=== PATIENT | female | born 1935 | race Caucasian/White ===

== ENCOUNTER 2016-08-30 03:22 | Inpatient (IN) | payer OTHER, MEDICARE ==
[~2016-08-30] VITALS: Ht 160 cm; Wt 103.6 kg
[~2016-08-30 03:22] MED LIST: ADVAIR DISKUS 21 DSK INH; ALBUTEROL0.63 MG/1 INH/SOL; ALLOPURINOL300 MG PO; AMLODIPINE BESYL5 M1 PO; AMOXICILLIN500 MG PO; ASPIR 8181 MG PO; AUGMENTIN 500-1 EACH PO; AUGMENTIN 875 M1 TAB PO; AZITHROMYCIN250 M1 PO; AZITHROMYCIN500 M3 PO; BENICAR20 MG PO; CLOPIDOGREL75 MG PO; DULERA 200 MCG/13 GM INH; DULERA1 AR1 INH; FUROSEMIDE20 M1 PO; FUROSEMIDE40 M1 PO; FUROSEMIDE40 MG PO; HUMALOG KW100 UNIT/1 SC; HYDRALAZINE HCL10 M1 PO; IMODIUM2 MG PO; ISOSORBIDE MONO60 MG PO; LANTUS SOL100 UNIT/1 SC; LANTUS SOLOS100 U/ML SC; LANTUS100 U/ML SC; LEVEMIR100 UNIT/1 SC; LIPITOR40 M1 PO; LOPRESSOR 25MG25 MG PO; Lomotil PO; NOVOLOG 10300 UNITS/ SC; NOVOLOG100 UNIT/2 SC; PHENERGAN12.5 M1 PO; PREDNISONE10 M2 PO; PREDNISONE5 M1 PO; QUESTRAN4 GM/9 GM PO; RANITIDINE150 MG PO; SODIUM BICARBO648 MG PO; SPIRIVA 18 MCG18 MCG INH; SPIRIVA18 MCG INH; SYMBICORT 16010.2 GM INH; TRAMADOL50 MG PO; VENTOLIN H0.09 MG/Ac INH; VICTOZA6 MG/ML SC; VITAMIN D50000 IU PO; ZOFRAN 4 MG TABL4 MG PO
--- NOTE | 2016-08-30 03:25 | NUR ---
PT BIBA FOR INCREASING SOB. PT HAS HX OF CHF. PER EMS PT WAS HAVING INCREASING TROUBLE BREATHING, PT TOOK 4 OR 5 OF HER OWN ALBUTEROL TREATMENTS AT HOME AND WHEN EMS ARRIVED PT WAS ON OWN BIPAP MACHINE. PT RECIEVED 2 NITRO'S IN THE FIELD BY EMS. PT ARRIVED ON CPAP @ 10L RESPIRATORY AT BEDSIDE.
--- NOTE | 2016-08-30 03:30 | NUR ---
COURTNEY HOLMAN AT BEDSIDE FOR PT EVAL
--- NOTE | 2016-08-30 03:45 | NUR ---
PT MEDICATED WITH 125MG SOLUMEDROL PER EMAR
[2016-08-30 03:51] LABS: ABSOLUTE BASOPHIL COUNT 0 /CUMM (0.0-0.2); ABSOLUTE EOSINOPHIL COUNT 0 /CUMM (0.0-0.7); ABSOLUTE GRANULOCYTE CT 18.2 /CUMM (1.4-6.5); ABSOLUTE LYMPH COUNT 0.9 /CUMM (1.2-3.4); ABSOLUTE MONOCYTE COUNT 0.4 /CUMM (0.10-0.60); BASOPHIL % 0.1 % (0.0-2.0); EOSINOPHIL % 0.1 % (0-5); GRANULOCYTE % 93.6 % (42.2-75.2); MEAN CORPUSCULAR HGB 28.2 PG (27.0-31.0); MEAN CORPUSCULAR HGB CONC 31.9 G/DL (33.0-37.0); MEAN CORPUSCULAR VOLUME 88.3 FL (81.0-99.0); MEAN PLATELET VOLUME 8.5 FL (7.4-10.4); PLATELET COUNT 317 /CUMM (130-400); RED BLOOD CELL CT 3.51 /CUMM (4.20-5.40); WHITE BLOOD CELL COUNT 19.4 /CUMM (4.8-10.8)
--- NOTE | 2016-08-30 04:16 | RADIOLOGY REPORT ---
EXAMINATION: XR PORTABLE CHEST CLINICAL INFORMATION: COPD. Increasing work of breathing. COMPARISON: Multiple prior chest x-rays. Most recent Chest x-ray 05/04/[address] chest 04/10/2017 TECHNIQUE: Portable AP portable view of the chest was obtained. 3:53 PM FINDINGS: There is mild pulmonary vascular congestion. Small moderate volume bilateral pleural effusions. Bibasilar infiltrate or atelectasis may be present. IMPRESSION: Mild pulmonary vascular congestion with bilateral pleural effusions. Density at both lung bases may be also due to superimposed bibasilar infiltrate and/or atelectasis
--- NOTE | 2016-08-30 04:59 | NUR ---
CRITICAL TEST RESULTS [id number] PLUCIENIK,RICARDO 81 F TESTS AND RESULTS: GLUCOSE 508, POTASSIUM 6.5, TROPONIN 0.67 Results received and read back by: KAIDEN DODD Results received date and time: 08/30/16 7306 The following provider was notified of the results, and read the results back: DR. VALDEZ Notified date and time: 08/30/16 at [id number]
--- NOTE | 2016-08-30 04:59 | NUR ---
CRITICAL TEST RESULTS [id number] PLUCIENIK,RICARDO 81 F TESTS AND RESULTS: GLUCOSE 508, POTASSIUM 6.5, TROPONIN 6.5 Results received and read back by: KAIDEN DODD Results received date and time: 08/30/16 8101 The following provider was notified of the results, and read the results back: Notified date and time: 08/30/16 at 2227
--- NOTE | 2016-08-30 05:39 | ED DYSPNEA/ASTHMA COMPLAINT ---
History of Present Illness General Chief Complaint: Dyspnea (COPD, CHF, Other) Stated Complaint: CHF AND COPD EXACERBATION Source: patient, family, old records, EMS Exam Limitations: clinical condition Vital Signs & Intake/Output Vital Signs & Intake/Output Vital Signs Date Time Temp Pulse Resp B/P Pulse O2 O2 Flow FiO2 Ox Delivery Rate 08/30 0640 98 96 08/30 0523 97.7 90 22 177/76 95 BIPAP 30% 08/30 0344 94 97 08/30 0330 96 BIPAP 30% 08/30 0327 93 CPAP 10L 08/30 0325 96.2 99 18 137/72 93 CPAP 10L Allergies Coded Allergies: adhesive (RASH 04/10/16) cefuroxime (From CEFTIN) (HIVES 04/10/16) clams (UNKNOWN 04/10/16) latex (RASH 04/10/16) Iodinated Contrast Media - Oral and (IODINATED CONTRAST MEDIA - IV DYE) (PT HAS ONE KIDNEY 04/10/16) moxifloxacin (HEART PALP AND HIGH BLOOD SUGARS 04/10/16) Reconcile Medications Albuterol Sulfate 0.63 MG/3 ML VIAL.NEB 1 Vial INH/BRYANNA 4 TIMES/DAY PRN COPD ( Reported) Allopurinol 300 MG TAB 0.5 TAB PO DAILY GOUT (Reported) Amlodipine Besylate 5 MG TABLET 5 MG PO BID high blood pressure Aspirin (Ecotrin) 81 MG TABLET.DR 1 TAB PO DAILY HEART HEALTH (Reported) Atorvastatin Calcium (Lipitor) 40 MG TABLET 1 TAB PO QPM CHOLESTEROL ( Reported) Azithromycin 250 MG TABLET 1 TAB PO Friday COPD prophylaxis Please follow up with your demolition expert in 1 month for recommendations on continuing this medication Budesonide/Formoterol Fumarate (Symbicort 160-4.5 Mcg Inhaler) 10.2 GM HFA.AER.AD 2 PUF INH BID BREATHING PROBLEMS (Reported) CLOPIDOGREL BISULFATE (Clopidogrel) 75 MG TABLET 1 TAB PO DAILY HAS 2 STENTS (Reported) Furosemide 20 MG TABLET 1 TAB PO DAILY CHF Hydralazine HCl 10 MG TABLET 1 TAB PO BID HTN (Reported) Insulin Aspart (Novolog) 100 UNIT/ML VIAL 1 UNITS SC TIDAC/HS Diabetes BEFORE MEALS Blood Insulin Sugar Units <80 0 INITIATE HYPOGLYCEMIA 81-100 9 101-120 9 121-150 9 151-200 11 201-250 13 251-300 15 301-350 17 351-400 19 >400 21 AND Call Doctor AT BEDTIME Blood Insulin Sugar Units <80 0 80-100 0 101-120 0 121-150 0 151-200 0 201-250 0 251-300 3 301-350 5 351-400 6 >400 8 AND Call Doctor Insulin Detemir (Levemir) 100 UNIT/ML VIAL 36 UNITS SC BID Diabetes Please call Dr Minor in 2 days with fasting sugar levels for recommendations on adjusting levemir Isosorbide Mononitrate [address] 1 TAB PO DAILY ANGINA (Reported) Metoprolol Tartrate (Lopressor) 25 MG TABLET 1 TAB PO BID HEART (Reported) Prednisone 10 MG TABLET 1 TAB PO AD COPD exacerbation On Take 05/12-05/14 40 MG 05/15-05/17 30 MG 05/18-05/20 20 MG 05/21-05/23 10 MG Prednisone 5 MG TABLET 1 TAB PO DAILY COPD exacerbation On Take This will be your maintenance taper until follow up with your demolition expert From 05/24 5mg daily RANITIDINE HCL (Ranitidine HCl) 150 MG TABLET 1 TAB PO BID ACID REFLUX ( Reported) Tiotropium [place] (Spiriva) 18 MCG CAP.W.DEV 1 CAP INH DAILY COPD (Reported) Core Measure Meds Pre-Hospital aspirin Triage Note: PT BIBA FOR INCREASING SOB. PT HAS HX OF CHF. PER EMS PT WAS HAVING INCREASING TROUBLE BREATHING, PT TOOK 4 OR 5 OF HER OWN ALBUTEROL TREATMENTS AT HOME AND WHEN EMS ARRIVED PT WAS ON OWN BIPAP MACHINE. PT RECIEVED 2 NITRO'S IN THE FIELD BY EMS. PT ARRIVED ON CPAP @ 10L RESPIRATORY AT BEDSIDE. Triage Nurses Notes Reviewed? yes Onset: Just prior to arrival Duration: hour(s):, constant, continues in ED Timing: recent history Severity: severe Activities at Onset: rest Prior Episodes/Possible Cause: frequent episodes Modifying Factors: Worsens With: movement. Associated Symptoms: anxiety, cough, edema, weakness LMP (ages 10-50): post menopausal : No Patient currently breastfeeds: No HPI: Several hours prior to admission so reports patient had mild shortness of breath but did not look like she was suffering. Prior to admission she called her son to tell her she was having difficulty could not speak in full sentences. There is no report of chest pain fever chills nausea vomiting diarrhea abdominal pain dysuria rash bleeding headache. Past History Travel History Traveled to [place] past 21 day No Medical History Any Pertinent Medical History? 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 No Review of Systems Review of Systems Constitutional: Reports: see HPI, weakness. EENTM: Reports: no symptoms. Respiratory: Reports: see HPI, cough, short of breath. Cardiovascular: Reports: no symptoms. GI: Reports: no symptoms. Genitourinary: Reports: no symptoms. Musculoskeletal: Reports: no symptoms. Skin: Reports: no symptoms. Neurological/Psychological: Reports: no symptoms. Hematologic/Endocrine: Reports: no symptoms. Immunologic/Allergic: Reports: no symptoms. All Other Systems: Reviewed and Negative Physical Exam Physical Exam General Appearance: well developed/nourished, alert, awake, anxious, severe distress, obese Head: atraumatic, normal appearance Eyes: Bilateral: normal appearance, PERRL, EOMI. Ears, Nose, Throat: normal pharynx, normal ENT inspection Neck: normal inspection, supple, full range of motion, no midline tenderness Respiratory: chest non-tender, decreased breath sounds, accessory muscle use, rhonchi, respiratory distress Cardiovascular: regular rate/rhythm, normal peripheral pulses, norml femoral pulses equa Peripheral Pulses: 4+ carotid (R), 4+ carotid (L) Gastrointestinal: normal bowel sounds, soft, non-tender, no organomegaly Extremities: normal inspection, normal capillary refill, normal range of motion, pedal edema Neurologic/Psych: no motor/sensory deficits, awake, alert, restrictive preparation operator II-XII nml as tested Skin: intact, pallor Lymphatic: no anterior cervical jose Core Measures ACS in differential dx? Yes ASA ordered for poss ACS? Yes-ordered Severe Sepsis Present: No Septic Shock Present: No Progress Differential Diagnosis: AMI, CHF, COPD, pneumonia Plan of Care: Orders Procedure Date/time Status Regular Diet 08/31 B Active Consistent Carbohydrate 2 08/30 B Active LACTIC ACID 08/30 0634 Active Gutierrez, Insertion/Removal/Asses 08/30 0616 Active CULTURE,URINE 08/30 0616 Active TRC EVALUATION (GEN) 08/30 06 Active OXYGEN SETUP (GEN) 08/30 0605 Active Pathway - chart 08/30 0605 Active House Staff 08/30 0605 Active Patient Data 08/30 0605 Active Code Status 08/30 0605 Active Patient Data 08/30 0537 Active EKG 08/30 0516 Active Intake & Output 08/30 0426 Active BIPAP 08/30 0343 Complete Code Status 08/30 0338 Complete Saline Lock 08/30 0335 Active Admit to inpatient 08/30 0335 Active Vital Signs 08/30 0335 Active Activity/Ambulation 08/30 0335 Active ARTERIAL BLOOD GAS (GEN) 08/30 0334 Complete BLOOD CULTURE 08/30 0334 Active TROPONIN LEVEL 08/30 0334 Complete LACTIC ACID 08/30 0334 Complete COMPREHENSIVE METABOLIC PANEL 08/30 0334 Complete CBC WITHOUT DIFFERENTIAL 08/30 0334 Complete B-TYPE NATRIURETIC PEP (BNP) 08/30 0334 Complete VTE Mechanical Prophylaxis 08/30 UNK Active Telemetry/Outreach Manager 08/30 UNK Active Current Medications Sig/Michele Start time Last Medication Dose Stop Time Status Admin Heparin Sodium 5,000 UNIT Q8 08/30 0600 AC (Porcine) Aspirin 300 MG ONCE ONE 08/30 0530 CAN (Aspirin) 08/30 0531 Laboratory Tests 08/30/16 0415: pH 7.33 L, pCO2 46 H, pO2 76 L, HCO3 23, ABG O2 Sat (Measured) 94.0 L, P-50 (Temp Corrected) N, Carboxyhemoglobin 0.3 L, O2 Concentration % .30, Respiration Rate 24, O2 Delivery Method BIPAP, Vent Mode ST, Expiratory Pressure 6, Inspiratory Pressure 20, Phlebotomy Draw Site RIGHT RADIAL 08/30/16 0330: Anion Gap 13, Estimated GFR 33 L, BUN/Creatinine Ratio 28.7 H, Glucose 508 *H, Lactic Acid 1.5, Calcium 8.5, Total Bilirubin 0.6, AST 29, ALT 28, Alkaline Phosphatase 104, Troponin I 0.67 *H, [id number] Pept 3190 H, Total Protein 6.7, Albumin 3.7, Globulin 3.0, Albumin/Globulin Ratio 1.2, CBC w Diff MAN DIFF ORDERED, RBC 3.51 L, MCV 88.3, MCH 28.2, RDW 17.0 H, MPV 8.5, Gran % 93.6 H, Lymphocytes % 4.4 L, Monocytes % 1.8, Eosinophils % 0.1, Basophils % 0.1, Absolute Granulocytes 18.2 H, Segmented Neutrophils 88 H, Band Neutrophils 3, Absolute Lymphocytes 0.9 L, Lymphocytes 5 L, Monocytes 1 L, Absolute Monocytes 0.4, Eosinophils 1, Absolute Eosinophils 0, Absolute Basophils 0, Metamyelocytes 2 H, Platelet Estimate ADEQUATE, Normocytic RBCs VERIFIED, Normochromic RBCs VERIFIED, PUBS MCHC 31.9 L, Fld Total RBCs Counted 100 Microbiology 08/30 0616 URINE ROUT: Urine Culture - ORD 08/30 034 BLOOD: Blood Culture - RECD 08/30 033 BLOOD: Blood Culture - RECD Diagnostic Imaging: Viewed by Me: Radiology Read. Discussed w/RAD: Radiology Read. CXR Impression: Mild pulmonary vascular congestion with bilateral pleural effusions. Density at both lung bases may be also due to superimposed bibasilar infiltrate and/or atelectasis Initial ED EKG: normal axis, normal intervals, normal p-waves, normal QRS complex, normal sinus rhythm, nonspecific ST T wave chg Prior EKG: changed Rhythm Strip: normal sinus rhythm Departure Departure Time of Disposition: 399 Disposition: STILL A PATIENT Condition: Stable Clinical Impression Primary Impression: Pneumonia Qualifiers: Pneumonia type: due to unspecified organism Laterality: bilateral Lung location: lower lobe of lung Qualified Code: J18.9 - Pneumonia, unspecified organism Secondary Impressions: Acute hyperkalemia CHF (congestive heart failure) Qualifiers: Congestive heart failure type: diastolic Congestive heart failure chronicity: acute on chronic Qualified Code: I50.33 - Acute on chronic diastolic (congestive) heart failure COPD with exacerbation Elevated troponin Referrals: DAVID ALTAMIRANO MD (PCP/Family) Departure Forms: Customer Survey General Discharge Information Admission Note Spoke With: EVELIA HOLMAN,SUCHITH Documentation of Exam: Documentation of any treatments & extenuating circumstances including Concerns Regarding Discharge (functional status, medication knowledge or non-compliance, living conditions, etc.) that warrant an admission rather than observation: Supplemental oxygen Cardiac monitoring serial lab exam serial EKG IV antibiotics IV diuresis cardiology evaluation pulmonary evaluation medication adjustment continuing care discharge planning Critical Care Note Critical Care Note Critical Care Time: 30-74 min (40)
--- NOTE | 2016-08-30 05:57 | NUR ---
PT MEDICATED WITH 40MG LASIX, 15 UNITS OF NOVOLIN R, 1G FORTAZ, 100MG VIBRAMYCIN, 325MG ASPIRIN, AND 1G OF CALCIUM GLUCONATE SECOND IV EST #22 IN LEFT HAND BY SERG RICHARDSON KAPLAN CATHETER PLACED BY SERG RICHARDSON
--- NOTE | 2016-08-30 06:19 | NUR ---
ASSUMED CARE OF THIS PATIENT, REPORT RECEIVED FROM SERG TURNER WITH PATIENT AT PRESENT
[2016-08-30] MEDS ORDERED: PROAIR HFA8.5 GM INH (06:51)
[2016-08-30] MEDS ORDERED: PULMICORT0.5 MG/21 INH/SOL (06:51)
[2016-08-30] MEDS ORDERED: LEVEMIR100 UNIT/1 SC ×2 (06:52→07:12)
[2016-08-30] MEDS ORDERED: PREDNISONE10 M2 PO (06:52)
--- NOTE | 2016-08-30 07:12 | NUR ---
PT ASSISTED ON/OFF BEDPAN FOR POSSIBLE BM, NO BM AT THIS TIME. PT REQUESTING NEB TREATMENT. RESP PAGED FOR SAME.
--- NOTE | 2016-08-30 07:24 | NUR ---
RESPIRATORY THERAPIST AT BEDSIDE FOR NEB TREATMENT FLU SWAB OBTAINED/SENT TO LAB
--- NOTE | 2016-08-30 07:29 | History & Physical ---
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 She was BIBA for worsening of shortness of breath. According to son she was at her baseline yesterday evening when he saw her. Patient reported that after going to bed she could not sleep and her breathing got worse. Around 2 AM last night she could not breathe and called her son. Patient is also complaining of chest pain that is radiating to her back. She is also complaining of nausea and feeling chills. Also reports wheezing and denies any palpitations, chest congestion , vomiting, dizziness lightheadedness, abdominal pain, diarrhea, any change in urinary habits. She lives alone and does not have any home health services. She denies smoking, drinking alcohol or use of recreational drugs. Allergies/Medications Allergies: Coded Allergies: adhesive (RASH 04/10/16) cefuroxime (From CEFTIN) (HIVES 04/10/16) clams (UNKNOWN 04/10/16) latex (RASH 04/10/16) Iodinated Contrast Media - Oral and (IODINATED CONTRAST MEDIA - IV DYE) (PT HAS ONE KIDNEY 04/10/16) moxifloxacin (HEART PALP AND HIGH BLOOD SUGARS 04/10/16) Home Med list Albuterol Sulfate (Proair Hfa) 90 MCG HFA.AER.AD 2 PUF INH Q4-6 PRN PRN COPD (Reported) Albuterol Sulfate 0.63 MG/3 ML VIAL.NEB 1 Vial INH/BRYANNA 4 TIMES/DAY PRN COPD ( Reported) Allopurinol 300 MG TAB 0.5 TAB PO DAILY GOUT (Reported) Amlodipine Besylate 5 MG TABLET 5 MG PO BID high blood pressure Aspirin (Ecotrin) 81 MG TABLET.DR 1 TAB PO DAILY HEART HEALTH (Reported) Atorvastatin Calcium (Lipitor) 40 MG TABLET 1 TAB PO QPM CHOLESTEROL ( Reported) Azithromycin 250 MG TABLET 1 TAB PO Friday COPD prophylaxis Please follow up with your client administrator in 1 month for recommendations on continuing this medication Budesonide (Pulmicort) 0.5 MG/2 ML AMPUL.NEB 1 Vial INH/BRYANNA BID copd ( Reported) CLOPIDOGREL BISULFATE (Clopidogrel) 75 MG TABLET 1 TAB PO DAILY HAS 2 STENTS (Reported) Furosemide 20 MG TABLET 1 TAB PO DAILY CHF Hydralazine HCl 10 MG TABLET 1 TAB PO BID HTN (Reported) Insulin Aspart (Novolog) 100 UNIT/ML VIAL 1 UNITS SC TIDAC/HS Diabetes BEFORE MEALS Blood Insulin Sugar Units <80 0 INITIATE HYPOGLYCEMIA 81-100 9 101-120 9 121-150 9 151-200 11 201-250 13 251-300 15 301-350 17 351-400 19 >400 21 AND Call Doctor AT BEDTIME Blood Insulin Sugar Units <80 0 80-100 0 101-120 0 121-150 0 151-200 0 201-250 0 251-300 3 301-350 5 351-400 6 >400 8 AND Call Doctor Insulin Detemir (Levemir) 100 UNIT/ML VIAL 36 UNITS SC BID Diabetes 40 UNITS IN AM AND 35 UNITS IN PM Isosorbide Mononitrate [address] 1 TAB PO DAILY ANGINA (Reported) Metoprolol Tartrate (Lopressor) 25 MG TABLET 1 TAB PO BID HEART (Reported) Prednisone 10 MG TABLET 1 TAB PO EOD COPD exacerbation Take every other day RANITIDINE HCL (Ranitidine HCl) 150 MG TABLET 1 TAB PO BID ACID REFLUX ( Reported) Tiotropium [place] (Spiriva) 18 MCG CAP.W.DEV 1 CAP INH DAILY COPD (Reported) Compliance With Home Meds: POOR Past History Travel History Traveled to [place] past 21 day No Medical History Neurological: NONE EENT: NONE Cardiovascular: diastolic CHF (stage I, EF of 55%), hypertension, hyperlipidemia , myocardial infarction, PVD, CAD s/p OR and 2 stents Respiratory: COPD, emphysema, OLLIE Gastrointestinal: GERD, hiatal hernia, umbilical hernia, colon polyps Hepatic: NONE Renal: nephrectomy (RIGHT), ONLY HAS LEFT KIDNEY CHRONIC KIDNEY DISEASE STAGE II Musculoskeletal: chronic back pain, gout Psychiatric: NONE Endocrine: diabetes, obesity Blood Disorders: NONE Cancer(s): hx renal ca s/p R nephrectomy 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 self Services at Home: None Primary Language: Yakut Living Will? no Functional Ability ADLs Independent: dressing, eating, toileting, bathing. Ambulation: walker IADLs Independent: shopping, food prep, telephone, transportation, medication admin. Needs Assist: housework, finances. Review of Systems Review of Systems Constitutional: Reports: see HPI. Exam & Diagnostic Data Last 24 Hrs of Vital Signs/I&O Vital Signs Date Time Temp Pulse Resp B/P Pulse O2 O2 Flow FiO2 Ox Delivery Rate 08/30 0733 93 27 154/60 100 Aerosol Mask 08/30 0728 95 BIPAP 30% 08/30 0703 97.0 101 32 184/94 94 CPAP 08/30 0640 98 96 08/30 0523 97.7 90 22 177/76 95 BIPAP 30% 08/30 0344 94 97 08/30 0330 96 BIPAP 30% 08/30 0327 93 CPAP 10L 08/30 0325 96.2 99 18 137/72 93 CPAP 10L Intake & Output 08/30 0800 08/30 0000 08/29 1600 Intake Total Output Total Balance Patient 245 lb Weight Physical Exam General Appearance Alert, Oriented X3, Cooperative, Mild Distress, OBESE Skin No Rashes Cardiovascular Regular Rate, No Murmurs Lungs bilateral basal crackles. No wheezing Abdomen Normal Bowel Sounds, No Tenderness, obese Neurological Strength at 5/5 X4 Ext, Sensation Intact, Cranial Nerves 3-12 NL Extremities trace edema both feet Last 24 Hrs of Labs/Romain: Laboratory Tests 08/30/16 0634: Lactic Acid Cancelled 08/30/16 0415: pH 7.33 L, pCO2 46 H, pO2 76 L, HCO3 23, ABG O2 Sat (Measured) 94.0 L, P-50 (Temp Corrected) N, Carboxyhemoglobin 0.3 L, O2 Concentration % .30, Respiration Rate 24, O2 Delivery Method BIPAP, Vent Mode ST, Expiratory Pressure 6, Inspiratory Pressure 20, Phlebotomy Draw Site RIGHT RADIAL 08/30/16 033: Anion Gap 13, Estimated GFR 33 L, BUN/Creatinine Ratio 28.7 H, Glucose 508 *H, Lactic Acid 1.5, Calcium 8.5, Total Bilirubin 0.6, AST 29, ALT 28, Alkaline Phosphatase 104, Troponin I 0.67 *H, Ugc-L-Rrajipowodb Pept 3190 H, Total Protein 6.7, Albumin 3.7, Globulin 3.0, Albumin/Globulin Ratio 1.2, CBC w Diff MAN DIFF ORDERED, RBC 3.51 L, MCV 88.3, MCH 28.2, RDW 17.0 H, MPV 8.5, Gran % 93.6 H, Lymphocytes % 4.4 L, Monocytes % 1.8, Eosinophils % 0.1, Basophils % 0.1, Absolute Granulocytes 18.2 H, Segmented Neutrophils 88 H, Band Neutrophils 3, Absolute Lymphocytes 0.9 L, Lymphocytes 5 L, Monocytes 1 L, Absolute Monocytes 0.4, Eosinophils 1, Absolute Eosinophils 0, Absolute Basophils 0, Metamyelocytes 2 H, Platelet Estimate ADEQUATE, Normocytic RBCs VERIFIED, Normochromic RBCs VERIFIED, PUBS MCHC 31.9 L, Fld Total RBCs Counted 100 Microbiology 08/30 0723 NASOPHARYN: Influenza Virus A & B Rapid Smear - COMP 08/30 0616 URINE ROUT: Urine Culture - ORD 08/30 0340 BLOOD: Blood Culture - RECD 08/30 0330 BLOOD: Blood Culture - RECD Diagnostic Data EKG Results Normal sinus rhythm with no acute ST-T wave changes. Old T wave inversions in the lateral inferior and chest leads CXR Results Mild pulmonary vascular congestion with bilateral pleural effusions. Density at both lung bases may be also due to superimposed bibasilar infiltrate and/or atelectasis Assessment/Plan Assessment: She is 81-year-old morbidly obese woman with past medical history of coronary artery disease status post stent placement, hypertension, hyperlipidemia, poorly controlled diabetes, end-stage COPD on 2 L of home oxygen only during exertion, diastolic heart failure with small bilateral pleural effusions, CKD, history of renal cell carcinoma status post right nephrectomy, obstructive sleep apnea on BiPAP at home, chronic anemia, history of hematuria status post negative cystoscopy and gout. Patient received 2 nitros in the field by EMS. On arrival patient was on CPAP at 10 L. Later on he was started on BiPAP by respiratory. In ER she was given nebulization treatment, Solu-Medrol 125 mg IV 1, ceftaz 1 g IV 1 and doxycycline 100 mg IV 1. In ER she was also given IV Lasix 40 mg 1, aspirin 325 by mouth 1, calcium gluconate and insulin. Problem list 1. Worsening of shortness of breath most likely due to diastolic CHF exacerbation. Other possibilities COPD exacerbation and possibility of pneumonia. Patient is feeling chills. WBC 19.4, proBNP 3190, chest x-ray findings are suggestive of pulmonary vascular congestion and bilateral basal infiltrates or atelectasis. 2. Poorly controlled diabetes mellitus 3. Hyperkalemia 4. Chest pain with elevated troponins 5. History of obstructive sleep apnea on BiPAP 6. CKD, history of renal cell carcinoma, with previous nephrectomy, currently stable and baseline. 7. History of hypertensionand hyperlipidemia. 8. Morbid obesity 9. Chronic anemia without evidence of bleeding 10. History of gout Plan We will admit patient on telemetry floor. Continue BiPAP. We will repeat ABGs after 2-3 hours. Change settings accordingly. We will continue IV Solu-Medrol. Sputum cultures. IV Lasix 40 mg twice a day. Strict I's and O's. Daily weights. We will start patient on ceftriaxone and Zithromax for community- acquired pneumonia. Continue [facility] Pulmonary and cardio consult in a.m. Serial EKGs and troponins. Follow blood and urine cultures. Monitor potassium levels. We will repeat BEP at 9 AM. NovoLog insulin sliding scale before each meal in addition to bedtime sliding scale. We'll continue her home dose of insulin Levemir. Accu-Cheks before each meal and at bedtime. Endo consult in a.m. Pain management pathway. Consistent carbohydrate diet. Subcutaneous heparin for DVT prophylaxis. She is DNR/DNI. As Ranked By This Provider Problem List: 1. CHF (congestive heart failure) Qualifiers Congestive heart failure type: diastolic Congestive heart failure chronicity: acute on chronic Qualified Code: I50.33 - Acute on chronic diastolic (congestive ) heart failure 2. Pneumonia Qualifiers Pneumonia type: due to unspecified organism Laterality: bilateral Lung location : lower lobe of lung Qualified Code: J18.9 - Pneumonia, unspecified organism 3. Acute hyperkalemia 4. COPD exacerbation 5. Elevated troponin Core Measures/Miscellaneous Acute Coronary Syndrome ACS Diagnosis: No Cerebrovascular Accident CVA/TIA Diagnosis: No Congestive Heart Failure CHF Diagnosis: Yes Date of most recent Echo: 05/09/16 Last Known EF %: 60 SUNDAR/ARB for EF <40%: No No SUNDAR/ARB d/t: Medical Contraindication Venous Thromboembolism VTE Risk Factors: Acute medical illness, Age > 40 VTE Prophylaxis Ordered Inpt: Pharm- Heparin No Mech VTE prophylaxis d/t: No contraindications No VTE Pharm Prophylaxis d/t: No contraindications VTE Diagnosis: No VTE Type: NONE VTE Confirmed by (Test): NONE Severe Sepsis Severe Sepsis Present: No Septic Shock Septic Shock Present: No Miscellaneous Documentation Attending Case Discussed With: DAVID ALTAMIRANO MD Primary Care Physician: DAVID ALTAMIRANO MD Patient sees these Specialists MD Abisai Hurst MD Level of Patient Care: General Medicine Consults Needed: Consulting Specialty: Cardiology DAVID ALTAMIRANO MD 08/30/16 0901: Attending Review Statement Attending Statement Attending Statement: examined this patient, discuss w/resident/PA/HOOD FITTER, agreed w/resident/PA/HOOD FITTER, discussed with family, reviewed EMR data (avail)
--- NOTE | 2016-08-30 07:30 | NUR ---
PAGED HOUSESTAFF PAGER #[phone] FOR QUESTIONS REGARDING DUPLICATE INSULIN ORDER. AWAITING CALL BACK.
--- NOTE | 2016-08-30 07:40 | Cons- Endocrinology ---
General Information and HPI Consulting Request Date of Consult: 08/30/16 Requested By: medical team Reason for Consult: Uncontrolled diabetes Source of Information: patient, old records Exam Limitations: no limitations History of Present Illness: This 81-year-old woman with a known history of diabetes mellitus type 2 associated with obesity came into the emergency room with shortness of breath. She has a past history also of COPD and coronary artery disease status post stents and congestive heart failure. She has been treated with high doses of steroids. She also received some IV Lasix. Her blood sugar was very elevated along with an elevated potassium. The patient has received a bolus of IV insulin with improvement. Apparently the patient is on 35 units twice a day at home along with large doses of sliding scale NovoLog. Allergies/Medications Allergies: Coded Allergies: adhesive (RASH 04/10/16) cefuroxime (From CEFTIN) (HIVES 04/10/16) clams (UNKNOWN 04/10/16) latex (RASH 04/10/16) Iodinated Contrast Media - Oral and (IODINATED CONTRAST MEDIA - IV DYE) (PT HAS ONE KIDNEY 04/10/16) moxifloxacin (HEART PALP AND HIGH BLOOD SUGARS 04/10/16) Home Med List: Albuterol Sulfate (Proair Hfa) 90 MCG HFA.AER.AD 2 PUF INH Q4-6 PRN PRN COPD (Reported) Albuterol Sulfate 0.63 MG/3 ML VIAL.NEB 1 Vial INH/BRYANNA 4 TIMES/DAY PRN COPD ( Reported) Allopurinol 300 MG TAB 0.5 TAB PO DAILY GOUT (Reported) Amlodipine Besylate 5 MG TABLET 5 MG PO BID high blood pressure Aspirin (Ecotrin) 81 MG TABLET.DR 1 TAB PO DAILY HEART HEALTH (Reported) Atorvastatin Calcium (Lipitor) 40 MG TABLET 1 TAB PO QPM CHOLESTEROL ( Reported) Azithromycin 250 MG TABLET 1 TAB PO Friday COPD prophylaxis Please follow up with your sales utility representative in 1 month for recommendations on continuing this medication Budesonide (Pulmicort) 0.5 MG/2 ML AMPUL.NEB 1 Vial INH/BRYANNA BID copd ( Reported) CLOPIDOGREL BISULFATE (Clopidogrel) 75 MG TABLET 1 TAB PO DAILY HAS 2 STENTS (Reported) Furosemide 20 MG TABLET 1 TAB PO DAILY CHF Hydralazine HCl 10 MG TABLET 1 TAB PO BID HTN (Reported) Insulin Aspart (Novolog) 100 UNIT/ML VIAL 1 UNITS SC TIDAC/HS Diabetes BEFORE MEALS Blood Insulin Sugar Units <80 0 INITIATE HYPOGLYCEMIA 81-100 9 101-120 9 121-150 9 151-200 11 201-250 13 251-300 15 301-350 17 351-400 19 >400 21 AND Call Doctor AT BEDTIME Blood Insulin Sugar Units <80 0 80-100 0 101-120 0 121-150 0 151-200 0 201-250 0 251-300 3 301-350 5 351-400 6 >400 8 AND Call Doctor Insulin Detemir (Levemir) 100 UNIT/ML VIAL 36 UNITS SC BID Diabetes 40 UNITS IN AM AND 35 UNITS IN PM Isosorbide Mononitrate [address] 1 TAB PO DAILY ANGINA (Reported) Metoprolol Tartrate (Lopressor) 25 MG TABLET 1 TAB PO BID HEART (Reported) Prednisone 10 MG TABLET 1 TAB PO EOD COPD exacerbation Take every other day RANITIDINE HCL (Ranitidine HCl) 150 MG TABLET 1 TAB PO BID ACID REFLUX ( Reported) Tiotropium [place] (Spiriva) 18 MCG CAP.W.DEV 1 CAP INH DAILY COPD (Reported) Current Medications: Current Medications Sig/Michele Start time Last Medication Dose Route Stop Time Status Admin Albuterol Sulfate 3 ML ONCE ONE 08/30 0730 UNVr 08/30 INH 08/30 0731 0725 Albuterol Sulfate 3 ML Q4H PRN 08/30 0700 UNVr INH Albuterol Sulfate 3 ML ONCE ONE 08/30 0345 DC 08/30 INH 08/30 0346 0342 Allopurinol 150 MG DAILY 08/30 1000 UNVr PO Amlodipine Besylate 5 MG BID 08/30 1000 UNVr PO Aspirin 324 MG ONCE ONE 08/30 0600 DC 08/30 PO 08/30 0601 0556 Aspirin 0 .STK-MED ONE 08/30 0551 DC PO Aspirin 300 MG ONCE ONE 08/30 0530 CAN NJ 08/30 0531 Aspirin Buffered 81 MG DAILY 08/30 1000 UNVr PO Atorvastatin Calcium 40 MG QPM 08/30 2200 UNVr PO Azithromycin 500 MG DAILY 08/30 1000 UNVr Dextrose/Water 250 ML IV Calcium Gluconate 0 .STK-MED ONE 08/30 05 DC IV Calcium Gluconate 1 GM ONCE ONE 08/30 0515 DC 08/30 Sodium Chloride 100 ML IV 08/30 0614 0556 Ceftazidime 0 .STK-MED ONE 08/30 0529 DC .ROUTE Ceftazidime 1,000 MG ONCE ONE 08/30 0445 DC 08/30 IV 08/30 0446 0556 Ceftriaxone Sodium 1,000 MG DAILY 08/30 1000 UNVr IV Clopidogrel Bisulfate 75 MG DAILY 08/30 1000 UNVr PO Doxycycline Hyclate 100 MG ONCE ONE 08/30 0445 DC 08/30 Sodium Chloride 100 ML IV 08/30 0550 0556 Famotidine 150 MG BID 08/30 1000 UNVr PO Furosemide 40 MG 7:30 AM, & 4:30 PM 08/30 0730 UNVr IV Furosemide 0 .STK-MED ONE 08/30 0529 DC IV Furosemide 40 MG ONCE ONE 08/30 0445 DC 08/30 IV 08/30 0446 0556 Heparin Sodium 0 .STK-MED ONE 08/30 0712 DC (Porcine) .ROUTE Heparin Sodium 5,000 UNIT Q8 08/30 0600 AC 08/30 (Porcine) SC 0712 Hydralazine HCl 10 MG BID 08/30 1000 UNVr PO Insulin Aspart 0 TIDAC 08/30 0800 UNVr SC Insulin Aspart 0 TIDAC 08/30 0800 UNVr SC Insulin Detemir 36 UNITS BID 08/30 1000 UNVr SC Insulin Human Regular 15 UNITS ONCE ONE 08/30 0530 DC 08/30 IV 08/30 0531 0556 Ipratropium [place] 2.5 ML ONCE ONE 08/30 0730 UNVr 08/30 INH 08/30 0731 0725 Ipratropium [place] 2.5 ML Q4-6 PRN PRN 08/30 0700 UNVr INH Ipratropium [place] 2.5 ML ONCE ONE 08/30 0345 DC 08/30 INH 08/30 0346 0342 Isosorbide 60 MG DAILY 08/30 1000 UNVr Mononitrate PO Methylprednisolone 40 MG Q12 08/30 1000 UNVr IV Methylprednisolone 0 .STK-MED ONE 08/30 0348 DC .ROUTE Methylprednisolone 125 MG ONCE ONE 08/30 0345 DC 08/30 IV 08/30 0346 0345 Metoprolol Tartrate 25 MG BID 08/30 1000 UNVr PO Tiotropium [place] 1 PUF DAILY 08/30 1000 UNVr INH Review of Systems Review of Systems Constitutional: Denies: chills, fever. Cardiovascular: Denies: chest pain. Respiratory: Reports: cough, short of breath, wheezing. GI: Denies: nausea, vomiting. Genitourinary: Denies: dysuria. Skin: Reports: no symptoms. 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 self Services at Home: None Primary Language: Kazakh Living Will? no Functional Ability ADLs Independent: dressing, eating, toileting, bathing. Ambulation: walker IADLs Independent: shopping, food prep, telephone, transportation, medication admin. Needs Assist: housework, finances. Exam & Diagnostic Data Last 24 Hrs of Vital Signs/I&O Vital Signs Date Time Temp Pulse Resp B/P Pulse O2 O2 Flow FiO2 Ox Delivery Rate 08/30 0728 95 BIPAP 30% 08/30 0703 97.0 101 32 184/94 94 CPAP 08/30 0640 98 96 08/30 0523 97.7 90 22 177/76 95 BIPAP 30% 08/30 0344 94 97 08/30 0330 96 BIPAP 30% 08/30 0327 93 CPAP 10L 08/30 0325 96.2 99 18 137/72 93 CPAP 10L Intake & Output 08/30 0800 08/30 0000 08/29 1600 Intake Total Output Total Balance Patient 245 lb Weight Vital Signs Date Time Temp Pulse Resp B/P Pulse O2 O2 Flow FiO2 Ox Delivery Rate 08/30 0728 95 BIPAP 30% 08/30 0703 97.0 101 32 184/94 94 CPAP 08/30 0640 98 96 08/30 0523 97.7 90 22 177/76 95 BIPAP 30% 08/30 0344 94 97 08/30 0330 96 BIPAP 30% 08/30 0327 93 CPAP 10L 08/30 0325 96.2 99 18 137/72 93 CPAP 10L Intake & Output 08/30 0800 08/30 0000 08/29 1600 Intake Total Output Total Balance Patient 245 lb Weight Labs/Romain Results: Laboratory Tests 08/30 08/30 0634 0415 Blood Gas pH (7.35 - 7.45 PH) 7.33 L pCO2 (35 - 45 TORR) 46 H pO2 (80 - 100 TORR) 76 L HCO3 (21 - 28 MEQ/L) 23 ABG O2 Sat (Measured) (>96.0 %) 94.0 L P-50 (Temp Corrected) N Carboxyhemoglobin (1.5 - 5.0 %) 0.3 L O2 Concentration % .30 Respiration Rate (BPM) 24 O2 Delivery Method BIPAP Vent Mode ST Expiratory Pressure (CM H2O P) 6 Inspiratory Pressure (CM H2O P) 20 Chemistry Lactic Acid Cancelled Miscellaneous Phlebotomy Draw Site RIGHT RADIAL 08/30 0330 Chemistry Sodium (137 - 145 mmol/L) 139 Potassium (3.5 - 5.1 mmol/L) 6.5 *H Chloride (98 - 107 mmol/L) 99 Carbon Dioxide (22 - 30 mmol/L) 27 Anion Gap (5 - 16) 13 BUN (7 - 17 mg/dL) 43 H Creatinine (0.5 - 1.0 mg/dL) 1.5 H Estimated GFR (>60 ml/min) 33 L BUN/Creatinine Ratio (7 - 25 %) 28.7 H Glucose (65 - 99 mg/dL) 508 *H Lactic Acid (0.7 - 2.1 mmol/L) 1.5 Calcium (8.4 - 10.2 mg/dL) 8.5 Total Bilirubin (0.2 - 1.3 mg/dL) 0.6 AST (14 - 36 U/L) 29 ALT (9 - 52 U/L) 28 Alkaline Phosphatase (<127 U/L) 104 Troponin I (< 0.11 ng/ml) 0.67 *H [id number] Pept (<125 pg/mL) 3190 H Total Protein (6.3 - 8.2 g/dL) 6.7 Albumin (3.5 - 5.0 g/dL) 3.7 Globulin (1.9 - 4.2 gm/dL) 3.0 Albumin/Globulin Ratio (1.1 - 2.2 %) 1.2 Hematology CBC w Diff MAN DIFF ORDERED WBC (4.8 - 10.8 /CUMM) 19.4 H RBC (4.20 - 5.40 /CUMM) 3.51 L Hgb (12.0 - 16.0 G/DL) 9.9 L Hct (37 - 47 %) 31.0 L MCV (81.0 - 99.0 FL) 88.3 MCH (27.0 - 31.0 PG) 28.2 RDW (11.5 - 14.5 %) 17.0 H Plt Count (130 - 400 /CUMM) 317 MPV (7.4 - 10.4 FL) 8.5 Gran % (42.2 - 75.2 %) 93.6 H Lymphocytes % (20.5 - 51.1 %) 4.4 L Monocytes % (1.7 - 9.3 %) 1.8 Eosinophils % (0 - 5 %) 0.1 Basophils % (0.0 - 2.0 %) 0.1 Absolute Granulocytes (1.4 - 6.5 /CUMM) 18.2 H Segmented Neutrophils (42.2 - 75.2 %) 88 H Band Neutrophils (0.0 - 5.0 %) 3 Absolute Lymphocytes (1.2 - 3.4 /CUMM) 0.9 L Lymphocytes (20.5 - 51.1 %) 5 L Monocytes (1.7 - 9.3 %) 1 L Absolute Monocytes (0.10 - 0.60 /CUMM) 0.4 Eosinophils (0 - 5.0 %) 1 Absolute Eosinophils (0.0 - 0.7 /CUMM) 0 Absolute Basophils (0.0 - 0.2 /CUMM) 0 Metamyelocytes (0.0 - 1.0 %) 2 H Platelet Estimate (ADEQUATE) ADEQUATE Normocytic RBCs VERIFIED Normochromic RBCs VERIFIED PUBS MCHC (33.0 - 37.0 G/DL) 31.9 L Other Body Source Fld Total RBCs Counted (%) 100 Assessment/Plan Assessment/Plan This patient's blood sugar is out of control secondary to high-dose steroids and the stress of her acute illness. Her shortness of breath seems to be a combination of COPD and congestive heart failure. She did receive some Lasix in the ER. She is going to be on methylprednisolone 40 mg twice a day. The patient's potassium was high but it should be coming down with her insulin therapy and the Lasix which she receives. Should be rechecked soon. With regard to her residence than I would continue the Levemir 36 units twice a day. We need to begin sliding-scale NovoLog before meals. Sliding-scale NovoLog before meals should be 80-150 give 14 units NovoLog, 151-200 give 16 units NovoLog, 201-250 give 18 units NovoLog, 251-300 give 20 units NovoLog, 301 -350 give 22 units NovoLog, 351-400 give 24 units NovoLog. A separate bedtime sliding-scale NovoLog coverage should be written. NovoLog coverage at bedtime should be less than 250 give no insulin, 251 at 300 give 3 units NovoLog, 350 give 4 units NovoLog, 351-400 give 5 units NovoLog. Consult Acknowledgment - Thank you for your consult request.
--- NOTE | 2016-08-30 08:10 | NUR ---
DR ALTAMIRANO AT BEDSIDE FOR EVAL
--- NOTE | 2016-08-30 08:11 | NUR ---
REPORT TO SERG ALTAMIRANO AT BEDSIDE FOR EVAL. SPOKE WITH DR ALTAMIRANO REGARDING PT F/S AND SLIDING SCALE COVERAGE WHICH IS FOR PT THAT IS EATING BUT PATIENT IS NOT EATING BREAKFAST. PER DR ALTAMIRANO HE WILL SPEAK WITH HOUSESTAFF AND GET ORDER FOR 6 UNITS INSULIN AT THIS TIME. HOUSESTAFF REPAGED BY BALTAZAR MICHAEL (QUILL REAMER) AT THIS TIME WELL. TRANSPORT PENDING SAME.
--- NOTE | 2016-08-30 08:24 | NUR ---
TRANSPORT BOOKED 173-1
--- NOTE | 2016-08-30 08:30 | NUR ---
PT MEDICATED WITH INSULIN 6 UNITS PER ORDERS.
--- NOTE | 2016-08-30 08:54 | Admission Certification ---
Admission Certification Certification Statement - As attending physician, I certify that at the time of - admission, based on clinical presentation, severity of - symptoms, need for further diagnostic testing and - therapeutic interventions, and risk of adverse outcomes - without in-hospital treatment, in my clinical assessment, - this patient requires an acute hospital stay for a minimum - of two nights or longer. I have also considered psychsocial - factors such as support system, advanced age, financial - issues, cognitive issues, and failed out-patient treatments, - past re-admission history, safety of patient, and lack of - compliance as applicable. Specific rationale supporting this admission is: COPD, CHF AND PNEUMONIA
--- NOTE | 2016-08-30 09:01 | PN- Att Addend ---
Attending Addendum Attending Brief Note Patient on evaluation is currently on a BiPAP General Appearance: Alert, No Acute Distress Skin: Grossly normal HEENT: [place]ER[place] Neck: Supple, No JVD Cardiovascular: Regular Rate, Normal S1, Normal S2, No Murmurs Lungs: Expiratory wheeze Abdomen: Normal Bowel Sounds, Soft, No Tenderness Neurological: Normal Speech, Strength at 5/5 X4 Ext, Cranial Nerves 3-12 NL, Reflexes 2+ Extremities: Bilateral pedal edema Assessment 81-year-old female with history of coronary artery disease, hypertension, hyperlipidemia, poorly controlled diabetes, COPD on home oxygen chronic kidney disease, history of renal cell cancer status post right nephrectomy presenting with complaints of shortness of breath and chills. She does have a left shift with bilateral infiltrates. ABG suggest hypercarbic and hypoxic respiratory failure. Patient appears to be in moderate CHF in addition to possible underlying pneumonia with exacerbation of COPD. she has positive troponins without EKG changes. Likely demand ischemia. Also noted hyponatremia. Plan Repeat potassium levels Cycle troponins and EKGs Continue current antibiotics Send sputum culture Continue Solu-Medrol IV Lasix twice a day, monitor kidney function closely Pulmonary and cardiac consult Continue other home medications DVT prophylaxis Current Medications Sig/Michele Start time Last Medication Dose Route Stop Time Status Admin Albuterol Sulfate 3 ML ONCE ONE 08/30 0730 DC 08/30 INH 08/30 0731 0725 Albuterol Sulfate 3 ML Q4P PRN 08/30 0700 AC INH Albuterol Sulfate 3 ML ONCE ONE 08/30 0345 DC 08/30 INH 08/30 0346 0342 Allopurinol 150 MG DAILY 08/30 1000 AC PO Amlodipine Besylate 5 MG BID 08/30 1000 AC PO Aspirin 324 MG ONCE ONE 08/30 0600 DC 08/30 PO 08/30 0601 0556 Aspirin 0 .STK-MED ONE 08/30 0551 DC PO Aspirin 300 MG ONCE ONE 08/30 0530 CAN [place] 08/30 0531 Aspirin Buffered 81 MG DAILY 08/30 1000 AC PO Atorvastatin Calcium 40 MG QPM 08/30 2200 AC PO Azithromycin 500 MG DAILY 08/30 1000 AC Dextrose/Water 250 ML IV Calcium Gluconate 0 .STK-MED ONE 08/30 0529 DC IV Calcium Gluconate 1 GM ONCE ONE 08/30 0515 DC 08/30 Sodium Chloride 100 ML IV 08/30 0614 0556 Ceftazidime 0 .STK-MED ONE 08/30 0529 DC .ROUTE Ceftazidime 1,000 MG ONCE ONE 08/30 0445 DC 08/30 IV 08/30 0446 0556 Ceftriaxone Sodium 1,000 MG DAILY 08/30 1000 AC IV Clopidogrel Bisulfate 75 MG DAILY 08/30 1000 AC PO Doxycycline Hyclate 100 MG ONCE ONE 08/30 0445 DC 08/30 Sodium Chloride 100 ML IV 08/30 0550 0556 Famotidine 20 MG BID 08/30 1000 AC PO Furosemide 40 MG 7:30 AM, & 4:30 PM 08/30 0730 AC IV Furosemide 0 .STK-MED ONE 08/30 0529 DC IV Furosemide 40 MG ONCE ONE 08/30 0445 DC 08/30 IV 08/30 044 0556 Heparin Sodium 0 .STK-MED ONE 08/30 0712 DC (Porcine) .ROUTE Heparin Sodium 5,000 UNIT Q8 08/30 0600 AC 08/30 (Porcine) SC 0712 Hydralazine HCl 10 MG BID 08/30 1000 AC PO Insulin Aspart 0 AT BEDTIME 08/30 2200 AC SC Insulin Aspart 0 TIDAC 08/30 0800 AC SC Insulin Detemir 36 UNITS BID 08/30 1000 AC SC Insulin Human Regular 6 UNITS ONCE ONE 08/30 0830 DC 08/30 SC 08/30 0831 0830 Insulin Human Regular 15 UNITS ONCE ONE 08/30 0530 DC 08/30 IV 08/30 0531 0556 Ipratropium [place] 2.5 ML ONCE ONE 08/30 0730 DC 08/30 INH 08/30 0731 0725 Ipratropium [place] 2.5 ML Q4-6 PRN PRN 08/30 0700 CAN INH Ipratropium [place] 2.5 ML ONCE ONE 08/30 0345 DC 08/30 INH 08/30 0346 0342 Isosorbide 60 MG DAILY 08/30 1000 AC Mononitrate PO Methylprednisolone 40 MG Q12 08/30 1000 AC IV Methylprednisolone 0 .STK-MED ONE 08/30 0348 DC .ROUTE Methylprednisolone 125 MG ONCE ONE 08/30 0345 DC 08/30 IV 08/30 0346 0345 Metoprolol Tartrate 25 MG BID 08/30 1000 AC PO Polyethylene Glycol 17 GM DAILY PRN 08/30 0800 AC PO Senna/Docusate Sodium 1 TAB BID PRN 08/30 0800 AC PO Tiotropium [place] 1 PUF DAILY 08/30 1000 AC INH Laboratory Tests 08/30 08/30 0634 0415 Blood Gas pH (7.35 - 7.45 PH) 7.33 L pCO2 (35 - 45 TORR) 46 H pO2 (80 - 100 TORR) 76 L HCO3 (21 - 28 MEQ/L) 23 ABG O2 Sat (Measured) (>96.0 %) 94.0 L P-50 (Temp Corrected) N Carboxyhemoglobin (1.5 - 5.0 %) 0.3 L O2 Concentration % .30 Respiration Rate (BPM) 24 O2 Delivery Method BIPAP Vent Mode ST Expiratory Pressure (CM H2O P) 6 Inspiratory Pressure (CM H2O P) 20 Chemistry Lactic Acid Cancelled Miscellaneous Phlebotomy Draw Site RIGHT RADIAL 08/30 0330 Chemistry Sodium (137 - 145 mmol/L) 139 Potassium (3.5 - 5.1 mmol/L) 6.5 *H Chloride (98 - 107 mmol/L) 99 Carbon Dioxide (22 - 30 mmol/L) 27 Anion Gap (5 - 16) 13 BUN (7 - 17 mg/dL) 43 H Creatinine (0.5 - 1.0 mg/dL) 1.5 H Estimated GFR (>60 ml/min) 33 L BUN/Creatinine Ratio (7 - 25 %) 28.7 H Glucose (65 - 99 mg/dL) 508 *H Lactic Acid (0.7 - 2.1 mmol/L) 1.5 Calcium (8.4 - 10.2 mg/dL) 8.5 Total Bilirubin (0.2 - 1.3 mg/dL) 0.6 AST (14 - 36 U/L) 29 ALT (9 - 52 U/L) 28 Alkaline Phosphatase (<127 U/L) 104 Troponin I (< 0.11 ng/ml) 0.67 *H Ihp-R-Hriopqbrmzd Pept (<125 pg/mL) 3190 H Total Protein (6.3 - 8.2 g/dL) 6.7 Albumin (3.5 - 5.0 g/dL) 3.7 Globulin (1.9 - 4.2 gm/dL) 3.0 Albumin/Globulin Ratio (1.1 - 2.2 %) 1.2 Hematology CBC w Diff MAN DIFF ORDERED WBC (4.8 - 10.8 /CUMM) 19.4 H RBC (4.20 - 5.40 /CUMM) 3.51 L Hgb (12.0 - 16.0 G/DL) 9.9 L Hct (37 - 47 %) 31.0 L MCV (81.0 - 99.0 FL) 88.3 MCH (27.0 - 31.0 PG) 28.2 RDW (11.5 - 14.5 %) 17.0 H Plt Count (130 - 400 /CUMM) 317 MPV (7.4 - 10.4 FL) 8.5 Gran % (42.2 - 75.2 %) 93.6 H Lymphocytes % (20.5 - 51.1 %) 4.4 L Monocytes % (1.7 - 9.3 %) 1.8 Eosinophils % (0 - 5 %) 0.1 Basophils % (0.0 - 2.0 %) 0.1 Absolute Granulocytes (1.4 - 6.5 /CUMM) 18.2 H Segmented Neutrophils (42.2 - 75.2 %) 88 H Band Neutrophils (0.0 - 5.0 %) 3 Absolute Lymphocytes (1.2 - 3.4 /CUMM) 0.9 L Lymphocytes (20.5 - 51.1 %) 5 L Monocytes (1.7 - 9.3 %) 1 L Absolute Monocytes (0.10 - 0.60 /CUMM) 0.4 Eosinophils (0 - 5.0 %) 1 Absolute Eosinophils (0.0 - 0.7 /CUMM) 0 Absolute Basophils (0.0 - 0.2 /CUMM) 0 Metamyelocytes (0.0 - 1.0 %) 2 H Platelet Estimate (ADEQUATE) ADEQUATE Normocytic RBCs VERIFIED Normochromic RBCs VERIFIED PUBS MCHC (33.0 - 37.0 G/DL) 31.9 L Other Body Source Fld Total RBCs Counted (%) 100 Vital Signs Date Time Temp Pulse Resp B/P Pulse O2 O2 Flow FiO2 Ox Delivery Rate 08/30 0836 94 28 150/60 98 CPAP 30% 08/30 0733 93 27 154/60 100 Aerosol Mask 08/30 0728 95 BIPAP 30% 08/30 0703 97.0 101 32 184/94 94 CPAP 08/30 0640 98 96 08/30 0523 97.7 90 22 177/76 95 BIPAP 30% 08/30 0344 94 97 08/30 0330 96 BIPAP 30% 08/307 93 CPAP 10L 08/30 324 96.2 99 18 137/72 93 CPAP 10L
[2016-08-30 09:17] VITALS: BP 140/64
--- NOTE | 2016-08-30 10:44 | Cons- Cardiology ---
General Information and HPI Consulting Request Date of Consult: 08/30/16 Requested By: DAVID ALTAMIRANO MD Reason for Consult: chf/cad/dyspnea Source of Information: patient, family, old records History of Present Illness: This is a very pleasant 81-year-old female with a past medical history of severe COPD on home oxygen therapy, CKG with prior nephrectomy, sleep apnea on nightly CPAP, obesity, anemia, known coronary artery disease with prior remote PCI to the LAD and left circumflex artery, chronic diastolic congestive heart failure, hypertension who presents to [facility] with a chief complaint of progressive shortness of breath. She does note chronic shortness of breath but over the last 48 hours has noted more wheezing and also had an episode of moderate intensity midsternal chest pain which radiated to her back and resolved spontaneously. She had another similar episode of chest pain this morning which did improve after she got her breathing treatment. On my interview with the patient she was in moderate respiratory distress and using accessory muscles to breathe. We put her back on BiPAP therapy with some improvement. The patient says she recently had taken an increased dose of her baseline Lasix when she saw us in the office last month and her lower show extremity edema was improving. She did have one episode of chills at home but denied a productive cough. She has been afebrile. Allergies/Medications Allergies: Coded Allergies: adhesive (RASH 04/10/16) cefuroxime (From CEFTIN) (HIVES 04/10/16) clams (UNKNOWN 04/10/16) latex (RASH 04/10/16) Iodinated Contrast Media - Oral and (IODINATED CONTRAST MEDIA - IV DYE) (PT HAS ONE KIDNEY 04/10/16) moxifloxacin (HEART PALP AND HIGH BLOOD SUGARS 04/10/16) Home Med List: Albuterol Sulfate (Proair Hfa) 90 MCG HFA.AER.AD 2 PUF INH Q4-6 PRN PRN COPD (Reported) Albuterol Sulfate 0.63 MG/3 ML VIAL.NEB 1 Vial INH/BRYANNA 4 TIMES/DAY PRN COPD ( Reported) Allopurinol 300 MG TAB 0.5 TAB PO DAILY GOUT (Reported) Amlodipine Besylate 5 MG TABLET 5 MG PO BID high blood pressure Aspirin (Ecotrin) 81 MG TABLET.DR 1 TAB PO DAILY HEART HEALTH (Reported) Atorvastatin Calcium (Lipitor) 40 MG TABLET 1 TAB PO QPM CHOLESTEROL ( Reported) Azithromycin 250 MG TABLET 1 TAB PO Friday COPD prophylaxis Please follow up with your soil science professor in 1 month for recommendations on continuing this medication Budesonide (Pulmicort) 0.5 MG/2 ML AMPUL.NEB 1 Vial INH/BRYANNA BID copd ( Reported) CLOPIDOGREL BISULFATE (Clopidogrel) 75 MG TABLET 1 TAB PO DAILY HAS 2 STENTS (Reported) Furosemide 20 MG TABLET 1 TAB PO DAILY CHF Hydralazine HCl 10 MG TABLET 1 TAB PO BID HTN (Reported) Insulin Aspart (Novolog) 100 UNIT/ML VIAL 1 UNITS SC TIDAC/HS Diabetes BEFORE MEALS Blood Insulin Sugar Units <80 0 INITIATE HYPOGLYCEMIA 81-100 9 101-120 9 121-150 9 151-200 11 201-250 13 251-300 15 301-350 17 351-400 19 >400 21 AND Call Doctor AT BEDTIME Blood Insulin Sugar Units <80 0 80-100 0 101-120 0 121-150 0 151-200 0 201-250 0 251-300 3 301-350 5 351-400 6 >400 8 AND Call Doctor Insulin Detemir (Levemir) 100 UNIT/ML VIAL 36 UNITS SC BID Diabetes 40 UNITS IN AM AND 35 UNITS IN PM Isosorbide Mononitrate [address] 1 TAB PO DAILY ANGINA (Reported) Metoprolol Tartrate (Lopressor) 25 MG TABLET 1 TAB PO BID HEART (Reported) Prednisone 10 MG TABLET 1 TAB PO EOD COPD exacerbation Take every other day RANITIDINE HCL (Ranitidine HCl) 150 MG TABLET 1 TAB PO BID ACID REFLUX ( Reported) Tiotropium [place] (Spiriva) 18 MCG CAP.W.DEV 1 CAP INH DAILY COPD (Reported) Current Medications: Current Medications Sig/Michele Start time Last Medication Dose Route Stop Time Status Admin Albuterol Sulfate 3 ML ONCE ONE 08/30 0730 DC 08/30 INH 08/30 0731 0725 Albuterol Sulfate 3 ML Q4P PRN 08/30 0700 AC INH Albuterol Sulfate 3 ML ONCE ONE 08/30 0345 DC 08/30 INH 08/30 0346 0342 Allopurinol 150 MG DAILY 08/30 1000 AC PO Amlodipine Besylate 5 MG BID 08/30 1000 AC PO Aspirin 324 MG ONCE ONE 08/30 0600 DC 08/30 PO 08/30 0601 0556 Aspirin 0 .STK-MED ONE 08/30 0551 DC PO Aspirin 300 MG ONCE ONE 08/30 0530 CAN [place] 08/30 0531 Aspirin Buffered 81 MG DAILY 08/30 1000 AC PO Atorvastatin Calcium 40 MG QPM 08/30 2200 AC PO Azithromycin 500 MG DAILY 08/30 1000 AC Dextrose/Water 250 ML IV Calcium Gluconate 0 .STK-MED ONE 08/30 0529 DC IV Calcium Gluconate 1 GM ONCE ONE 08/30 0515 DC 08/30 Sodium Chloride 100 ML IV 08/30 0614 0556 Ceftazidime 0 .STK-MED ONE 08/30 0529 DC .ROUTE Ceftazidime 1,000 MG ONCE ONE 08/30 0445 DC 08/30 IV 08/30 0446 0556 Ceftriaxone Sodium 1,000 MG DAILY 08/30 1000 AC IV Clopidogrel Bisulfate 75 MG DAILY 08/30 1000 AC PO Doxycycline Hyclate 100 MG ONCE ONE 08/30 0445 DC 08/30 Sodium Chloride 100 ML IV 08/30 0550 0556 Famotidine 20 MG BID 08/30 1000 AC PO Furosemide 40 MG ONCE ONE 08/30 1100 DC 08/30 IV 08/30 1101 1055 Furosemide 40 MG 7:30 AM, & 4:30 PM 08/30 0730 AC IV Furosemide 0 .STK-MED ONE 08/30 0529 DC IV Furosemide 40 MG ONCE ONE 08/30 0445 DC 08/30 IV 08/30 0446 0556 Heparin Sodium 4,000 UNIT ONCE ONE 08/30 1100 DC (Porcine) IV 08/30 1101 Heparin Sodium 25,000 UNIT Q24H 08/30 1045 AC 08/30 (Porcine) IV 1100 Sodium Chloride 500 ML Heparin Sodium 5,000 UNIT ONCE ONE 08/30 1030 DC 08/30 (Porcine) IV 08/30 1031 1055 Heparin Sodium 0 .STK-MED ONE 08/30 0712 DC (Porcine) .ROUTE Heparin Sodium 5,000 UNIT Q8 08/30 0600 AC 08/30 (Porcine) SC 0712 Hydralazine HCl 10 MG BID 08/30 1000 AC PO Insulin Aspart 0 AT BEDTIME 08/30 2200 AC SC Insulin Aspart 0 TIDAC 08/30 0800 AC SC Insulin Detemir 36 UNITS BID 08/30 1000 AC SC Insulin Human Regular 6 UNITS ONCE ONE 08/30 0830 DC 08/30 SC 08/30 0831 0830 Insulin Human Regular 15 UNITS ONCE ONE 08/30 0530 DC 08/30 IV 08/30 0531 0556 Ipratropium [place] 2.5 ML ONCE ONE 08/30 0730 DC 08/30 INH 08/30 0731 0725 Ipratropium [place] 2.5 ML Q4-6 PRN PRN 08/30 0700 CAN INH Ipratropium [place] 2.5 ML ONCE ONE 08/30 0345 DC 08/30 INH 08/30 0346 0342 Isosorbide 60 MG DAILY 08/30 1000 AC Mononitrate PO Methylprednisolone 40 MG Q12 08/30 1000 AC IV Methylprednisolone 0 .STK-MED ONE 08/30 0348 DC .ROUTE Methylprednisolone 125 MG ONCE ONE 08/30 0345 DC 08/30 IV 08/30 0346 0345 Metoprolol Tartrate 25 MG BID 08/30 1000 DC PO Nitroglycerin 0.5 GM Q6 08/30 1200 AC TOP Polyethylene Glycol 17 GM DAILY PRN 08/30 0800 AC PO Senna/Docusate Sodium 1 TAB BID PRN 08/30 0800 AC PO Tiotropium [place] 1 PUF DAILY 08/30 1000 AC INH Review of Systems Review of Systems: Review of systems as per HPI. The remainder of a 10 point review of systems was reviewed and was otherwise negative. Past History Travel History Traveled to [place] past 21 day No Medical History Blood Transfusion Hx: Yes Neurological: NONE EENT: NONE Cardiovascular: diastolic CHF (stage I, EF of 55%), hypertension, hyperlipidemia , myocardial infarction, PVD, CAD s/p DE and 2 stents Respiratory: COPD, emphysema, OLLIE Gastrointestinal: GERD, hiatal hernia, umbilical hernia, colon polyps Hepatic: NONE Renal: nephrectomy (RIGHT), ONLY HAS LEFT KIDNEY CHRONIC KIDNEY DISEASE STAGE II Musculoskeletal: chronic back pain, gout Psychiatric: NONE Endocrine: diabetes, obesity Blood Disorders: NONE Cancer(s): hx renal ca s/p R nephrectomy [employer]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 Home Who Do You Live With? self Services at Home: None Primary Language: Belarusian Smoking Status: Former Smoker Living Will? no Functional Ability ADLs Independent: dressing, eating, toileting, bathing. Ambulation: walker IADLs Independent: shopping, food prep, telephone, transportation, medication admin. Needs Assist: housework, finances. ECHO Results (as available) Report: Normal left ventricle systolic function with moderate concentric hypertrophy. Dilated left atrium Exam & Diagnostic Data Vital Signs and I&O Vital Signs Date Time Temp Pulse Resp B/P Pulse O2 O2 Flow FiO2 Ox Delivery Rate 08/30 1025 95 08/30 0932 94 Nasal 2.0L Cannula 08/30 0932 94 Nasal 2.0L Cannula 08/30 0928 BIPAP 30% 08/30 0917 94 08/30 0917 98.3 92 20 140/64 97 BIPAP 08/30 0836 94 28 150/60 98 CPAP 30% 08/30 0733 93 27 154/60 100 Aerosol Mask 08/30 0728 95 BIPAP 30% 08/30 0703 97.0 101 32 184/94 94 CPAP 08/30 0640 98 96 08/30 0523 97.7 90 22 177/76 95 BIPAP 30% 08/30 0344 94 97 08/30 0330 96 BIPAP 30% 08/30 0327 93 CPAP 10L 08/30 0325 96.2 99 18 137/72 93 CPAP 10L Intake & Output 08/30 1600 08/30 0800 08/30 0000 08/29 1600 08/29 0800 08/29 0000 Intake Total Output Total Balance Patient 215 lb 245 lb Weight Physical Exam: General: Alert but in respiratory distress using accessory muscles to breathe. Eyes: No obvious scleral icterus. HEENT: Jugular venous pressure estimated 8-10 mmHg Cardiovascular: Normal intensity S1/S2. Regular. One out of 6 systolic murmur. Respiratory: Decreased air entry bilaterally with bilateral scattered wheezing Abdomen: Soft, nontender with no guarding or rebound tenderness. Musculoskeletal: No clubbing or cyanosis noted, 1+ lower extremity edema bilaterally Skin: warm Neurologic: No gross focal deficits noted. Lymph: No gross lymphadenopathy. Labs/Romain Results: Laboratory Tests 08/30 08/30 08/30 08/30 1035 0634 0415 0334 Blood Gas pH (7.35 - 7.45 PH) 7.33 L pCO2 (35 - 45 TORR) 46 H pO2 (80 - 100 TORR) 76 L HCO3 (21 - 28 MEQ/L) 23 ABG O2 Sat (Measured) (>96.0 %) 94.0 L P-50 (Temp Corrected) N Carboxyhemoglobin (1.5 - 5.0 %) 0.3 L O2 Concentration % .30 Respiration Rate (BPM) 24 O2 Delivery Method BIPAP Vent Mode ST Expiratory Pressure (CM H2O P) 6 Inspiratory Pressure (CM H2O P) 20 Chemistry Sodium Pending Potassium Pending Chloride Pending Carbon Dioxide Pending Anion Gap Pending BUN Pending Creatinine Pending BUN/Creatinine Ratio Pending Hemoglobin A1c Pending Lactic Acid Cancelled Troponin I Pending Hematology CBC w Diff Pending WBC Pending RBC Pending Hgb Pending Hct Pending MCV Pending MCH Pending RDW Pending Plt Count Pending MPV Pending PUBS MCHC Pending Miscellaneous Phlebotomy Draw Site RIGHT RADIAL 08/30 0330 Chemistry Sodium (137 - 145 mmol/L) 139 Potassium (3.5 - 5.1 mmol/L) 6.5 *H Chloride (98 - 107 mmol/L) 99 Carbon Dioxide (22 - 30 mmol/L) 27 Anion Gap (5 - 16) 13 BUN (7 - 17 mg/dL) 43 H Creatinine (0.5 - 1.0 mg/dL) 1.5 H Estimated GFR (>60 ml/min) 33 L BUN/Creatinine Ratio (7 - 25 %) 28.7 H Glucose (65 - 99 mg/dL) 508 *H Lactic Acid (0.7 - 2.1 mmol/L) 1.5 Calcium (8.4 - 10.2 mg/dL) 8.5 Total Bilirubin (0.2 - 1.3 mg/dL) 0.6 AST (14 - 36 U/L) 29 ALT (9 - 52 U/L) 28 Alkaline Phosphatase (<127 U/L) 104 Troponin I (< 0.11 ng/ml) 0.67 *H [id number] Pept (<125 pg/mL) 3190 H Total Protein (6.3 - 8.2 g/dL) 6.7 Albumin (3.5 - 5.0 g/dL) 3.7 Globulin (1.9 - 4.2 gm/dL) 3.0 Albumin/Globulin Ratio (1.1 - 2.2 %) 1.2 Triglycerides (<150 mg/dL) Pending Cholesterol (<200 MG/DL) Pending LDL Cholesterol, Calc (65 - 129 mg/dL) Pending HDL Cholesterol (40 - 60 mg/dL) Pending Cholesterol/HDL Ratio (0.00 - 4.23 %) Pending TSH (0.270 - 4.200 uIU/mL) Pending Hematology CBC w Diff MAN DIFF ORDERED WBC (4.8 - 10.8 /CUMM) 19.4 H RBC (4.20 - 5.40 /CUMM) 3.51 L Hgb (12.0 - 16.0 G/DL) 9.9 L Hct (37 - 47 %) 31.0 L MCV (81.0 - 99.0 FL) 88.3 MCH (27.0 - 31.0 PG) 28.2 RDW (11.5 - 14.5 %) 17.0 H Plt Count (130 - 400 /CUMM) 317 MPV (7.4 - 10.4 FL) 8.5 Gran % (42.2 - 75.2 %) 93.6 H Lymphocytes % (20.5 - 51.1 %) 4.4 L Monocytes % (1.7 - 9.3 %) 1.8 Eosinophils % (0 - 5 %) 0.1 Basophils % (0.0 - 2.0 %) 0.1 Absolute Granulocytes (1.4 - 6.5 /CUMM) 18.2 H Segmented Neutrophils (42.2 - 75.2 %) 88 H Band Neutrophils (0.0 - 5.0 %) 3 Absolute Lymphocytes (1.2 - 3.4 /CUMM) 0.9 L Lymphocytes (20.5 - 51.1 %) 5 L Monocytes (1.7 - 9.3 %) 1 L Absolute Monocytes (0.10 - 0.60 /CUMM) 0.4 Eosinophils (0 - 5.0 %) 1 Absolute Eosinophils (0.0 - 0.7 /CUMM) 0 Absolute Basophils (0.0 - 0.2 /CUMM) 0 Metamyelocytes (0.0 - 1.0 %) 2 H Platelet Estimate (ADEQUATE) ADEQUATE Normocytic RBCs VERIFIED Normochromic RBCs VERIFIED PUBS MCHC (33.0 - 37.0 G/DL) 31.9 L Other Body Source Fld Total RBCs Counted (%) 100 Diagnostic Data EKG Results Twelve-lead ECG tracing was personally reviewed and shows sinus rhythm at [address] depressions. Normal axis without infarct pattern. Artifact noted in V2. CXR Results Mild pulmonary vascular congestion with bilateral pleural effusions. Density at both lung bases may be also due to superimposed bibasilar infiltrate and/or atelectasis Other Results Telemetry tracings were personally reviewed and shows sinus rhythm with a first- degree AV block. Echocardiogram from May 2016 Normal LV chamber size with mild concentric LVH. The estimated LVEF is 60% without focal wall motion of modalities. Mildly calcified and thickened mitral valvular leaflets and annulus. There is normal leaflet opening. There is mild mitral regurgitation. There is mild tricuspid regurgitation. The estimated PA systolic pressure is normal. Assessment/Plan Assessment/Plan 1. Multifactorial respiratory insufficiency requiring BiPAP therapy 2. Elevated troponin possibly due to acute non-ST elevation myocardial infarction versus demand ischemia 3. Known history of coronary artery disease with remote PCI to the LAD and left circumflex artery 4. Severe COPD on home oxygen therapy 5. Hyperkalemia 6. Chronic kidney disease with prior nephrectomy 7. Acute on chronic diastolic congestive heart failure 8. Anemia 9. Diabetes with hyperglycemia 10. Hypertension 11. Obesity The patient's respiratory distress is likely multifactorial due to COPD exacerbation with diastolic CHF. The patient has had 2 episodes of chest discomfort and given her troponin elevation with ischemic changes on EKG I am concerned about the possibility of an acute non-ST elevation myocardial. Demand ischemia does remain in the differential. Follow troponin curve. Will obtain a STAT Echo. As the patient was in moderate respiratory distress during my interview we placed her back on BiPAP therapy with some improvement. I requested starting her on IV Heparin for now. We have placed nitroglycerin paste on her chest. Hold beta alexei for now as she is actively bronchospastic. The patient is currently DNR/DNI. I had a discussion with her son regarding the risks versus benefits of cardiac catheterization and we are currently in agreement that we we will attempt to treat her medically as it is highly likely she will require intubation if she was to undergo cardiac catheterization. She also would be at additional risk of further kidney injury from cardiac catheterization. She is currently being treated with empiric antibiotic therapy although I am not entirely convinced this is pneumonia. We'll continue IV diuresis with monitoring of her kidney function. I suspect her hyperkalemia will improve on IV diuretic therapy. Time spent in critical care was approximately 40 minutes. Gamaliel Sanchez MD [facility] Consult Acknowledgment - Thank you for your consult request.
[2016-08-30 11:14] LABS: ABSOLUTE BASOPHIL COUNT 0 /CUMM (0.0-0.2); ABSOLUTE EOSINOPHIL COUNT 0 /CUMM (0.0-0.7); ABSOLUTE LYMPH COUNT 0.5 /CUMM (1.2-3.4); ABSOLUTE MONOCYTE COUNT 0.1 /CUMM (0.10-0.60); BASOPHIL % 0 % (0.0-2.0); EOSINOPHIL % 0 % (0-5); HEMATOCRIT 31.4 % (37-47); MEAN CORPUSCULAR HGB 27.7 PG (27.0-31.0); MEAN CORPUSCULAR HGB CONC 31.8 G/DL (33.0-37.0); MEAN CORPUSCULAR VOLUME 87.1 FL (81.0-99.0); MEAN PLATELET VOLUME 8.9 FL (7.4-10.4); RBC DISTRIBUTION WIDTH 16.3 % (11.5-14.5); RED BLOOD CELL CT 3.61 /CUMM (4.20-5.40); WHITE BLOOD CELL COUNT 15.6 /CUMM (4.8-10.8)
[2016-08-30 11:59] LABS: GRANULOCYTE % 96.4 % (42.2-75.2); PLATELET COUNT 277 /CUMM (130-400)
--- NOTE | 2016-08-30 12:55 | Event Note ---
Event Note Event Note: Pt was in respiratory distress after coming off the bipap this morning. We placed her back on bipap, gave her another dose of IV lasix. Reviewing the EKG from this morning, she does have a new ST depression on V2 and V3. I performed stool guaiac and it was negative. Heparin bolus given, and heparin drip started. 1PM: noted increase in troponin to 15.1. I personally informed Dr. Sanchez of the results, and discussed the plan with him. I also informed the pt and her son regarding the results. At this time, they would not pursue cardiac cath due to the contrast load (pt has 1 kidney with CKD and is at risk for contrast nephropathy) and likely prolonged intubation due to current respiratory status. Assessment & Plan: # NSTEMI - Consider transfer to ICU for close nursing monitoring. - Continue heparin drip - Nitropatch 0.5 q6 - Follow up troponin until it trends down - Continue aspirin, plavix, imdur. Pt received 324 mg aspirin in the ED. - Increase lipitor to 80 mg daily - Echo: Normal size left ventricle. Left ventricular wall thickness mildly increased. No obvious regional wall motion abnormalities. Left ventricular ejection fraction is estimated at > 55 %. Normal right ventricular size and function. Mild left atrial dilatation. Mild mitral stenosis. Right ventricular systolic pressure estimated to be elevated at > 52 mmHg. - HOLD metoprolol 25 bid, and consider restarting once she is not bronchospastic /wheezing. Check with pulDr. Judy green # Acute on chronic hypoxic respiratory failure due to COPD exacerbation - Continue IV solumedrol 40q12 - Continue bipap - Follow repeat abg (7.33/46/76/23 --> 7.44/33/92/22) # Diastolic congestive heart failure - Continue lasix BID # Hyperkalemia improved (6.5 --> 5.3) # Hyperglycemia (accucheck 416-442): BS still in 450s despite not eating - already received 6 units of regular insulin in the ED and 12 units of novolog. - Accucheck Q2 - Continue SS and levemir as per Dr. Best's recc (continue the Levemir 36 units twice a day. Sliding-scale NovoLog before meals should be 80-150 give 14 units NovoLog, 151-200 give 16 units NovoLog, 201-250 give 18 units NovoLog, 251-300 give 20 units NovoLog, 301-350 give 22 units NovoLog, 351-400 give 24 units NovoLog. A separate bedtime sliding-scale NovoLog coverage should be written. NovoLog coverage at bedtime should be less than 250 give no insulin, 251 at 300 give 3 units NovoLog, 350 give 4 units NovoLog, 351-400 give 5 units NovoLog.) - Follow hba1c # Possible PNA - Continue azithromycin and ceftriaxone
--- NOTE | 2016-08-30 13:45 | Cons- Pulmonary ---
General Information and HPI Consulting Request Date of Consult: 08/30/16 Requested By: med team History of Present Illness: This is a very pleasant 81-year-old female with a past medical history of severe COPD on home oxygen therapy, CKG with prior nephrectomy, sleep apnea on nightly CPAP, obesity, anemia, known coronary artery disease with prior remote PCI to the LAD and left circumflex artery, chronic diastolic congestive heart failure, hypertension who presents to [facility] with a chief complaint of progressive shortness of breath. She does note chronic shortness of breath but over the last 48 hours has noted more wheezing and also had an episode of moderate intensity midsternal chest pain which radiated to her back and resolved spontaneously. She had another similar episode of chest pain this morning which did improve after she got her breathing treatment. When I saw her ther patient she was in moderate respiratory distress and using accessory muscles to breathe. Was on BiPAP therapy with some improvement. The patient says she recently had taken an increased dose of her baseline Lasix when she saw us in the office last month and her lower show extremity edema was improving. She did have one episode of chills at home but denied a productive cough. She has been afebrile. Allergies/Medications Allergies: Coded Allergies: adhesive (RASH 04/10/16) cefuroxime (From CEFTIN) (HIVES 04/10/16) clams (UNKNOWN 04/10/16) latex (RASH 04/10/16) Iodinated Contrast Media - Oral and (IODINATED CONTRAST MEDIA - IV DYE) (PT HAS ONE KIDNEY 04/10/16) moxifloxacin (HEART PALP AND HIGH BLOOD SUGARS 04/10/16) Home Med List: Albuterol Sulfate (Proair Hfa) 90 MCG HFA.AER.AD 2 PUF INH Q4-6 PRN PRN COPD (Reported) Albuterol Sulfate 0.63 MG/3 ML VIAL.NEB 1 Vial INH/BRYANNA 4 TIMES/DAY PRN COPD ( Reported) Allopurinol 300 MG TAB 0.5 TAB PO DAILY GOUT (Reported) Amlodipine Besylate 5 MG TABLET 5 MG PO BID high blood pressure Aspirin (Ecotrin) 81 MG TABLET.DR 1 TAB PO DAILY HEART HEALTH (Reported) Atorvastatin Calcium (Lipitor) 40 MG TABLET 1 TAB PO QPM CHOLESTEROL ( Reported) Azithromycin 250 MG TABLET 1 TAB PO Friday COPD prophylaxis Please follow up with your cuff matcher in 1 month for recommendations on continuing this medication Budesonide (Pulmicort) 0.5 MG/2 ML AMPUL.NEB 1 Vial INH/BRYANNA BID copd ( Reported) CLOPIDOGREL BISULFATE (Clopidogrel) 75 MG TABLET 1 TAB PO DAILY HAS 2 STENTS (Reported) Furosemide 20 MG TABLET 1 TAB PO DAILY CHF Hydralazine HCl 10 MG TABLET 1 TAB PO BID HTN (Reported) Insulin Aspart (Novolog) 100 UNIT/ML VIAL 1 UNITS SC TIDAC/HS Diabetes BEFORE MEALS Blood Insulin Sugar Units <80 0 INITIATE HYPOGLYCEMIA 81-100 9 101-120 9 121-150 9 151-200 11 201-250 13 251-300 15 301-350 17 351-400 19 >400 21 AND Call Doctor AT BEDTIME Blood Insulin Sugar Units <80 0 80-100 0 101-120 0 121-150 0 151-200 0 201-250 0 251-300 3 301-350 5 351-400 6 >400 8 AND Call Doctor Insulin Detemir (Levemir) 100 UNIT/ML VIAL 36 UNITS SC BID Diabetes 40 UNITS IN AM AND 35 UNITS IN PM Isosorbide Mononitrate [address] 1 TAB PO DAILY ANGINA (Reported) Metoprolol Tartrate (Lopressor) 25 MG TABLET 1 TAB PO BID HEART (Reported) Prednisone 10 MG TABLET 1 TAB PO EOD COPD exacerbation Take every other day RANITIDINE HCL (Ranitidine HCl) 150 MG TABLET 1 TAB PO BID ACID REFLUX ( Reported) Tiotropium [place] (Spiriva) 18 MCG CAP.W.DEV 1 CAP INH DAILY COPD (Reported) Review of Systems Review of Systems Constitutional: Reports: see HPI. Past History Travel History Traveled to [place] past 21 day No Medical History Blood Transfusion Hx: Yes Neurological: NONE EENT: NONE Cardiovascular: diastolic CHF (stage I, EF of 55%), hypertension, hyperlipidemia , myocardial infarction, PVD, CAD s/p IA and 2 stents Respiratory: COPD, emphysema, OLLIE Gastrointestinal: GERD, hiatal hernia, umbilical hernia, colon polyps Hepatic: NONE Renal: nephrectomy (RIGHT), ONLY HAS LEFT KIDNEY CHRONIC KIDNEY DISEASE STAGE II Musculoskeletal: chronic back pain, gout Psychiatric: NONE Endocrine: diabetes, obesity Blood Disorders: NONE Cancer(s): hx renal ca s/p R nephrectomy [employer]/Reproductive: 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 Home Who Do You Live With? self Services at Home: None Primary Language: Sammarinese Smoking Status: Former Smoker Living Will? no Functional Ability ADLs Independent: dressing, eating, toileting, bathing. Ambulation: walker IADLs Independent: shopping, food prep, telephone, transportation, medication admin. Needs Assist: housework, finances. Exam & Diagnostic Data Last 24 Hrs of Vital Signs/I&O Vital Signs Date Time Temp Pulse Resp B/P Pulse O2 O2 Flow FiO2 Ox Delivery Rate 08/30 1201 140/60 08/30 1144 95 08/30 1143 140/70 08/30 1133 95 BIPAP 30% 08/30 1025 95 08/30 0932 94 Nasal 2.0L Cannula 08/30 0932 94 Nasal 2.0L Cannula 08/30 0928 BIPAP 30% 08/30 0917 94 08/30 0917 98.3 92 20 140/64 97 BIPAP 08/30 0836 94 28 150/60 98 CPAP 30% 08/30 0733 93 27 154/60 100 Aerosol Mask 08/30 0728 95 BIPAP 30% 08/30 0703 97.0 101 32 184/94 94 CPAP 08/30 0640 98 96 08/30 0523 97.7 90 22 177/76 95 BIPAP 30% 08/30 0344 94 97 08/30 0330 96 BIPAP 30% 08/30 0327 93 CPAP 10L 08/30 0325 96.2 99 18 137/72 93 CPAP 10L Intake & Output 08/30 1600 08/30 0800 08/30 0000 Intake Total Output Total Balance Patient 215 lb 245 lb Weight Last 48 Hrs of Labs/Romain: Laboratory Tests 08/30/16 1315: pH 7.44, pCO2 33 L, pO2 92, HCO3 22, ABG O2 Sat (Measured) 96.0, Carboxyhemoglobin 1.4 L, O2 Concentration % 30%, Temperature 98.3, Respiration Rate 24, O2 Delivery Method BIPAP, Vent Mode ST, Expiratory Pressure 6, Inspiratory Pressure 20, Phlebotomy Draw Site RIGHT RADIAL 08/30/16 1035: Anion Gap 16, Estimated GFR 33 L, BUN/Creatinine Ratio 29.3 H, Troponin I 15.10 *H, CBC w Diff NO MAN DIFF REQ, RBC 3.61 L, MCV 87.1, MCH 27.7, RDW 16.3 H, MPV 8.9, Gran % 96.4 H, Lymphocytes % 3.3 L, Monocytes % 0.3 L, Eosinophils % 0, Basophils % 0 L, Absolute Granulocytes 15.0 H, Absolute Lymphocytes 0.5 L, Absolute Monocytes 0.1 L, Absolute Eosinophils 0, Absolute Basophils 0, PUBS MCHC 31.8 L 08/30/16 0634: Lactic Acid Cancelled 08/30/16 0415: pH 7.33 L, pCO2 46 H, pO2 76 L, HCO3 23, ABG O2 Sat (Measured) 94.0 L, P-50 (Temp Corrected) N, Carboxyhemoglobin 0.3 L, O2 Concentration % .30, Respiration Rate 24, O2 Delivery Method BIPAP, Vent Mode ST, Expiratory Pressure 6, Inspiratory Pressure 20, Phlebotomy Draw Site RIGHT RADIAL 08/30/16 033: Hemoglobin A1c Pending 08/30/16 0330: Anion Gap 13, Estimated GFR 33 L, BUN/Creatinine Ratio 28.7 H, Glucose 508 *H, Lactic Acid 1.5, Calcium 8.5, Total Bilirubin 0.6, AST 29, ALT 28, Alkaline Phosphatase 104, Troponin I 0.67 *H, Fxb-I-Ummcfjyndln Pept 3190 H, Total Protein 6.7, Albumin 3.7, Globulin 3.0, Albumin/Globulin Ratio 1.2, Triglycerides 188 H, Cholesterol 110, LDL Cholesterol, Calc 33 L, HDL Cholesterol 40, Cholesterol/HDL Ratio 3, TSH 1.860, CBC w Diff MAN DIFF ORDERED, RBC 3.51 L, MCV 88.3, MCH 28.2, RDW 17.0 H, MPV 8.5, Gran % 93.6 H, Lymphocytes % 4.4 L, Monocytes % 1.8, Eosinophils % 0.1, Basophils % 0.1, Absolute Granulocytes 18.2 H, Segmented Neutrophils 88 H, Band Neutrophils 3, Absolute Lymphocytes 0.9 L, Lymphocytes 5 L, Monocytes 1 L, Absolute Monocytes 0.4, Eosinophils 1, Absolute Eosinophils 0, Absolute Basophils 0, Metamyelocytes 2 H, Platelet Estimate ADEQUATE, Normocytic RBCs VERIFIED, Normochromic RBCs VERIFIED, PUBS MCHC 31.9 L, Fld Total RBCs Counted 100 Microbiology 08/30 722 NASOPHARYN: Influenza Virus A & B Rapid Smear - COMP Assessment/Plan Impression/Plan: Physical Exam: General: Alert but in respiratory distress using accessory muscles to breathe. Eyes: No obvious scleral icterus. HEENT: Jugular venous pressure estimated 8-10 mmHg Cardiovascular: Normal intensity S1/S2. Regular. One out of 6 systolic murmur. Respiratory: Decreased air entry bilaterally with bilateral scattered wheezing Abdomen: Soft, nontender with no guarding or rebound tenderness. Musculoskeletal: No clubbing or cyanosis noted, 1+ lower extremity edema bilaterally Skin: warm Neurologic: No gross focal deficits noted. Lymph: No gross lymphadenopathy CXR IMPRESSION: Mild pulmonary vascular congestion with bilateral pleural effusions. Density at both lung bases may be also due to superimposed bibasilar infiltrate and/or atelectasis IMPRESSION This is a lady with end-stage COPD, on home oxygen therapy on maximum inhalation therapy, severe obstructive sleep apnea on CPAP, previous ischemic heart disease with stent in the past, previous renal cell carcinoma with chronic kidney disease, morbid obesity, now comes in with * Acute hypoxic and hypercarbic resp failure with Sig wheezing with evidence of total body fluid overload with mild copd exacerbation aswell. This is compounded by Acute non st elevation IA with previous pci. Pt is also in acute on chronic diastolic chf * Recent lung nodule - PET neg with mild effusion in the both side * Mild rt more than left heart failure * Effusion mild in the bilaterally not enough to tap * Severe obstructive sleep apnea compliant with bipap at hs daily for vent support * Hypertension, diabetes, hyperlipidemia with previous history of gout which is stable, Recent htn is On russ meds * Chronic kidney disease with previous nephrectomy appears to be stable * Uncontrolled sugar made worse by increasing prednisone in the past which needs to be monitored * Anemia and morbid obesity RECOMMENDATION BIPAP IV solumedrol 40 q 12 Atc nebs q 4 and use ipratropium only if sig tachy persists Cont azithro for now and pt was on prophylactic azithro before Ok with low dose betablockers Lasix per cardio. Proton pump inhibitor Agg sugar control Adequate bp control as she does tend to flash when bp goes more than 170 systolic Pt is critically ill TTS 38 mins Discussed with patient in detail Consult Acknowledgment - Thank you for your consult request.
--- NOTE | 2016-08-30 14:12 | ECHOCARDIOGRAM REPORT ---
RICARDO VALENZUELA Age: 81 : 1935 Gender: F Exam Date: 08/30/2016 10:44 Exam Location: [address] Ht (in): 63 Wt (lb): 214 BSA: 2.13 BP: 140 / 64 Ordering Physician: LENNY BARNETT, Referring Physician: LENNY BARNETT, Technologist: Dedrick Ye [facility] Room Number: 173-1 Indications: LV FUNCTION AFTER ACS Rhythm: Technical Quality: Technically difficult study FINDINGS Left Ventricle Normal size left ventricle. Left ventricular wall thickness mildly increased. No obvious regional wall motion abnormalities. Left ventricular ejection fraction is estimated at > 55 %. Right Ventricle Normal right ventricular size and function. Right Atrium Normal right atrial size. Left Atrium Mild left atrial dilatation. Mitral Valve Moderate mitral annular calcification. Mild mitral stenosis. Mild mitral regurgitation. Aortic Valve Trileaflet aortic valve. No aortic stenosis. Tricuspid Valve Tricuspid valve not well visualized, grossly normal. Trace to mild tricuspid regurgitation. Right ventricular systolic pressure estimated to be elevated at > 52 mmHg. Pulmonic Valve Pulmonic valve not well visualized. Pericardium Minimal pericardial effusion. Great Vessels Normal size aortic root. CONCLUSIONS Technically difficult study. Normal size left ventricle. Left ventricular wall thickness mildly increased. No obvious regional wall motion abnormalities. Left ventricular ejection fraction is estimated at > 55 %. Normal right ventricular size and function. Mild left atrial dilatation. Mild mitral stenosis. Right ventricular systolic pressure estimated to be elevated at > 52 mmHg. Darion Sanchez M.D. (Electronically Signed) Final Date: 30 August 2016 14:11 MEASUREMENTS (Male / Female) Normal Values 2D ECHO LV Diastolic Diameter PLAX 4.2 cm 4.2 - 5.9 / 3.9 - 5.3 cm LV Systolic Diameter PLAX 2.7 cm 2.1 - 4.0 cm LV Fractional Shortening PLAX 35.7 % 25 - 46 % LV Ejection Fraction 2D Teich 65.6 % IVS Diastolic Thickness 1.3 cm LVPW Diastolic Thickness 1.3 cm LV Relative Wall Thickness 0.6 RV Internal Dim ED PLAX 3.7 cm 1.9 - 3.8 cm LVOT Diameter 2.0 cm Aortic Root Diameter 2.5 cm LA Systolic Diameter LX 3.9 cm 3.0 - 4.0 / 2.7 - 3.8 cm LA Volume 86.0 cm 18 - 58 / 22 - 52 cm DOPPLER AV Peak Velocity 161.0 cm/s AV Peak Gradient 10.4 mmHg AV Mean Velocity 127.0 cm/s AV Mean Gradient 7.0 mmHg AV Velocity Time Integral 37.5 cm LVOT Peak Velocity 82.7 cm/s LVOT Peak Gradient 2.7 mmHg LVOT Mean Velocity 54.1 cm/s LVOT Mean Gradient 1.0 mmHg LVOT Velocity Time Integral 18.8 cm LVOT Stroke Volume 59.1 cm AV Area Cont Eq vti 1.6 cm AV Area Cont Eq pk 1.6 cm MV Peak Velocity 159.0 cm/s MV Peak Gradient 10.1 mmHg MV Mean Velocity 81.3 cm/s MV Mean Gradient 3.5 mmHg Mitral E Point Velocity 134.0 cm/s Mitral A Point Velocity 158.0 cm/s Mitral E to A Ratio 0.8 MV PHT Velocity 147.5 cm/s MV Deceleration [place] 890.0 cm/s MV Pressure Half Time 49.7 ms MV Area PHT 4.4 cm MV Deceleration Time 208.0 ms TR Peak Velocity 341.0 cm/s TR Peak Gradient 46.5 mmHg Right Atrial Pressure 10.0 mmHg Pulmonary Artery Systolic Pressu 56.5 mmHg Right Ventricular Systolic Press 56.5 mmHg PV Peak Velocity 143.0 cm/s PV Peak Gradient 8.2 mmHg PV Mean Velocity 91.9 cm/s PV Mean Gradient 4.0 mmHg PV Velocity Time Integral 28.0 cm LV E' Lateral Velocity 6.7 cm/s Mitral E to LV E' Lateral Ratio 19.9 LV E' Septal Velocity 7.6 cm/s Mitral E to LV E' Septal Ratio 17.6
[2016-08-30 15:55] VITALS: BP 140/60
[2016-08-30 17:57] LABS: PTT 50 SEC (25-37)
[2016-08-31 00:09] VITALS: BP 136/50
[2016-08-31 01:03] LABS: PTT 85 SEC (25-37)
[2016-08-31 08:01] LABS: ABSOLUTE BASOPHIL COUNT 0 /CUMM (0.0-0.2); ABSOLUTE EOSINOPHIL COUNT 0 /CUMM (0.0-0.7); ABSOLUTE GRANULOCYTE CT 19.2 /CUMM (1.4-6.5); ABSOLUTE LYMPH COUNT 0.9 /CUMM (1.2-3.4); ABSOLUTE MONOCYTE COUNT 0.2 /CUMM (0.10-0.60); BASOPHIL % 0 % (0.0-2.0); EOSINOPHIL % 0 % (0-5); GRANULOCYTE % 94.6 % (42.2-75.2); HEMATOCRIT 26.6 % (37-47); MEAN CORPUSCULAR HGB 28.3 PG (27.0-31.0); MEAN CORPUSCULAR HGB CONC 32.4 G/DL (33.0-37.0); MEAN CORPUSCULAR VOLUME 87.3 FL (81.0-99.0); MEAN PLATELET VOLUME 9.3 FL (7.4-10.4); PLATELET COUNT 231 /CUMM (130-400); RBC DISTRIBUTION WIDTH 16.8 % (11.5-14.5); RED BLOOD CELL CT 3.05 /CUMM (4.20-5.40); WHITE BLOOD CELL COUNT 20.3 /CUMM (4.8-10.8)
--- NOTE | 2016-08-31 09:09 | PN- Housestaff ---
Subjective Follow-up For: COPD Elevated troponin Acute on chronic CHF Anemia Diabetes Hypertension Tele-Events Since Last Visit: Sinus rhythm,, heart rate 77-112, first-degree heart block, inverted T waves Subjective: Seen and examined patient, complains of shortness of breath and chest pain. Review of Systems Constitutional: Denies: chills, diaphoresis, fever, malaise, weakness, unexplained weight loss. Cardiovascular: Reports: chest pain. Denies: edema, orthopena, palpitations, peripheral edema, syncope. Respiratory: Reports: short of breath. Denies: cough, hemoptysis, orthopnea, sputum production, stridor, wheezing. Objective Last 24 Hrs of Vital Signs/I&O Vital Signs Date Time Temp Pulse Resp B/P Pulse O2 O2 Flow FiO2 Ox Delivery Rate 08/31 1210 67 97 08/31 1011 98.8 114 26 136/50 97 BIPAP 30% 08/31 0851 136/50 08/31 0851 136/50 08/31 0851 136/50 08/31 0800 97 BIPAP 30% 08/31 0747 Nasal 3.0L Cannula 08/31 0745 90 96 08/31 0032 89 96 08/31 0009 97.3 90 26 136/50 98 BIPAP 30% 08/31 0000 BIPAP 30% 08/30 2211 86 146/64 08/30 2211 86 146/64 08/30 1737 BIPAP 30% 08/30 1600 BIPAP 08/30 1555 99.1 94 24 140/60 97 BIPAP 08/30 1409 130/64 Intake & Output 08/31 1600 08/31 0800 08/31 0000 Intake Total 100 655.6 Output Total 250 650 Balance -150 5.6 Intake, IV 175.6 Intake, Oral 100 480 Output, Urine 250 650 Physical Exam General Appearance: Moderate Distress Cardiovascular: Regular Rate, Normal S1, Normal S2 Lungs: b/l decreased breath sounds Abdomen: distended Current Medications: Current Medications Sig/Michele Start time Last Medication Dose Route Stop Time Status Admin Albuterol Sulfate 3 ML EVERY 4 HRS/AWAKE 08/30 1200 AC 08/31 INH 1206 Allopurinol 150 MG DAILY 08/30 1000 AC 08/31 PO 0851 Amlodipine Besylate 5 MG BID 08/30 1000 AC 08/31 PO 0851 Aspirin Buffered 81 MG DAILY 08/30 1000 AC 08/31 PO 0851 Atorvastatin Calcium 40 MG QPM 08/30 2200 CAN PO Atorvastatin Calcium 80 MG 1700 08/30 1700 AC 08/30 PO 2211 Azithromycin 500 MG DAILY@1430 08/31 1430 AC Dextrose/Water 250 ML IV Azithromycin 500 MG DAILY 08/30 1000 DC 08/30 Dextrose/Water 250 ML IV 1435 Ceftriaxone Sodium 1,000 MG DAILY@1400 08/31 1400 AC IV Ceftriaxone Sodium 1,000 MG DAILY 08/30 1000 DC 08/30 IV 1409 Clopidogrel Bisulfate 75 MG DAILY 08/30 1000 AC 08/31 PO 0851 Famotidine 20 MG BID 08/30 1000 DC 08/30 PO 1143 Furosemide 20 MG ONCE ONE 08/31 1100 DC 08/31 IV 08/31 1101 1104 Furosemide 40 MG 7:30 AM, & 4:30 PM 08/30 0730 AC 08/31 IV 0700 Heparin Sodium 2,900 UNIT ONE ONE 08/30 1930 DC 08/30 (Porcine) IV 08/30 1931 2212 Heparin Sodium 25,000 UNIT Q24H 08/30 1045 AC 08/31 (Porcine) IV 1100 Sodium Chloride 500 ML Heparin Sodium 5,000 UNIT Q8 08/30 0600 DC 08/30 (Porcine) SC 0712 Hydralazine HCl 10 MG BID 08/30 1000 AC 08/31 PO 0851 Insulin Aspart 0 AT BEDTIME 08/30 2200 AC 08/30 SC 2212 Insulin Aspart 14 UNITS ONCE ONE 08/30 1845 DC 08/30 SC 08/30 1846 1920 Insulin Aspart 12 UNITS ONCE ONE 08/30 1630 DC 08/30 SC 08/30 1631 1656 Insulin Aspart 0 TIDAC 08/30 0800 AC 08/31 SC 1217 Insulin Detemir 36 UNITS BID 08/30 1000 AC 08/31 SC 0855 Ipratropium [place] 2.5 ML EVERY 4 HRS/AWAKE 08/30 1600 AC 08/31 INH 1206 Isosorbide 60 MG DAILY 08/30 1000 AC 08/31 Mononitrate PO 0851 Lorazepam 0.5 MG ONCE ONE 08/31 0915 DC 08/31 IV 08/31 0916 1000 Lorazepam 0.5 MG ONE ONE 08/31 0845 DC 08/31 PO 08/31 0846 0855 Lorazepam 0.5 MG ONE ONE 08/30 2245 DC 08/30 PO 08/30 2246 2259 Methylprednisolone 40 MG Q12 08/30 1000 AC 08/31 IV 0853 Morphine Sulfate 2 MG ONCE ONE 08/31 1100 DC 08/31 IV 08/31 1101 1104 Nitroglycerin 0.4 MG ONCE ONE 08/31 1100 DC 08/31 SL 08/31 1101 1104 Nitroglycerin 0.5 GM Q6 08/30 1200 AC 08/31 TOP 0600 Omeprazole 40 MG DAILY AC 08/30 1537 AC 08/31 PO 0700 Polyethylene Glycol 17 GM DAILY PRN 08/30 0800 AC PO Senna/Docusate Sodium 1 TAB BID PRN 08/30 0800 AC PO Tiotropium [place] 1 PUF DAILY 08/31 1000 AC 08/31 INH 1000 Tiotropium [place] 1 PUF DAILY 08/30 1000 DC INH Last 24 Hrs of Lab/Romain Results Last 24 Hrs of Labs/Mics: Laboratory Tests 08/31/16 1109: Troponin I Pending, APTT 58 H 08/31/16 0620: Anion Gap 9, Estimated GFR 27 L, BUN/Creatinine Ratio 31.1 H, Troponin I 8.09 *H, PT 13.0 H, INR 1.24 H, CBC w Diff MAN DIFF ORDERED, RBC 3.05 L, MCV 87.3, MCH 28.3, RDW 16.8 H, MPV 9.3, Gran % 94.6 H, Lymphocytes % 4.6 L, Monocytes % 0.8 L, Eosinophils % 0, Basophils % 0 L, Absolute Granulocytes 19.2 H, Absolute Lymphocytes 0.9 L, Absolute Monocytes 0.2, Absolute Eosinophils 0, Absolute Basophils 0, Platelet Estimate VERIFIED BY SMEAR, Polychromasia 1+, Poikilocytosis 2+, Anisocytosis 1+, [place] Cells 2+, PUBS MCHC 32.4 L 08/31/16 0010: Troponin I 10.70 *H, APTT 85 H 08/30/16 1700: Troponin I 17.20 *H, APTT 50 H 08/30/16 1535: Urine Color YEL, Urine Clarity CLEAR, Urine pH 5.5, Ur Specific [place] 1.020, Urine Protein 100 H, Urine Ketones NEG, Urine Nitrite NEG, Urine Bilirubin NEG, Urine Urobilinogen 0.2, Ur Leukocyte Esterase NEG, Ur Microscopic SEDIMENT EXAMINED, Urine RBC >75 H, Urine WBC RARE, Urine Mucus RARE, Urine Hemoglobin LARGE H, Urine Glucose >=1000 H 08/30/16 1315: pH 7.44, pCO2 33 L, pO2 92, HCO3 22, ABG O2 Sat (Measured) 96.0, Carboxyhemoglobin 1.4 L, O2 Concentration % 30%, Temperature 98.3, Respiration Rate 24, O2 Delivery Method BIPAP, Vent Mode ST, Expiratory Pressure 6, Inspiratory Pressure 20, Phlebotomy Draw Site RIGHT RADIAL Microbiology 08/30 1535 URINE ROUT: Urine Culture - RES Assessment/Plan Assessment: 81-year-old morbidly obese woman with past medical history of coronary artery disease status post stent placement, hypertension, hyperlipidemia, poorly controlled diabetes, end-stage COPD on 2 L of home oxygen only during exertion, diastolic heart failure with small bilateral pleural effusions, CKD, history of renal cell carcinoma status post right nephrectomy, obstructive sleep apnea on BiPAP at home, chronic anemia, history of hematuria status post negative cystoscopy and gout. This morning continues to complain of shortness of breath and requiring BiPAP also complains of severe midsternal chest pain. Afebrile overnight, blood pressure stable, saturating 97 on BiPAP, white count 20 today trending upwards Problem list Acute hypoxic hypercarbic respiratory failure Lung nodule CHF Diabetes Severe obstructive sleep apnea Chronic kidney disease status post nephrectomy Plan: Was given 0.5 of Ativan, 2 mg of IV morphine Stat EKG troponin and chest x-ray to look for questionable consolidation versus edema continue on BiPAP IV Solu-Medrol 40 every 12, Continue IV ceftriaxone and azithromycin Was transferred to ICU for close monitoring and possible nitro drip fingersticks consistently in the 400s, Endo on board, continue 36 units of Levemir and insulin sliding scale Continue Plavix, Imdur, hydralazine, Lipitor No aggressive measures per family DVT prophylaxis subcutaneous heparin Patient is DNR/DNI Problem List: 1. Acute on Chronic Renal Failure 2. Diabetes mellitus type 2 Pain Ratin Pain Location: Midsternal Pain Goal: Pain 4 or less Pain Plan: IV morphine Tomorrow's Labs & Rationales: ICU bundle Consulting Request: Consulting Specialty: Cardiology
--- NOTE | 2016-08-31 09:40 | PN- Diabetes ---
Assessment/Plan Assessment: The patient is very short of breath this morning. Her sugars have remained high. She is on 36 units of Levemir twice a day. She is also on sliding scale NovoLog in large doses. However yesterday at least 2 doses of her NovoLog were held because she was not eating well. Blood sugars yesterday were in the 450 range. At bedtime she came down to 397 and this morning her blood sugar was 384. Plan: I would continue the present insulin regimen. Since the patient is on steroid therapy she still requires the NovoLog coverage even if she is not eating well. The patient is acutely short of breath this morning. She needs to be reevaluated to see if there is a component of fluid overload and vascular congestion which was present on her x-ray yesterday. A portable chest should be done and discussed with Joshua Kim MD and cardiology. Subjective Subjective: Very short of breath Objective Last 24 Hrs of Vital Signs/I&O Vital Signs Date Time Temp Pulse Resp B/P Pulse O2 O2 Flow FiO2 Ox Delivery Rate 08/31 0751 13650 08/31 0851 13650 08/31 0851 13650 08/31 0747 Nasal 3.0L Cannula 08/31 0745 90 96 08/31 0032 89 96 08/31 0009 97.3 90 26 136/50 98 BIPAP 30% 08/31 0000 BIPAP 30% 08/30 2211 86 146/64 08/30 2211 86 146/64 08/30 1737 BIPAP 30% 08/30 1600 BIPAP 08/30 1555 99.1 94 24 140/60 97 BIPAP 08/30 1409 130/64 08/30 1201 140/60 08/30 1144 95 08/30 1143 140/70 08/30 1133 95 BIPAP 30% 08/30 1025 95 Intake & Output 08/31 1600 08/31 0800 08/31 0000 Intake Total 100 655.6 Output Total 250 650 Balance -150 5.6 Intake, IV 175.6 Intake, Oral 100 480 Output, Urine 250 650 Vital Signs Date Time Temp Pulse Resp B/P Pulse O2 O2 Flow FiO2 Ox Delivery Rate 08/31 0851 136/50 08/31 0851 136/50 08/31 0851 13650 08/31 0747 Nasal 3.0L Cannula 08/31 0745 90 96 08/31 0032 89 96 08/31 0009 97.3 90 26 136/50 98 BIPAP 30% 08/31 0000 BIPAP 30% 08/30 2211 86 146/64 08/30 2211 86 146/64 08/30 1737 BIPAP 30% 08/30 1600 BIPAP 08/30 1555 99.1 94 24 140/60 97 BIPAP 08/30 1409 130/64 08/30 1201 140/60 08/30 1144 95 08/30 1143 140/70 08/30 1133 95 BIPAP 30% 08/30 1025 95 Intake & Output 08/31 1600 08/31 0800 08/31 0000 Intake Total 100 655.6 Output Total 250 650 Balance -150 5.6 Intake, IV 175.6 Intake, Oral 100 480 Output, Urine 250 650 Physical Exam General Appearance: anxious, moderate distress, obese Head: normal appearance Neck: normal inspection Cardiovascular: tachycardia Abdomen: normal bowel sounds, soft Extremities: no edema Current Medications: Current Medications Sig/Michele Start time Last Medication Dose Route Stop Time Status Admin Albuterol Sulfate 3 ML EVERY 4 HRS/AWAKE 08/30 1200 AC 08/31 INH 0743 Albuterol Sulfate 3 ML Q4P PRN 08/30 0700 DC 08/30 INH 1130 Allopurinol 150 MG DAILY 08/30 1000 AC 08/31 PO 0851 Amlodipine Besylate 5 MG BID 08/30 1000 AC 08/31 PO 0851 Aspirin Buffered 81 MG DAILY 08/30 1000 AC 08/31 PO 0851 Atorvastatin Calcium 40 MG QPM 08/30 2200 CAN PO Atorvastatin Calcium 80 MG 1700 08/30 1700 AC 08/30 PO 2211 Azithromycin 500 MG DAILY@1430 08/31 1430 AC Dextrose/Water 250 ML IV Azithromycin 500 MG DAILY 08/30 1000 DC 08/30 Dextrose/Water 250 ML IV 1435 Ceftriaxone Sodium 1,000 MG DAILY@1400 08/31 1400 AC IV Ceftriaxone Sodium 1,000 MG DAILY 08/30 1000 DC 08/30 IV 1409 Clopidogrel Bisulfate 75 MG DAILY 08/30 1000 AC 08/31 PO 0851 Famotidine 20 MG BID 08/30 1000 DC 08/30 PO 1143 Furosemide 40 MG ONCE ONE 08/30 1100 DC 08/30 IV 08/30 1101 1055 Furosemide 40 MG 7:30 AM, & 4:30 PM 08/30 0730 AC 08/31 IV 0700 Heparin Sodium 2,900 UNIT ONE ONE 08/30 1930 DC 08/30 (Porcine) IV 08/30 1931 2212 Heparin Sodium 4,000 UNIT ONCE ONE 08/30 1100 DC 08/30 (Porcine) IV 08/30 1101 1122 Heparin Sodium 25,000 UNIT Q24H 08/30 1045 AC 08/30 (Porcine) IV 1100 Sodium Chloride 500 ML Heparin Sodium 5,000 UNIT ONCE ONE 08/30 1030 DC 08/30 (Porcine) IV 08/30 1031 1055 Heparin Sodium 5,000 UNIT Q8 08/30 0600 DC 08/30 (Porcine) SC 0712 Hydralazine HCl 10 MG BID 08/30 1000 AC 08/31 PO 0851 Insulin Aspart 0 AT BEDTIME 08/30 2200 AC 08/30 SC 2212 Insulin Aspart 14 UNITS ONCE ONE 08/30 1845 DC 08/30 SC 08/30 1846 1920 Insulin Aspart 12 UNITS ONCE ONE 08/30 1630 DC 08/30 SC 08/30 1631 1656 Insulin Aspart 6 UNITS ONCE ONE 08/30 1115 DC 08/30 SC 08/30 1116 1320 Insulin Aspart 0 TIDAC 08/30 0800 AC 08/31 SC 0855 Insulin Detemir 36 UNITS BID 08/30 1000 AC 08/31 SC 0855 Ipratropium [place] 2.5 ML EVERY 4 HRS/AWAKE 08/30 1600 AC 08/31 INH 0743 Isosorbide 60 MG DAILY 08/30 1000 AC 08/31 Mononitrate PO 0851 Lorazepam 0.5 MG ONCE ONE 08/31 0915 DC IV 08/31 0916 Lorazepam 0.5 MG ONE ONE 08/31 0845 DC 08/31 PO 08/31 0846 0855 Lorazepam 0.5 MG ONE ONE 08/30 2245 DC 08/30 PO 08/30 2246 2259 Methylprednisolone 40 MG Q12 08/30 1000 AC 08/31 IV 0853 Metoprolol Tartrate 25 MG BID 08/30 1000 DC PO Nitroglycerin 0.5 GM Q6 08/30 1200 AC 08/31 TOP 0600 Omeprazole 40 MG DAILY AC 08/30 1537 AC 08/31 PO 0700 Polyethylene Glycol 17 GM DAILY PRN 08/30 0800 AC PO Senna/Docusate Sodium 1 TAB BID PRN 08/30 0800 AC PO Tiotropium [place] 1 PUF DAILY 08/31 1000 AC INH Tiotropium [place] 1 PUF DAILY 08/30 1000 DC INH Findings Pertinent Lab/Romain Results: Vital Signs Date Time Temp Pulse Resp B/P Pulse O2 O2 Flow FiO2 Ox Delivery Rate 08/31 0851 136/50 08/31 0851 136/50 08/31 0851 136/50 08/31 0747 Nasal 3.0L Cannula 08/31 0745 90 96 08/31 0032 89 96 08/31 0009 97.3 90 26 136/50 98 BIPAP 30% 08/31 0000 BIPAP 30% 08/30 2211 86 146/64 08/30 2211 86 146/64 08/30 1737 BIPAP 30% 08/30 1600 BIPAP 08/30 1555 99.1 94 24 140/60 97 BIPAP 08/30 1409 130/64 08/30 1201 140/60 08/30 1144 95 08/30 1143 140/70 08/30 1133 95 BIPAP 30% 08/30 1025 95 Intake & Output 08/31 1600 08/31 0800 08/31 0000 Intake Total 100 655.6 Output Total 250 650 Balance -150 5.6 Intake, IV 175.6 Intake, Oral 100 480 Output, Urine 250 650
[2016-08-31 10:11] VITALS: BP 136/50
--- NOTE | 2016-08-31 10:34 | RADIOLOGY REPORT ---
EXAMINATION: XR PORTABLE CHEST CLINICAL INFORMATION: History of COPD. Shortness of breath with increased work of breathing. COMPARISON: Several prior chest x-rays, most recent of which is dated 08/30/2016. TECHNIQUE: Portable AP semierect view of the chest was obtained. FINDINGS: A right jugular central venous line is in place with tip poorly visualized, but likely in the proximal SVC. The cardiomediastinal silhouette is enlarged and there is persistent central vascular congestion and mild interstitial edema with bilateral small pleural effusions. Superimposed bibasilar opacities are seen, unchanged. Bony structures are unremarkable. IMPRESSION: 1. Right jugular central venous line tip poorly visualized, likely in the proximal SVC. 2. Lung findings most consistent with mild pulmonary edema with bilateral pleural effusions and bibasilar subsegmental atelectasis. Clinical correlation requested.
--- NOTE | 2016-08-31 11:05 | NUR ---
PT C/O INTERMITTENT CP RADIATING TO BACK. ON BIPAP 30%. O2 SATS 97% BUT PT USING ACCESSORY MUSCLES TO BREATHE. DR GUTIERREZ IN TO SEE PT. PT ORDERED SL NTG, MORPHINE, IV LASIX, EKG, AND TROPONIN. WILL CONTINUE TO MONITOR AND REPORT TO ONCOMING NURSE.
[2016-08-31 11:47] LABS: PTT 58 SEC (25-37)
--- NOTE | 2016-08-31 12:30 | PN- Att Addend ---
Attending Addendum Attending Brief Note Patient on evaluation is currently on a BiPAP complaining of chest pain General Appearance: Alert, No Acute Distress Skin: Grossly normal HEENT: [place] Neck: Supple, No JVD Cardiovascular: Regular Rate, Normal S1, Normal S2, No Murmurs Lungs: Expiratory wheeze Abdomen: Normal Bowel Sounds, Soft, No Tenderness Neurological: Normal Speech, Strength at 5/5 X4 Ext, Cranial Nerves 3-12 NL, Reflexes 2+ Extremities: Bilateral pedal edema Assessment 81-year-old female with history of coronary artery disease, hypertension, hyperlipidemia, poorly controlled diabetes, COPD on home oxygen chronic kidney disease, history of renal cell cancer status post right nephrectomy presenting with complaints of shortness of breath and chills. She does have a left shift with bilateral infiltrates. ABG suggest hypercarbic and hypoxic respiratory failure. Patient appears to be in moderate CHF in addition to possible underlying pneumonia with exacerbation of COPD. patient had elevated troponins with active chest pains. She is currently on a Nitropatch and heparin drip. Will transfer to ICU for close monitoring and routine blood pressure follow up. If she persists to have chest pain we will start patient on nitro drip. Had a discussion with the family would not wish heroic measures including DNI, DNR and aggressive measures. Plan Transfer patient to the ICU Continues BiPAP Stat EKG and troponins Ativan 0.5 mg every 12 hours when necessary anxiety Give morphine when necessary for chest pain Nitropatch Continue current antibiotics Send sputum culture Continue Solu-Medrol IV Lasix twice a day, monitor kidney function closely Continue other home medications Prognosis guarded DNI/DNR and no heroic measures Current Medications Sig/Michele Start time Last Medication Dose Route Stop Time Status Admin Albuterol Sulfate 3 ML EVERY 4 HRS/AWAKE 08/30 1200 AC 08/31 INH 1206 Allopurinol 150 MG DAILY 08/30 1000 AC 08/31 PO 0851 Amlodipine Besylate 5 MG BID 08/30 1000 AC 08/31 PO 0851 Aspirin Buffered 81 MG DAILY 08/30 1000 AC 08/31 PO 0851 Atorvastatin Calcium 40 MG QPM 08/30 2200 CAN PO Atorvastatin Calcium 80 MG 1700 08/30 1700 AC 08/30 PO 2211 Azithromycin 500 MG DAILY@1430 08/31 1430 AC Dextrose/Water 250 ML IV Azithromycin 500 MG DAILY 08/30 1000 DC 08/30 Dextrose/Water 250 ML IV 1435 Ceftriaxone Sodium 1,000 MG DAILY@1400 08/31 1400 AC IV Ceftriaxone Sodium 1,000 MG DAILY 08/30 1000 DC 08/30 IV 1409 Clopidogrel Bisulfate 75 MG DAILY 08/30 1000 AC 08/31 PO 0851 Famotidine 20 MG BID 08/30 1000 DC 08/30 PO 1143 Furosemide 20 MG ONCE ONE 08/31 1100 DC 08/31 IV 08/31 1101 1104 Furosemide 40 MG 7:30 AM, & 4:30 PM 08/30 0730 AC 08/31 IV 0700 Heparin Sodium 2,900 UNIT ONE ONE 08/30 1930 DC 08/30 (Porcine) IV 08/30 1931 2212 Heparin Sodium 25,000 UNIT Q24H 08/30 1045 AC 08/31 (Porcine) IV 1100 Sodium Chloride 500 ML Heparin Sodium 5,000 UNIT Q8 08/30 0600 DC 08/30 (Porcine) SC 0712 Hydralazine HCl 10 MG BID 08/30 1000 AC 08/31 PO 0851 Insulin Aspart 0 AT BEDTIME 08/30 2200 AC 08/30 SC 2212 Insulin Aspart 14 UNITS ONCE ONE 08/30 1845 DC 08/30 SC 08/30 1846 1920 Insulin Aspart 12 UNITS ONCE ONE 08/30 1630 DC 08/30 SC 08/30 1631 1656 Insulin Aspart 0 TIDAC 08/30 0800 AC 08/31 SC 1217 Insulin Detemir 36 UNITS BID 08/30 1000 AC 08/31 SC 0855 Ipratropium [place] 2.5 ML EVERY 4 HRS/AWAKE 08/30 1600 AC 08/31 INH 1206 Isosorbide 60 MG DAILY 08/30 1000 AC 08/31 Mononitrate PO 0851 Lorazepam 0.5 MG ONCE ONE 08/31 0915 DC 08/31 IV 08/31 0916 1000 Lorazepam 0.5 MG ONE ONE 08/31 0845 DC 08/31 PO 08/31 0846 0855 Lorazepam 0.5 MG ONE ONE 08/30 2245 DC 08/30 PO 08/30 2246 2259 Methylprednisolone 40 MG Q12 08/30 1000 AC 08/31 IV 0853 Morphine Sulfate 2 MG ONCE ONE 08/31 1100 DC 08/31 IV 08/31 1101 1104 Nitroglycerin 0.4 MG ONCE ONE 08/31 1100 DC 08/31 SL 08/31 1101 1104 Nitroglycerin 0.5 GM Q6 08/30 1200 AC 08/31 TOP 0600 Omeprazole 40 MG DAILY AC 08/30 1537 AC 08/31 PO 0700 Polyethylene Glycol 17 GM DAILY PRN 08/30 0800 AC PO Senna/Docusate Sodium 1 TAB BID PRN 08/30 0800 AC PO Tiotropium [place] 1 PUF DAILY 08/31 1000 AC 08/31 INH 1000 Tiotropium [place] 1 PUF DAILY 08/30 1000 DC INH Laboratory Tests 08/31 08/31 08/31 1109 0620 0010 Chemistry Sodium (137 - 145 mmol/L) 136 L Potassium (3.5 - 5.1 mmol/L) 5.1 Chloride (98 - 107 mmol/L) 100 Carbon Dioxide (22 - 30 mmol/L) 27 Anion Gap (5 - 16) 9 BUN (7 - 17 mg/dL) 56 H Creatinine (0.5 - 1.0 mg/dL) 1.8 H Estimated GFR (>60 ml/min) 27 L BUN/Creatinine Ratio (7 - 25 %) 31.1 H Troponin I (< 0.11 ng/ml) Pending 8.09 *H 10.70 *H Coagulation PT (9.4 - 12.5 SEC) 13.0 H INR (0.90 - 1.19) 1.24 H APTT (25 - 37 SEC) 58 H 85 H Hematology CBC w Diff MAN DIFF ORDERED WBC (4.8 - 10.8 /CUMM) 20.3 H RBC (4.20 - 5.40 /CUMM) 3.05 L Hgb (12.0 - 16.0 G/DL) 8.6 L Hct (37 - 47 %) 26.6 L MCV (81.0 - 99.0 FL) 87.3 MCH (27.0 - 31.0 PG) 28.3 RDW (11.5 - 14.5 %) 16.8 H Plt Count (130 - 400 /CUMM) 231 MPV (7.4 - 10.4 FL) 9.3 Gran % (42.2 - 75.2 %) 94.6 H Lymphocytes % (20.5 - 51.1 %) 4.6 L Monocytes % (1.7 - 9.3 %) 0.8 L Eosinophils % (0 - 5 %) 0 Basophils % (0.0 - 2.0 %) 0 L Absolute Granulocytes (1.4 - 6.5 /CUMM) 19.2 H Absolute Lymphocytes (1.2 - 3.4 /CUMM) 0.9 L Absolute Monocytes (0.10 - 0.60 /CUMM) 0.2 Absolute Eosinophils (0.0 - 0.7 /CUMM) 0 Absolute Basophils (0.0 - 0.2 /CUMM) 0 Platelet Estimate (ADEQUATE) VERIFIED BY SMEAR Polychromasia 1+ Poikilocytosis 2+ Anisocytosis 1+ Ailin Cells 2+ PUBS MCHC (33.0 - 37.0 G/DL) 32.4 L 08/30 08/30 1700 1535 Chemistry Troponin I (< 0.11 ng/ml) 17.20 *H Coagulation APTT (25 - 37 SEC) 50 H Urines Urine Color (YEL,AMB,STR) YEL Urine Clarity (CLEAR) CLEAR Urine pH (5.0 - 8.0) 5.5 Ur Specific [place] (1.001 - 1.035) 1.020 Urine Protein (NEG,<30 MG/DL) 100 H Urine Ketones (NEG) NEG Urine Nitrite (NEG) NEG Urine Bilirubin (NEG) NEG Urine Urobilinogen (0.1 - 1.0 EU/dl) 0.2 Ur Leukocyte Esterase (NEG) NEG Ur Microscopic SEDIMENT EXAMINED Urine RBC (0 - 5 /HPF) >75 H Urine WBC (0 - 2 /HPF) RARE Urine Mucus (FEW,NONE) RARE Urine Hemoglobin (NEG) LARGE H Urine Glucose (N MG/DL) >=1000 H 08/30 1315 Blood Gas pH (7.35 - 7.45 PH) 7.44 pCO2 (35 - 45 TORR) 33 L pO2 (80 - 100 TORR) 92 HCO3 (21 - 28 MEQ/L) 22 ABG O2 Sat (Measured) (>96.0 %) 96.0 Carboxyhemoglobin (1.5 - 5.0 %) 1.4 L O2 Concentration % 30% Temperature (97.0 - 100.0 FARH) 98.3 Respiration Rate (BPM) 24 O2 Delivery Method BIPAP Vent Mode ST Expiratory Pressure (CM H2O P) 6 Inspiratory Pressure (CM H2O P) 20 Miscellaneous Phlebotomy Draw Site RIGHT RADIAL Vital Signs Date Time Temp Pulse Resp B/P Pulse O2 O2 Flow FiO2 Ox Delivery Rate 08/31 1210 67 97 08/31 1011 98.8 114 26 136/50 97 BIPAP 30% 08/31 0851 136/50 08/31 0851 136/50 08/31 0851 136/50 08/31 0800 97 BIPAP 30% 08/31 0747 Nasal 3.0L Cannula 08/31 0745 90 96 08/31 0032 89 96 08/31 0009 97.3 90 26 136/50 98 BIPAP 30% 08/31 0000 BIPAP 30% 08/30 2211 86 146/64 08/30 2211 86 146/64 08/30 1737 BIPAP 30% 08/30 1600 BIPAP 08/30 1555 99.1 94 24 140/60 97 BIPAP 08/30 1409 130/64
[2016-08-31 16:00] VITALS: BP 130/58
[2016-08-31 19:08] LABS: PTT 56 SEC (25-37)
--- NOTE | 2016-08-31 19:20 | NUR ---
RECEIVED PATIENT AT 1245, PATIENT IS ALERT AND ORIENTED X3. ANXIOUS/TACHYPNIC. SINUS TACH ON THE MONITOR 100S-120S. OMN=[id number]. PATIENT C/O ACHING MIDSTERNAL CHEST PAIN 12/14. NITROPASTE ON CHEST. HEPARIN GTT RUNNING AT 27.8 MLS/HR OR 14.2 UNITS/KG/HR. NEW #20 IV PLACED TO RIGHT FOREARM BY THIS RN FOR IV PIGGYBACK MEDS. ON THE BIPAP AT 30%, RATE OF 24, IPAP-20, EPAP-6. SATTING 96-97% WITH SCATTERED RHONCHI/WHEEZES HEARD THROUGHOUT. PATIENT IS VISIBLY DISTRESSED BUT ANXIOUS WELL. GIVEN EMOTIONAL REASSURANCE. PATIENT RESPONDING WELL AND CALMING DOWN. ABDOMEN DISTENDED/SOFT/OBESE, +BS. KAPLAN IN PLACE DRAINING DARK [place]/SEDIMENT URINE W/ BLOODY STREAKS FROM TRANSFER TRAUMA. PATIENT DENIES OTHER COMPLAINTS/NEEDS. GIVEN SIPS OF WATER AFTER TAKING MASK OFF. SKIN INTACT/+1 EDEMA TO THE LOWER EXT. ORIENTED TO ROOM, CALL SPARROW IN REACH, BED IN LOWEST POSITION.
--- NOTE | 2016-08-31 21:19 | PN- Cardiology ---
Subjective Subjective: Lethargic, but no complaints and specifically denies any chest discomfort, palpitations, or shortness of breath Objective Vital Signs and I&Os Vital Signs Date Time Temp Pulse Resp B/P Pulse O2 O2 Flow FiO2 Ox Delivery Rate 08/31 2000 96 BIPAP 30% 08/31 1933 103 95 08/31 1625 116 95 08/31 1600 97.3 103 24 130/58 95 Nasal 4.0L Cannula 08/31 1600 94 Nasal 4.0L Cannula 08/31 1430 106 96 08/31 1359 111 96 08/31 1300 96 BIPAP 30% 08/31 1210 67 97 08/31 1011 98.8 114 26 136/50 97 BIPAP 30% 08/31 0851 136/50 08/31 0851 136/50 08/31 0851 136/50 08/31 0800 97 BIPAP 30% 08/31 0747 Nasal 3.0L Cannula 08/31 0745 90 96 08/31 0032 89 96 08/31 0009 97.3 90 26 136/50 98 BIPAP 30% 08/31 0000 BIPAP 30% 08/30 2211 86 146/64 08/30 2211 86 146/64 Intake & Output 08/31 1600 08/31 0800 08/31 0000 08/30 1600 08/30 0800 08/30 0000 Intake Total 450 100 655.6 650 Output Total 400 653 314 7978 Balance 50 -150 5.6 -850 Intake, IV 350 175.6 250 Intake, Oral 100 100 480 400 Output, Urine 400 300 776 1919 Patient 215 lb 245 lb Weight Physical Exam: Well-developed, obese elderly female in no acute distress with oxygen in place. Vital signs: See above. Lungs: Decreased breath sounds. Heart: S1, S2 (both distant) with grade 1/6 systolic murmur. Extremities: 1+ LE edema. Current Medications: Current Medications Sig/Michele Start time Last Medication Dose Route Stop Time Status Admin Acetaminophen 650 MG ONCE ONE 08/31 1944 CAN PO 08/31 1945 Albuterol Sulfate 3 ML EVERY 4 HRS/AWAKE 08/30 1200 AC 08/31 INH 193 Allopurinol 150 MG DAILY 08/30 1000 AC 08/31 PO 0851 Amlodipine Besylate 5 MG BID 08/30 1000 AC 08/31 PO 0851 Aspirin Buffered 81 MG DAILY 08/30 1000 AC 08/31 PO 0851 Atorvastatin Calcium 80 MG 1700 08/30 1700 AC 08/31 PO 1612 Azithromycin 500 MG DAILY@1430 08/31 1430 AC 08/31 Dextrose/Water 250 ML IV 1616 Azithromycin 500 MG DAILY 08/30 1000 DC 08/30 Dextrose/Water 250 ML IV 1435 Ceftriaxone Sodium 1,000 MG DAILY@1400 08/31 1400 AC 08/31 IV 1530 Ceftriaxone Sodium 1,000 MG DAILY 08/30 1000 DC 08/30 IV 1409 Clopidogrel Bisulfate 75 MG DAILY 08/30 1000 AC 08/31 PO 0851 Furosemide 20 MG ONCE ONE 08/31 1100 DC 08/31 IV 08/31 1101 1104 Furosemide 40 MG 7:30 AM, & 4:30 PM 08/30 0730 AC 08/31 IV 1611 Heparin Sodium 2,931 UNIT ONE 08/31 DC (Porcine) IV 08/31 2016 Heparin Sodium 25,000 UNIT Q24H 08/30 1045 AC 08/31 (Porcine) IV 1100 Sodium Chloride 500 ML Hydralazine HCl 10 MG BID 08/30 1000 AC 08/31 PO 0851 Insulin Aspart 0 AT BEDTIME 08/30 2200 AC 08/30 SC 2212 Insulin Aspart 0 TIDAC 08/30 0800 AC 08/31 SC 1647 Insulin Detemir 36 UNITS BID 08/30 1000 AC 08/31 SC 0855 Ipratropium [place] 2.5 ML EVERY 4 HRS/AWAKE 08/30 1600 AC 08/31 INH 1931 Isosorbide 60 MG DAILY 08/30 1000 AC 08/31 Mononitrate PO 0851 Lorazepam 0.5 MG Q12P PRN 08/31 1600 AC 08/31 IV 1636 Lorazepam 0.5 MG ONCE ONE 08/31 0915 DC 08/31 IV 08/31 0916 1000 Lorazepam 0.5 MG ONE ONE 08/31 0845 DC 08/31 PO 08/31 0846 0855 Lorazepam 0.5 MG ONE ONE 08/30 2245 DC 08/30 PO 08/30 2246 2259 Methylprednisolone 40 MG Q12 08/30 1000 AC 08/31 IV 0853 Morphine Sulfate 2 MG Q4P PRN 08/31 1600 AC IV Morphine Sulfate 2 MG ONCE ONE 08/31 1100 DC 08/31 IV 08/31 1101 1104 Nitroglycerin 0.4 MG ONCE ONE 08/31 1100 DC 08/31 SL 08/31 1101 1104 Nitroglycerin 0.5 GM Q6 08/30 1200 08/31 TOP 1959 Omeprazole 40 MG DAILY AC 08/30 1537 AC 08/31 PO 0700 Polyethylene Glycol 17 GM DAILY PRN 08/30 0800 AC PO Senna/Docusate Sodium 1 TAB BID PRN 08/30 0800 AC PO Tiotropium [place] 1 PUF DAILY 08/31 1000 AC 08/31 INH 1000 Results Last 48 Hrs of Labs/Mics: Laboratory Tests 08/31/16 1803: APTT 56 H 08/31/16 1600: APTT Cancelled 08/31/16 1109: Troponin I 3.85 *H, APTT 58 H 08/31/16 0620: Anion Gap 9, Estimated GFR 27 L, BUN/Creatinine Ratio 31.1 H, Troponin I 8.09 *H, PT 13.0 H, INR 1.24 H, CBC w Diff MAN DIFF ORDERED, RBC 3.05 L, MCV 87.3, MCH 28.3, RDW 16.8 H, MPV 9.3, Gran % 94.6 H, Lymphocytes % 4.6 L, Monocytes % 0.8 L, Eosinophils % 0, Basophils % 0 L, Absolute Granulocytes 19.2 H, Absolute Lymphocytes 0.9 L, Absolute Monocytes 0.2, Absolute Eosinophils 0, Absolute Basophils 0, Platelet Estimate VERIFIED BY SMEAR, Polychromasia 1+, Poikilocytosis 2+, Anisocytosis 1+, Ailin Cells 2+, PUBS MCHC 32.4 L 08/31/16 0010: Troponin I 10.70 *H, APTT 85 H 08/30/16 1700: Troponin I 17.20 *H, APTT 50 H 08/30/16 1535: Urine Color YEL, Urine Clarity CLEAR, Urine pH 5.5, Ur Specific [place] 1.020, Urine Protein 100 H, Urine Ketones NEG, Urine Nitrite NEG, Urine Bilirubin NEG, Urine Urobilinogen 0.2, Ur Leukocyte Esterase NEG, Ur Microscopic SEDIMENT EXAMINED, Urine RBC >75 H, Urine WBC RARE, Urine Mucus RARE, Urine Hemoglobin LARGE H, Urine Glucose >=1000 H 08/30/16 1315: pH 7.44, pCO2 33 L, pO2 92, HCO3 22, ABG O2 Sat (Measured) 96.0, Carboxyhemoglobin 1.4 L, O2 Concentration % 30%, Temperature 98.3, Respiration Rate 24, O2 Delivery Method BIPAP, Vent Mode ST, Expiratory Pressure 6, Inspiratory Pressure 20, Phlebotomy Draw Site RIGHT RADIAL 08/30/16 1035: Anion Gap 16, Estimated GFR 33 L, BUN/Creatinine Ratio 29.3 H, Troponin I 15.10 *H, CBC w Diff NO MAN DIFF REQ, RBC 3.61 L, MCV 87.1, MCH 27.7, RDW 16.3 H, MPV 8.9, Gran % 96.4 H, Lymphocytes % 3.3 L, Monocytes % 0.3 L, Eosinophils % 0, Basophils % 0 L, Absolute Granulocytes 15.0 H, Absolute Lymphocytes 0.5 L, Absolute Monocytes 0.1 L, Absolute Eosinophils 0, Absolute Basophils 0, PUBS MCHC 31.8 L 08/30/16 0634: Lactic Acid Cancelled 08/30/16 0415: pH 7.33 L, pCO2 46 H, pO2 76 L, HCO3 23, ABG O2 Sat (Measured) 94.0 L, P-50 (Temp Corrected) N, Carboxyhemoglobin 0.3 L, O2 Concentration % .30, Respiration Rate 24, O2 Delivery Method BIPAP, Vent Mode ST, Expiratory Pressure 6, Inspiratory Pressure 20, Phlebotomy Draw Site RIGHT RADIAL 08/30/16 0334: Hemoglobin A1c 8.9 H 08/30/16 0330: Anion Gap 13, Estimated GFR 33 L, BUN/Creatinine Ratio 28.7 H, Glucose 508 *H, Lactic Acid 1.5, Calcium 8.5, Total Bilirubin 0.6, AST 29, ALT 28, Alkaline Phosphatase 104, Troponin I 0.67 *H, [id number] Pept 3190 H, Total Protein 6.7, Albumin 3.7, Globulin 3.0, Albumin/Globulin Ratio 1.2, Triglycerides 188 H, Cholesterol 110, LDL Cholesterol, Calc 33 L, HDL Cholesterol 40, Cholesterol/HDL Ratio 3, TSH 1.860, CBC w Diff MAN DIFF ORDERED, RBC 3.51 L, MCV 88.3, MCH 28.2, RDW 17.0 H, MPV 8.5, Gran % 93.6 H, Lymphocytes % 4.4 L, Monocytes % 1.8, Eosinophils % 0.1, Basophils % 0.1, Absolute Granulocytes 18.2 H, Segmented Neutrophils 88 H, Band Neutrophils 3, Absolute Lymphocytes 0.9 L, Lymphocytes 5 L, Monocytes 1 L, Absolute Monocytes 0.4, Eosinophils 1, Absolute Eosinophils 0, Absolute Basophils 0, Metamyelocytes 2 H, Platelet Estimate ADEQUATE, Normocytic RBCs VERIFIED, Normochromic RBCs VERIFIED, PUBS MCHC 31.9 L, Fld Total RBCs Counted 100 Microbiology 08/30 0723 NASOPHARYN: Influenza Virus A & B Rapid Smear - COMP Recent Imaging Studies: CXR (08/31/2016) 1. Right jugular central venous line tip poorly visualized, likely in the proximal SVC. 2. Lung findings most consistent with mild pulmonary edema with bilateral pleural effusions and bibasilar subsegmental atelectasis. Clinical correlation requested. Assessment/Plan Assessment/Plan Mrs. Rees is an elderly female with a past medical history of severe COPD on home oxygen therapy, CKD with prior nephrectomy, sleep apnea on nightly CPAP, obesity, anemia, known coronary artery disease with prior remote PCI to the LAD and left circumflex artery, chronic diastolic congestive heart failure, hypertension who presents to [facility] with a chief complaint of progressive shortness of breath and chest discomfort and evidence of heart failure and positive troponins which prompted transfer to the ICU. She was also very anxious earlier and received Ativan. At present she is somnolent, but arousable and hemodynamic stable without any complaints of chest discomfort, shortness of breath, etc. Her troponins are trending down. Recommendations: * Continue present cardiac regimen of IV heparin, antiplatelets, nitrates, statin, diuretic, etc. * Continue oxygen, TRC, steroids, antibiotics, etc. as per pulmonary medicine * Note her H/H is trending down and evaluate anemia. Check all stools for occult blood. * DVT prophylaxis being addressed by IV heparin. Continue telemetry? Yes
[2016-09-01] VITALS: BP 113/53
--- NOTE | 2016-09-01 01:05 | NUR ---
PT QUIET AT HIS TIME. AROUSABLE. DENIES PAIN AT THIS TIME. NSR 90" BP 113/57. [id number]% ON BIPAP AT 30% FIO2. LUNGS SOUND CLEAR. ABDOMEN SOFT, NORMOACIVE BS. KAPLAN IN PLACE. HEPARIN GTT CONTINUED, NO EVIDENCE OF ACTIVE BLEED.
[2016-09-01 02:45] LABS: ABSOLUTE BASOPHIL COUNT 0 /CUMM (0.0-0.2); ABSOLUTE EOSINOPHIL COUNT 0 /CUMM (0.0-0.7); ABSOLUTE GRANULOCYTE CT 17.8 /CUMM (1.4-6.5); ABSOLUTE MONOCYTE COUNT 0.3 /CUMM (0.10-0.60); BASOPHIL % 0 % (0.0-2.0); EOSINOPHIL % 0 % (0-5); GRANULOCYTE % 93.2 % (42.2-75.2); MEAN CORPUSCULAR HGB 27.6 PG (27.0-31.0); MEAN CORPUSCULAR HGB CONC 31.6 G/DL (33.0-37.0); MEAN CORPUSCULAR VOLUME 87.6 FL (81.0-99.0); MEAN PLATELET VOLUME 8.6 FL (7.4-10.4); PLATELET COUNT 256 /CUMM (130-400); RBC DISTRIBUTION WIDTH 17.2 % (11.5-14.5); RED BLOOD CELL CT 3.09 /CUMM (4.20-5.40)
[2016-09-01 03:04] LABS: WHITE BLOOD CELL COUNT 19.1 /CUMM (4.8-10.8)
[2016-09-01 03:13] LABS: PTT > 120 SEC (25-37)
[2016-09-01 08:00] VITALS: BP 132/62
--- NOTE | 2016-09-01 08:35 | PN- Resident CRCU ---
Subjective HPI/CRCU Issues: No acute events overnight. Patient was seen and examined this morning. She reports that her breathing is imporved. She remains on BiPAP. Later in the day at 4 PM, patient went into atrial fibrillation with rapid ventricular response between 110-115 bpm. She denied chest pain, palpitations or worsening shortness of breath at this time. She was started on IV diltiazem drip and had converted normal sinus rhythm in two hours. Objective Vital Signs & I&O Last 8 Hrs of Vitals and I&O: Vital Signs Date Time Temp Pulse Resp B/P Pulse O2 O2 Flow FiO2 Ox Delivery Rate 09/01 1910 96 96 09/01 1705 109 94 09/01 1647 101 94 09/01 1600 96 BIPAP 30% 09/01 1600 97.2 108 24 126/68 96 BIPAP 30% 09/01 1549 109 22 123/68 09/01 1342 96 97 09/01 1200 97 BIPAP 30% 09/01 1115 93 128/64 09/01 1114 92 128/64 09/01 1113 93 128/64 09/01 0950 89 96 09/01 0800 97 BIPAP 50% 09/01 0800 96.2 86 24 132/62 97 BIPAP 30% 09/01 0603 92 93 09/01 0400 94 BIPAP 30% 09/01 0231 94 95 09/01 0037 94 94 09/01 0000 95 BIPAP 30% 09/01 0000 96.3 92 20 113/53 95 BIPAP 30% 08/31 2206 94 95 08/31 2126 94 116/45 08/316 98 116/45 Intake & Output 09/01 1600 Intake Total 541 Output Total 580 Balance -39 Intake, IV 341 Intake, Oral 200 Number 0 Bowel Movements Output, Urine 580 Exam General Appearance: no apparent distress, alert, awake, obese Head: atraumatic, normal appearance Ears, Nose, Throat: on BiPAP Neck: supple Respiratory: few expiratory wheezes scattered throughout bilateral lung juarez Cardiovascular: regular rate/rhythm, normal S1 and S2 Gastrointestinal: soft, non-tender, positive bowel sounds Extremities: 1+ edema on bilateral lower extremities Skin: warm/dry Current Medications: Current Medications Sig/Michele Start time Last Medication Dose Route Stop Time Status Admin Albuterol Sulfate 3 ML EVERY 4 HRS/AWAKE 08/30 1200 AC 09/01 INH 2039 Allopurinol 150 MG DAILY 08/30 1000 AC 09/01 PO 1113 Amlodipine Besylate 5 MG BID 08/30 1000 AC 09/01 PO 1115 Aspirin Buffered 81 MG DAILY 08/30 1000 AC 09/01 PO 1113 Atorvastatin Calcium 80 MG 1700 08/30 1700 AC 09/01 PO 1635 Azithromycin 500 MG DAILY@1430 08/31 1430 AC 09/01 Dextrose/Water 250 ML IV 1435 Budesonide/ 2 PUF BID 09/01 1224 AC 09/01 Formoterol Fumarate INH 1436 Ceftriaxone Sodium 1,000 MG DAILY@1400 08/31 1400 DC 08/31 IV 1530 Clopidogrel Bisulfate 75 MG DAILY 08/30 1000 AC 09/01 PO 1114 Diltiazem HCl 125 MG Q24H 09/01 1615 09/01 Sodium Chloride 100 ML IV 1636 Diltiazem HCl 15 MG ONCE ONE 09/01 1545 DC 09/01 IV 09/01 1546 1549 Furosemide 20 MG DAILY 09/02 1000 IV Furosemide 40 MG 7:30 AM, & 4:30 PM 08/30 0730 DE 09/01 IV 0817 Heparin Sodium 25,000 UNIT Q24H 08/30 1045 08/31 (Porcine) IV 1100 Sodium Chloride 500 ML Hydralazine HCl 10 MG BID 08/30 1000 AC 09/01 PO 1114 Insulin Aspart 30 UNITS ONCE ONE 09/01 1200 DE 09/01 TN 09/01 1201 1152 Insulin Aspart 0 AT BEDTIME 08/30 2200 AC 08/31 SC 2130 Insulin Aspart 0 TIDAC 08/30 0800 09/01 SC 1646 Insulin Detemir 42 UNITS BID 09/01 2200 [facility] Insulin Detemir 42 UNITS BID 09/01 1115 09/01 SC 1113 Insulin Detemir 36 UNITS BID 08/30 1000 DE 08/31 SC 2126 Ipratropium [place] 2.5 ML EVERY 4 HRS/AWAKE 08/30 1600 AC 09/01 INH 2039 Isosorbide 60 MG DAILY 08/30 1000 AC 09/01 Mononitrate PO 1113 Lorazepam 0.5 MG Q8 PRN 09/01 1719 AC 09/01 IV 1724 Lorazepam 0.5 MG Q12P PRN 08/31 1600 DC 09/01 IV 0649 Methylprednisolone 40 MG DAILY 09/02 1000 AC IV Methylprednisolone 40 MG Q12 08/30 1000 AC 09/01 IV 09/01 2300 1115 Morphine Sulfate 2 MG Q4P PRN 08/31 1600 AC IV Nitroglycerin 1 GM .STK-MED ONE 09/01 0631 DC TOP 09/01 0632 Nitroglycerin 0.5 GM Q6 08/30 1200 AC 09/01 TOP 1822 Nystatin 1 TYRON BID 09/01 1321 AC 09/01 TOP 1435 Omeprazole 40 MG DAILY AC 08/30 1537 AC 09/01 PO 0637 Polyethylene Glycol 17 GM DAILY PRN 08/30 0800 AC PO Senna/Docusate Sodium 1 TAB BID PRN 08/30 0800 AC PO Tiotropium [place] 1 PUF DAILY 08/31 1000 AC 09/01 INH 1120 Results Results: Laboratory Tests 09/01 09/01 0925 0233 Chemistry Sodium (137 - 145 mmol/L) 137 Potassium (3.5 - 5.1 mmol/L) 5.2 H Chloride (98 - 107 mmol/L) 100 Carbon Dioxide (22 - 30 mmol/L) 26 Anion Gap (5 - 16) 11 BUN (7 - 17 mg/dL) 68 H Creatinine (0.5 - 1.0 mg/dL) 2.2 H Estimated GFR (>60 ml/min) 21 L Glucose (65 - 99 mg/dL) 357 H Calcium (8.4 - 10.2 mg/dL) 9.0 Phosphorus (2.5 - 4.5 mg/dL) 5.3 H Magnesium (1.6 - 2.3 mg/dL) 2.3 Iron (37 - 170 ug/dL) 22 L TIBC (265 - 497 ug/dL) 295 Ferritin (11.1 - 264 ng/mL) 31.4 Total Bilirubin (0.2 - 1.3 mg/dL) 0.5 AST (14 - 36 U/L) 50 H ALT (9 - 52 U/L) 30 Albumin (3.5 - 5.0 g/dL) 3.6 TSH (0.270 - 4.200 uIU/mL) 0.624 Free T4 (0.85 - 1.93 ng/dL) 2.49 H Coagulation APTT (25 - 37 SEC) 72 H > 120 *H Hematology CBC w Diff NO MAN DIFF REQ WBC (4.8 - 10.8 /CUMM) 19.1 H RBC (4.20 - 5.40 /CUMM) 3.09 L Hgb (12.0 - 16.0 G/DL) 8.5 L Hct (37 - 47 %) 27.0 L MCV (81.0 - 99.0 FL) 87.6 MCH (27.0 - 31.0 PG) 27.6 RDW (11.5 - 14.5 %) 17.2 H Plt Count (130 - 400 /CUMM) 256 MPV (7.4 - 10.4 FL) 8.6 Gran % (42.2 - 75.2 %) 93.2 H Lymphocytes % (20.5 - 51.1 %) 5.4 L Monocytes % (1.7 - 9.3 %) 1.4 L Eosinophils % (0 - 5 %) 0 Basophils % (0.0 - 2.0 %) 0 L Absolute Granulocytes (1.4 - 6.5 /CUMM) 17.8 H Absolute Lymphocytes (1.2 - 3.4 /CUMM) 1.0 L Absolute Monocytes (0.10 - 0.60 /CUMM) 0.3 Absolute Eosinophils (0.0 - 0.7 /CUMM) 0 Absolute Basophils (0.0 - 0.2 /CUMM) 0 PUBS MCHC (33.0 - 37.0 G/DL) 31.6 L UCx (08/30/16): NGTD Sputum Cx (09/01/16): Poor quality specimen ECHO Findings: Normal left ventricular systolic function with mild LVH. No suggested regional wall motion abnormalities. Mild Mitral stenosis related to calcified annulus. Impression/Plan Impression/Problem List Impression: 81 y/o F with PMHx of COPD on 2 L NC, CAD s/p PCI with stent to LAD and LCA and diastolic CHF who is admitted for acute on chronic respiratory failure 2/2 COPD and diastolic CHF, with elevated troponins 2/2 NSTEMI vs demand ischemia and new -onset atrial fibrillation. Problem List: 1. Elevated troponin 2. Acute on chronic diastolic (congestive) heart failure 3. T2DM (type 2 diabetes mellitus) 4. COPD exacerbation 5. Acute respiratory failure with hypoxia and hypercarbia 6. New onset atrial fibrillation 7. H/O heart artery stent 8. CAD (coronary artery disease) 9. IDDM (insulin dependent diabetes mellitus) 10. Gout 11. Chest pain Pain Ratin Tomorrow's Labs & Rationales: CBC and ICU bundle (ICU patient) Plan Respiratory: #Acute on chronic hypercarbic and hypoxemic respiratory failure: 2/2 to COPD exacerbation and acute diastolic CHF. Continues to have wheezing on lung exam. SOB subjectively improved but remains on BiPAP. Using Spiriva and Pulmicort inhalers prior to admission. * Continue Solumedrol 40 mg IV Q12H. * BiPAP as needed. * TRC and albuterol nebs Q4H. Use ipratropium only in the setting of persistent tachycardia. * Continue Spiriva 1 puff daily. * Start Symbicort 2 puffs daily. * Continue azithromycin 500 mg IV daily. Infectious Diseases: Remains afebrile. Persistent leukocytosis, likely secondary to steroids. No signs or symptoms of infection. CXR with no evidence of pneumonia. * Ceftriaxone discontinued. Cardiovascular: #Chest pain/elevated troponins: Represents NSTEMI vs demand ischemia in the setting of chest discomfort and lateral ST depressions on EKG. Troponins downtrended to 3.85 yesterday. ECHO repeated today to evaluate LV function after possible ACS. It showed normal LVEF and no regional wall motion abnormalities. * Cardiology following. Appreciate their recs. * Continue aspirin 81 mg PO daily, atorvastatin 80 mg PO daily, Imdur 60 mg PO daily and Plavix 75 mg PO daily. * Continue nitroglycerin paste. * Morphine 2 mg IV Q4H PRN for chest pain. * Continue IV heparin. * Holding metoprolol in the setting of COPD exacerbation with wheezing on exam. #New-onset atrial fibrillation: Transient episode of atrial fibrillation with rapid ventricular this evening that converted after starting IV diltiazem drip. * Continue IV diltiazem drip. * Already anti-coagulated with IV heparin drip. #Acute on chronic diastolic CHF: * Continue to monitor strict I/Os and daily weights. * Hold Lasix today in the setting of worsening kidney function and reassess tomorrow. #HTN: * Continue prior to admission hydralazine 10 mg PO BID and amlodipine 5 mg PO daily. Hematology: #Chronic anemia: Baseline H/H 8-11. Iron studies with low iron and normal ferritin and TIBC consistent with mixed picture with co-existent iron deficiency anemia and anemia of chronic disease. * Continue to monitor H/H. * Guaiac all stools. Metabolic: #T2DM: Blood sugars have been running high in the 350-450 range, likely secondary to steroid therapy. * Endocrinology following. Appreciate their recs. * Increase Levemir to 42 units SQ BID. * Change sliding scale Novolog TIDAC to: for glucose 80-150 give 20 units of insulin, 151-200 give 22 units, 201-250 give 24 units, 251-300, 301-350 give 28 units, 351-400 give 30 units. * Continue bedtime sliding scale Novolog as it is. #AYAZ on CKD: Creatinine has further increased to 2.2 today, likely secondary to overdiuresis. * Hold Lasix today. * Monitor lytes and kidney function. * Replete to K > 4 and Mg > 2. #Gout: * Continue allopurinol 150 mg PO daily. Alimentary: Consistent carbohydrate 2 Neurological: #Anxiety: * Ativan 0.5 mg IV Q8H PRN. Skin: #Groin rash: * Apply nystatin powder BID. DVT/Prophylaxis: mechanical, pharmacological Code Status: Do Not Resucitate/Intubat (no aggressive measures)
--- NOTE | 2016-09-01 08:49 | PN- Diabetes ---
Assessment/Plan Assessment: The patient is breathing more comfortably this morning. Her sugars have remained high. She is on 36 units of Levemir twice a day. Her blood sugar in the lab this morning is 357. Her creatinine is gone up to 2.2. Plan: Suggest increase the Levemir to 42 units twice a day. In addition increase sliding scale NovoLog 3 times a day before meals to be 80-150 give 20 units NovoLog, 151-200 give 22 units NovoLog, 201-250 give 24 units NovoLog, 251-300 give 26 units NovoLog, 301-350 give 28 units NovoLog, 351-400 give 30 units NovoLog. Bedtime sliding scale NovoLog should stay the same. Continue treatment for congestive heart failure and COPD. Subjective Subjective: Breathing the little better Review of Systems Constitutional: Denies: chills, fever. Cardiovascular: Denies: chest pain. Respiratory: Reports: cough, short of breath, wheezing. Gastrointestinal: Denies: nausea, vomiting. Skin: Reports: no symptoms. Objective Last 24 Hrs of Vital Signs/I&O Vital Signs Date Time Temp Pulse Resp B/P Pulse O2 O2 Flow FiO2 Ox Delivery Rate 09/01 0603 92 93 09/01 0400 94 BIPAP 30% 09/01 0231 94 95 09/01 0037 94 94 09/01 0000 95 BIPAP 30% 09/01 0000 96.3 92 20 113/53 95 BIPAP 30% 08/31 2206 94 95 08/31 2126 94 116/45 08/31 2126 98 116/45 08/31 2000 96 BIPAP 30% 08/31 1933 103 95 08/31 1625 116 95 08/31 1600 97.3 103 24 130/58 95 Nasal 4.0L Cannula 08/31 1600 94 Nasal 4.0L Cannula 08/31 1430 106 96 08/31 1359 111 96 08/31 1300 96 BIPAP 30% 08/31 1210 67 97 08/31 1011 98.8 114 26 136/50 97 BIPAP 30% 08/31 0851 136/50 08/31 0851 136/50 08/31 0851 136/50 Intake & Output 09/01 1600 09/01 0800 09/01 0000 Intake Total 246 588 Output Total 255 500 Balance -9 88 Intake, IV 196 438 Intake, Oral 50 150 Output, Urine 255 500 Vital Signs Date Time Temp Pulse Resp B/P Pulse O2 O2 Flow FiO2 Ox Delivery Rate 09/01 0603 92 93 09/01 0400 94 BIPAP 30% 09/01 0231 94 95 09/01 0037 94 94 09/01 0000 95 BIPAP 30% 09/01 0000 96.3 92 20 113/53 95 BIPAP 30% 08/31 2206 94 95 08/31 2126 94 116/45 08/31 2126 98 116/45 08/31 2000 96 BIPAP 30% 08/31 1933 103 95 08/31 1625 116 95 08/31 1600 97.3 103 24 130/58 95 Nasal 4.0L Cannula 08/31 1600 94 Nasal 4.0L Cannula 08/31 1430 106 96 08/31 1359 111 96 08/31 1300 96 BIPAP 30% 08/31 1210 67 97 08/31 1011 98.8 114 26 136/50 97 BIPAP 30% 08/31 0851 136/50 08/31 0851 136/50 08/31 0851 136/50 Intake & Output 09/01 1600 09/01 0800 09/01 0000 Intake Total 246 588 Output Total 255 500 Balance -9 88 Intake, IV 196 438 Intake, Oral 50 150 Output, Urine 255 500 Physical Exam General Appearance: alert, awake, obese Head: normal appearance Neck: normal inspection Respiratory: decreased breath sounds Cardiovascular: regular rate/rhythm Extremities: normal inspection Current Medications: Current Medications Sig/Michele Start time Last Medication Dose Route Stop Time Status Admin Acetaminophen 650 MG ONCE ONE 08/31 194 CAN PO 08/31 194 Albuterol Sulfate 3 ML EVERY 4 HRS/AWAKE 08/30 1200 AC 08/31 INH 1931 Allopurinol 150 MG DAILY 08/30 1000 AC 08/31 PO 0851 Amlodipine Besylate 5 MG BID 08/30 1000 AC 08/31 PO 2126 Aspirin Buffered 81 MG DAILY 08/30 1000 AC 08/31 PO 0851 Atorvastatin Calcium 80 MG 1700 08/30 1700 AC 08/31 PO 1612 Azithromycin 500 MG DAILY@1430 08/31 1430 AC 08/31 Dextrose/Water 250 ML IV 1616 Azithromycin 500 MG DAILY 08/30 1000 DC 08/30 Dextrose/Water 250 ML IV 1435 Ceftriaxone Sodium 1,000 MG DAILY@1400 08/31 1400 AC 08/31 IV 1530 Ceftriaxone Sodium 1,000 MG DAILY 08/30 1000 DC 08/30 IV 1409 Clopidogrel Bisulfate 75 MG DAILY 08/30 1000 AC 08/31 PO 0851 Furosemide 20 MG ONCE ONE 08/31 1100 DC 08/31 IV 08/31 1101 1104 Furosemide 40 MG 7:30 AM, & 4:30 PM 08/30 0730 AC 09/01 IV 0817 Heparin Sodium 2,931 UNIT ONE ONE 08/31 2014 DC 08/31 (Porcine) IV 08/31 2016 2124 Heparin Sodium 25,000 UNIT Q24H 08/30 1045 AC 08/31 (Porcine) IV 1100 Sodium Chloride 500 ML Hydralazine HCl 10 MG BID 08/30 1000 AC 08/31 PO 2126 Insulin Aspart 0 AT BEDTIME 08/30 2200 AC 08/31 SC 2130 Insulin Aspart 0 TIDAC 08/30 0800 AC 09/01 SC 0800 Insulin Detemir 36 UNITS BID 08/30 1000 AC 08/31 SC 2126 Ipratropium [place] 2.5 ML EVERY 4 HRS/AWAKE 08/30 1600 AC 08/31 INH 1931 Isosorbide 60 MG DAILY 08/30 1000 AC 08/31 Mononitrate PO 0851 Lorazepam 0.5 MG Q12P PRN 08/31 1600 AC 09/01 IV 0649 Lorazepam 0.5 MG ONCE ONE 08/31 0915 DC 08/31 IV 08/31 0916 1000 Methylprednisolone 40 MG Q12 08/30 1000 AC 08/31 IV 2126 Morphine Sulfate 2 MG Q4P PRN 08/31 1600 AC IV Morphine Sulfate 2 MG ONCE ONE 08/31 1100 DC 08/31 IV 08/31 1101 1104 Nitroglycerin 0.4 MG ONCE ONE 08/31 1100 DC 08/31 SL 08/31 1101 1104 Nitroglycerin 0.5 GM Q6 08/30 1200 AC 09/01 TOP 0638 Omeprazole 40 MG DAILY AC 08/30 1537 AC 09/01 PO 0637 Polyethylene Glycol 17 GM DAILY PRN 08/30 0800 AC PO Senna/Docusate Sodium 1 TAB BID PRN 08/30 08 AC PO Tiotropium [place] 1 PUF DAILY 08/31 1000 AC 08/31 INH 1000 Findings Pertinent Lab/Romain Results: Laboratory Tests 09/01 08/31 08/31 0233 1803 1600 Chemistry Sodium (137 - 145 mmol/L) 137 Potassium (3.5 - 5.1 mmol/L) 5.2 H Chloride (98 - 107 mmol/L) 100 Carbon Dioxide (22 - 30 mmol/L) 26 Anion Gap (5 - 16) 11 BUN (7 - 17 mg/dL) 68 H Creatinine (0.5 - 1.0 mg/dL) 2.2 H Estimated GFR (>60 ml/min) 21 L Glucose (65 - 99 mg/dL) 357 H Calcium (8.4 - 10.2 mg/dL) 9.0 Phosphorus (2.5 - 4.5 mg/dL) 5.3 H Magnesium (1.6 - 2.3 mg/dL) 2.3 Total Bilirubin (0.2 - 1.3 mg/dL) 0.5 AST (14 - 36 U/L) 50 H ALT (9 - 52 U/L) 30 Albumin (3.5 - 5.0 g/dL) 3.6 Coagulation APTT (25 - 37 SEC) > 120 *H 56 H Cancelled Hematology CBC w Diff NO MAN DIFF REQ WBC (4.8 - 10.8 /CUMM) 19.1 H RBC (4.20 - 5.40 /CUMM) 3.09 L Hgb (12.0 - 16.0 G/DL) 8.5 L Hct (37 - 47 %) 27.0 L MCV (81.0 - 99.0 FL) 87.6 MCH (27.0 - 31.0 PG) 27.6 RDW (11.5 - 14.5 %) 17.2 H Plt Count (130 - 400 /CUMM) 256 MPV (7.4 - 10.4 FL) 8.6 Gran % (42.2 - 75.2 %) 93.2 H Lymphocytes % (20.5 - 51.1 %) 5.4 L Monocytes % (1.7 - 9.3 %) 1.4 L Eosinophils % (0 - 5 %) 0 Basophils % (0.0 - 2.0 %) 0 L Absolute Granulocytes (1.4 - 6.5 /CUMM) 17.8 H Absolute Lymphocytes (1.2 - 3.4 /CUMM) 1.0 L Absolute Monocytes (0.10 - 0.60 /CUMM) 0.3 Absolute Eosinophils (0.0 - 0.7 /CUMM) 0 Absolute Basophils (0.0 - 0.2 /CUMM) 0 PUBS MCHC (33.0 - 37.0 G/DL) 31.6 L 08/31 1109 Chemistry Troponin I (< 0.11 ng/ml) 3.85 *H Coagulation APTT (25 - 37 SEC) 58 H
[2016-09-01 10:18] LABS: PTT 72 SEC (25-37)
--- NOTE | 2016-09-01 11:53 | PN- Att Addend ---
Attending Addendum Attending Brief Note Patient on evaluation is currently on a BiPAP. General Appearance: Alert, No Acute Distress Skin: Grossly normal HEENT: PEERLA Neck: Supple, No JVD Cardiovascular: Regular Rate, Normal S1, Normal S2, No Murmurs Lungs: Expiratory wheeze Abdomen: Normal Bowel Sounds, Soft, No Tenderness Neurological: Normal Speech, Strength at 5/5 X4 Ext, Cranial Nerves 3-12 NL, Reflexes 2+ Extremities: Bilateral pedal edema Assessment 81-year-old female with history of coronary artery disease, hypertension, hyperlipidemia, poorly controlled diabetes, COPD on home oxygen chronic kidney disease, history of renal cell cancer status post right nephrectomy presenting with complaints of shortness of breath and chills. She does have a left shift with bilateral infiltrates. ABG suggest hypercarbic and hypoxic respiratory failure. Patient appears to be in moderate CHF in addition to possible underlying pneumonia with exacerbation of COPD. patient had elevated troponins with active chest pains. She is currently on a Nitropatch and heparin drip. Patient is currently being observed in the ICU for close monitoring and ACS. She continues to require BiPAP. Noted worsening kidney function likely secondary to overdiuresis. No signs of clinical pneumonia. We'll discontinue IV antibiotics. Family would not wish heroic measures including DNI, DNR and aggressive measures. Plan Discontinue ceftriaxone Continue azithromycin Hold Lasix today Reassess IV Lasix dose is tomorrow based on her kidney function Ativan 0.5 mg every 12 hours when necessary anxiety Send sputum culture Continue Solu-Medrol Continue other home medications Prognosis guarded DNI/DNR and no heroic measures Current Medications Sig/Michele Start time Last Medication Dose Route Stop Time Status Admin Acetaminophen 650 MG ONCE ONE 08/31 1944 CAN PO 08/31 194 Albuterol Sulfate 3 ML EVERY 4 HRS/AWAKE 08/30 1200 AC 09/01 INH 0955 Allopurinol 150 MG DAILY 08/30 1000 AC 09/01 PO 1113 Amlodipine Besylate 5 MG BID 08/30 1000 AC 09/01 PO 1115 Aspirin Buffered 81 MG DAILY 08/30 1000 AC 09/01 PO 1113 Atorvastatin Calcium 80 MG 1700 08/30 1700 AC 08/31 PO 1612 Azithromycin 500 MG DAILY@1430 08/31 1430 AC 08/31 Dextrose/Water 250 ML IV 1616 Ceftriaxone Sodium 1,000 MG DAILY@1400 08/31 1400 DC 08/31 IV 1530 Clopidogrel Bisulfate 75 MG DAILY 08/30 1000 AC 09/01 PO 1114 Furosemide 20 MG DAILY 09/02 1000 AC IV Furosemide 40 MG 7:30 AM, & 4:30 PM 08/30 0730 DC 09/01 IV 0817 Heparin Sodium 2,931 UNIT ONE ONE 08/31 2014 DC 08/31 (Porcine) IV 08/31 2015 212 Heparin Sodium 25,000 UNIT Q24H 08/30 1045 AC 08/31 (Porcine) IV 1100 Sodium Chloride 500 ML Hydralazine HCl 10 MG BID 08/30 1000 AC 09/01 PO 1114 Insulin Aspart 30 UNITS ONCE ONE 09/01 1200 AC 09/01 SC 09/01 1201 1152 Insulin Aspart 0 AT BEDTIME 08/30 2200 AC 08/31 SC 2130 Insulin Aspart 0 TIDAC 08/30 0800 AC 09/01 SC 0800 Insulin Detemir 42 UNITS BID 09/01 2200 [facility] Insulin Detemir 42 UNITS BID 09/01 1115 AC 09/01 SC 1113 Insulin Detemir 36 UNITS BID 08/30 1000 MA 08/31 SC 2126 Ipratropium [place] 2.5 ML EVERY 4 HRS/AWAKE 08/30 1600 AC 09/01 INH 0954 Isosorbide 60 MG DAILY 08/30 1000 AC 09/01 Mononitrate PO 1113 Lorazepam 0.5 MG Q12P PRN 08/31 1600 AC 09/01 IV 0649 Methylprednisolone 40 MG Q12 08/30 1000 AC 09/01 IV 1115 Morphine Sulfate 2 MG Q4P PRN 08/31 1600 AC IV Nitroglycerin 0.5 GM Q6 08/30 1200 AC 09/01 TOP 0638 Omeprazole 40 MG DAILY AC 08/30 1537 AC 09/01 PO 0637 Polyethylene Glycol 17 GM DAILY PRN 08/30 0800 AC PO Senna/Docusate Sodium 1 TAB BID PRN 08/30 0800 AC PO Tiotropium [place] 1 PUF DAILY 08/31 1000 AC 09/01 INH 1120 Laboratory Tests 09/01 09/01 08/31 0925 0233 1803 Chemistry Sodium (137 - 145 mmol/L) 137 Potassium (3.5 - 5.1 mmol/L) 5.2 H Chloride (98 - 107 mmol/L) 100 Carbon Dioxide (22 - 30 mmol/L) 26 Anion Gap (5 - 16) 11 BUN (7 - 17 mg/dL) 68 H Creatinine (0.5 - 1.0 mg/dL) 2.2 H Estimated GFR (>60 ml/min) 21 L Glucose (65 - 99 mg/dL) 357 H Calcium (8.4 - 10.2 mg/dL) 9.0 Phosphorus (2.5 - 4.5 mg/dL) 5.3 H Magnesium (1.6 - 2.3 mg/dL) 2.3 Iron (37 - 170 ug/dL) 22 L TIBC (265 - 497 ug/dL) 295 Ferritin (11.1 - 264 ng/mL) 31.4 Total Bilirubin (0.2 - 1.3 mg/dL) 0.5 AST (14 - 36 U/L) 50 H ALT (9 - 52 U/L) 30 Albumin (3.5 - 5.0 g/dL) 3.6 Coagulation APTT (25 - 37 SEC) 72 H > 120 *H 56 H Hematology CBC w Diff NO MAN DIFF REQ WBC (4.8 - 10.8 /CUMM) 19.1 H RBC (4.20 - 5.40 /CUMM) 3.09 L Hgb (12.0 - 16.0 G/DL) 8.5 L Hct (37 - 47 %) 27.0 L MCV (81.0 - 99.0 FL) 87.6 MCH (27.0 - 31.0 PG) 27.6 RDW (11.5 - 14.5 %) 17.2 H Plt Count (130 - 400 /CUMM) 256 MPV (7.4 - 10.4 FL) 8.6 Gran % (42.2 - 75.2 %) 93.2 H Lymphocytes % (20.5 - 51.1 %) 5.4 L Monocytes % (1.7 - 9.3 %) 1.4 L Eosinophils % (0 - 5 %) 0 Basophils % (0.0 - 2.0 %) 0 L Absolute Granulocytes (1.4 - 6.5 /CUMM) 17.8 H Absolute Lymphocytes (1.2 - 3.4 /CUMM) 1.0 L Absolute Monocytes (0.10 - 0.60 /CUMM) 0.3 Absolute Eosinophils (0.0 - 0.7 /CUMM) 0 Absolute Basophils (0.0 - 0.2 /CUMM) 0 PUBS MCHC (33.0 - 37.0 G/DL) 31.6 L 08/31 1600 Coagulation APTT Cancelled Vital Signs Date Time Temp Pulse Resp B/P Pulse O2 O2 Flow FiO2 Ox Delivery Rate 09/01 1115 93 128/64 09/01 1114 92 128/64 09/01 1113 93 128/64 09/01 0950 89 96 09/01 0603 92 93 09/01 0400 94 BIPAP 30% 09/01 0231 94 95 09/01 0037 94 94 09/01 0000 95 BIPAP 30% 09/01 0000 96.3 92 20 113/53 95 BIPAP 30% 08/31 2206 94 95 08/31 2126 94 116/45 08/31 2126 98 116/45 08/31 2000 96 BIPAP 30% 08/31 1933 103 95 08/31 1625 116 95 08/31 1600 97.3 103 24 130/58 95 Nasal 4.0L Cannula 08/31 1600 94 Nasal 4.0L Cannula 08/31 1430 106 96 08/31 1359 111 96 08/31 1300 96 BIPAP 30% 08/31 1210 67 97
--- NOTE | 2016-09-01 12:00 | NUR ---
BLD SUGAR 420. DR TOLEDO NOTIFIED. NOVOLOG 30 UNITS GIVEN.
--- NOTE | 2016-09-01 14:00 | NUR ---
BLD 359. DR TOLEDO NOTIFIED.
--- NOTE | 2016-09-01 15:00 | NUR ---
PT NOTED TO BE IN AFIB 90S-120S. DR PEÑA NOTIFIED. EKG DONE. PT ASYMPTOMATIC.
[2016-09-01 16:00] VITALS: BP 126/68
--- NOTE | 2016-09-01 16:00 | NUR ---
ASSUMED CARE OF PATIENT. PATIENT ALERT AND ORIENTED, MOVING ALL EXTREMITIES, CURRENTLY IN NEW ONSET AFIB. HEART SOUNDS IRREGULAR, LUNGS DIMINISHED BREATH SOUNDS, TOLERATING BIPAP AT 30% WELL WITH OXYGEN SAT 96%. ABD OBESE BUT SOFT WITH POSITIVE BOWEL SOUNDS, [place]AN INTACT DRAINING [place] URINE, SKIN INTACT. DR TRISTAN IN TO SEE PATIENT, CARDIZEM GIVEN ORDERED.
--- NOTE | 2016-09-01 16:36 | PN- Cardiology ---
Subjective Subjective: Notified by the house staff that the patient's had gone into atrial fibrillation with a rapid ventricular response. The monitor reveals her to be in atrial fibrillation with ventricular response between 110-115 bpm. Mrs. Rees is awake and denies any chest discomfort, palpitations, or worsening shortness of breath. Objective Vital Signs and I&Os Vital Signs Date Time Temp Pulse Resp B/P Pulse O2 O2 Flow FiO2 Ox Delivery Rate 09/01 1549 109 22 123/68 09/01 1342 96 97 09/01 1200 97 BIPAP 30% 09/01 1115 93 128/64 09/01 1114 92 128/64 09/01 1113 93 128/64 09/01 0950 89 96 09/01 0800 97 BIPAP 50% 09/01 0800 96.2 86 24 132/62 97 BIPAP 30% 09/01 0603 92 93 09/01 0400 94 BIPAP 30% 09/01 0231 94 95 09/01 0037 94 94 09/01 0000 95 BIPAP 30% 09/01 0000 96.3 92 20 113/53 95 BIPAP 30% 08/31 2206 94 95 08/31 2126 94 116/45 08/31 2126 98 116/45 08/31 2000 96 BIPAP 30% 08/31 1933 103 95 Intake & Output 09/01 1600 09/01 0800 09/01 0000 08/31 1600 08/31 0800 08/31 0000 Intake Total 541 246 588 450 100 655.6 Output Total 580 255 500 400 250 650 Balance -39 -9 88 50 -150 5.6 Intake, IV 341 196 438 350 175.6 Intake, Oral 200 50 150 100 100 480 Number 0 Bowel Movements Output, Urine 580 255 500 400 250 650 Physical Exam: Well-developed, morbidly obese elderly female in no acute distress with oxygen in place. Vital signs: See above. Lungs:Occasional bilateral rhonchi. Heart: S1, S2 (irregularly, irregular) with grade 1/6 systolic murmur. Extremities: 1+ LE edema. Assessment/Plan Assessment/Plan Mrs. Rees is an elderly female with a past medical history of severe COPD on home oxygen therapy, CKD with prior nephrectomy, sleep apnea on nightly CPAP, obesity, anemia, known coronary artery disease with prior remote PCI to the LAD and left circumflex artery, chronic diastolic congestive heart failure, hypertension who presents to [facility] with a chief complaint of progressive shortness of breath and chest discomfort and evidence of heart failure and positive troponins which prompted transfer to the ICU. At present she isin atrial fibrillation with a rapid ventricular response, remains hemodynamically stable without any complaints of chest discomfort, shortness of breath, etc. Recommendations: * Start IV diltiazem drip and titrate up for control of the ventricular response to the atrial fibrillation * Continue present cardiac regimen of IV heparin, antiplatelets, nitrates, statin, diuretic, etc. * Continue oxygen, TRC, steroids, antibiotics, etc., as per pulmonary medicine. * Note her H/H is trending down and evaluate anemia. Check all stools for occult blood. * DVT prophylaxis being addressed by IV heparin for her ACS and now atrial fibrillation. * Recall the possibility of pulmonary embolism in the differential diagnosis for "new onset" atrial fibrillation, however, she has been on IV heparin for her ACS making this less likely. Continue telemetry? Yes
--- NOTE | 2016-09-01 17:00 | NUR ---
PATIENT HAD EPISODE OF COUGHING WHILE EATING DINNER WHILE OFF BIPAP ON NASAL CANULA RESULTING IN DESATURATION AND PANIC OF PATIENT. PATIENT RETURNED TO BIPAP AND MEDICATED WITH ATIVAN. PATIENT THEN RELAXED SATURATIONS RETURNED TO NORMAL WITH RELIEF OF ANXIETY.
--- NOTE | 2016-09-01 18:15 | NUR ---
PATIENT CONVERTED TO NSR MD NOTIFIED.
--- NOTE | 2016-09-01 19:33 | ECHOCARDIOGRAM REPORT ---
RICARDO VALENZUELA Age: 81 : 1935 Gender: F Exam Date: 09/01/2016 13:22 Exam Location: [facility] Ht (in): 63 Wt (lb): 214 BSA: 2.13 BP: 128 / 64 Ordering Physician: BRIDGET TOLEDO MD Referring Physician: Darion Sanchez M.D. Technologist: Renita Rushing RDCS Room Number: 102 Indications: LV FUNCTION AFTER ACS Rhythm: Sinus Technical Quality: Poor FINDINGS Left Ventricle Normal size left ventricle. Left ventricular wall thickness mildly increased. Normal left ventricular ejection fraction estimated at 65-70%. Right Ventricle Normal right ventricular size and function. Right Atrium Normal right atrial size. Left Atrium Mild left atrial dilatation. Suggestion of increased left atrial pressure by doppler Mitral Valve Moderate mitral annular calcification. Mild mitral stenosis. Trace to mild mitral regurgitation. Aortic Valve Aortic valve not well visualized, grossly normal. Tricuspid Valve Tricuspid valve is normal in structure and function. Tricuspid valve not well visualized. Trace to mild tricuspid regurgitation. Pulmonic Valve Pulmonic valve not well visualized, grossly normal. Pericardium No pericardial effusion. Great Vessels Normal size aortic root. CONCLUSIONS Normal left ventricular systolic function with mild LVH. No suggested regional wall motion abnormalities. Mild Mitral stenosis related to calcified annulus. Abisai Colindres M.D. (Electronically Signed) Final Date: 01 September 2016 19:32 MEASUREMENTS (Male / Female) Normal Values 2D ECHO LV Diastolic Diameter PLAX 4.1 cm 4.2 - 5.9 / 3.9 - 5.3 cm LV Systolic Diameter PLAX 2.4 cm 2.1 - 4.0 cm LV Fractional Shortening PLAX 43.2 % 25 - 46 % LV Ejection Fraction 2D Teich 74.7 % IVS Diastolic Thickness 1.4 cm LVPW Diastolic Thickness 1.4 cm LV Relative Wall Thickness 0.7 RV Internal Dim ED PLAX 3.0 cm 1.9 - 3.8 cm LVOT Diameter 1.9 cm Aortic Root Diameter 2.4 cm LA Systolic Diameter LX 4.2 cm 3.0 - 4.0 / 2.7 - 3.8 cm LA Volume 55.0 cm 18 - 58 / 22 - 52 cm Ascending Aorta Diameter 1.8 cm DOPPLER AV Peak Velocity 165.0 cm/s AV Peak Gradient 10.9 mmHg AV Mean Velocity 123.0 cm/s AV Mean Gradient 7.0 mmHg AV Velocity Time Integral 34.8 cm LVOT Peak Velocity 102.0 cm/s LVOT Peak Gradient 4.2 mmHg LVOT Mean Velocity 71.4 cm/s LVOT Mean Gradient 2.0 mmHg LVOT Velocity Time Integral 20.8 cm LVOT Stroke Volume 59.0 cm AV Area Cont Eq vti 1.7 cm AV Area Cont Eq pk 1.8 cm MV Peak Velocity 165.0 cm/s MV Peak Gradient 10.9 mmHg MV Mean Velocity 97.6 cm/s MV Mean Gradient 5.0 mmHg Mitral E Point Velocity 127.0 cm/s Mitral A Point Velocity 120.0 cm/s Mitral E to A Ratio 1.1 MV PHT Velocity 161.0 cm/s MV Deceleration [place] 1062.0 cm/s MV Pressure Half Time 45.5 ms MV Area PHT 4.8 cm MV Deceleration Time 151.0 ms LV E' Lateral Velocity 6.8 cm/s Mitral E to LV E' Lateral Ratio 18.8 LV E' Septal Velocity 8.5 cm/s Mitral E to LV E' Septal Ratio 14.9
[2016-09-01 22:02] LABS: PTT 44 SEC (25-37)
[2016-09-02] VITALS: BP 147/62
--- NOTE | 2016-09-02 00:39 | NUR ---
PT SLEEPY BUT AROUSABLE. DENIES PAIN AT THIS TIME. ON A BIPAP AT 30% FIO2, SATURATION 96%. LUNGS SOUND CLEAR. KAPLAN IN PLACE,ADEQUATE UO AT THIS TIME. HEPARIN GTT CONT, NO EVIDENCE OF ACTIVE BLEED.
--- NOTE | 2016-09-02 00:54 | NUR ---
AlejandroO BLOODY, AWARE AND CAME TO SEE THE UO. SHE SAID TO CONTINUE WIT HEPARIN GTT.
[2016-09-02 05:00] LABS: ABSOLUTE BASOPHIL COUNT 0 /CUMM (0.0-0.2); ABSOLUTE EOSINOPHIL COUNT 0 /CUMM (0.0-0.7); ABSOLUTE GRANULOCYTE CT 14.6 /CUMM (1.4-6.5); ABSOLUTE LYMPH COUNT 0.9 /CUMM (1.2-3.4); ABSOLUTE MONOCYTE COUNT 0.2 /CUMM (0.10-0.60); BASOPHIL % 0.1 % (0.0-2.0); EOSINOPHIL % 0 % (0-5); GRANULOCYTE % 92.8 % (42.2-75.2); HEMATOCRIT 26.4 % (37-47); MEAN CORPUSCULAR HGB 27.8 PG (27.0-31.0); MEAN CORPUSCULAR HGB CONC 32.2 G/DL (33.0-37.0); MEAN CORPUSCULAR VOLUME 86.5 FL (81.0-99.0); MEAN PLATELET VOLUME 9.2 FL (7.4-10.4); PLATELET COUNT 212 /CUMM (130-400); RED BLOOD CELL CT 3.05 /CUMM (4.20-5.40); WHITE BLOOD CELL COUNT 15.7 /CUMM (4.8-10.8)
[2016-09-02 05:19] LABS: PTT > 120 SEC (25-37)
--- NOTE | 2016-09-02 07:19 | PN- Resident CRCU ---
Subjective HPI/CRCU Issues: No acute events overnight. Patient was seen and examined this morning. She remains in sinus rhythm on IV Cardizem drip. She denies further episodes of chest pain. She continues to require BiPAP. She has had poor PO intake. Hematuria was noted in the [facility]. Objective Vital Signs & I&O Last 8 Hrs of Vitals and I&O: Vital Signs Date Time Temp Pulse Resp B/P Pulse O2 O2 Flow FiO2 Ox Delivery Rate 09/02 1834 83 96 09/02 1650 94 BIPAP 35% 09/02 1649 97.4 81 23 140/62 09/02 1649 78 96 09/02 1600 97 BIPAP 30% 09/02 1600 97.4 81 23 140/62 97 BIPAP 30% 09/02 1438 105 140/60 09/02 1438 105 140/60 09/02 1432 106 94 09/02 1200 96 BIPAP 30% 09/02 1124 93 96 09/02 0946 89 148/67 09/02 0946 89 148/67 09/02 0945 89 148/67 09/02 0825 96 BIPAP 30% 09/02 0808 83 97 09/02 0800 97 BIPAP 30% 09/02 0800 96.7 82 22 160/72 96 BIPAP 30% 09/02 0532 86 96 09/02 0532 96 BIPAP 30% 09/02 0400 95 BIPAP 30% 09/02 0259 81 95 09/02 0022 84 95 09/02 0000 96 BIPAP 30% 09/02 0000 96.0 85 22 147/62 96 BIPAP 30% 09/01 2314 90 22 145/68 09/01 2313 90 22 145/72 09/01 2231 87 97 09/01 2000 98 BIPAP 30% 09/01 1910 96 96 Intake & Output 09/02 1600 Intake Total Output Total Balance Patient 97.069 kg Weight Exam General Appearance: alert, awake, obese, mild respiratory distress Head: atraumatic, normal appearance Ears, Nose, Throat: on BiPAP Neck: supple Respiratory: decreased breath sounds Cardiovascular: regular rate/rhythm, normal S1 and S2 Gastrointestinal: soft, non-tender, positive bowel sounds Cranial Nerves: grossly normal Skin: warm/dry Current Medications: Current Medications Sig/Michele Start time Last Medication Dose Route Stop Time Status Admin Albuterol Sulfate 3 ML EVERY 4 HRS/AWAKE 08/30 1200 AC 09/02 INH 1645 Allopurinol 150 MG DAILY 08/30 1000 AC 09/02 PO 0944 Amiodarone HCl 200 MG BID 09/02 1246 AC 09/02 PO 1438 Amlodipine Besylate 5 MG BID 08/30 1000 AC 09/02 PO 0945 Aspirin Buffered 81 MG DAILY 08/30 1000 AC 09/02 PO 0944 Atorvastatin Calcium 80 MG 1700 08/30 1700 AC 09/02 PO 1649 Azithromycin 500 MG 1430 09/02 1430 AC 09/02 Dextrose/Water 250 ML IV 09/03 1529 1530 Azithromycin 250 MG DAILY 09/02 1000 CAN Dextrose/Water 250 ML IV 09/03 1059 Azithromycin 500 MG DAILY 09/02 1000 DC Dextrose/Water 250 ML IV 09/03 1059 Azithromycin 500 MG DAILY@1430 08/31 1430 OR 09/01 Dextrose/Water 250 ML IV 1435 Budesonide/ 2 PUF BID 09/01 1224 AC 09/02 Formoterol Fumarate INH 0943 Clopidogrel Bisulfate 75 MG DAILY 08/30 1000 AC 09/02 PO 0944 Diltiazem HCl 125 MG Q24H 09/01 1615 OR 09/01 Sodium Chloride 100 ML IV 1636 Furosemide 20 MG DAILY 09/02 1000 OR 09/02 IV 0943 Heparin Sodium 10,000 UNIT .ST-MED ONE 09/01 2323 DC (Porcine) IV 09/01 2324 Heparin Sodium 5,800 UNIT ONCE ONE 09/01 2300 OR 09/01 (Porcine) IV 09/01 2301 2330 Heparin Sodium 25,000 UNIT Q24H 08/30 1045 09/02 (Porcine) IV 1440 Sodium Chloride 500 ML Hydralazine HCl 10 MG TID 09/02 1600 AC 09/02 PO 1649 Hydralazine HCl 10 MG BID 08/30 1000 DC 09/02 PO 0946 Insulin Aspart 0 AT BEDTIME 08/30 2200 AC 09/01 SC 2217 Insulin Aspart 0 TIDAC 08/30 0800 AC 09/02 SC 1649 Insulin Detemir 50 UNITS BID 09/02 1000 AC 09/02 SC 0940 Insulin Detemir 42 UNITS BID 09/01 1115 DC 09/01 SC 2216 Ipratropium [place] 2.5 ML EVERY 4 HRS/AWAKE 08/30 1600 AC 09/02 INH 1645 Isosorbide 60 MG DAILY 08/30 1000 AC 09/02 Mononitrate PO 0946 Lorazepam 0.5 MG Q12P PRN 09/02 1330 AC IV Lorazepam 0.5 MG Q8 PRN 09/01 1719 DC 09/02 IV 1310 Methylprednisolone 40 MG DAILY 09/02 1000 DC 09/02 IV 0943 Methylprednisolone 40 MG Q12 08/30 1000 DC 09/01 IV 09/01 2300 2313 Metoprolol Tartrate 12.5 MG BID 09/02 1246 AC 09/02 PO 1438 Morphine Sulfate 2 MG Q4P PRN 08/31 1600 AC 09/02 IV 1439 Nitroglycerin 0.5 GM Q6 08/30 1200 AC 09/02 TOP 1234 Nystatin 1 TYRON BID 09/01 1321 AC 09/02 TOP 1004 Omeprazole 40 MG DAILY AC 08/30 1537 AC 09/02 PO 0605 Phenol 2 SPRAY Q2P PRN 09/02 1415 AC 09/02 EXT 1648 Polyethylene Glycol 17 GM DAILY PRN 08/30 0800 AC PO Prednisone 40 MG DAILY 09/03 1000 AC PO Prednisone 40 MG DAILY 09/02 1431 DC PO Senna/Docusate Sodium 1 TAB BID PRN 08/30 0800 AC PO Tiotropium [place] 1 PUF DAILY 08/31 1000 AC 09/02 INH 0943 Results Results: Laboratory Tests 09/02 09/02 09/01 1245 0400 2130 Chemistry Sodium (137 - 145 mmol/L) 137 Potassium (3.5 - 5.1 mmol/L) 4.6 Chloride (98 - 107 mmol/L) 98 Carbon Dioxide (22 - 30 mmol/L) 27 Anion Gap (5 - 16) 12 BUN (7 - 17 mg/dL) 79 H Creatinine (0.5 - 1.0 mg/dL) 2.3 H Estimated GFR (>60 ml/min) 20 L Glucose (65 - 99 mg/dL) 345 H Calcium (8.4 - 10.2 mg/dL) 8.7 Phosphorus (2.5 - 4.5 mg/dL) 6.0 H Magnesium (1.6 - 2.3 mg/dL) 2.3 Total Bilirubin (0.2 - 1.3 mg/dL) 0.4 AST (14 - 36 U/L) 28 ALT (9 - 52 U/L) 34 Albumin (3.5 - 5.0 g/dL) 3.6 Coagulation APTT (25 - 37 SEC) 77 H > 120 *H 44 H Hematology CBC w Diff MAN DIFF ORDERED WBC (4.8 - 10.8 /CUMM) 15.7 H RBC (4.20 - 5.40 /CUMM) 3.05 L Hgb (12.0 - 16.0 G/DL) 8.5 L Hct (37 - 47 %) 26.4 L MCV (81.0 - 99.0 FL) 86.5 MCH (27.0 - 31.0 PG) 27.8 RDW (11.5 - 14.5 %) 17.0 H Plt Count (130 - 400 /CUMM) 212 MPV (7.4 - 10.4 FL) 9.2 Gran % (42.2 - 75.2 %) 92.8 H Lymphocytes % (20.5 - 51.1 %) 5.9 L Monocytes % (1.7 - 9.3 %) 1.2 L Eosinophils % (0 - 5 %) 0 Basophils % (0.0 - 2.0 %) 0.1 Absolute Granulocytes (1.4 - 6.5 /CUMM) 14.6 H Absolute Lymphocytes (1.2 - 3.4 /CUMM) 0.9 L Absolute Monocytes (0.10 - 0.60 /CUMM) 0.2 Absolute Eosinophils (0.0 - 0.7 /CUMM) 0 Absolute Basophils (0.0 - 0.2 /CUMM) 0 Platelet Estimate (ADEQUATE) ADEQUATE Hypochromic-Microcytic 2+ Poikilocytosis 1+ Anisocytosis 1+ Ovalocytes 1+ PUBS MCHC (33.0 - 37.0 G/DL) 32.2 L Impression/Plan Impression/Problem List Impression: 81 y/o F with PMHx of COPD on 2 L NC, CAD s/p PCI with stent to LAD and LCA and diastolic CHF who is admitted for acute on chronic respiratory failure 2/2 COPD and diastolic CHF, with elevated troponins 2/2 NSTEMI vs demand ischemia and new -onset paroxysmal atrial fibrillation. Problem List: 1. Acute respiratory failure with hypoxia and hypercarbia 2. New onset atrial fibrillation 3. T2DM (type 2 diabetes mellitus) 4. Acute on chronic diastolic (congestive) heart failure 5. IDDM (insulin dependent diabetes mellitus) 6. Chronic kidney disease 7. Hematuria 8. Paroxysmal atrial fibrillation Pain Ratin Tomorrow's Labs & Rationales: CBC and ICU bundle (ICU patient) Plan Respiratory: #Acute on chronic hypercarbic and hypoxemic respiratory failure: 2/2 to COPD exacerbation and acute diastolic CHF. Continues to require BiPAP. * Decrease Solumedrol to 40 mg daily today and change to prednisone 40 mg PO daily tomorrow. * Continue BiPAP. * TRC and albuterol nebs Q4H. Use ipratropium only in the setting of persistent tachycardia. * Continue Spiriva and Symbicort inhalers. * Continue azithromycin 500 mg IV daily. * Continue Ativan 0.5 mg IV Q8H PRN for anxiety. * Morphine 2 mg IV Q4H PRN for respiratory distress. Infectious Diseases: Remains afebrile. Persistent leukocytosis, likely secondary to steroids. No signs or symptoms of infection. Cardiovascular: #New-onset paroxysmal atrial fibrillation: Transient episode of atrial fibrillation with rapid ventricular rate yesterday that converted after starting IV diltiazem drip. * Cardiology following. Appreciate their recs. * Discontinue IV diltiazem drip. * Start amiodarone 200 mg pO BID and metoprolol 12.5 mg PO BID. * Continue IV heparin drip. #Acute on chronic diastolic CHF: * Continue to monitor strict I/Os and daily weights. * Hold Lasix today in the setting of worsening kidney function and reassess tomorrow. #HTN: Blood pressures have been running high, up to 160/70s this AM. * Continue prior to admission amlodipine 5 mg PO daily. * Start metoprolol 12.5 mg PO BID. * Increase hydralazine to 10 mg PO TID. * Continue to monitor BP closely as patient tends to go into flash pulmonary edema when SBP > 170. #Elevated troponins: Represents NSTEMI vs demand ischemia in the setting of chest discomfort and lateral ST depressions on EKG. No active chest pain currently. * Continue aspirin 81 mg PO daily, atorvastatin 80 mg PO daily, Imdur 60 mg PO daily and Plavix 75 mg PO daily. * Continue nitroglycerin paste. * Morphine 2 mg IV Q4H PRN for chest pain. * Continue IV heparin. Hematology: #Anemia: Baseline H/H 8-11. Iron studies with low iron and normal ferritin and TIBC consistent with mixed picture with co-existent iron deficiency anemia and anemia of chronic disease. * Continue to monitor H/H closely while patient is on IV heparin drip. * Guaiac all stools. #Hematuria: Hematuria noted in the [facility]. Possibly traumatic. * Urology consulted. Appreciate their recs. Metabolic: #T2DM: Blood sugars continue to run in the 350-450 range despite increasing insulin dose, likely secondary to steroid therapy. * Endocrinology following. Appreciate their recs. * Increase Levemir to 50 units SQ BID. * Change sliding scale Novolog TIDAC to: for glucose 80-150 give 24 units of insulin, 151-200 give 26 units, 201-250 give 28 units, 251-300 give 30 units, 301-350 give 32 units, 351-400 give 34 units. * Continue bedtime sliding scale Novolog as it is. #AYAZ on CKD: Creatinine has further increased to 2.3 today, likely secondary to overdiuresis. * Hold off on further IV Lasix. * Monitor lytes and kidney function. * Replete to K > 4 and Mg > 2. #Gout: * Continue allopurinol 150 mg PO daily. Alimentary: Consistent Carbohydrate 2 Neurological: AAO x 3. Skin: #Groin rash: * Apply nystatin powder BID. DVT/Prophylaxis: mechanical, pharmacological Code Status: Do Not Resucitate/Intubat (no aggressive measures)
--- NOTE | 2016-09-02 07:36 | PN- Diabetes ---
Assessment/Plan Assessment: The patient is breathing more comfortably this morning. Her sugars have remained high. The patient is on steroid. She is on 36 units of Levemir twice a day. Her sliding scale NovoLog( increased yesterday. Her blood sugar in the lab this morning is 345. Her creatinine is gone up to 2.3. Plan: Patient's blood sugars are high. Suggest increase Levemir to 50 units twice a day. In addition increase sliding scale NovoLog before meals to 80- 150 give 24 units NovoLog, 151-200 give 26 units NovoLog, for 201-250 give 28 units NovoLog, 251-300 give 30 units NovoLog, 301-350 give 32 units NovoLog, 351-400 give 34 units NovoLog. Bedtime started scale NovoLog can stay the same. Subjective Subjective: breathing is a little better Objective Last 24 Hrs of Vital Signs/I&O Vital Signs Date Time Temp Pulse Resp B/P Pulse O2 O2 Flow FiO2 Ox Delivery Rate 09/02 0532 86 96 09/02 0532 96 BIPAP 30% 09/02 0400 95 BIPAP 30% 09/02 0259 81 95 09/02 0022 84 95 09/02 0000 96 BIPAP 30% 09/02 0000 96.0 85 22 147/62 96 BIPAP 30% 09/01 2314 90 22 145/68 09/01 2313 90 22 145/72 09/01 2231 87 97 09/01 2000 98 BIPAP 30% 09/01 1910 96 96 09/01 1705 109 94 09/01 1700 95 BIPAP 30% 09/01 1647 101 94 09/01 1600 96 BIPAP 30% 09/01 1600 97.2 108 24 126/68 96 BIPAP 30% 09/01 1549 109 22 123/68 09/01 1342 96 97 09/01 1200 97 BIPAP 30% 09/01 1115 93 128/64 09/01 1114 92 128/64 09/01 1113 93 128/64 09/01 0950 89 96 09/01 0800 97 BIPAP 50% 09/01 0800 96.2 86 24 132/62 97 BIPAP 30% Intake & Output 09/02 0800 09/02 0000 09/01 1600 Intake Total 368 419 541 Output Total 265 250 580 Balance 103 169 -39 Intake, IV 268 219 341 Intake, Oral 100 200 200 Number 0 Bowel Movements Output, Urine 265 250 580 Vital Signs Date Time Temp Pulse Resp B/P Pulse O2 O2 Flow FiO2 Ox Delivery Rate 09/02 0532 86 96 09/02 0532 96 BIPAP 30% 09/02 0400 95 BIPAP 30% 09/02 0259 81 95 09/02 0022 84 95 09/02 0000 96 BIPAP 30% 09/02 0000 96.0 85 22 147/62 96 BIPAP 30% 09/01 2314 90 22 145/68 09/01 2313 90 22 145/72 09/01 2231 87 97 09/01 2000 98 BIPAP 30% 09/01 1910 96 96 09/01 1705 109 94 09/01 1700 95 BIPAP 30% 09/01 1647 101 94 09/01 1600 96 BIPAP 30% 09/01 1600 97.2 108 24 126/68 96 BIPAP 30% 09/01 1549 109 22 123/68 09/01 1342 96 97 09/01 1200 97 BIPAP 30% 09/01 1115 93 128/64 09/01 1114 92 128/64 09/01 1113 93 128/64 09/01 0950 89 96 09/01 0800 97 BIPAP 50% 09/01 0800 96.2 86 24 132/62 97 BIPAP 30% Intake & Output 09/02 0800 09/02 0000 09/01 1600 Intake Total 368 419 541 Output Total 265 250 580 Balance 103 169 -39 Intake, IV 268 219 341 Intake, Oral 100 200 200 Number 0 Bowel Movements Output, Urine 265 250 580 Current Medications: Current Medications Sig/Michele Start time Last Medication Dose Route Stop Time Status Admin Albuterol Sulfate 3 ML EVERY 4 HRS/AWAKE 08/30 1200 AC 09/02 INH 0530 Allopurinol 150 MG DAILY 08/30 1000 AC 09/01 PO 1113 Amlodipine Besylate 5 MG BID 08/30 1000 AC 09/01 PO 2313 Aspirin Buffered 81 MG DAILY 08/30 1000 AC 09/01 PO 1113 Atorvastatin Calcium 80 MG 1700 08/30 1700 AC 09/01 PO 1635 Azithromycin 500 MG DAILY@1430 08/31 1430 AC 09/01 Dextrose/Water 250 ML IV 1435 Budesonide/ 2 PUF BID 09/01 1224 AC 09/01 Formoterol Fumarate INH 2313 Ceftriaxone Sodium 1,000 MG DAILY@1400 08/31 1400 DC 08/31 IV 1530 Clopidogrel Bisulfate 75 MG DAILY 08/30 1000 AC 09/01 PO 1114 Diltiazem HCl 125 MG Q24H 09/01 1615 AC 09/01 Sodium Chloride 100 ML IV 1636 Diltiazem HCl 15 MG ONCE ONE 09/01 1545 DC 09/01 IV 09/01 1546 1549 Furosemide 20 MG DAILY 09/02 1000 AC IV Furosemide 40 MG 7:30 AM, & 4:30 PM 08/30 0730 DC 09/01 IV 0817 Heparin Sodium 10,000 UNIT .STK-MED ONE 09/01 2323 DC (Porcine) IV 09/01 2324 Heparin Sodium 5,800 UNIT ONCE ONE 09/01 2300 DC 09/01 (Porcine) IV 09/01 2301 2330 Heparin Sodium 25,000 UNIT Q24H 08/30 1045 AC 08/31 (Porcine) IV 1100 Sodium Chloride 500 ML Hydralazine HCl 10 MG BID 08/30 1000 AC 09/01 PO 2314 Insulin Aspart 30 UNITS ONCE ONE 09/01 1200 DC 09/01 SC 09/01 1201 1152 Insulin Aspart 0 AT BEDTIME 08/30 2200 09/01 SC 2217 Insulin Aspart 0 TIDAC 08/30 0800 AC 09/01 SC 1646 Insulin Detemir 42 UNITS BID 09/01 2200 PA SC Insulin Detemir 42 UNITS BID 09/01 1115 09/01 SC 2216 Insulin Detemir 36 UNITS BID 08/30 1000 PA 08/31 SC 2126 Ipratropium [place] 2.5 ML EVERY 4 HRS/AWAKE 08/30 1600 AC 09/02 INH 0530 Isosorbide 60 MG DAILY 08/30 1000 AC 09/01 Mononitrate PO 1113 Lorazepam 0.5 MG Q8 PRN 09/01 1719 AC 09/02 IV 0400 Lorazepam 0.5 MG Q12P PRN 08/31 1600 DC 09/01 IV 0649 Methylprednisolone 40 MG DAILY 09/02 1000 AC IV Methylprednisolone 40 MG Q12 08/30 1000 PA 09/01 IV 09/01 2300 2313 Morphine Sulfate 2 MG Q4P PRN 08/31 1600 AC IV Nitroglycerin 0.5 GM Q6 08/30 1200 AC 09/02 TOP 0605 Nystatin 1 TYRON BID 09/01 1321 AC 09/01 TOP 2314 Omeprazole 40 MG DAILY AC 08/30 1537 AC 09/02 PO 0605 Polyethylene Glycol 17 GM DAILY PRN 08/30 0800 AC PO Senna/Docusate Sodium 1 TAB BID PRN 08/30 0800 AC PO Tiotropium [place] 1 PUF DAILY 08/31 1000 AC 09/01 INH 1120 Findings Pertinent Lab/Romain Results: Laboratory Tests 09/02 09/01 09/01 0400 2130 0925 Chemistry Sodium (137 - 145 mmol/L) 137 Potassium (3.5 - 5.1 mmol/L) 4.6 Chloride (98 - 107 mmol/L) 98 Carbon Dioxide (22 - 30 mmol/L) 27 Anion Gap (5 - 16) 12 BUN (7 - 17 mg/dL) 79 H Creatinine (0.5 - 1.0 mg/dL) 2.3 H Estimated GFR (>60 ml/min) 20 L Glucose (65 - 99 mg/dL) 345 H Calcium (8.4 - 10.2 mg/dL) 8.7 Phosphorus (2.5 - 4.5 mg/dL) 6.0 H Magnesium (1.6 - 2.3 mg/dL) 2.3 Total Bilirubin (0.2 - 1.3 mg/dL) 0.4 AST (14 - 36 U/L) 28 ALT (9 - 52 U/L) 34 Albumin (3.5 - 5.0 g/dL) 3.6 Coagulation APTT (25 - 37 SEC) > 120 *H 44 H 72 H Hematology CBC w Diff MAN DIFF ORDERED WBC (4.8 - 10.8 /CUMM) 15.7 H RBC (4.20 - 5.40 /CUMM) 3.05 L Hgb (12.0 - 16.0 G/DL) 8.5 L Hct (37 - 47 %) 26.4 L MCV (81.0 - 99.0 FL) 86.5 MCH (27.0 - 31.0 PG) 27.8 RDW (11.5 - 14.5 %) 17.0 H Plt Count (130 - 400 /CUMM) 212 MPV (7.4 - 10.4 FL) 9.2 Gran % (42.2 - 75.2 %) 92.8 H Lymphocytes % (20.5 - 51.1 %) 5.9 L Monocytes % (1.7 - 9.3 %) 1.2 L Eosinophils % (0 - 5 %) 0 Basophils % (0.0 - 2.0 %) 0.1 Absolute Granulocytes (1.4 - 6.5 /CUMM) 14.6 H Absolute Lymphocytes (1.2 - 3.4 /CUMM) 0.9 L Absolute Monocytes (0.10 - 0.60 /CUMM) 0.2 Absolute Eosinophils (0.0 - 0.7 /CUMM) 0 Absolute Basophils (0.0 - 0.2 /CUMM) 0 Platelet Estimate (ADEQUATE) ADEQUATE Hypochromic-Microcytic 2+ Poikilocytosis 1+ Anisocytosis 1+ Ovalocytes 1+ PUBS MCHC (33.0 - 37.0 G/DL) 32.2 L
[2016-09-02 08:00] VITALS: BP 160/72
--- NOTE | 2016-09-02 08:57 | PN- Att Addend ---
Attending Addendum Attending Brief Note Patient denies chest pain. General Appearance: Alert, No Acute Distress Skin: Grossly normal HEENT: PEERLA Neck: Supple, No JVD Cardiovascular: Regular Rate, Normal S1, Normal S2, No Murmurs Lungs: Expiratory wheeze Abdomen: Normal Bowel Sounds, Soft, No Tenderness Neurological: Normal Speech, Strength at 5/5 X4 Ext, Cranial Nerves 3-12 NL, Reflexes 2+ Extremities: Bilateral pedal edema Assessment 81-year-old female with history of coronary artery disease, hypertension, hyperlipidemia, poorly controlled diabetes, COPD on home oxygen chronic kidney disease, history of renal cell cancer status post right nephrectomy presenting with complaints of shortness of breath and chills. She does have a left shift with bilateral infiltrates. ABG suggest hypercarbic and hypoxic respiratory failure. patient had elevated troponins with active chest pains. She is currently on a Nitropatch and heparin drip. observed in the ICU for close monitoring and ACS. She continues to require BiPAP. Noted worsening kidney function likely secondary to overdiuresis. No signs of clinical pneumonia. Antibiotic now discontinued. Repeat echo shows preserved ejection fraction. Family would not wish heroic measures including DNI, DNR and aggressive measures. Plan Continue azithromycin Hold Lasix today Ativan 0.5 mg every 12 hours when necessary anxiety taper steroids Continue other home medications Prognosis guarded DNI/DNR and no heroic measures Current Medications Sig/Michele Start time Last Medication Dose Route Stop Time Status Admin Albuterol Sulfate 3 ML EVERY 4 HRS/AWAKE 08/30 1200 AC 09/02 INH 0813 Allopurinol 150 MG DAILY 08/30 1000 AC 09/01 PO 1113 Amlodipine Besylate 5 MG BID 08/30 1000 AC 09/01 PO 2313 Aspirin Buffered 81 MG DAILY 08/30 1000 AC 09/01 PO 1113 Atorvastatin Calcium 80 MG 1700 08/30 1700 AC 09/01 PO 1635 Azithromycin 500 MG DAILY@1430 08/31 1430 AC 09/01 Dextrose/Water 250 ML IV 1435 Budesonide/ 2 PUF BID 09/01 1224 AC 09/01 Formoterol Fumarate INH 2313 Ceftriaxone Sodium 1,000 MG DAILY@1400 08/31 1400 DC 08/31 IV 1530 Clopidogrel Bisulfate 75 MG DAILY 08/30 1000 AC 09/01 PO 1114 Diltiazem HCl 125 MG Q24H 09/01 1615 AC 09/01 Sodium Chloride 100 ML IV 1636 Diltiazem HCl 15 MG ONCE ONE 09/01 1545 DC 09/01 IV 09/01 1546 1549 Furosemide 20 MG DAILY 09/02 1000 AC IV Furosemide 40 MG 7:30 AM, & 4:30 PM 08/30 0730 DC 09/01 IV 0817 Heparin Sodium 10,000 UNIT .STK-MED ONE 09/01 2323 DC (Porcine) IV 09/01 2324 Heparin Sodium 5,800 UNIT ONCE ONE 09/01 2300 DC 09/01 (Porcine) IV 09/01 2301 2330 Heparin Sodium 25,000 UNIT Q24H 08/30 1045 AC 08/31 (Porcine) IV 1100 Sodium Chloride 500 ML Hydralazine HCl 10 MG BID 08/30 1000 AC 09/01 PO 2314 Insulin Aspart 30 UNITS ONCE ONE 09/01 1200 DC 09/01 SC 09/01 1201 1152 Insulin Aspart 0 AT BEDTIME 08/30 2200 AC 09/01 SC 2217 Insulin Aspart 0 TIDAC 08/30 0800 r 09/01 SC 1646 Insulin Detemir 50 UNITS BID 09/02 1000 UNVr SC Insulin Detemir 42 UNITS BID 09/01 2200 DC SC Insulin Detemir 42 UNITS BID 09/01 1115 DC 09/01 SC 2216 Insulin Detemir 36 UNITS BID 08/30 1000 DC 08/31 SC 2126 Ipratropium [place] 2.5 ML EVERY 4 HRS/AWAKE 08/30 1600 AC 09/02 INH 0813 Isosorbide 60 MG DAILY 08/30 1000 AC 09/01 Mononitrate PO 1113 Lorazepam 0.5 MG Q8 PRN 09/01 1719 AC 09/02 IV 0400 Lorazepam 0.5 MG Q12P PRN 08/31 1600 DC 09/01 IV 0649 Methylprednisolone 40 MG DAILY 09/02 1000 AC IV Methylprednisolone 40 MG Q12 08/30 1000 DC 09/01 IV 09/01 2300 2313 Morphine Sulfate 2 MG Q4P PRN 08/31 1600 AC IV Nitroglycerin 0.5 GM Q6 08/30 1200 AC 09/02 TOP 0605 Nystatin 1 TYRON BID 09/01 1321 AC 09/01 TOP 2314 Omeprazole 40 MG DAILY AC 08/30 1537 AC 09/02 PO 0605 Polyethylene Glycol 17 GM DAILY PRN 08/30 0800 AC PO Senna/Docusate Sodium 1 TAB BID PRN 08/30 0800 AC PO Tiotropium [place] 1 PUF DAILY 08/31 1000 AC 09/01 INH 1120 Laboratory Tests 09/02 09/01 09/01 0400 2130 0925 Chemistry Sodium (137 - 145 mmol/L) 137 Potassium (3.5 - 5.1 mmol/L) 4.6 Chloride (98 - 107 mmol/L) 98 Carbon Dioxide (22 - 30 mmol/L) 27 Anion Gap (5 - 16) 12 BUN (7 - 17 mg/dL) 79 H Creatinine (0.5 - 1.0 mg/dL) 2.3 H Estimated GFR (>60 ml/min) 20 L Glucose (65 - 99 mg/dL) 345 H Calcium (8.4 - 10.2 mg/dL) 8.7 Phosphorus (2.5 - 4.5 mg/dL) 6.0 H Magnesium (1.6 - 2.3 mg/dL) 2.3 Total Bilirubin (0.2 - 1.3 mg/dL) 0.4 AST (14 - 36 U/L) 28 ALT (9 - 52 U/L) 34 Albumin (3.5 - 5.0 g/dL) 3.6 Coagulation APTT (25 - 37 SEC) > 120 *H 44 H 72 H Hematology CBC w Diff MAN DIFF ORDERED WBC (4.8 - 10.8 /CUMM) 15.7 H RBC (4.20 - 5.40 /CUMM) 3.05 L Hgb (12.0 - 16.0 G/DL) 8.5 L Hct (37 - 47 %) 26.4 L MCV (81.0 - 99.0 FL) 86.5 MCH (27.0 - 31.0 PG) 27.8 RDW (11.5 - 14.5 %) 17.0 H Plt Count (130 - 400 /CUMM) 212 MPV (7.4 - 10.4 FL) 9.2 Gran % (42.2 - 75.2 %) 92.8 H Lymphocytes % (20.5 - 51.1 %) 5.9 L Monocytes % (1.7 - 9.3 %) 1.2 L Eosinophils % (0 - 5 %) 0 Basophils % (0.0 - 2.0 %) 0.1 Absolute Granulocytes (1.4 - 6.5 /CUMM) 14.6 H Absolute Lymphocytes (1.2 - 3.4 /CUMM) 0.9 L Absolute Monocytes (0.10 - 0.60 /CUMM) 0.2 Absolute Eosinophils (0.0 - 0.7 /CUMM) 0 Absolute Basophils (0.0 - 0.2 /CUMM) 0 Platelet Estimate (ADEQUATE) ADEQUATE Hypochromic-Microcytic 2+ Poikilocytosis 1+ Anisocytosis 1+ Ovalocytes 1+ PUBS MCHC (33.0 - 37.0 G/DL) 32.2 L Vital Signs Date Time Temp Pulse Resp B/P Pulse O2 O2 Flow FiO2 Ox Delivery Rate 09/02 0808 83 97 09/02 0532 86 96 09/02 0532 96 BIPAP 30% 09/02 0400 95 BIPAP 30% 09/02 0259 81 95 09/02 0022 84 95 09/02 0000 96 BIPAP 30% 09/02 0000 96.0 85 22 147/62 96 BIPAP 30% 09/01 2314 90 22 145/68 09/01 2313 90 22 145/72 09/01 2231 87 97 09/01 2000 98 BIPAP 30% 09/01 1910 96 96 09/01 1705 109 94 09/01 1700 95 BIPAP 30% 09/01 1647 101 94 09/01 1600 96 BIPAP 30% 09/01 1600 97.2 108 24 126/68 96 BIPAP 30% 09/01 1549 109 22 123/68 09/01 1342 96 97 09/01 1200 97 BIPAP 30% 09/01 1115 93 128/64 09/01 1114 92 128/64 09/01 1113 93 128/64 09/01 0950 89 96
--- NOTE | 2016-09-02 12:17 | PN- Cardiology ---
Subjective Subjective: Patient remains on BiPAP this morning. Denies recurrent chest pain. Is back in sinus rhythm. Does have some hematuria noted in the [facility]. Objective Vital Signs and I&Os Vital Signs Date Time Temp Pulse Resp B/P Pulse O2 O2 Flow FiO2 Ox Delivery Rate 09/02 1124 93 96 09/02 0946 89 148/67 09/02 0946 89 148/67 09/02 0945 89 148/67 09/02 0825 96 BIPAP 30% 09/02 0808 83 97 09/02 0800 97 BIPAP 30% 09/02 0800 96.7 82 22 160/72 96 BIPAP 30% 09/02 0532 86 96 09/02 0532 96 BIPAP 30% 09/02 0400 95 BIPAP 30% 09/02 0259 81 95 09/02 0022 84 95 09/02 0000 96 BIPAP 30% 09/02 0000 96.0 85 22 147/62 96 BIPAP 30% 09/01 2314 90 22 145/68 09/01 2313 90 22 145/72 09/01 2231 87 97 09/01 2000 98 BIPAP 30% 09/01 1910 96 96 09/01 1705 109 94 09/01 1700 95 BIPAP 30% 09/01 1647 101 94 09/01 1600 96 BIPAP 30% 09/01 1600 97.2 108 24 126/68 96 BIPAP 30% 09/01 1549 109 22 123/68 09/01 1342 96 97 Intake & Output 09/02 1600 09/02 0800 09/02 0000 09/01 1600 09/01 0800 09/01 0000 Intake Total 368 419 541 246 588 Output Total 265 250 580 255 500 Balance 103 169 -39 -9 88 Intake, IV 268 219 341 196 438 Intake, Oral 100 200 200 50 150 Number 0 Bowel Movements Output, Urine 265 250 580 255 500 Physical Exam: General: Currently on BiPAP. Alert. Eyes: No obvious scleral icterus. HEENT: No abnormal jugular venous pulsations Cardiovascular: Normal intensity S1/S2. Regular. One out of 6 systolic murmur. Respiratory: Decreased air entry bilaterally Abdomen: Soft, nontender with no guarding or rebound tenderness. Musculoskeletal: No clubbing or cyanosis noted, 1+ LE edema Skin: warm Neurologic: No gross focal deficits noted. Current Medications: Current Medications Sig/Michele Start time Last Medication Dose Route Stop Time Status Admin Albuterol Sulfate 3 ML EVERY 4 HRS/AWAKE 08/30 1200 AC 09/02 INH 0813 Allopurinol 150 MG DAILY 08/30 1000 AC 09/02 PO 0944 Amlodipine Besylate 5 MG BID 08/30 1000 AC 09/02 PO 0945 Aspirin Buffered 81 MG DAILY 08/30 1000 AC 09/02 PO 0944 Atorvastatin Calcium 80 MG 1700 08/30 1700 AC 09/01 PO 1635 Azithromycin 500 MG 1430 09/02 1430 AC Dextrose/Water 250 ML IV 09/03 1529 Azithromycin 250 MG DAILY 09/02 1000 CAN Dextrose/Water 250 ML IV 09/03 1059 Azithromycin 500 MG DAILY 09/02 1000 DC Dextrose/Water 250 ML IV 09/03 1059 Azithromycin 500 MG DAILY@1430 08/31 1430 DC 09/01 Dextrose/Water 250 ML IV 1435 Budesonide/ 2 PUF BID 09/01 1224 AC 09/02 Formoterol Fumarate INH 0943 Clopidogrel Bisulfate 75 MG DAILY 08/30 1000 AC 09/02 PO 0944 Diltiazem HCl 125 MG Q24H 09/01 1615 DC 09/01 Sodium Chloride 100 ML IV 1636 Diltiazem HCl 15 MG ONCE ONE 09/01 1545 DC 09/01 IV 09/01 1546 1549 Furosemide 20 MG DAILY 09/02 1000 DC 09/02 IV 0943 Heparin Sodium 10,000 UNIT .STK-MED ONE 09/01 2323 DC (Porcine) IV 09/01 2324 Heparin Sodium 5,800 UNIT ONCE ONE 09/01 2300 MI 09/01 (Porcine) IV 09/01 2301 2330 Heparin Sodium 25,000 UNIT Q24H 08/30 1045 08/31 (Porcine) IV 1100 Sodium Chloride 500 ML Hydralazine HCl 10 MG BID 08/30 1000 AC 09/02 PO 0946 Insulin Aspart 0 AT BEDTIME 08/30 2200 AC 09/01 SC 2217 Insulin Aspart 0 TIDAC 08/30 0800 AC 09/02 SC 0940 Insulin Detemir 50 UNITS BID 09/02 1000 AC 09/02 SC 0940 Insulin Detemir 42 UNITS BID 09/01 1115 DC 09/01 SC 2216 Ipratropium [place] 2.5 ML EVERY 4 HRS/AWAKE 08/30 1600 AC 09/02 INH 0813 Isosorbide 60 MG DAILY 02/24 1000 AC 09/02 Mononitrate PO 0946 Lorazepam 0.5 MG Q8 PRN 09/01 1719 AC 09/02 IV 0400 Lorazepam 0.5 MG Q12P PRN 08/31 1600 DC 09/01 IV 0649 Methylprednisolone 40 MG DAILY 09/02 1000 AC 09/02 IV 0943 Methylprednisolone 40 MG Q12 08/30 1000 DC 09/01 IV 09/01 2300 2313 Morphine Sulfate 2 MG Q4P PRN 08/31 1600 AC IV Nitroglycerin 0.5 GM Q6 08/30 1200 AC 09/02 TOP 0605 Nystatin 1 TYRON BID 09/01 1321 AC 09/02 TOP 1004 Omeprazole 40 MG DAILY AC 08/30 1537 AC 09/02 PO 0605 Polyethylene Glycol 17 GM DAILY PRN 08/30 0800 AC PO Senna/Docusate Sodium 1 TAB BID PRN 08/30 0800 AC PO Tiotropium [place] 1 PUF DAILY 08/31 1000 AC 09/02 INH 0943 Results Last 48 Hrs of Labs/Mics: Laboratory Tests 09/02/16 0400: Anion Gap 12, Estimated GFR 20 L, Glucose 345 H, Calcium 8.7, Phosphorus 6.0 H, Magnesium 2.3, Total Bilirubin 0.4, AST 28, ALT 34, Albumin 3.6, APTT > 120 * H, CBC w Diff MAN DIFF ORDERED, RBC 3.05 L, MCV 86.5, MCH 27.8, RDW 17.0 H, MPV 9.2, Gran % 92.8 H, Lymphocytes % 5.9 L, Monocytes % 1.2 L, Eosinophils % 0, Basophils % 0.1, Absolute Granulocytes 14.6 H, Absolute Lymphocytes 0.9 L, Absolute Monocytes 0.2, Absolute Eosinophils 0, Absolute Basophils 0, Platelet Estimate ADEQUATE, Hypochromic-Microcytic 2+, Poikilocytosis 1+, Anisocytosis 1+ , Ovalocytes 1+, PUBS MCHC 32.2 L 09/01/16 2130: APTT 44 H 09/01/16 0925: APTT 72 H 09/01/16 0233: Anion Gap 11, Estimated GFR 21 L, Glucose 357 H, Calcium 9.0, Phosphorus 5.3 H, Magnesium 2.3, Iron 22 L, TIBC 295, Ferritin 31.4, Total Bilirubin 0.5, AST 50 H, ALT 30, Albumin 3.6, TSH 0.624, Free T4 2.49 H, APTT > 120 *H, CBC w Diff NO MAN DIFF REQ, RBC 3.09 L, MCV 87.6, MCH 27.6, RDW 17.2 H, MPV 8.6, Gran % 93.2 H, Lymphocytes % 5.4 L, Monocytes % 1.4 L, Eosinophils % 0, Basophils % 0 L, Absolute Granulocytes 17.8 H, Absolute Lymphocytes 1.0 L, Absolute Monocytes 0.3, Absolute Eosinophils 0, Absolute Basophils 0, PUBS MCHC 31.6 L 08/31/16 1803: APTT 56 H 08/31/16 1600: APTT Cancelled Recent Imaging Studies: Telemetry tracings were personally reviewed and show conversion from atrial fibrillation to sinus rhythm yesterday evening Repeat Echo CONCLUSIONS Normal left ventricular systolic function with mild LVH. No suggested regional wall motion abnormalities. Mild Mitral stenosis related to calcified annulus. Twelve-lead ECG personally reviewed which showed atrial fibrillation with significant ST depressions Assessment/Plan Assessment/Plan 1. Multifactorial respiratory insufficiency requiring BiPAP therapy 2. Elevated troponin possibly due to acute non-ST elevation myocardial infarction 3. Known history of coronary artery disease with remote PCI to the LAD and left circumflex artery 4. Severe COPD on home oxygen therapy 5. Hyperkalemia 6. Chronic kidney disease with prior nephrectomy 7. Acute on chronic diastolic congestive heart failure 8. Anemia 9. Diabetes with hyperglycemia 10. Hypertension 11. New-onset paroxysmal atrial fibrillation now back in sinus rhythm 12. Hematuria Patient did have recurrent chest pain over the weekend but currently denies active chest pain. She did have new onset paroxysmal atrial fibrillation over the weekend but is currently back in sinus rhythm. Given the fact that she had significant ischemic changes during atrial fibrillation would favor trying to maintain sinus rhythm. Recommend starting on amiodarone 200 mg by mouth twice a day. Discontinue Cardizem drip and restart on low-dose oral beta alexei with metoprolol 12.5 mg by mouth twice a day. Increase Hydralazine to 10 mg TID. Some hematuria noted in the [facility], ?traumatic. Would favor continuing full anticoagulation for now given the non-ST elevation myocardial infarction and the paroxysmal atrial fibrillation while monitoring hemoglobin levels carefully. Would hold off on further IV Lasix for now in the setting of increasing BUN/ creatinine. Condition remains guarded and the she remains DNR/DNI with overall conservative measures planned. Gamaliel Sanchez MD [facility] Continue telemetry? Yes
--- NOTE | 2016-09-02 13:20 | PN- Pulmonary ---
Subjective HPI/Critical Care Issues: Patient remains on BiPAP this morning. Denies recurrent chest pain. Is back in sinus rhythm. Does have some hematuria noted in the [facility]. Objective Current Medications: Current Medications Sig/Michele Start time Last Medication Dose Route Stop Time Status Admin Albuterol Sulfate 3 ML EVERY 4 HRS/AWAKE 08/30 1200 AC 09/02 INH 1223 Allopurinol 150 MG DAILY 08/30 1000 AC 09/02 PO 0944 Amiodarone HCl 200 MG BID 09/02 1246 UNVr PO Amlodipine Besylate 5 MG BID 08/30 1000 AC 09/02 PO 0945 Aspirin Buffered 81 MG DAILY 08/30 1000 AC 09/02 PO 0944 Atorvastatin Calcium 80 MG 1700 08/30 1700 AC 09/01 PO 1635 Azithromycin 500 MG 1430 09/02 1430 AC Dextrose/Water 250 ML IV 09/03 1529 Azithromycin 250 MG DAILY 09/02 1000 CAN Dextrose/Water 250 ML IV 09/03 1059 Azithromycin 500 MG DAILY 09/02 1000 DC Dextrose/Water 250 ML IV 09/03 1059 Azithromycin 500 MG DAILY@1430 08/31 1430 DC 09/01 Dextrose/Water 250 ML IV 1435 Budesonide/ 2 PUF BID 09/01 1224 AC 09/02 Formoterol Fumarate INH 0943 Clopidogrel Bisulfate 75 MG DAILY 08/30 1000 AC 09/02 PO 0944 Diltiazem HCl 125 MG Q24H 09/01 1615 DC 09/01 Sodium Chloride 100 ML IV 1636 Diltiazem HCl 15 MG ONCE ONE 09/01 1545 DC 09/01 IV 09/01 1546 1549 Furosemide 20 MG DAILY 09/02 1000 DC 09/02 IV 0943 Heparin Sodium 10,000 UNIT .STK-MED ONE 09/01 2323 DC (Porcine) IV 09/01 2324 Heparin Sodium 5,800 UNIT ONCE ONE 09/01 2300 DC 09/01 (Porcine) IV 09/01 2301 2330 Heparin Sodium 25,000 UNIT Q24H 08/30 1045 AC 08/31 (Porcine) IV 1100 Sodium Chloride 500 ML Hydralazine HCl 10 MG TID 09/02 1600 UNVr PO Hydralazine HCl 10 MG BID 08/30 1000 DC 09/02 PO 0946 Insulin Aspart 0 AT BEDTIME 08/30 2200 AC 09/01 SC 2217 Insulin Aspart 0 TIDAC 08/30 0800 r 09/02 SC 1300 Insulin Detemir 50 UNITS BID 09/02 1000 AC 09/02 SC 0940 Insulin Detemir 42 UNITS BID 09/01 1115 DC 09/01 SC 2216 Ipratropium [place] 2.5 ML EVERY 4 HRS/AWAKE 08/30 1600 AC 09/02 INH 1223 Isosorbide 60 MG DAILY 08/30 1000 AC 09/02 Mononitrate PO 0946 Lorazepam 0.5 MG Q12P PRN 09/02 1330 UNVr IV Lorazepam 0.5 MG Q8 PRN 09/01 1719 DC 09/02 IV 1310 Lorazepam 0.5 MG Q12P PRN 08/31 1600 DC 09/01 IV 0649 Methylprednisolone 40 MG DAILY 09/02 1000 AC 09/02 IV 0943 Methylprednisolone 40 MG Q12 08/30 1000 DC 09/01 IV 09/01 2300 2313 Metoprolol Tartrate 12.5 MG BID 09/02 1246 UNVr PO Morphine Sulfate 2 MG Q4P PRN 08/31 1600 AC IV Nitroglycerin 0.5 GM Q6 08/30 1200 AC 09/02 TOP 1234 Nystatin 1 [place] BID 09/01 1321 AC 09/02 TOP 1004 Omeprazole 40 MG DAILY AC 08/30 1537 AC 09/02 PO 0605 Polyethylene Glycol 17 GM DAILY PRN 08/30 0800 AC PO Senna/Docusate Sodium 1 TAB BID PRN 08/30 0800 AC PO Tiotropium [place] 1 PUF DAILY 08/31 1000 AC 09/02 INH 0943 Vital Signs & I&O Last 24 Hrs of Vitals and I&O: Vital Signs Date Time Temp Pulse Resp B/P Pulse O2 O2 Flow FiO2 Ox Delivery Rate 09/02 1124 93 96 09/02 0946 89 148/67 09/02 0946 89 148/67 09/02 0945 89 148/67 09/02 0825 96 BIPAP 30% 09/02 0808 83 97 09/02 0800 97 BIPAP 30% 09/02 0800 96.7 82 22 160/72 96 BIPAP 30% 09/02 0532 86 96 09/02 0532 96 BIPAP 30% 09/02 0400 95 BIPAP 30% 09/02 0259 81 95 09/02 0022 84 95 09/02 0000 96 BIPAP 30% 09/02 0000 96.0 85 22 147/62 96 BIPAP 30% 09/01 2314 90 22 145/68 09/01 2313 90 22 145/72 09/01 2231 87 97 09/01 2000 98 BIPAP 30% 09/01 1910 96 96 09/01 1705 109 94 09/01 1700 95 BIPAP 30% 09/01 1647 101 94 09/01 1600 96 BIPAP 30% 09/01 1600 97.2 108 24 126/68 96 BIPAP 30% 09/01 1549 109 22 123/68 09/01 1342 96 97 Intake & Output 09/02 1600 09/02 0800 09/02 0000 Intake Total 368 419 Output Total 265 250 Balance 103 169 Intake, IV 268 219 Intake, Oral 100 200 Output, Urine 265 250 Impression/Plan Impression/Plan Impression/Plan: Physical Exam: General: Alert but in respiratory distress using accessory muscles to breathe. on BIPAP Eyes: No obvious scleral icterus. HEENT: Jugular venous pressure estimated 8-10 mmHg Cardiovascular: Normal intensity S1/S2. Regular. One out of 6 systolic murmur. Respiratory: Decreased air entry bilaterally with bilateral scattered wheezing Abdomen: Soft, nontender with no guarding or rebound tenderness. Musculoskeletal: No clubbing or cyanosis noted, 1+ lower extremity edema bilaterally Skin: warm Neurologic: No gross focal deficits noted. Lymph: No gross lymphadenopathy CXR IMPRESSION: Mild pulmonary vascular congestion with bilateral pleural effusions. Density at both lung bases may be also due to superimposed bibasilar infiltrate and/or atelectasis IMPRESSION This is a lady with end-stage COPD, on home oxygen therapy on maximum inhalation therapy, severe obstructive sleep apnea on CPAP, previous ischemic heart disease with stent in the past, previous renal cell carcinoma with chronic kidney disease, morbid obesity, now comes in with * Acute hypoxic and hypercarbic resp failure with Sig wheezing with evidence of total body fluid overload with copd exacerbation aswell. This is compounded by Acute non st elevation OR with previous pci. Pt was also in acute on chronic diastolic chf now slowly improving * Recent lung nodule - PET neg with mild effusion in the both side * Mild rt more than left heart failure mild improvement * Effusion mild bilaterlly * Severe obstructive sleep apnea compliant with bipap at hs daily prior to the hospital * Hypertension, diabetes, hyperlipidemia with previous history of gout which is stable, Recent htn is On russ meds * Chronic kidney disease with previous nephrectomy appears to be stable * Uncontrolled sugar made worse by increasing prednisone in the past which needs to be monitored * Anemia and morbid obesity RECOMMENDATION BIPAP to continue IV solumedrol 40 qd and then change to po prednisone in am Atc nebs q 4 and use ipratropium only if sig tachy persists Cont azithro for now and pt was on prophylactic azithro before Ok with low dose betablockers Ok with amiodarone as she does have pafib Lasix per cardio. Proton pump inhibitor Agg sugar control Adequate bp control as she does tend to flash when bp goes more than 170 systolic DNR and DNI with conservative measures
[2016-09-02 14:12] LABS: PTT 77 SEC (25-37)
[2016-09-02 16:00] VITALS: BP 140/62
--- NOTE | 2016-09-02 20:17 | NUR ---
RECEIVED PATIENT AT 0800 A&OX3, LESS ANXIOUS THAN PREVIOUS AT THIS TIME. NSR 80S-90S. CARDIZEM GTT AT 2.5 MLS/HR SHUT OFF AT [address] NEWBERRY AND TO START PO LOPRESSOR AND PO AMIO. HEPARIN GTT STILL RUNNING THROUGH #22 TO AT 23.9 MLS/HR. DARK URINE HEMATURIA NOTED TO KAP[place]AN INTERMITTENTLY W/ TEA COLORED URINE. IV LASIX D/C'D. PATIENT ON THE BIPAP AT 30%, RATE OF 24, 24/12. PATIENT IS STILL INTERMITTENTLY SHORT OF BREATH WITH THE BIPAP ON. 1300 PATIENT INCREASINGLY ANXIOUS, C/O SOB. GIVEN 0.5 MG ATIVAN IV WITH LITTLE RELIEF. RT JUAN CARLOS INTO ASSESS. SPOKE WITH PULMONARY. 2 MG IV MORPHINE GIVEN PER PULM. RELIEF NOTED. PATIENT RESTING COMFORTABLY AND STATES SHE FEELS BETTER. BLOOD SUGARS ELEVATED AT 400S THROUGHOUT THE DAY. NOVOLOG AND LEVEMIR SCALES INCREASES AND IV SOLUMEDROL TAPERED. TO START PO PREDNISONE TOMORROW 09/03/16 BLOOD SUGAR RECHECKED TO BE 275 AT DINNER. CONTINUING TO ASSESS. GIVEN EMOTIONAL REASSURANCE.
--- NOTE | 2016-09-02 20:57 | ULTRASOUND REPORT ---
EXAMINATION: US RETROPERITONEAL COMPLETE (RENAL) CLINICAL INFORMATION: Hematuria.. COMPARISON: Ultrasound 05/09/2016 TECHNIQUE: Real-time imaging of the kidneys and bladder. FINDINGS: RIGHT KIDNEY: Absent. Removed. LEFT KIDNEY: 11.1 x 6.1 x 5.1 cm (SAG x AP x TRV). The kidney is normal in size, contour, and echogenicity. Renal cortical thickness is normal. No calculi or focal parenchymal lesions. No hydronephrosis. BLADDER: Empty and not well assessed. A catheter is in place. IMPRESSION: Unremarkable appearance of the left kidney. No hydronephrosis..
[2016-09-03] VITALS: BP 140/70
--- NOTE | 2016-09-03 00:43 | NUR ---
PT AWAKE AND ALERT, DENIES PAIN AT THIS TIME. REMAINS ON A BIPAP 30%, SATURATION 95%. LUNGS SOUND CLEAR. HEPARIN GTT CINT AT 12.2 UNITS/KG/HR. NO EVIDENCE OF ACTIVE BLEED. KAPLAN IN PLACE, UO DARK [place], CLOUDY. ABDOMEN SOFT, NORMOACTIVE BS.
[2016-09-03 00:45] LABS: PTT 72 SEC (25-37)
[2016-09-03 05:50] LABS: ABSOLUTE BASOPHIL COUNT 0 /CUMM (0.0-0.2); ABSOLUTE EOSINOPHIL COUNT 0 /CUMM (0.0-0.7); ABSOLUTE GRANULOCYTE CT 12.8 /CUMM (1.4-6.5); ABSOLUTE LYMPH COUNT 1.5 /CUMM (1.2-3.4); ABSOLUTE MONOCYTE COUNT 0.5 /CUMM (0.10-0.60); BASOPHIL % 0.1 % (0.0-2.0); EOSINOPHIL % 0 % (0-5); GRANULOCYTE % 86.5 % (42.2-75.2); HEMATOCRIT 25.7 % (37-47); MEAN CORPUSCULAR HGB 27.3 PG (27.0-31.0); MEAN CORPUSCULAR HGB CONC 31.3 G/DL (33.0-37.0); MEAN CORPUSCULAR VOLUME 87.2 FL (81.0-99.0); MEAN PLATELET VOLUME 9.4 FL (7.4-10.4); PLATELET COUNT 215 /CUMM (130-400); RBC DISTRIBUTION WIDTH 16.8 % (11.5-14.5); RED BLOOD CELL CT 2.95 /CUMM (4.20-5.40); WHITE BLOOD CELL COUNT 14.8 /CUMM (4.8-10.8)
--- NOTE | 2016-09-03 07:13 | PN- Resident CRCU ---
Subjective HPI/CRCU Issues: No acute events overnight. Patient was seen and examined this morning. Her breathing is improved and she was able to come off the BiPAP and out of bed to chair for the first time today. Gutierrez continues to be with gross hematuria. Objective Vital Signs & I&O Last 8 Hrs of Vitals and I&O: Vital Signs Date Time Temp Pulse Resp B/P Pulse O2 O2 Flow FiO2 Ox Delivery Rate 09/03 1200 94 Nasal 4.0L Cannula 09/03 0931 80 146/80 09/03 0930 80 146/86 09/03 0929 84 146/56 09/03 0929 86 146/86 09/03 0929 84 146/86 09/03 0800 96.4 77 24 150/80 97 BIPAP 30% 09/03 0800 97 BIPAP 30% 09/03 0753 76 97 09/03 0530 73 96 09/03 0455 96 BIPAP 30% 09/03 0400 95 BIPAP 30% 09/03 0304 71 96 09/03 0039 78 95 09/03 0000 95 BIPAP 30% 09/03 0000 95.0 76 18 140/70 95 BIPAP 30% 09/02 2231 78 96 09/02 2157 96.0 83 23 151/62 09/02 2156 96.0 89 23 151/62 09/02 2155 96.0 79 21 151/62 09/02 2000 96 BIPAP 30% 09/02 1834 83 96 09/02 1650 94 BIPAP 35% 09/02 1649 97.4 81 23 140/62 09/02 1649 78 96 09/02 1600 97 BIPAP 30% 09/02 1600 97.4 81 23 14062 97 BIPAP 30% Intake & Output 09/03 1600 Intake Total 364 Output Total 500 Balance -136 Intake, IV 44 Intake, Oral 320 Number 0 Bowel Movements Output, Urine 500 Patient 103.646 kg Weight Exam General Appearance: well developed/nourished, no apparent distress, alert, awake Head: atraumatic, normal appearance Ears, Nose, Throat: on BiPAP Neck: supple Respiratory: decreased breath sounds, bilateral wheezes scattered throughout lung juarez Cardiovascular: regular rate/rhythm, normal S1 and S2, no murmurs, rubs or gallops Gastrointestinal: soft, non-tender, positive bowel sounds Extremities: bilateral lower extremities with 1+ edema Skin: warm/dry Current Medications: Current Medications Sig/Michele Start time Last Medication Dose Route Stop Time Status Admin Albuterol Sulfate 3 ML EVERY 4 HRS/AWAKE 08/30 1200 AC 09/03 INH 1100 Allopurinol 150 MG DAILY 08/30 1000 AC 09/03 PO 0931 Amiodarone HCl 200 MG BID 09/02 1246 AC 09/03 PO 0929 Amlodipine Besylate 5 MG BID 08/30 1000 AC 09/03 PO 0931 Aspirin Buffered 81 MG DAILY 08/30 1000 AC 09/03 PO 0929 Atorvastatin Calcium 80 MG 1700 08/30 1700 AC 09/02 PO 1649 Azithromycin 500 MG 1430 09/02 1430 AC 09/02 Dextrose/Water 250 ML IV 1530 Budesonide/ 2 PUF BID 09/01 1224 AC 09/03 Formoterol Fumarate INH 0931 Clopidogrel Bisulfate 75 MG DAILY 08/30 1000 AC 09/03 PO 0931 Furosemide 20 MG DAILY 09/03 1000 DC 09/03 IV 0929 Guaifenesin 600 MG Q12P PRN 09/03 1100 AC 09/03 PO 1316 Heparin Sodium 5,000 UNIT Q8 09/03 0851 AC 09/03 (Porcine) SC 0928 Heparin Sodium 25,000 UNIT Q24H 08/30 1045 DC 09/02 (Porcine) IV 1440 Sodium Chloride 500 ML Hydralazine HCl 10 MG TID 09/02 1600 AC 09/03 PO 0929 Insulin Aspart 0 TIDAC 09/03 1148 AC SC Insulin Aspart 15 UNITS ONCE ONE 09/03 1145 DC 09/03 LA 09/03 1146 1144 Insulin Aspart 0 AT BEDTIME 08/30 2200 AC 09/01 SC 2217 Insulin Aspart 0 TIDAC 08/30 0800 DC 09/03 SC 0751 Insulin Detemir 44 UNITS BID 09/03 2200 AC SC Insulin Detemir 50 UNITS BID 09/02 1000 DC 09/03 SC 0930 Ipratropium [place] 2.5 ML EVERY 4 HRS/AWAKE 08/30 1600 AC 09/03 INH 1100 Isosorbide 60 MG DAILY 08/30 1000 AC 09/03 Mononitrate PO 0929 Lorazepam 0.5 MG Q12P PRN 09/02 1330 AC 09/03 IV 0507 Metoprolol Tartrate 12.5 MG BID 09/02 1246 AC 09/03 PO 0930 Morphine Sulfate 2 MG Q4P PRN 08/31 1600 AC 09/02 IV 1439 Nitroglycerin 0.5 GM Q6 08/30 1200 DC 09/03 TOP 0554 Nystatin 1 TYRON BID 09/01 1321 AC 09/03 TOP 0930 Omeprazole 40 MG DAILY AC 08/30 1537 AC 09/03 PO 0601 Phenol 2 SPRAY Q2P PRN 09/02 1415 AC 09/03 EXT 0752 Polyethylene Glycol 17 GM DAILY PRN 08/30 0800 AC PO Prednisone 40 MG DAILY 09/03 1000 AC 09/03 PO 0931 Senna/Docusate Sodium 1 TAB BID PRN 08/30 0800 AC PO Tiotropium [place] 1 PUF DAILY 08/31 1000 AC 09/03 INH 0931 Results Results: Laboratory Tests 09/03 09/03 09/03 1330 0430 0028 Chemistry Sodium (137 - 145 mmol/L) 136 L Potassium (3.5 - 5.1 mmol/L) 5.1 Chloride (98 - 107 mmol/L) 99 Carbon Dioxide (22 - 30 mmol/L) 25 Anion Gap (5 - 16) 12 BUN (7 - 17 mg/dL) 97 H Creatinine (0.5 - 1.0 mg/dL) 2.4 H Estimated GFR (>60 ml/min) 19 L Glucose (65 - 99 mg/dL) 170 H Calcium (8.4 - 10.2 mg/dL) 8.9 Phosphorus (2.5 - 4.5 mg/dL) 6.8 H Magnesium (1.6 - 2.3 mg/dL) 2.6 H Total Bilirubin (0.2 - 1.3 mg/dL) 0.4 AST (14 - 36 U/L) 26 ALT (9 - 52 U/L) 32 Albumin (3.5 - 5.0 g/dL) 3.4 L Coagulation APTT (25 - 37 SEC) Cancelled 72 H Hematology CBC w Diff MAN DIFF ORDERED WBC (4.8 - 10.8 /CUMM) 14.8 H RBC (4.20 - 5.40 /CUMM) 2.95 L Hgb (12.0 - 16.0 G/DL) 8.1 L Hct (37 - 47 %) 25.7 L MCV (81.0 - 99.0 FL) 87.2 MCH (27.0 - 31.0 PG) 27.3 RDW (11.5 - 14.5 %) 16.8 H Plt Count (130 - 400 /CUMM) 215 MPV (7.4 - 10.4 FL) 9.4 Gran % (42.2 - 75.2 %) 86.5 H Lymphocytes % (20.5 - 51.1 %) 9.8 L Monocytes % (1.7 - 9.3 %) 3.6 Eosinophils % (0 - 5 %) 0 Basophils % (0.0 - 2.0 %) 0.1 Absolute Granulocytes (1.4 - 6.5 /CUMM) 12.8 H Absolute Lymphocytes (1.2 - 3.4 /CUMM) 1.5 Absolute Monocytes (0.10 - 0.60 /CUMM) 0.5 Absolute Eosinophils (0.0 - 0.7 /CUMM) 0 Absolute Basophils (0.0 - 0.2 /CUMM) 0 Platelet Estimate (ADEQUATE) ADEQUATE Hypochromic-Microcytic 2+ Poikilocytosis 1+ PUBS MCHC (33.0 - 37.0 G/DL) 31.3 L US Findings: RENAL US: Unremarkable appearance of the left kidney. No hydronephrosis. Impression/Plan Impression/Problem List Impression: 81 y/o F with PMHx of COPD on 2 L NC, CAD s/p PCI with stent to LAD and LCA and diastolic CHF who is admitted for acute on chronic hypoxemic and hypercarbic respiratory failure 2/2 COPD and diastolic CHF, with elevated troponins 2/2 NSTEMI vs demand ischemia and new-onset paroxysmal atrial fibrillation. Problem List: 1. Paroxysmal atrial fibrillation 2. IDDM (insulin dependent diabetes mellitus) 3. New onset atrial fibrillation 4. Acute respiratory failure with hypoxia and hypercarbia 5. T2DM (type 2 diabetes mellitus) 6. Acute on chronic diastolic (congestive) heart failure 7. Hematuria 8. [id number] kidney injury 9. Gout 10. Elevated troponin Pain Ratin Tomorrow's Labs & Rationales: CBC and ICU bundle (ICU patient) Plan Respiratory: #Acute on chronic hypoxemic and hypercarbic respiratory failure: 2/2 to COPD exacerbation and acute diastolic CHF. SOB has improved today and patient was able to come off BiPAP. * Switched from IV Solumedrol to prednisone 40 mg PO daily. * Continue BiPAP PRN. * TRC and albuterol nebs Q4H. Use ipratropium only in the setting of persistent tachycardia. * Continue Spiriva and Symbicort inhalers. * Continue azithromycin 500 mg IV daily. * Continue Ativan 0.5 mg IV Q8H PRN for anxiety. * Continue morphine 2 mg IV Q4H PRN for respiratory distress. * Send sputum Cx. Infectious Diseases: Remains afebrile. Persistent leukocytosis, likely secondary to steroids, improving with taper. No signs or symptoms of infection. Cardiovascular: #New-onset paroxysmal atrial fibrillation: Remains in sinus rhythm. * Cardiology following. Appreciate their recs. * Continue amiodarone 200 mg pO BID and metoprolol 12.5 mg PO BID. * Discontinue IV heparin drip in the setting of hematuria. * Start HSQ for DVT PPx. #Acute on chronic diastolic CHF: * Continue to monitor strict I/Os and daily weights. * Administer 20 mg IV Lasix today given positive fluid balance. #HTN: * Continue amlodipine 5 mg PO daily, metoprolol 12.5 mg PO BID and hydralazine to 10 mg PO TID. * Continue to monitor BP closely as patient tends to go into flash pulmonary edema when SBP > 170. #Elevated troponins: Represents NSTEMI vs demand ischemia in the setting of chest discomfort and lateral ST depressions on EKG. No active chest pain currently. * Continue aspirin 81 mg PO daily, atorvastatin 80 mg PO daily, Imdur 60 mg PO daily and Plavix 75 mg PO daily. * Discontinue nitroglycerin paste. * Discontinue IV heparin drip. Hematology: #Anemia: Baseline H/H 8-11. Iron studies with low iron and normal ferritin and TIBC consistent with mixed picture with co-existent iron deficiency anemia and anemia of chronic disease. Stool guaiac negative. * Continue to monitor H/H. * Guaiac all stools. #Hematuria: Gross hematuria with Gutierrez insertion. Patient has a history of renal cancer s/p R nephrectomy. Renal US unremarkable. * Urology following. Appreciate their recs. * Urine cytology ordered. * Plan for cystoscopy once patient is stable per urology. Metabolic: #T2DM: Blood sugars have come down and running between * Endocrinology following. Appreciate their recs. * Decrease Levemir to 44 units SQ BID. * To avoid hypoglycemia, change sliding scale Novolog TIDAC to: for glucose 80- 150 give 20 units of insulin, 151-200 give 22 units, 201-250 give 24 units, 251- 300 give 26 units, 301-350 give 30 units, 351-400 give 32 units. * Continue bedtime sliding scale Novolog as it is. #AYAZ on CKD: Creatinine has further increased to 2.4 today, likely secondary to overdiuresis. * Continue low dose IV Lasix with close monitoring of kidney function. * Monitor lytes and replete to K > 4 and Mg > 2. #Gout: * Continue allopurinol 150 mg PO daily. Alimentary: Consistent Carbohydrate 2 Neurological: AAO x3 DVT/Prophylaxis: mechanical, pharmacological Code Status: Do Not Resucitate/Intubat (no aggressive measures) Other: #Groin rash: * Apply nystatin powder BID.
--- NOTE | 2016-09-03 07:32 | PN- Diabetes ---
Assessment/Plan Assessment: The patient is breathing more comfortably this morning. Her sugars are starting to come down. The patient's prednisone has been tapered to 40 mg once a day.. She is on 50 units of Levemir twice a day. Her sliding scale NovoLog( increased yesterday. Her blood sugar in the lab this morning is 136. Plan: Suggest continue the present insulin for now. The pattern with a single dose of steroid in the morning is usually through sugars to become high late in the day and then to come down again by the next morning. We may need to adjust her insulin further to avoid hypoglycemia after seeing her readings today. Subjective Subjective: Feels a little better Objective Last 24 Hrs of Vital Signs/I&O Vital Signs Date Time Temp Pulse Resp B/P Pulse O2 O2 Flow FiO2 Ox Delivery Rate 09/03 0530 73 96 09/03 0455 96 BIPAP 30% 09/03 0400 95 BIPAP 30% 09/03 0304 71 96 09/03 0039 78 95 09/03 0000 95 BIPAP 30% 09/03 0000 95.0 76 18 140/70 95 BIPAP 30% 09/02 2231 78 96 09/02 2157 96.0 83 23 151/62 09/02 2156 96.0 89 23 151/62 09/02 2155 96.0 79 21 151/62 09/02 2000 96 BIPAP 30% 09/02 1834 83 96 09/02 1650 94 BIPAP 35% 09/02 1649 97.4 81 23 140/62 09/02 1649 78 96 09/02 1600 97 BIPAP 30% 09/02 1600 97.4 81 23 140/62 97 BIPAP 30% 09/02 1438 105 140/60 09/02 1438 105 140/60 09/02 1432 106 94 09/02 1200 96 BIPAP 30% 09/02 1124 93 96 09/02 0946 89 148/67 09/02 0946 89 148/67 09/02 0945 89 148/67 09/02 0825 96 BIPAP 30% 09/02 0808 83 97 09/02 0800 97 BIPAP 30% 09/02 0800 96.7 82 22 160/72 96 BIPAP 30% Intake & Output 09/03 0800 09/03 0000 09/02 1600 Intake Total 300 551.2 Output Total 275 270 Balance 25 281.2 Intake, IV 191.2 Intake, Oral 100 360 Intake, 200 TPN/PPN Output, Urine 275 270 Patient 214 lb Weight Vital Signs Date Time Temp Pulse Resp B/P Pulse O2 O2 Flow FiO2 Ox Delivery Rate 09/03 0530 73 96 09/03 0455 96 BIPAP 30% 09/03 0400 95 BIPAP 30% 09/03 0304 71 96 09/03 0039 78 95 09/03 0000 95 BIPAP 30% 09/03 0000 95.0 76 18 140/70 95 BIPAP 30% 09/02 2231 78 96 09/02 2157 96.0 83 23 151/62 09/02 2156 96.0 89 23 151/62 09/02 2155 96.0 79 21 151/62 09/02 2000 96 BIPAP 30% 09/02 1834 83 96 09/02 1650 94 BIPAP 35% 09/02 1649 97.4 81 23 140/62 09/02 1649 78 96 09/02 1600 97 BIPAP 30% 09/02 1600 97.4 81 23 140/62 97 BIPAP 30% 09/02 1438 105 140/60 09/02 1438 105 140/60 09/02 1432 106 94 09/02 1200 96 BIPAP 30% 09/02 1124 93 96 09/02 0946 89 148/67 09/02 0946 89 148/67 09/02 0945 89 148/67 09/02 0825 96 BIPAP 30% 09/02 0808 83 97 09/02 0800 97 BIPAP 30% 09/02 0800 96.7 82 22 160/72 96 BIPAP 30% Intake & Output 09/03 0800 09/03 0000 09/02 1600 Intake Total 300 551.2 Output Total 275 270 Balance 25 281.2 Intake, IV 191.2 Intake, Oral 100 360 Intake, 200 TPN/PPN Output, Urine 275 270 Patient 214 lb Weight Physical Exam General Appearance: alert, awake, comfortable, on BiPAP Neck: normal inspection Respiratory: normal breath sounds Cardiovascular: tachycardia Abdomen: normal bowel sounds Extremities: normal inspection Current Medications: Current Medications Sig/Michele Start time Last Medication Dose Route Stop Time Status Admin Albuterol Sulfate 3 ML EVERY 4 HRS/AWAKE 08/30 1200 AC 09/03 INH 0454 Allopurinol 150 MG DAILY 08/30 1000 AC 09/02 PO 0944 Amiodarone HCl 200 MG BID 09/02 1246 AC 09/02 PO 2153 Amlodipine Besylate 5 MG BID 08/30 1000 AC 09/02 PO 2156 Aspirin Buffered 81 MG DAILY 08/30 1000 AC 09/02 PO 0944 Atorvastatin Calcium 80 MG 1700 08/30 1700 AC 09/02 PO 1649 Azithromycin 500 MG 1430 09/02 1430 AC 09/02 Dextrose/Water 250 ML IV 09/03 1529 1530 Azithromycin 250 MG DAILY 09/02 1000 CAN Dextrose/Water 250 ML IV 09/03 1059 Azithromycin 500 MG DAILY 09/02 1000 DC Dextrose/Water 250 ML IV 09/03 1059 Azithromycin 500 MG DAILY@1430 08/31 1430 DC 09/01 Dextrose/Water 250 ML IV 1435 Budesonide/ 2 PUF BID 09/01 1224 AC 09/02 Formoterol Fumarate INH 2147 Clopidogrel Bisulfate 75 MG DAILY 08/30 1000 AC 09/02 PO 0944 Diltiazem HCl 125 MG Q24H 09/01 1615 DC 09/01 Sodium Chloride 100 ML IV 1636 Furosemide 20 MG DAILY 09/02 1000 DC 09/02 IV 0943 Heparin Sodium 25,000 UNIT Q24H 08/30 1045 AC 09/02 (Porcine) IV 1440 Sodium Chloride 500 ML Hydralazine HCl 10 MG TID 09/02 1600 AC 09/02 PO 2157 Hydralazine HCl 10 MG BID 08/30 1000 DC 09/02 PO 0946 Insulin Aspart 0 AT BEDTIME 08/30 2200 AC 09/01 MS 2217 Insulin Aspart 0 TIDAC 08/30 0800 AC 09/02 SC 1649 Insulin Detemir 50 UNITS BID 09/02 1000 AC 09/02 SC 2157 Insulin Detemir 42 UNITS BID 09/01 1115 DC 09/01 SC 2216 Ipratropium [place] 2.5 ML EVERY 4 HRS/AWAKE 08/30 1600 AC 09/03 INH 0454 Isosorbide 60 MG DAILY 08/30 1000 AC 09/02 Mononitrate PO 0946 Lorazepam 0.5 MG Q12P PRN 09/02 1330 AC 09/03 IV 0507 Lorazepam 0.5 MG Q8 PRN 09/01 1719 DC 09/02 IV 1310 Methylprednisolone 40 MG DAILY 09/02 1000 DC 09/02 IV 0943 Metoprolol Tartrate 12.5 MG BID 09/02 1246 AC 09/02 PO 2155 Morphine Sulfate 2 MG Q4P PRN 08/31 1600 AC 09/02 IV 1439 Nitroglycerin 0.5 GM Q6 08/30 1200 AC 09/03 TOP 0554 Nystatin 1 TYRON BID 09/01 1321 AC 09/02 TOP 2157 Omeprazole 40 MG DAILY AC 08/30 1537 AC 09/03 PO 0601 Phenol 2 SPRAY Q2P PRN 09/02 1415 AC 09/02 EXT 1648 Polyethylene Glycol 17 GM DAILY PRN 08/30 0800 AC PO Prednisone 40 MG DAILY 09/03 1000 AC PO Prednisone 40 MG DAILY 09/02 1431 DC PO Senna/Docusate Sodium 1 TAB BID PRN 08/30 0800 AC PO Tiotropium [place] 1 PUF DAILY 08/31 1000 AC 09/02 INH 0943 Findings Pertinent Lab/Romain Results: Laboratory Tests 09/03 09/03 09/02 0430 0028 1245 Chemistry Sodium (137 - 145 mmol/L) 136 L Potassium (3.5 - 5.1 mmol/L) 5.1 Chloride (98 - 107 mmol/L) 99 Carbon Dioxide (22 - 30 mmol/L) 25 Anion Gap (5 - 16) 12 BUN (7 - 17 mg/dL) 97 H Creatinine (0.5 - 1.0 mg/dL) 2.4 H Estimated GFR (>60 ml/min) 19 L Glucose (65 - 99 mg/dL) 170 H Calcium (8.4 - 10.2 mg/dL) 8.9 Phosphorus (2.5 - 4.5 mg/dL) 6.8 H Magnesium (1.6 - 2.3 mg/dL) 2.6 H Total Bilirubin (0.2 - 1.3 mg/dL) 0.4 AST (14 - 36 U/L) 26 ALT (9 - 52 U/L) 32 Albumin (3.5 - 5.0 g/dL) 3.4 L Coagulation APTT (25 - 37 SEC) 72 H 77 H Hematology CBC w Diff MAN DIFF ORDERED WBC (4.8 - 10.8 /CUMM) 14.8 H RBC (4.20 - 5.40 /CUMM) 2.95 L Hgb (12.0 - 16.0 G/DL) 8.1 L Hct (37 - 47 %) 25.7 L MCV (81.0 - 99.0 FL) 87.2 MCH (27.0 - 31.0 PG) 27.3 RDW (11.5 - 14.5 %) 16.8 H Plt Count (130 - 400 /CUMM) 215 MPV (7.4 - 10.4 FL) 9.4 Gran % (42.2 - 75.2 %) 86.5 H Lymphocytes % (20.5 - 51.1 %) 9.8 L Monocytes % (1.7 - 9.3 %) 3.6 Eosinophils % (0 - 5 %) 0 Basophils % (0.0 - 2.0 %) 0.1 Absolute Granulocytes (1.4 - 6.5 /CUMM) 12.8 H Absolute Lymphocytes (1.2 - 3.4 /CUMM) 1.5 Absolute Monocytes (0.10 - 0.60 /CUMM) 0.5 Absolute Eosinophils (0.0 - 0.7 /CUMM) 0 Absolute Basophils (0.0 - 0.2 /CUMM) 0 Platelet Estimate (ADEQUATE) ADEQUATE Hypochromic-Microcytic 2+ Poikilocytosis 1+ PUBS MCHC (33.0 - 37.0 G/DL) 31.3 L
[2016-09-03 08:00] VITALS: BP 150/80
--- NOTE | 2016-09-03 08:49 | PN- Cardiology ---
Subjective Subjective: Patient still complains of shortness of breath. She denies chest discomfort. Review of Systems: Eyes no blurred or double vision Ears no deafness or ringing Nose and throat no recurrent sinusitis Lungs per history of present illness Heart per history of present illness Abdomen no nausea vomiting Musculoskeletal occasional muscle and joint pains Psych no anxiety or depression Neuro without recurrent headache or seizures Endocrine no heat or cold intolerance Objective Vital Signs and I&Os Vital Signs Date Time Temp Pulse Resp B/P Pulse O2 O2 Flow FiO2 Ox Delivery Rate 09/03 0800 96.4 77 24 150/80 97 BIPAP 30% 09/03 0800 97 BIPAP 30% 09/03 0753 76 97 09/03 0530 73 96 09/03 0455 96 BIPAP 30% 09/03 0400 95 BIPAP 30% 09/03 0304 71 96 09/03 0039 78 95 09/03 0000 95 BIPAP 30% 09/03 0000 95.0 76 18 140/70 95 BIPAP 30% 09/02 2231 78 96 09/02 2157 96.0 83 23 151/62 09/02 2156 96.0 89 23 151/62 09/02 2155 96.0 79 21 151/62 09/02 2000 96 BIPAP 30% 09/02 1834 83 96 09/02 1650 94 BIPAP 35% 09/02 1649 97.4 81 23 140/62 09/02 1649 78 96 09/02 1600 97 BIPAP 30% 09/02 1600 97.4 81 23 140/62 97 BIPAP 30% 09/02 1438 105 140/60 09/02 1438 105 140/60 09/02 1432 106 94 09/02 1200 96 BIPAP 30% 09/02 1124 93 96 09/02 0946 89 148/67 09/02 0946 89 148/67 09/02 0945 89 148/67 Intake & Output 09/03 1600 09/03 0800 09/03 0000 09/02 1600 09/02 0000 Intake Total 300 551.2 368 419 Output Total 275 270 265 250 Balance 25 281.2 103 169 Intake, IV 191.2 268 219 Intake, Oral 100 360 100 200 Intake, 200 TPN/PPN Output, Urine 275 270 265 250 Patient 229 lb 214 lb Weight Physical Exam: Patient is a well-developed obese female appearing in no acute distress HEENT is unremarkable Neck is supple there is no JVD Lungs inspiratory wheezes bilaterally Heart regular rhythm S1 and S2 are normal no murmurs gallops or rubs Abdomen bowel sounds positive Extremities without edema Current Medications: Current Medications Sig/Michele Start time Last Medication Dose Route Stop Time Status Admin Albuterol Sulfate 3 ML EVERY 4 HRS/AWAKE 08/30 1200 AC 09/03 INH 0757 Allopurinol 150 MG DAILY 08/30 1000 AC 09/02 PO 0944 Amiodarone HCl 200 MG BID 09/02 1246 AC 09/02 PO 2153 Amlodipine Besylate 5 MG BID 08/30 1000 AC 09/02 PO 2156 Aspirin Buffered 81 MG DAILY 08/30 1000 AC 09/02 PO 0944 Atorvastatin Calcium 80 MG 1700 08/30 1700 AC 09/02 PO 1649 Azithromycin 500 MG 1430 09/02 1430 AC 09/02 Dextrose/Water 250 ML IV 09/03 1529 1530 Azithromycin 250 MG DAILY 09/02 1000 CAN Dextrose/Water 250 ML IV 09/03 1059 Azithromycin 500 MG DAILY 09/02 1000 DC Dextrose/Water 250 ML IV 09/03 1059 Azithromycin 500 MG DAILY@1430 08/31 1430 DC 09/01 Dextrose/Water 250 ML IV 1435 Budesonide/ 2 PUF BID 09/01 1224 AC 09/02 Formoterol Fumarate INH 2147 Clopidogrel Bisulfate 75 MG DAILY 08/30 1000 AC 09/02 PO 0944 Diltiazem HCl 125 MG Q24H 09/01 1615 DC 09/01 Sodium Chloride 100 ML IV 1636 Furosemide 20 MG DAILY 09/03 1000 UNVr IV Furosemide 20 MG DAILY 09/02 1000 DC 09/02 IV 0943 Heparin Sodium 25,000 UNIT Q24H 08/30 1045 AC 09/02 (Porcine) IV 1440 Sodium Chloride 500 ML Hydralazine HCl 10 MG TID 09/02 1600 AC 09/02 PO 2157 Hydralazine HCl 10 MG BID 08/30 1000 DC 09/02 PO 0946 Insulin Aspart 0 AT BEDTIME 08/30 2200 AC 09/01 SC 2217 Insulin Aspart 0 TIDAC 08/30 0800 AC 09/03 SC 0751 Insulin Detemir 50 UNITS BID 09/02 1000 AC 09/02 SC 2157 Insulin Detemir 42 UNITS BID 09/01 1115 DC 09/01 SC 2216 Ipratropium [place] 2.5 ML EVERY 4 HRS/AWAKE 08/30 1600 AC 09/03 INH 0757 Isosorbide 60 MG DAILY 08/30 1000 AC 09/02 Mononitrate PO 0946 Lorazepam 0.5 MG Q12P PRN 09/02 1330 AC 09/03 IV 0507 Lorazepam 0.5 MG Q8 PRN 09/01 1719 DC 09/02 IV 1310 Methylprednisolone 40 MG DAILY 09/02 1000 DC 09/02 IV 0943 Metoprolol Tartrate 12.5 MG BID 09/02 1246 AC 09/02 PO 2155 Morphine Sulfate 2 MG Q4P PRN 08/31 1600 AC 09/02 IV 1439 Nitroglycerin 0.5 GM Q6 08/30 1200 AC 09/03 TOP 0554 Nystatin 1 TYRON BID 09/01 1321 AC 09/02 TOP 2157 Omeprazole 40 MG DAILY AC 08/30 1537 AC 09/03 PO 0601 Phenol 2 SPRAY Q2P PRN 09/02 1415 AC 09/03 EXT 0752 Polyethylene Glycol 17 GM DAILY PRN 08/30 0800 AC PO Prednisone 40 MG DAILY 09/03 1000 AC PO Prednisone 40 MG DAILY 09/02 1431 DC PO Senna/Docusate Sodium 1 TAB BID PRN 08/30 0800 AC PO Tiotropium [place] 1 PUF DAILY 08/31 1000 AC 09/02 INH 0943 Results Last 48 Hrs of Labs/Mics: Laboratory Tests 09/03/16 0430: Anion Gap 12, Estimated GFR 19 L, Glucose 170 H, Calcium 8.9, Phosphorus 6.8 H, Magnesium 2.6 H, Total Bilirubin 0.4, AST 26, ALT 32, Albumin 3.4 L, CBC w Diff MAN DIFF ORDERED, RBC 2.95 L, MCV 87.2, MCH 27.3, RDW 16.8 H, MPV 9.4, Gran % 86.5 H, Lymphocytes % 9.8 L, Monocytes % 3.6, Eosinophils % 0, Basophils % 0.1, Absolute Granulocytes 12.8 H, Absolute Lymphocytes 1.5, Absolute Monocytes 0.5, Absolute Eosinophils 0, Absolute Basophils 0, Platelet Estimate ADEQUATE, Hypochromic-Microcytic 2+, Poikilocytosis 1+, PUBS MCHC 31.3 L 09/03/16 0028: APTT 72 H 09/02/16 1245: APTT 77 H 09/02/16 0400: Anion Gap 12, Estimated GFR 20 L, Glucose 345 H, Calcium 8.7, Phosphorus 6.0 H, Magnesium 2.3, Total Bilirubin 0.4, AST 28, ALT 34, Albumin 3.6, APTT > 120 * H, CBC w Diff MAN DIFF ORDERED, RBC 3.05 L, MCV 86.5, MCH 27.8, RDW 17.0 H, MPV 9.2, Gran % 92.8 H, Lymphocytes % 5.9 L, Monocytes % 1.2 L, Eosinophils % 0, Basophils % 0.1, Absolute Granulocytes 14.6 H, Absolute Lymphocytes 0.9 L, Absolute Monocytes 0.2, Absolute Eosinophils 0, Absolute Basophils 0, Platelet Estimate ADEQUATE, Hypochromic-Microcytic 2+, Poikilocytosis 1+, Anisocytosis 1+ , Ovalocytes 1+, PUBS MCHC 32.2 L 09/01/16 2130: APTT 44 H 09/01/16 0925: APTT 72 H Telemetry personally reviewed sinus rhythm Recent Imaging Studies: Echocardiogram CONCLUSIONS Normal left ventricular systolic function with mild LVH. No suggested regional wall motion abnormalities. Mild Mitral stenosis related to calcified annulus. Abisai Colindres M.D. Assessment/Plan Assessment/Plan 1. Multifactorial respiratory insufficiency requiring intermittent BiPAP therapy 2. Elevated troponin possibly due to acute non-ST elevation myocardial infarction 3. Known history of coronary artery disease with remote PCI to the LAD and left circumflex artery 4. Severe COPD on home oxygen therapy 5. Hyperkalemia 6. Chronic kidney disease with prior nephrectomy with slightly worsening renal function 7. Acute on chronic diastolic congestive heart failure 8. Anemia 9. Diabetes with hyperglycemia 10. Hypertension improved 11. New-onset paroxysmal atrial fibrillation now back in sinus rhythm 12. Hematuria persistent Recommendations 1. Would discontinue Nitropaste and continue Imdur 2. Continue amiodarone and metoprolol 3. Since the hematuria persists would discontinue heparin and start Lovenox for DVT prophylaxis 4. Given the fact that she is in positive fluid balance despite slightly worsened renal function would administer Lasix 20 mg IV 5. Overall prognosis is guarded 6. Discussed with residents Continue telemetry? Yes
--- NOTE | 2016-09-03 08:58 | PN- Att Addend ---
Attending Addendum Attending Brief Note Patient has persisting shortness of breath and currently BiPAP dependent. General Appearance: Alert, No Acute Distress Skin: Grossly normal HEENT: PEERLA Neck: Supple, No JVD Cardiovascular: Regular Rate, Normal S1, Normal S2, No Murmurs Lungs: Expiratory wheeze Abdomen: Normal Bowel Sounds, Soft, No Tenderness Neurological: Normal Speech, Strength at 5/5 X4 Ext, Cranial Nerves 3-12 NL, Reflexes 2+ Extremities: Bilateral pedal edema Assessment Hypoxic respiratory failure. Multifactorial and she continues to require continuous BiPAP. Noted worsening kidney function likely secondary to overdiuresis. No signs of clinical pneumonia. Antibiotic now discontinued. She currently is in sinus rhythm and amiodarone was discontinued. Repeat echo shows preserved ejection fraction. Family would not wish heroic measures including DNI, DNR and aggressive measures. Plan Continue azithromycin Resend Current Medications Sig/Michele Start time Last Medication Dose Route Stop Time Status Admin Albuterol Sulfate 3 ML EVERY 4 HRS/AWAKE 08/30 1200 AC 09/03 INH 0757 Allopurinol 150 MG DAILY 08/30 1000 AC 09/02 PO 0944 Amiodarone HCl 200 MG BID 09/02 1246 AC 09/02 PO 2153 Amlodipine Besylate 5 MG BID 08/30 1000 AC 09/02 PO 2156 Aspirin Buffered 81 MG DAILY 08/30 1000 AC 09/02 PO 0944 Atorvastatin Calcium 80 MG 1700 08/30 1700 AC 09/02 PO 1649 Azithromycin 500 MG 1430 09/02 1430 AC 09/02 Dextrose/Water 250 ML IV 09/03 1529 1530 Azithromycin 250 MG DAILY 09/02 1000 CAN Dextrose/Water 250 ML IV 09/03 1059 Azithromycin 500 MG DAILY 09/02 1000 DC Dextrose/Water 250 ML IV 09/03 1059 Azithromycin 500 MG DAILY@1430 08/31 1430 DC 09/01 Dextrose/Water 250 ML IV 1435 Budesonide/ 2 PUF BID 09/01 1224 AC 09/02 Formoterol Fumarate INH 2147 Clopidogrel Bisulfate 75 MG DAILY 08/30 1000 AC 09/02 PO 0944 Diltiazem HCl 125 MG Q24H 09/01 1615 DC 09/01 Sodium Chloride 100 ML IV 1636 Furosemide 20 MG DAILY 09/03 1000 AC IV Furosemide 20 MG DAILY 09/02 1000 DC 09/02 IV 0943 Heparin Sodium 5,000 UNIT Q8 09/03 0851 AC (Porcine) SC Heparin Sodium 25,000 UNIT Q24H 08/30 1045 DC 09/02 (Porcine) IV 1440 Sodium Chloride 500 ML Hydralazine HCl 10 MG TID 09/02 1600 AC 09/02 PO 2157 Hydralazine HCl 10 MG BID 08/30 1000 DC 09/02 PO 0946 Insulin Aspart 0 AT BEDTIME 08/30 2200 AC 09/01 SC 2217 Insulin Aspart 0 TIDAC 08/30 0800 AC 09/03 SC 0751 Insulin Detemir 50 UNITS BID 09/02 1000 AC 09/02 SC 2157 Ipratropium [place] 2.5 ML EVERY 4 HRS/AWAKE 08/30 1600 AC 09/03 INH 0757 Isosorbide 60 MG DAILY 08/30 1000 AC 09/02 Mononitrate PO 0946 Lorazepam 0.5 MG Q12P PRN 09/02 1330 AC 09/03 IV 0507 Lorazepam 0.5 MG Q8 PRN 09/01 1719 DC 09/02 IV 1310 Methylprednisolone 40 MG DAILY 09/02 1000 DC 09/02 IV 0943 Metoprolol Tartrate 12.5 MG BID 09/02 1246 AC 09/02 PO 2155 Morphine Sulfate 2 MG Q4P PRN 08/31 1600 AC 09/02 IV 1439 Nitroglycerin 0.5 GM Q6 08/30 1200 DC 09/03 TOP 0554 Nystatin 1 TYRON BID 09/01 1321 AC 09/02 TOP 2157 Omeprazole 40 MG DAILY AC 08/30 1537 AC 09/03 PO 0601 Phenol 2 SPRAY Q2P PRN 09/02 1415 AC 09/03 EXT 0752 Polyethylene Glycol 17 GM DAILY PRN 08/30 0800 AC PO Prednisone 40 MG DAILY 09/03 1000 AC PO Prednisone 40 MG DAILY 09/02 1431 DC PO Senna/Docusate Sodium 1 TAB BID PRN 08/30 0800 AC PO Tiotropium [place] 1 PUF DAILY 08/31 1000 AC 09/02 INH 0943 Laboratory Tests 09/03 09/03 09/02 0430 0028 1245 Chemistry Sodium (137 - 145 mmol/L) 136 L Potassium (3.5 - 5.1 mmol/L) 5.1 Chloride (98 - 107 mmol/L) 99 Carbon Dioxide (22 - 30 mmol/L) 25 Anion Gap (5 - 16) 12 BUN (7 - 17 mg/dL) 97 H Creatinine (0.5 - 1.0 mg/dL) 2.4 H Estimated GFR (>60 ml/min) 19 L Glucose (65 - 99 mg/dL) 170 H Calcium (8.4 - 10.2 mg/dL) 8.9 Phosphorus (2.5 - 4.5 mg/dL) 6.8 H Magnesium (1.6 - 2.3 mg/dL) 2.6 H Total Bilirubin (0.2 - 1.3 mg/dL) 0.4 AST (14 - 36 U/L) 26 ALT (9 - 52 U/L) 32 Albumin (3.5 - 5.0 g/dL) 3.4 L Coagulation APTT (25 - 37 SEC) 72 H 77 H Hematology CBC w Diff MAN DIFF ORDERED WBC (4.8 - 10.8 /CUMM) 14.8 H RBC (4.20 - 5.40 /CUMM) 2.95 L Hgb (12.0 - 16.0 G/DL) 8.1 L Hct (37 - 47 %) 25.7 L MCV (81.0 - 99.0 FL) 87.2 MCH (27.0 - 31.0 PG) 27.3 RDW (11.5 - 14.5 %) 16.8 H Plt Count (130 - 400 /CUMM) 215 MPV (7.4 - 10.4 FL) 9.4 Gran % (42.2 - 75.2 %) 86.5 H Lymphocytes % (20.5 - 51.1 %) 9.8 L Monocytes % (1.7 - 9.3 %) 3.6 Eosinophils % (0 - 5 %) 0 Basophils % (0.0 - 2.0 %) 0.1 Absolute Granulocytes (1.4 - 6.5 /CUMM) 12.8 H Absolute Lymphocytes (1.2 - 3.4 /CUMM) 1.5 Absolute Monocytes (0.10 - 0.60 /CUMM) 0.5 Absolute Eosinophils (0.0 - 0.7 /CUMM) 0 Absolute Basophils (0.0 - 0.2 /CUMM) 0 Platelet Estimate (ADEQUATE) ADEQUATE Hypochromic-Microcytic 2+ Poikilocytosis 1+ PUBS MCHC (33.0 - 37.0 G/DL) 31.3 L Vital Signs Date Time Temp Pulse Resp B/P Pulse O2 O2 Flow FiO2 Ox Delivery Rate 09/03 0800 96.4 77 24 150/80 97 BIPAP 30% 09/03 0800 97 BIPAP 30% 09/03 0753 76 97 09/03 0530 73 96 09/03 0455 96 BIPAP 30% 09/03 0400 95 BIPAP 30% 09/03 0304 71 96 09/03 0039 78 95 09/03 0000 95 BIPAP 30% 09/03 0000 95.0 76 18 140/70 95 BIPAP 30% 09/02 2231 78 96 09/02 2157 96.0 83 23 151/62 09/02 2156 96.0 89 23 151/62 09/02 215 96.0 79 21 151/62 09/02 1999 96 BIPAP 30% 09/02 1834 83 96 09/02 1650 94 BIPAP 35% 09/02 1649 97.4 81 23 140/62 09/02 1649 78 96 09/02 1600 97 BIPAP 30% 09/02 1600 97.4 81 23 140/62 97 BIPAP 30% 09/02 1438 105 140/60 09/02 1438 105 140/60 09/02 1432 106 94 09/02 1200 96 BIPAP 30% 09/02 1124 93 96 09/02 0946 89 148/67 09/02 0946 89 148/67 09/02 0945 89 148 sputum culture Lasix when necessary permitting an acceptable kidney function Ativan 0.5 mg every 12 hours when necessary anxiety taper steroids Continue other home medications Prognosis guarded DNI/DNR and no heroic measures
--- NOTE | 2016-09-03 09:15 | Cons- Urology ---
General Information and HPI Consulting Request Date of Consult: 09/02/16 Requested By: [facility] Reason for Consult: hematuria Source of Information: patient, old records Exam Limitations: no limitations History of Present Illness: 81 year old with multiple medical problems, including RCC-post nephrectomy, admitted for respiratory distress. noted to have gross hematuria with triana insertion. denies issuse. Creatinine signficantly elevated. Allergies/Medications Allergies: Coded Allergies: adhesive (RASH 04/10/16) cefuroxime (From CEFTIN) (HIVES 04/10/16) clams (UNKNOWN 04/10/16) latex (RASH 04/10/16) Iodinated Contrast Media - Oral and (IODINATED CONTRAST MEDIA - IV DYE) (PT HAS ONE KIDNEY 04/10/16) moxifloxacin (HEART PALP AND HIGH BLOOD SUGARS 04/10/16) Home Med List: Albuterol Sulfate (Proair Hfa) 90 MCG HFA.AER.AD 2 PUF INH Q4-6 PRN PRN COPD (Reported) Albuterol Sulfate 0.63 MG/3 ML VIAL.NEB 1 Vial INH/BRYANNA 4 TIMES/DAY PRN COPD ( Reported) Allopurinol 300 MG TAB 0.5 TAB PO DAILY GOUT (Reported) Amlodipine Besylate 5 MG TABLET 5 MG PO BID high blood pressure Aspirin (Ecotrin) 81 MG TABLET.DR 1 TAB PO DAILY HEART HEALTH (Reported) Atorvastatin Calcium (Lipitor) 40 MG TABLET 1 TAB PO QPM CHOLESTEROL ( Reported) Azithromycin 250 MG TABLET 1 TAB PO Friday COPD prophylaxis Please follow up with your summer analyst in 1 month for recommendations on continuing this medication Budesonide (Pulmicort) 0.5 MG/2 ML AMPUL.NEB 1 Vial INH/BRYANNA BID copd ( Reported) CLOPIDOGREL BISULFATE (Clopidogrel) 75 MG TABLET 1 TAB PO DAILY HAS 2 STENTS (Reported) Furosemide 20 MG TABLET 1 TAB PO DAILY CHF Hydralazine HCl 10 MG TABLET 1 TAB PO BID HTN (Reported) Insulin Aspart (Novolog) 100 UNIT/ML VIAL 1 UNITS SC TIDAC/HS Diabetes BEFORE MEALS Blood Insulin Sugar Units <80 0 INITIATE HYPOGLYCEMIA 81-100 9 101-120 9 121-150 9 151-200 11 201-250 13 251-300 15 301-350 17 351-400 19 >400 21 AND Call Doctor AT BEDTIME Blood Insulin Sugar Units <80 0 80-100 0 101-120 0 121-150 0 151-200 0 201-250 0 251-300 3 301-350 5 351-400 6 >400 8 AND Call Doctor Insulin Detemir (Levemir) 100 UNIT/ML VIAL 36 UNITS SC BID Diabetes 40 UNITS IN AM AND 35 UNITS IN PM Isosorbide Mononitrate [address] 1 TAB PO DAILY ANGINA (Reported) Metoprolol Tartrate (Lopressor) 25 MG TABLET 1 TAB PO BID HEART (Reported) Prednisone 10 MG TABLET 1 TAB PO EOD COPD exacerbation Take every other day RANITIDINE HCL (Ranitidine HCl) 150 MG TABLET 1 TAB PO BID ACID REFLUX ( Reported) Tiotropium [place] (Spiriva) 18 MCG CAP.W.DEV 1 CAP INH DAILY COPD (Reported) Current Medications: Current Medications Sig/Michele Start time Last Medication Dose Route Stop Time Status Admin Albuterol Sulfate 3 ML EVERY 4 HRS/AWAKE 08/30 1200 AC 09/03 INH 0757 Allopurinol 150 MG DAILY 08/30 1000 AC 09/02 PO 0944 Amiodarone HCl 200 MG BID 09/02 1246 AC 09/02 PO 2153 Amlodipine Besylate 5 MG BID 08/30 1000 AC 09/02 PO 2156 Aspirin Buffered 81 MG DAILY 08/30 1000 AC 09/02 PO 0944 Atorvastatin Calcium 80 MG 1700 08/30 1700 AC 09/02 PO 1649 Azithromycin 500 MG 1430 09/02 1430 AC 09/02 Dextrose/Water 250 ML IV 09/03 1529 1530 Azithromycin 250 MG DAILY 09/02 1000 CAN Dextrose/Water 250 ML IV 09/03 1059 Azithromycin 500 MG DAILY 09/02 1000 DC Dextrose/Water 250 ML IV 09/03 1059 Azithromycin 500 MG DAILY@1430 08/31 1430 DC 09/01 Dextrose/Water 250 ML IV 1435 Budesonide/ 2 PUF BID 09/01 1224 AC 09/02 Formoterol Fumarate INH 2147 Clopidogrel Bisulfate 75 MG DAILY 08/30 1000 AC 09/02 PO 0944 Diltiazem HCl 125 MG Q24H 09/01 1615 DC 09/01 Sodium Chloride 100 ML IV 1636 Furosemide 20 MG DAILY 09/03 1000 AC IV Furosemide 20 MG DAILY 09/02 1000 DC 09/02 IV 0943 Heparin Sodium 5,000 UNIT Q8 09/03 0851 AC (Porcine) SC Heparin Sodium 25,000 UNIT Q24H 08/30 1045 DC 09/02 (Porcine) IV 1440 Sodium Chloride 500 ML Hydralazine HCl 10 MG TID 09/02 1600 AC 09/02 PO 2157 Hydralazine HCl 10 MG BID 08/30 1000 DC 09/02 PO 0946 Insulin Aspart 0 AT BEDTIME 08/30 2200 AC 09/01 SC 2217 Insulin Aspart 0 TIDAC 08/30 0800 AC 09/03 SC 0751 Insulin Detemir 50 UNITS BID 09/02 1000 AC 09/02 SC 2157 Ipratropium [place] 2.5 ML EVERY 4 HRS/AWAKE 08/30 1600 AC 09/03 INH 0757 Isosorbide 60 MG DAILY 08/30 1000 AC 09/02 Mononitrate PO 0946 Lorazepam 0.5 MG Q12P PRN 09/02 1330 AC 09/03 IV 0507 Lorazepam 0.5 MG Q8 PRN 09/01 1719 DC 09/02 IV 1310 Methylprednisolone 40 MG DAILY 09/02 1000 DC 09/02 IV 0943 Metoprolol Tartrate 12.5 MG BID 09/02 1246 AC 09/02 PO 2155 Morphine Sulfate 2 MG Q4P PRN 08/31 1600 AC 09/02 IV 1439 Nitroglycerin 0.5 GM Q6 08/30 1200 DC 09/03 TOP 0554 Nystatin 1 TYRON BID 09/01 1321 AC 09/02 TOP 2157 Omeprazole 40 MG DAILY AC 08/30 1537 AC 09/03 PO 0601 Phenol 2 SPRAY Q2P PRN 09/02 1415 AC 09/03 EXT 0752 Polyethylene Glycol 17 GM DAILY PRN 08/30 0800 AC PO Prednisone 40 MG DAILY 09/03 1000 AC PO Prednisone 40 MG DAILY 09/02 1431 DC PO Senna/Docusate Sodium 1 TAB BID PRN 08/30 0800 AC PO Tiotropium [place] 1 PUF DAILY 08/31 1000 AC 09/02 INH 0943 Past History Medical History Blood Transfusion Hx: Yes Neurological: NONE EENT: NONE Cardiovascular: diastolic CHF (stage I, EF of 55%), hypertension, hyperlipidemia , myocardial infarction, PVD, CAD s/p ME and 2 stents Respiratory: COPD, emphysema, OLLIE Gastrointestinal: GERD, hiatal hernia, umbilical hernia, colon polyps Hepatic: NONE Renal: nephrectomy (RIGHT), ONLY HAS LEFT KIDNEY CHRONIC KIDNEY DISEASE STAGE II Musculoskeletal: chronic back pain, gout Psychiatric: NONE Endocrine: diabetes, obesity Blood Disorders: NONE Cancer(s): hx renal ca s/p R nephrectomy 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 Home Who Do You Live With? self Services at Home: None Primary Language: Divehi Smoking Status: Former Smoker Living Will? no Functional Ability ADLs Independent: dressing, eating, toileting, bathing. Ambulation: walker IADLs Independent: shopping, food prep, telephone, transportation, medication admin. Needs Assist: housework, finances. Employment History Retired? yes Review of Systems Review of Systems Constitutional: Reports: malaise, weakness. EENTM: Denies: no symptoms. Cardiovascular: Denies: no symptoms. Respiratory: Reports: see HPI. GI: Reports: bloating. Genitourinary: Reports: hematuria. Musculoskeletal: Denies: no symptoms. Exam & Diagnostic Data Vital Signs and I&O Vital Signs Date Time Temp Pulse Resp B/P Pulse O2 O2 Flow FiO2 Ox Delivery Rate 09/03 0800 96.4 77 24 150/80 97 BIPAP 30% 09/03 0800 97 BIPAP 30% 09/03 0753 76 97 09/03 0530 73 96 09/03 0455 96 BIPAP 30% 09/03 0400 95 BIPAP 30% 09/03 0304 71 96 09/03 0039 78 95 09/03 0000 95 BIPAP 30% 09/03 0000 95.0 76 18 140/70 95 BIPAP 30% 09/02 2231 78 96 09/02 2157 96.0 83 23 151/62 09/02 2156 96.0 89 23 151/62 09/02 2155 96.0 79 21 151/62 09/02 2000 96 BIPAP 30% 09/02 1834 83 96 09/02 1650 94 BIPAP 35% 09/02 1649 97.4 81 23 140/62 09/02 1649 78 96 09/02 1600 97 BIPAP 30% 09/02 1600 97.4 81 23 140/62 97 BIPAP 30% 09/02 1438 105 140/60 09/02 1438 105 140/60 09/02 1432 106 94 09/02 1200 96 BIPAP 30% 09/02 1124 93 96 09/02 0946 89 14809/02 0946 89 14809/02 0945 89 Intake & Output 09/03 0000 09/02 0000 Intake Total 300 551.2 368 419 Output Total 275 270 265 250 Balance 25 281.2 103 169 Intake, IV 191.2 268 219 Intake, Oral 100 360 100 200 Intake, 200 TPN/PPN Output, Urine 275 270 265 250 Patient 229 lb 214 lb Weight Physical Exam General Appearance: well developed/nourished, mild distress Head: atraumatic Eyes: Bilateral: normal appearance. Neck: normal inspection Respiratory: cpap Cardiovascular: regular rate/rhythm Gastrointestinal: normal bowel sounds, soft Back: no vertebral tenderness Neurologic/Psych: awake, alert, oriented x 3 Reproductive: Normal female genitalia Last 24 Hours of Labs: Laboratory Tests 09/03 09/03 09/02 0430 0028 1245 Chemistry Sodium (137 - 145 mmol/L) 136 L Potassium (3.5 - 5.1 mmol/L) 5.1 Chloride (98 - 107 mmol/L) 99 Carbon Dioxide (22 - 30 mmol/L) 25 Anion Gap (5 - 16) 12 BUN (7 - 17 mg/dL) 97 H Creatinine (0.5 - 1.0 mg/dL) 2.4 H Estimated GFR (>60 ml/min) 19 L Glucose (65 - 99 mg/dL) 170 H Calcium (8.4 - 10.2 mg/dL) 8.9 Phosphorus (2.5 - 4.5 mg/dL) 6.8 H Magnesium (1.6 - 2.3 mg/dL) 2.6 H Total Bilirubin (0.2 - 1.3 mg/dL) 0.4 AST (14 - 36 U/L) 26 ALT (9 - 52 U/L) 32 Albumin (3.5 - 5.0 g/dL) 3.4 L Coagulation APTT (25 - 37 SEC) 72 H 77 H Hematology CBC w Diff MAN DIFF ORDERED WBC (4.8 - 10.8 /CUMM) 14.8 H RBC (4.20 - 5.40 /CUMM) 2.95 L Hgb (12.0 - 16.0 G/DL) 8.1 L Hct (37 - 47 %) 25.7 L MCV (81.0 - 99.0 FL) 87.2 MCH (27.0 - 31.0 PG) 27.3 RDW (11.5 - 14.5 %) 16.8 H Plt Count (130 - 400 /CUMM) 215 MPV (7.4 - 10.4 FL) 9.4 Gran % (42.2 - 75.2 %) 86.5 H Lymphocytes % (20.5 - 51.1 %) 9.8 L Monocytes % (1.7 - 9.3 %) 3.6 Eosinophils % (0 - 5 %) 0 Basophils % (0.0 - 2.0 %) 0.1 Absolute Granulocytes (1.4 - 6.5 /CUMM) 12.8 H Absolute Lymphocytes (1.2 - 3.4 /CUMM) 1.5 Absolute Monocytes (0.10 - 0.60 /CUMM) 0.5 Absolute Eosinophils (0.0 - 0.7 /CUMM) 0 Absolute Basophils (0.0 - 0.2 /CUMM) 0 Platelet Estimate (ADEQUATE) ADEQUATE Hypochromic-Microcytic 2+ Poikilocytosis 1+ PUBS MCHC (33.0 - 37.0 G/DL) 31.3 L Imaging Results: PATIENT: RICARDO VALENZUELA PRESENT AGE: 81 PATIENT ACCOUNT NO: [id number] : 36 LOCATION: [facility] ORDERING PHYSICIAN: BUCKY PEÑA MD SERVICE DATE: 09/02/16- EXAM TYPE: US - US-RENAL/KIDNEY EXAMINATION: US RETROPERITONEAL COMPLETE (RENAL) CLINICAL INFORMATION: Hematuria.. COMPARISON: Ultrasound 05/09/2016 TECHNIQUE: Real-time imaging of the kidneys and bladder. FINDINGS: RIGHT KIDNEY: Absent. Removed. LEFT KIDNEY: 11.1 x 6.1 x 5.1 cm (SAG x AP x TRV). The kidney is normal in size, contour, and echogenicity. Renal cortical thickness is normal. No calculi or focal parenchymal lesions. No hydronephrosis. BLADDER: Empty and not well assessed. A catheter is in place. IMPRESSION: Unremarkable appearance of the left kidney. No hydronephrosis.. Assessment/Plan Assessment/Plan hematuria with triana: send urine for cytology/renal US reviewed: will wait to cytoscope AFTER pt stable. Copies To: CODIE DALLAS MD Consult Acknowledgment - Thank you for your consult request. Attending MD Review Statement Attending Statement Attending MD Statement: examined this patient, discuss w/resident/PA/BUSINESS INSTRUCTOR Attending Assessment/Plan: hematuria: will cysto later
--- NOTE | 2016-09-03 09:59 | PN- Pulmonary ---
Subjective HPI/Critical Care Issues: Doing better Off bipap She denies chest discomfort. Review of Systems: Eyes no blurred or double vision Ears no deafness or ringing Nose and throat no recurrent sinusitis Lungs per history of present illness Heart per history of present illness Abdomen no nausea vomiting Musculoskeletal occasional muscle and joint pains Psych no anxiety or depression Neuro without recurrent headache or seizures Endocrine no heat or cold intolerance Objective Current Medications: Current Medications Sig/Michele Start time Last Medication Dose Route Stop Time Status Admin Albuterol Sulfate 3 ML EVERY 4 HRS/AWAKE 08/30 1200 AC 09/03 INH 0757 Allopurinol 150 MG DAILY 08/30 1000 AC 09/03 PO 0931 Amiodarone HCl 200 MG BID 09/02 1246 AC 09/03 PO 0929 Amlodipine Besylate 5 MG BID 08/30 1000 AC 09/03 PO 0931 Aspirin Buffered 81 MG DAILY 08/30 1000 AC 09/03 PO 0929 Atorvastatin Calcium 80 MG 1700 08/30 1700 AC 09/02 PO 1649 Azithromycin 500 MG 1430 09/02 1430 AC 09/02 Dextrose/Water 250 ML IV 09/03 1529 1530 Azithromycin 500 MG DAILY 09/02 1000 DC Dextrose/Water 250 ML IV 09/03 1059 Budesonide/ 2 PUF BID 09/01 1224 AC 09/03 Formoterol Fumarate INH 0931 Clopidogrel Bisulfate 75 MG DAILY 08/30 1000 AC 09/03 PO 0931 Diltiazem HCl 125 MG Q24H 09/01 1615 DC 09/01 Sodium Chloride 100 ML IV 1636 Furosemide 20 MG DAILY 09/03 1000 AC 09/03 IV 0929 Furosemide 20 MG DAILY 09/02 1000 DC 09/02 IV 0943 Heparin Sodium 5,000 UNIT Q8 09/03 0851 AC 09/03 (Porcine) SC 0928 Heparin Sodium 25,000 UNIT Q24H 08/30 1045 DC 09/02 (Porcine) IV 1440 Sodium Chloride 500 ML Hydralazine HCl 10 MG TID 09/02 1600 AC 09/03 PO 0929 Hydralazine HCl 10 MG BID 08/30 1000 DC 09/02 PO 0946 Insulin Aspart 0 AT BEDTIME 08/30 2200 AC 09/01 SC 2217 Insulin Aspart 0 TIDAC 08/30 0800 AC 09/03 SC 0751 Insulin Detemir 50 UNITS BID 09/02 1000 AC 09/03 SC 0930 Ipratropium [place] 2.5 ML EVERY 4 HRS/AWAKE 08/30 1600 AC 09/03 INH 0757 Isosorbide 60 MG DAILY 08/30 1000 AC 09/03 Mononitrate PO 0929 Lorazepam 0.5 MG Q12P PRN 09/02 1330 AC 09/03 IV 0507 Lorazepam 0.5 MG Q8 PRN 09/01 1719 DC 09/02 IV 1310 Methylprednisolone 40 MG DAILY 09/02 1000 DC 09/02 IV 0943 Metoprolol Tartrate 12.5 MG BID 09/02 1246 AC 09/03 PO 0930 Morphine Sulfate 2 MG Q4P PRN 08/31 1600 AC 09/02 IV 1439 Nitroglycerin 0.5 GM Q6 08/30 1200 DC 09/03 TOP 0554 Nystatin 1 RUSS BID 09/01 1321 AC 09/03 TOP 0930 Omeprazole 40 MG DAILY AC 08/30 1537 AC 09/03 PO 0601 Phenol 2 SPRAY Q2P PRN 09/02 1415 AC 09/03 EXT 0752 Polyethylene Glycol 17 GM DAILY PRN 08/30 0800 AC PO Prednisone 40 MG DAILY 09/03 1000 AC 09/03 PO 0931 Prednisone 40 MG DAILY 09/02 1431 DC PO Senna/Docusate Sodium 1 TAB BID PRN 08/30 0800 AC PO Tiotropium [place] 1 PUF DAILY 08/31 1000 AC 09/03 INH 0931 Vital Signs & I&O Last 24 Hrs of Vitals and I&O: Vital Signs Date Time Temp Pulse Resp B/P Pulse O2 O2 Flow FiO2 Ox Delivery Rate 09/03 0931 80 146/80 09/03 0930 80 146/86 09/03 0929 84 146/56 09/03 0929 86 146/86 09/03 0929 84 146/86 09/03 0800 96.4 77 24 150/80 97 BIPAP 30% 09/03 0800 97 BIPAP 30% 09/03 0753 76 97 09/03 0530 73 96 09/03 0455 96 BIPAP 30% 09/03 0400 95 BIPAP 30% 09/03 0304 71 96 09/03 0039 78 95 09/03 0000 95 BIPAP 30% 09/03 0000 95.0 76 18 140/70 95 BIPAP 30% 09/02 2231 78 96 09/02 2156 96.0 83 23 151/62 02/27 2156 96.0 89 23 151/62 09/02 215 96.0 79 21 151/62 09/02 1999 96 BIPAP 30% 09/02 1834 83 96 09/02 1650 94 BIPAP 35% 09/02 1649 97.4 81 23 140/62 09/02 1649 78 96 09/02 1600 97 BIPAP 30% 09/02 1600 97.4 81 23 140/62 97 BIPAP 30% 09/02 1438 105 140/60 09/02 1438 105 140/60 09/02 1432 106 94 09/02 1200 96 BIPAP 30% 09/02 1124 93 96 Intake & Output 09/03 1600 09/03 0800 09/03 0000 Intake Total 300 551.2 Output Total 275 270 Balance 25 281.2 Intake, IV 191.2 Intake, Oral 100 360 Intake, 200 TPN/PPN Output, Urine 275 270 Patient 229 lb Weight Impression/Plan Impression/Plan Impression/Plan: Physical Exam: General: Alert but in respiratory distress using accessory muscles to breathe. on BIPAP Eyes: No obvious scleral icterus. HEENT: Jugular venous pressure estimated 8-10 mmHg Cardiovascular: Normal intensity S1/S2. Regular. One out of 6 systolic murmur. Respiratory: Decreased air entry bilaterally with bilateral scattered wheezing Abdomen: Soft, nontender with no guarding or rebound tenderness. Musculoskeletal: No clubbing or cyanosis noted, 1+ lower extremity edema bilaterally Skin: warm Neurologic: No gross focal deficits noted. Lymph: No gross lymphadenopathy CXR IMPRESSION: Mild pulmonary vascular congestion with bilateral pleural effusions. Density at both lung bases may be also due to superimposed bibasilar infiltrate and/or atelectasis IMPRESSION This is a lady with end-stage COPD, on home oxygen therapy on maximum inhalation therapy, severe obstructive sleep apnea on CPAP, previous ischemic heart disease with stent in the past, previous renal cell carcinoma with chronic kidney disease, morbid obesity, now comes in with * Improving Acute hypoxic and hypercarbic resp failure with Sig wheezing with evidence of total body fluid overload with copd exacerbation aswell. This is compounded by Acute non st elevation OK with previous pci. Pt was also in acute on chronic diastolic chf now slowly improving * Recent lung nodule - PET neg with mild effusion in the both side * Mild rt more than left heart failure mild improvement * Effusion mild bilaterlly * Severe obstructive sleep apnea compliant with bipap at hs daily prior to the hospital * Hypertension, diabetes, hyperlipidemia with previous history of gout which is stable, Recent htn is On russ meds * Chronic kidney disease with previous nephrectomy appears to be stable * Uncontrolled sugar made worse by increasing prednisone in the past which needs to be monitored * Anemia and morbid obesity RECOMMENDATION BIPAP to continue prn PO prednisone Atc nebs q 4 and use ipratropium only if sig tachy persists COnt azitro daily Ok with low dose betablockers Ok with amiodarone as she does have pafib Lasix per cardio. Proton pump inhibitor Agg sugar control Avoid lorazepam and use morphine instead for sig dyspnea Adequate bp control as she does tend to flash when bp goes more than 170 systolic DNR and DNI with conservative measures
--- NOTE | 2016-09-03 10:18 | NUR ---
@0800-PT ALERT AND ORIENTED. ANXIOUS AT TIMES. CONT ON BIPAP, FIO2 30%. O2SAT 95%. AWATITING NEB TX THIS AM BY RT AND WILL THEN BE PLACED ON NC. PT TO RECIEVE IV LASIX 2OMG THIS AM. NSR HR 60S-80S. BP STABLE. ON MULT CARDIAC MEDS INCLUDING APRESOLINE, AMIODARONE, LOPRESSOR, IMDUR AND NORVASC. C2 DIET PROVIDED THIS AM. NO BM AT THIS TIME. ABD SOFT, +BS. KAPLAN IN PLACE WITH HEMATURIA NOTED, CHANGE FROM OVERNIGHT WITH TEA COLORED. BLE EDEMA +1/+2-ELEVATED WHILE IN BED. TRACE TO +1 EDEMA TO BILAT HANDS. CONT ON HEP GTT AT 12.2UNITS/KG/HR WITH NEXT PTT AT 1330. ACCUCHECK 209 THIS AM AND MEDICATED WITH NOVOLOG SS. CONT TO MONITOR CLOSELY, CALL SPARROW WITHIN REACH. @0830-PLACED ON 4LNC FROM BIAP. @1000-ASSISTED PT OOB TO LISSA CHAIR. CRYSTAL ACTIVITY WITH EPISODE OF LABORED BREATHING. PT EDUCATED ON PURSED LIP BREATHING, O2SAT IMPROVED FROM 88% TO 93%. REMAINS OFF BIPAP AT THIS TIME.
[2016-09-03 15:49] VITALS: BP 140/60
--- NOTE | 2016-09-03 16:02 | NUR ---
@1600-PT C/O LABORED BREATHING AND REQUEST TO BE PLACED BACK ON BIPAP. RT NOTIFIED AND PT PLACED BACK ON BIPAP MASK. VSS. CONT TO MONITOR CLOSELY. CALL SPARROW WITHIN REACH.
[2016-09-04] VITALS: BP 148/64
[2016-09-04 05:39] LABS: ABSOLUTE BASOPHIL COUNT 0 /CUMM (0.0-0.2); ABSOLUTE EOSINOPHIL COUNT 0 /CUMM (0.0-0.7); ABSOLUTE GRANULOCYTE CT 12.6 /CUMM (1.4-6.5); ABSOLUTE LYMPH COUNT 1.5 /CUMM (1.2-3.4); ABSOLUTE MONOCYTE COUNT 0.7 /CUMM (0.10-0.60); BASOPHIL % 0.2 % (0.0-2.0); EOSINOPHIL % 0.1 % (0-5); HEMATOCRIT 25.1 % (37-47); MEAN CORPUSCULAR HGB 27.4 PG (27.0-31.0); MEAN CORPUSCULAR HGB CONC 31.6 G/DL (33.0-37.0); MEAN CORPUSCULAR VOLUME 86.6 FL (81.0-99.0); MEAN PLATELET VOLUME 9.2 FL (7.4-10.4); PLATELET COUNT 200 /CUMM (130-400); RED BLOOD CELL CT 2.89 /CUMM (4.20-5.40); WHITE BLOOD CELL COUNT 14.9 /CUMM (4.8-10.8)
--- NOTE | 2016-09-04 07:16 | PN- Resident CRCU ---
Subjective HPI/CRCU Issues: No acute events overnight. Patient was seen and examined this morning. She remains dyspneic and BiPAP dependent. Urine in Gutierrez is clearer compared to prior. Objective Vital Signs & I&O Last 8 Hrs of Vitals and I&O: Vital Signs Date Time Temp Pulse Resp B/P Pulse O2 O2 Flow FiO2 Ox Delivery Rate 09/04 0554 78 95 09/04 0400 95 BIPAP 30% 09/04 0242 75 97 09/04 0033 79 95 09/04 0000 95 BIPAP 30% 09/04 0000 98.4 80 28 148/64 95 BIPAP 30% 09/03 2301 80 94 09/03 2201 82 24 144/56 09/03 2201 82 24 144/56 09/03 2200 82 24 144/56 09/03 2200 82 24 144/66 09/03 2000 95 BIPAP 30% 09/03 1900 83 93 09/03 1617 94 BIPAP 30% 09/03 1600 93 09/03 1549 93 Nasal 4.0L Cannula 09/03 1549 96.2 75 22 140/60 94 Nasal 4.0L Cannula 09/03 1542 75 140/70 09/03 1200 94 Nasal 4.0L Cannula 09/03 0931 80 146/80 09/03 0930 80 146/86 09/03 0929 84 146/56 09/03 0929 86 146/86 09/03 0929 84 146/86 Exam General Appearance: alert, awake, obese, mild respiratory distress Head: atraumatic, normal appearance Ears, Nose, Throat: on BiPAP Neck: supple Respiratory: decreased breath sounds, bilateral wheezes scattered throughout lung juarez Cardiovascular: regular rate/rhythm, normal S1 and S2, no murmurs, rubs or gallops Gastrointestinal: soft, non-tender, positive bowel sounds Extremities: bilateral lower extremities with 1+ edema Cranial Nerves: grossly normal Skin: warm/dry Current Medications: Current Medications Sig/Michele Start time Last Medication Dose Route Stop Time Status Admin Albuterol Sulfate 3 ML EVERY 4 HRS/AWAKE 08/30 1200 AC 09/04 INH 0706 Allopurinol 150 MG DAILY 08/30 1000 AC 09/03 PO 0931 Amiodarone HCl 200 MG BID 09/02 1246 AC 09/03 PO 2200 Amlodipine Besylate 5 MG BID 08/30 1000 AC 09/03 PO 2200 Aspirin Buffered 81 MG DAILY 08/30 1000 AC 09/03 PO 0929 Atorvastatin Calcium 80 MG 1700 08/30 1700 AC 09/03 PO 1542 Azithromycin 500 MG 1430 09/02 1430 AC 09/03 Dextrose/Water 250 ML IV 1506 Budesonide/ 2 PUF BID 09/01 1224 AC 09/03 Formoterol Fumarate INH 2200 Clopidogrel Bisulfate 75 MG DAILY 08/30 1000 AC 09/03 PO 0931 Furosemide 20 MG DAILY 09/03 1000 DC 09/03 IV 0929 Guaifenesin 600 MG Q12P PRN 09/03 1100 AC 09/03 PO 1316 Heparin Sodium 5,000 UNIT Q8 09/03 0851 AC 09/04 (Porcine) SC 0627 Hydralazine HCl 10 MG TID 09/02 1600 AC 09/03 PO 2201 Insulin Aspart 0 TIDAC 09/03 1148 AC 09/03 SC 1651 Insulin Aspart 15 UNITS ONCE ONE 09/03 1145 DC 09/03 SC 09/03 1146 1144 Insulin Aspart 0 AT BEDTIME 08/30 2200 AC 09/01 SC 2217 Insulin Aspart 0 TIDAC 08/30 0800 DC 09/03 ID 0751 Insulin Detemir 40 UNITS BID 09/04 1000 [facility] Insulin Detemir 44 UNITS BID 09/03 2200 PA 09/03 SC 2158 Insulin Detemir 50 UNITS BID 09/02 1000 PA 09/03 SC 0930 Ipratropium Ono 2.5 ML EVERY 4 HRS/AWAKE 08/30 1600 AC 09/04 INH 0705 Isosorbide 60 MG DAILY 08/30 1000 AC 09/03 Mononitrate PO 0929 Lorazepam 0.5 MG ONCE ONE 09/04 0015 DC 09/04 IV 09/04 0016 0024 Lorazepam 0.5 MG Q12P PRN 09/02 1330 AC 09/03 IV 1900 Metoprolol Tartrate 12.5 MG BID 09/02 1246 AC 09/03 PO 2200 Morphine Sulfate 2 MG Q4P PRN 08/31 1600 AC 09/02 IV 1439 Nystatin 1 TYORN BID 09/01 1321 AC 09/03 TOP 0930 Omeprazole 40 MG DAILY AC 08/30 1537 AC 09/03 PO 0601 Phenol 2 SPRAY Q2P PRN 09/02 1415 AC 09/04 EXT 0600 Polyethylene Glycol 17 GM DAILY PRN 08/30 0800 AC PO Prednisone 40 MG DAILY 09/03 1000 AC 09/03 PO 0931 Senna/Docusate Sodium 1 TAB BID PRN 08/30 0800 AC 09/03 PO 1804 Tiotropium Ono 1 PUF DAILY 08/31 1000 AC 09/03 INH 0931 Results Results: Laboratory Tests 09/04 09/03 0440 1330 Chemistry Sodium (137 - 145 mmol/L) 136 L Potassium (3.5 - 5.1 mmol/L) 4.9 Chloride (98 - 107 mmol/L) 99 Carbon Dioxide (22 - 30 mmol/L) 25 Anion Gap (5 - 16) 13 BUN (7 - 17 mg/dL) 104 *H Creatinine (0.5 - 1.0 mg/dL) 2.6 H Estimated GFR (>60 ml/min) 18 L Glucose (65 - 99 mg/dL) 123 H Calcium (8.4 - 10.2 mg/dL) 8.8 Phosphorus (2.5 - 4.5 mg/dL) 7.6 H Magnesium (1.6 - 2.3 mg/dL) 2.7 H Total Bilirubin (0.2 - 1.3 mg/dL) 0.5 AST (14 - 36 U/L) 28 ALT (9 - 52 U/L) 35 Albumin (3.5 - 5.0 g/dL) 3.5 Coagulation APTT Cancelled Hematology CBC w Diff NO MAN DIFF REQ WBC (4.8 - 10.8 /CUMM) 14.9 H RBC (4.20 - 5.40 /CUMM) 2.89 L Hgb (12.0 - 16.0 G/DL) 7.9 L Hct (37 - 47 %) 25.1 L MCV (81.0 - 99.0 FL) 86.6 MCH (27.0 - 31.0 PG) 27.4 RDW (11.5 - 14.5 %) 17.0 H Plt Count (130 - 400 /CUMM) 200 MPV (7.4 - 10.4 FL) 9.2 Gran % (42.2 - 75.2 %) 85.0 H Lymphocytes % (20.5 - 51.1 %) 10.1 L Monocytes % (1.7 - 9.3 %) 4.6 Eosinophils % (0 - 5 %) 0.1 Basophils % (0.0 - 2.0 %) 0.2 Absolute Granulocytes (1.4 - 6.5 /CUMM) 12.6 H Absolute Lymphocytes (1.2 - 3.4 /CUMM) 1.5 Absolute Monocytes (0.10 - 0.60 /CUMM) 0.7 H Absolute Eosinophils (0.0 - 0.7 /CUMM) 0 Absolute Basophils (0.0 - 0.2 /CUMM) 0 PUBS MCHC (33.0 - 37.0 G/DL) 31.6 L Sputum Cx (09/03/16): Poor quality specimen Impression/Plan Impression/Problem List Impression: 81 y/o F with PMHx of COPD on 2 L NC, CAD s/p PCI with stent and diastolic CHF who is admitted for acute on chronic hypoxemic and hypercarbic respiratory failure 2/2 COPD and acute diastolic CHF, with elevated troponins 2/2 NSTEMI vs demand ischemia, new-onset paroxysmal atrial fibrillation, AYAZ on CKD and hematuria. Problem List: 1. [id number] kidney injury 2. Acute respiratory failure with hypoxia and hypercapnia 3. Hematuria 4. Elevated troponin 5. Acute on chronic diastolic (congestive) heart failure 6. IDDM (insulin dependent diabetes mellitus) 7. T2DM (type 2 diabetes mellitus) 8. New onset atrial fibrillation 9. Paroxysmal atrial fibrillation 10. COPD exacerbation Pain Ratin Tomorrow's Labs & Rationales: CBC and ICU bundle (ICU patient) Plan Respiratory: #Acute on chronic hypoxemic and hypercarbic respiratory failure: 2/2 to COPD exacerbation and acute diastolic CHF. Remains dyspneic and BiPAP dependent. * Continue prednisone 40 mg PO daily for five days total then slowly taper. * Continue BiPAP PRN. * TRC and albuterol nebs Q4H. Use ipratropium only in the setting of persistent tachycardia. * Continue Spiriva and Symbicort inhalers. * Switch to azithromycin 250 mg PO daily. * Continue Ativan 0.5 mg IV Q8H PRN for anxiety. * Continue morphine 2 mg IV Q4H PRN for respiratory distress. * Resend sputum Cx as sample yesterday was poor quality specimen. Infectious Diseases: Remains afebrile. Persistent leukocytosis, likely secondary to steroids. No signs or symptoms of infection. Cardiovascular: #New-onset paroxysmal atrial fibrillation: Remains in sinus rhythm. * Cardiology following. Appreciate their recs. * Change amiodarone to 200 mg PO daily. * Continue metoprolol 12.5 mg PO BID. * Will need to weigh the risk and benefits of manager terminal anticoagulation in light of elevated [id number] score (6). #Acute on chronic diastolic CHF: * Continue to monitor strict I/Os and daily weights. * Hold diuretics given further elevation in creatinine. #HTN: * Continue amlodipine 5 mg PO daily and metoprolol 12.5 mg PO BID. * Increase hydralazine to 20 mg PO TID. * Continue to monitor BP closely as patient tends to go into flash pulmonary edema when SBP > 170. #Elevated troponins: Represents NSTEMI vs demand ischemia in the setting of chest discomfort and lateral ST depressions on EKG. No active chest pain currently. * Continue aspirin 81 mg PO daily, atorvastatin 80 mg PO daily, Imdur 60 mg PO daily and Plavix 75 mg PO daily. * Discontinue nitroglycerin paste. * Discontinue IV heparin drip. Hematology: #Anemia: Hgb 7.9 today. Baseline Hgb 8-10. Iron studies with low iron and normal ferritin and TIBC consistent with mixed picture with co-existent iron deficiency anemia and anemia of chronic disease. * Administer 1 unit of pRBCs. * Continue to monitor H/H. #Hematuria: Urine is becoming more clear. Renal US unremarkable. Could be traumatic 2/2 Gutierrez insertion or related to prior RCC. Glomerular process unlikely per nephrology. * Urology and nephrology following. Appreciate their recs. * Urine cytology pending. * Hold off on cystoscopy until patient is stabilized. * Keep Gutierrez in until urine is completely clear. Metabolic: #T2DM: Blood sugars are better-controlled today. * Endocrinology following. Appreciate their recs. * Further decrease Levemir to 40 units SQ BID to avoid hypoglycemia while steroids are being tapered. * Continue TIDAC/QHS sliding scale Novolog as it is. #AYAZ on CKD stage III: Creatinine continues to rise, 2.6 today from baseline of 1.6. Per nephrology most likely etiology is ATN in the setting of sepsis/NSTEMI as well as possible hemodynamic compromise prior to admission and it is unclear whether overdiuresis, which was initially felt to be the underlying reason, is the primary etiology as patient has been in positive fluid balance this admission, given weight gain and CXR with mild pulmonary edema. Urinalysis significant for proteinuria and hematuria. Renal US with absent right kidney and unremarkable left kidney. * Nephrology following. Appreciate their recs. * Check urine sodium, urine and creatinine to help differentiate between pre- renal vs ATN. * Check spot urine protein, microalbumin and creatinine to quantify urine protein (patient has proteinuric stage III CKD at baseline). * Monitor lytes and replete to K > 4 and Mg > 2. * Check standing weights. #Gout: * Continue allopurinol 150 mg PO daily. Alimentary: Consistent Carbohydrate 2 Neurological: AAO x3. DVT/Prophylaxis: mechanical, pharmacological Code Status: Do Not Resucitate/Intubat (no aggressive measures)
--- NOTE | 2016-09-04 07:33 | PN- Diabetes ---
Assessment/Plan Assessment: The patient is breathing more comfortably this morning. Her sugars are starting to come down. The patient's prednisone has been tapered to 40 mg once a day by mouth.. She is on 50 units of Levemir twice a day. Her sliding scale NovoLog( increased yesterday. Her blood sugar in the lab this morning is 136. Plan: Continue the same insulin for now. Subjective Subjective: feels a lkittle better Objective Last 24 Hrs of Vital Signs/I&O 110/70 Physical Exam General Appearance: alert, awake, anxious Respiratory: decreased breath sounds Cardiovascular: regular rate/rhythm Abdomen: normal bowel sounds
--- NOTE | 2016-09-04 07:37 | PN- Diabetes ---
Assessment/Plan Assessment: The patient is breathing more comfortably this morning. Her sugars are in better control. The patient's prednisone has been tapered to 40 mg once a day by mouth.. She is on 44 units of Levemir twice a day. Her sliding scale NovoLog before meals begins at 20 units for 80-150. Her blood sugar in the lab this morning is 123. Plan: Suggest reduce the patient's Levemir to 40 units twice a day. Continue present sliding-scale NovoLog. Subjective Subjective: Still short of breath Objective Last 24 Hrs of Vital Signs/I&O Vital Signs Date Time Temp Pulse Resp B/P Pulse O2 O2 Flow FiO2 Ox Delivery Rate 09/04 0554 78 95 09/04 0400 95 BIPAP 30% 09/04 0242 75 97 09/04 0033 79 95 09/04 0000 95 BIPAP 30% 09/04 0000 98.4 80 28 148/64 95 BIPAP 30% 09/03 2301 80 94 09/03 2201 82 24 144/56 09/03 2201 82 24 144/56 09/03 2200 82 24 144/56 09/03 2200 82 24 144/66 09/03 2000 95 BIPAP 30% 09/03 1900 83 93 09/03 1617 94 BIPAP 30% 09/03 1600 93 09/03 1549 93 Nasal 4.0L Cannula 09/03 1549 96.2 75 22 140/60 94 Nasal 4.0L Cannula 09/03 1542 75 140/70 09/03 1200 94 Nasal 4.0L Cannula 09/03 0931 80 146/80 09/03 0930 80 146/86 09/03 0929 84 146/56 09/03 0929 86 146/86 09/03 0929 84 146/86 09/03 0800 96.4 77 24 150/80 97 BIPAP 30% 09/03 0800 97 BIPAP 30% 09/03 0753 76 97 Intake & Output 09/04 0800 09/04 0000 09/03 1600 Intake Total 60 560 364 Output Total 430 225 500 Balance -370 335 -136 Intake, IV 250 44 Intake, Oral 60 310 320 Number 0 0 Bowel Movements Output, Urine 430 225 500 Patient 229 lb Weight Vital Signs Date Time Temp Pulse Resp B/P Pulse O2 O2 Flow FiO2 Ox Delivery Rate 09/04 0554 78 95 09/04 0400 95 BIPAP 30% 09/04 0242 75 97 03 0033 79 95 03 0000 95 BIPAP 30% 09/04 0000 98.4 80 28 148/64 95 BIPAP 30% 09/03 2301 80 94 09/03 2201 82 24 144/56 09/03 2201 82 24 144/56 09/03 2200 82 24 144/56 09/03 2200 82 24 144/66 09/03 1999 95 BIPAP 30% 09/03 1900 83 93 09/03 1617 94 BIPAP 30% 09/03 1600 93 09/03 1549 93 Nasal 4.0L Cannula 09/03 1549 96.2 75 22 140/60 94 Nasal 4.0L Cannula 09/03 1542 75 140/70 09/03 1200 94 Nasal 4.0L Cannula 09/03 0931 80 146/80 09/03 0930 80 146/86 09/03 0929 84 146/56 09/03 0929 86 146/86 09/03 0929 84 146/86 09/03 0800 96.4 77 24 150/80 97 BIPAP 30% 09/03 0800 97 BIPAP 30% 09/03 0753 76 97 Intake & Output 09/04 0800 03/ 0000 09/03 1600 Intake Total 60 560 364 Output Total 430 225 500 Balance -370 335 -136 Intake, IV 250 44 Intake, Oral 60 310 320 Number 0 0 Bowel Movements Output, Urine 430 225 500 Patient 229 lb Weight Physical Exam General Appearance: alert, awake, on BIPAP Neck: normal inspection Cardiovascular: regular rate/rhythm Extremities: no edema Current Medications: Current Medications Sig/Michele Start time Last Medication Dose Route Stop Time Status Admin Albuterol Sulfate 3 ML EVERY 4 HRS/AWAKE 08/30 1200 AC 09/04 INH 0706 Allopurinol 150 MG DAILY 08/30 1000 AC 09/03 PO 0931 Amiodarone HCl 200 MG BID 09/02 1246 AC 09/03 PO 2201 Amlodipine Besylate 5 MG BID 08/30 1000 AC 09/03 PO 2200 Aspirin Buffered 81 MG DAILY 08/30 1000 AC 09/03 PO 0929 Atorvastatin Calcium 80 MG 1700 08/30 1700 AC 09/03 PO 1542 Azithromycin 500 MG 1430 09/02 1430 AC 09/03 Dextrose/Water 250 ML IV 1506 Budesonide/ 2 PUF BID 09/01 1224 AC 09/03 Formoterol Fumarate INH 2200 Clopidogrel Bisulfate 75 MG DAILY 08/30 1000 AC 09/03 PO 0931 Furosemide 20 MG DAILY 09/03 1000 DC 09/03 IV 0929 Guaifenesin 600 MG Q12P PRN 09/03 1100 AC 09/03 PO 1316 Heparin Sodium 5,000 UNIT Q8 09/03 0851 AC 09/04 (Porcine) SC 0627 Heparin Sodium 25,000 UNIT Q24H 08/30 1045 DC 09/02 (Porcine) IV 1440 Sodium Chloride 500 ML Hydralazine HCl 10 MG TID 09/02 1600 AC 09/03 PO 2201 Insulin Aspart 0 TIDAC 09/03 1148 AC 09/03 SC 1651 Insulin Aspart 15 UNITS ONCE ONE 09/03 1145 DC 09/03 SC 09/03 1146 1144 Insulin Aspart 0 AT BEDTIME 08/30 2200 AC 09/01 SC 2217 Insulin Aspart 0 TIDAC 08/30 0800 DC 09/03 SC 0751 Insulin Detemir 44 UNITS BID 09/03 2200 AC 09/03 SC 2158 Insulin Detemir 50 UNITS BID 09/02 1000 DC 09/03 SC 0930 Ipratropium Garrett 2.5 ML EVERY 4 HRS/AWAKE 08/30 1600 AC 09/04 INH 0705 Isosorbide 60 MG DAILY 08/30 1000 AC 09/03 Mononitrate PO 0929 Lorazepam 0.5 MG ONCE ONE 09/04 0015 DC 09/04 IV 09/04 0016 0024 Lorazepam 0.5 MG Q12P PRN 09/02 1330 AC 09/03 IV 1900 Metoprolol Tartrate 12.5 MG BID 09/02 1246 AC 09/03 PO 2200 Morphine Sulfate 2 MG Q4P PRN 08/31 1600 AC 09/02 IV 1439 Nitroglycerin 0.5 GM Q6 08/30 1200 DC 09/03 TOP 0554 Nystatin 1 TYRON BID 09/01 1321 AC 09/03 TOP 0930 Omeprazole 40 MG DAILY AC 08/30 1537 AC 09/03 PO 0601 Phenol 2 SPRAY Q2P PRN 09/02 1415 AC 09/03 EXT 0752 Polyethylene Glycol 17 GM DAILY PRN 08/30 0800 AC PO Prednisone 40 MG DAILY 09/03 1000 AC 09/03 PO 0931 Senna/Docusate Sodium 1 TAB BID PRN 08/30 0800 AC 09/03 PO 1804 Tiotropium Garrett 1 PUF DAILY 08/31 1000 AC 09/03 INH 0931 Findings Pertinent Lab/Romain Results: Laboratory Tests 09/04 09/03 0440 1330 Chemistry Sodium (137 - 145 mmol/L) 136 L Potassium (3.5 - 5.1 mmol/L) 4.9 Chloride (98 - 107 mmol/L) 99 Carbon Dioxide (22 - 30 mmol/L) 25 Anion Gap (5 - 16) 13 BUN (7 - 17 mg/dL) 104 *H Creatinine (0.5 - 1.0 mg/dL) 2.6 H Estimated GFR (>60 ml/min) 18 L Glucose (65 - 99 mg/dL) 123 H Calcium (8.4 - 10.2 mg/dL) 8.8 Phosphorus (2.5 - 4.5 mg/dL) 7.6 H Magnesium (1.6 - 2.3 mg/dL) 2.7 H Total Bilirubin (0.2 - 1.3 mg/dL) 0.5 AST (14 - 36 U/L) 28 ALT (9 - 52 U/L) 35 Albumin (3.5 - 5.0 g/dL) 3.5 Coagulation APTT Cancelled Hematology CBC w Diff NO MAN DIFF REQ WBC (4.8 - 10.8 /CUMM) 14.9 H RBC (4.20 - 5.40 /CUMM) 2.89 L Hgb (12.0 - 16.0 G/DL) 7.9 L Hct (37 - 47 %) 25.1 L MCV (81.0 - 99.0 FL) 86.6 MCH (27.0 - 31.0 PG) 27.4 RDW (11.5 - 14.5 %) 17.0 H Plt Count (130 - 400 /CUMM) 200 MPV (7.4 - 10.4 FL) 9.2 Gran % (42.2 - 75.2 %) 85.0 H Lymphocytes % (20.5 - 51.1 %) 10.1 L Monocytes % (1.7 - 9.3 %) 4.6 Eosinophils % (0 - 5 %) 0.1 Basophils % (0.0 - 2.0 %) 0.2 Absolute Granulocytes (1.4 - 6.5 /CUMM) 12.6 H Absolute Lymphocytes (1.2 - 3.4 /CUMM) 1.5 Absolute Monocytes (0.10 - 0.60 /CUMM) 0.7 H Absolute Eosinophils (0.0 - 0.7 /CUMM) 0 Absolute Basophils (0.0 - 0.2 /CUMM) 0 PUBS MCHC (33.0 - 37.0 G/DL) 31.6 L
--- NOTE | 2016-09-04 08:51 | PN- Att Addend ---
Attending Addendum Attending Brief Note Patient has persisting shortness of breath and currently BiPAP dependent. General Appearance: Alert, No Acute Distress Skin: Grossly normal HEENT: PEERLA Neck: Supple, No JVD Cardiovascular: Regular Rate, Normal S1, Normal S2, No Murmurs Lungs: Expiratory wheeze Abdomen: Normal Bowel Sounds, Soft, No Tenderness Neurological: Normal Speech, Strength at 5/5 X4 Ext, Cranial Nerves 3-12 NL, Reflexes 2+ Extremities: Bilateral pedal edema Assessment Hypoxic respiratory failure. Multifactorial requiring continuous BiPAP. worsening kidney function likely secondary to overdiuresis. We'll hold off on diuretics and involve nephrology. No signs of clinical pneumonia. Antibiotic now discontinued. She currently is in sinus rhythm and amiodarone was discontinued. Repeat echo shows preserved ejection fraction. Hematuria has resolved since discontinuation of heparin drip. We will hold off on urology intervention until patient is stabilized. Plan Transfuse 1 unit PRBC Continue azithromycin Resend sputum culture Hold Lasix Nephrology consult Ativan 0.5 mg every 12 hours when necessary anxiety taper steroids Continue other home medications Prognosis guarded DNI/DNR and no heroic measures Current Medications Sig/Michele Start time Last Medication Dose Route Stop Time Status Admin Albuterol Sulfate 3 ML EVERY 4 HRS/AWAKE 08/30 1200 AC 09/04 INH 0706 Allopurinol 150 MG DAILY 08/30 1000 AC 09/03 PO 0931 Amiodarone HCl 200 MG BID 09/02 1246 AC 09/03 PO 2201 Amlodipine Besylate 5 MG BID 08/30 1000 AC 09/03 PO 2200 Aspirin Buffered 81 MG DAILY 08/30 1000 AC 09/03 PO 0929 Atorvastatin Calcium 80 MG 1700 08/30 1700 AC 09/03 PO 1542 Azithromycin 500 MG 1430 09/02 1430 AC 09/03 Dextrose/Water 250 ML IV 1506 Budesonide/ 2 PUF BID 09/01 1224 AC 09/03 Formoterol Fumarate INH 2200 Clopidogrel Bisulfate 75 MG DAILY 08/30 1000 AC 09/03 PO 0931 Furosemide 20 MG DAILY 09/03 1000 DC 09/03 IV 0929 Guaifenesin 600 MG Q12P PRN 09/03 1100 AC 09/03 PO 1316 Heparin Sodium 5,000 UNIT Q8 09/03 0851 AC 09/04 (Porcine) SC 0627 Hydralazine HCl 10 MG TID 09/02 1600 AC 09/03 PO 2201 Insulin Aspart 0 TIDAC 09/03 1148 AC 09/03 SC 1651 Insulin Aspart 15 UNITS ONCE ONE 09/03 1145 DC 09/03 SC 09/03 1146 1144 Insulin Aspart 0 AT BEDTIME 08/30 2200 AC 09/01 SC 2217 Insulin Aspart 0 TIDAC 08/30 0800 DC 09/03 SC 0751 Insulin Detemir 40 UNITS BID 09/04 1000 AC SC Insulin Detemir 44 UNITS BID 09/03 2200 DC 09/03 SC 2158 Insulin Detemir 50 UNITS BID 09/02 1000 DC 09/03 SC 0930 Ipratropium [place] 2.5 ML EVERY 4 HRS/AWAKE 08/30 1600 AC 09/04 INH 0705 Isosorbide 60 MG DAILY 08/30 1000 AC 09/03 Mononitrate PO 0929 Lorazepam 0.5 MG ONCE ONE 09/04 0015 DC 09/04 IV 09/04 0016 0024 Lorazepam 0.5 MG Q12P PRN 09/02 1330 AC 09/03 IV 1900 Metoprolol Tartrate 12.5 MG BID 09/02 1246 AC 09/03 PO 2200 Morphine Sulfate 2 MG Q4P PRN 08/31 1600 AC 09/02 IV 1439 Nystatin 1 TYRON BID 09/01 1321 AC 09/03 TOP 0930 Omeprazole 40 MG DAILY AC 08/30 1537 AC 09/03 PO 0601 Phenol 2 SPRAY Q2P PRN 09/02 1415 AC 09/04 EXT 0600 Polyethylene Glycol 17 GM DAILY PRN 08/30 0800 AC PO Prednisone 40 MG DAILY 09/03 1000 AC 09/03 PO 0931 Senna/Docusate Sodium 1 TAB BID PRN 08/30 0800 AC 09/03 PO 1804 Tiotropium [place] 1 PUF DAILY 08/31 1000 AC 09/03 INH 0931 Laboratory Tests 09/04 09/03 0440 1330 Chemistry Sodium (137 - 145 mmol/L) 136 L Potassium (3.5 - 5.1 mmol/L) 4.9 Chloride (98 - 107 mmol/L) 99 Carbon Dioxide (22 - 30 mmol/L) 25 Anion Gap (5 - 16) 13 BUN (7 - 17 mg/dL) 104 *H Creatinine (0.5 - 1.0 mg/dL) 2.6 H Estimated GFR (>60 ml/min) 18 L Glucose (65 - 99 mg/dL) 123 H Calcium (8.4 - 10.2 mg/dL) 8.8 Phosphorus (2.5 - 4.5 mg/dL) 7.6 H Magnesium (1.6 - 2.3 mg/dL) 2.7 H Total Bilirubin (0.2 - 1.3 mg/dL) 0.5 AST (14 - 36 U/L) 28 ALT (9 - 52 U/L) 35 Albumin (3.5 - 5.0 g/dL) 3.5 Coagulation APTT Cancelled Hematology CBC w Diff NO MAN DIFF REQ WBC (4.8 - 10.8 /CUMM) 14.9 H RBC (4.20 - 5.40 /CUMM) 2.89 L Hgb (12.0 - 16.0 G/DL) 7.9 L Hct (37 - 47 %) 25.1 L MCV (81.0 - 99.0 FL) 86.6 MCH (27.0 - 31.0 PG) 27.4 RDW (11.5 - 14.5 %) 17.0 H Plt Count (130 - 400 /CUMM) 200 MPV (7.4 - 10.4 FL) 9.2 Gran % (42.2 - 75.2 %) 85.0 H Lymphocytes % (20.5 - 51.1 %) 10.1 L Monocytes % (1.7 - 9.3 %) 4.6 Eosinophils % (0 - 5 %) 0.1 Basophils % (0.0 - 2.0 %) 0.2 Absolute Granulocytes (1.4 - 6.5 /CUMM) 12.6 H Absolute Lymphocytes (1.2 - 3.4 /CUMM) 1.5 Absolute Monocytes (0.10 - 0.60 /CUMM) 0.7 H Absolute Eosinophils (0.0 - 0.7 /CUMM) 0 Absolute Basophils (0.0 - 0.2 /CUMM) 0 PUBS MCHC (33.0 - 37.0 G/DL) 31.6 L Vital Signs Date Time Temp Pulse Resp B/P Pulse O2 O2 Flow FiO2 Ox Delivery Rate 09/04 0554 78 95 09/04 0400 95 BIPAP 30% 09/04 0242 75 97 09/04 0033 79 95 09/04 0000 95 BIPAP 30% 09/04 0000 98.4 80 28 148/64 95 BIPAP 30% 09/03 2301 80 94 09/03 2201 82 24 144/56 09/03 2201 82 24 144/56 09/03 2200 82 24 144/56 09/03 2200 82 24 144/66 09/03 2000 95 BIPAP 30% 09/03 1900 83 93 09/03 1617 94 BIPAP 30% 09/03 1600 93 09/03 1549 93 Nasal 4.0L Cannula 09/03 1549 96.2 75 22 140/60 94 Nasal 4.0L Cannula 09/03 1542 75 140/70 09/03 1200 94 Nasal 4.0L Cannula 09/03 0931 80 146/80 09/03 0930 80 146/86 09/03 0929 84 146/56 09/03 0929 86 146/86 09/03 0929 84 [id number]
--- NOTE | 2016-09-04 09:17 | PN- Pulmonary ---
Subjective HPI/Critical Care Issues: Doing a little better this am OOB to chair Still has sig dyspnea Cough on and off No sig fever Hct low today Objective Current Medications: Current Medications Sig/Michele Start time Last Medication Dose Route Stop Time Status Admin Albuterol Sulfate 3 ML EVERY 4 HRS/AWAKE 08/30 1200 AC 09/04 INH 0706 Allopurinol 150 MG DAILY 08/30 1000 AC 09/03 PO 0931 Amiodarone HCl 200 MG BID 09/02 1246 AC 09/03 PO 2201 Amlodipine Besylate 5 MG BID 08/30 1000 AC 09/03 PO 2200 Aspirin Buffered 81 MG DAILY 08/30 1000 AC 09/03 PO 0929 Atorvastatin Calcium 80 MG 1700 08/30 1700 AC 09/03 PO 1542 Azithromycin 500 MG 1430 09/02 1430 AC 09/03 Dextrose/Water 250 ML IV 1506 Budesonide/ 2 PUF BID 09/01 1224 AC 09/03 Formoterol Fumarate INH 2200 Clopidogrel Bisulfate 75 MG DAILY 08/30 1000 AC 09/03 PO 0931 Furosemide 20 MG DAILY 09/03 1000 DC 09/03 IV 0929 Guaifenesin 600 MG Q12P PRN 09/03 1100 AC 09/03 PO 1316 Heparin Sodium 5,000 UNIT Q8 09/03 0851 AC 09/04 (Porcine) SC 0627 Hydralazine HCl 10 MG TID 09/02 1600 AC 09/03 PO 2201 Insulin Aspart 0 TIDAC 09/03 1148 AC 09/03 WI 1651 Insulin Aspart 15 UNITS ONCE ONE 09/03 1145 DC 09/03 WI 09/03 1146 1144 Insulin Aspart 0 AT BEDTIME 08/30 2200 AC 09/01 WI 2217 Insulin Aspart 0 TIDAC 08/30 0800 DC 09/03 WI 0751 Insulin Detemir 40 UNITS BID 09/04 1000 [facility] Insulin Detemir 44 UNITS BID 09/03 2200 DC 09/03 WI 2158 Insulin Detemir 50 UNITS BID 09/02 1000 DC 09/03 SC 0930 Ipratropium [place] 2.5 ML EVERY 4 HRS/AWAKE 08/30 1600 AC 09/04 INH 0705 Isosorbide 60 MG DAILY 08/30 1000 AC 09/03 Mononitrate PO 0929 Lorazepam 0.5 MG ONCE ONE 09/04 0015 DC 09/04 IV 09/04 0016 0024 Lorazepam 0.5 MG Q12P PRN 09/02 1330 AC 09/03 IV 1900 Metoprolol Tartrate 12.5 MG BID 09/02 1246 AC 09/03 PO 2200 Morphine Sulfate 2 MG Q4P PRN 08/31 1600 AC 09/02 IV 1439 Nystatin 1 RUSS BID 09/01 1321 09/03 TOP 0930 Omeprazole 40 MG DAILY AC 08/30 1537 AC 09/03 PO 0601 Phenol 2 SPRAY Q2P PRN 09/02 1415 AC 09/04 EXT 0600 Polyethylene Glycol 17 GM DAILY PRN 08/30 0800 AC PO Prednisone 40 MG DAILY 09/03 1000 AC 09/03 PO 0931 Senna/Docusate Sodium 1 TAB BID PRN 08/30 0800 AC 09/03 PO 1804 Tiotropium [place] 1 PUF DAILY 08/31 1000 AC 09/03 INH 0931 Vital Signs & I&O Last 24 Hrs of Vitals and I&O: Vital Signs Date Time Temp Pulse Resp B/P Pulse O2 O2 Flow FiO2 Ox Delivery Rate 09/04 0554 78 95 09/04 0400 95 BIPAP 30% 09/04 0242 75 97 09/04 0033 79 95 09/04 0000 95 BIPAP 30% 09/04 0000 98.4 80 28 148/64 95 BIPAP 30% 09/03 2301 80 94 09/03 2201 82 24 144/56 09/03 2201 82 24 144/56 09/03 2200 82 24 144/56 09/03 2200 82 24 144/66 09/03 2000 95 BIPAP 30% 09/03 1900 83 93 09/03 1617 94 BIPAP 30% 09/03 1600 93 09/03 1549 93 Nasal 4.0L Cannula 09/03 1549 96.2 75 22 140/60 94 Nasal 4.0L Cannula 09/03 1542 75 140/70 09/03 1200 94 Nasal 4.0L Cannula 09/03 0931 80 146/80 09/03 0930 80 146/86 09/03 0929 84 146/56 09/03 0929 86 146/86 09/03 0929 84 146/86 Intake & Output 09/04 1600 09/04 0800 09/04 0000 Intake Total 60 560 Output Total 430 225 Balance -370 335 Intake, IV 250 Intake, Oral 60 310 Number 0 Bowel Movements Output, Urine 430 225 Impression/Plan Impression/Plan Impression/Plan: Physical Exam: General: Alert but in respiratory distress using accessory muscles to breathe. on BIPAP Eyes: No obvious scleral icterus. HEENT: Jugular venous pressure estimated 8-10 mmHg Cardiovascular: Normal intensity S1/S2. Regular. One out of 6 systolic murmur. Respiratory: Decreased air entry bilaterally with bilateral scattered wheezing Abdomen: Soft, nontender with no guarding or rebound tenderness. Musculoskeletal: No clubbing or cyanosis noted, 1+ lower extremity edema bilaterally Skin: warm Neurologic: No gross focal deficits noted. Lymph: No gross lymphadenopathy CXR IMPRESSION: Mild pulmonary vascular congestion with bilateral pleural effusions. 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 This is compounded by Acute non st elevation DC with previous pci. Pt was also in acute on chronic diastolic chf now slowly improving * Recent lung nodule - PET neg with mild effusion in the both side * Mild rt more than left heart failure mild improvement * Effusion mild bilaterlly * Severe obstructive sleep apnea compliant with bipap at hs daily prior to the hospital * Hypertension, diabetes, hyperlipidemia with previous history of gout which is stable, Recent htn is On russ meds * Chronic kidney disease with previous nephrectomy appears to be stable * Uncontrolled sugar made worse by increasing prednisone in the past which needs to be monitored * Anemia and morbid obesity RECOMMENDATION BIPAP to continue prn PO prednisone keep on 40 for five days and then slow taper Atc nebs q 4 and use ipratropium only if sig tachy persists COnt azitro daily can reduce the dose to 250 po qd Ok with amiodarone as she does have pafib Lasix per cardio. Proton pump inhibitor Agg sugar control Avoid lorazepam and use morphine instead for sig dyspnea Adequate bp control as she does tend to flash when bp goes more than 170 systolic DNR and DNI with conservative measures
--- NOTE | 2016-09-04 10:10 | PN- Cardiology ---
Subjective Subjective: Patient does appear to be improving. She is currently sitting up in her chair on nasal cannula. No recurrent chest pain. Objective Vital Signs and I&Os Vital Signs Date Time Temp Pulse Resp B/P Pulse O2 O2 Flow FiO2 Ox Delivery Rate 09/04 0934 78 148/64 09/04 0933 78 148/64 09/04 0933 78 148/64 09/04 0933 78 148/64 09/04 0933 78 148/64 09/04 0554 78 95 09/04 0400 95 BIPAP 30% 09/04 0242 75 97 09/04 0033 79 95 09/04 0000 95 BIPAP 30% 09/04 0000 98.4 80 28 148/64 95 BIPAP 30% 09/03 2301 80 94 09/03 2201 82 24 144/56 09/03 2201 82 24 144/56 09/03 2200 82 24 144/56 09/03 2200 82 24 144/66 09/03 2000 95 BIPAP 30% 09/03 1900 83 93 09/03 1617 94 BIPAP 30% 09/03 1600 93 09/03 1549 93 Nasal 4.0L Cannula 09/03 1549 96.2 75 22 140/60 94 Nasal 4.0L Cannula 09/03 1542 75 140/70 09/03 1200 94 Nasal 4.0L Cannula Intake & Output 09/04 1600 09/04 0800 09/04 0000 09/03 1600 09/03 0800 09/03 0000 Intake Total 60 560 364 300 551.2 Output Total 430 225 500 275 270 Balance -370 335 -136 25 281.2 Intake, IV 250 44 191.2 Intake, Oral 60 310 320 100 360 Intake, 200 TPN/PPN Number 0 0 Bowel Movements Output, Urine 430 225 500 275 270 Patient 229 lb Weight Physical Exam: General: No apparent distress. On nasal cannula. Eyes: No obvious scleral icterus. HEENT: No abnormal jugular venous pulsations Cardiovascular: Normal intensity S1/S2. Regular. One out of 6 systolic murmur. Respiratory: Decreased air entry bilaterally Abdomen: Soft, nontender with no guarding or rebound tenderness. Musculoskeletal: No clubbing or cyanosis noted, 1+ LE edema Skin: warm Neurologic: No gross focal deficits noted. Current Medications: Current Medications Sig/Michele Start time Last Medication Dose Route Stop Time Status Admin Albuterol Sulfate 3 ML EVERY 4 HRS/AWAKE 08/30 1200 AC 09/04 INH 0706 Allopurinol 150 MG DAILY 08/30 1000 AC 09/04 PO 0933 Amiodarone HCl 200 MG BID 09/02 1246 AC 09/04 PO 0933 Amlodipine Besylate 5 MG BID 08/30 1000 AC 09/04 PO 0933 Aspirin Buffered 81 MG DAILY 08/30 1000 AC 09/04 PO 0933 Atorvastatin Calcium 80 MG 1700 08/30 1700 AC 09/03 PO 1542 Azithromycin 250 MG 1430 09/04 1430 AC Dextrose/Water 250 ML IV Azithromycin 500 MG 1430 09/02 1430 DC 09/03 Dextrose/Water 250 ML IV 1506 Budesonide/ 2 PUF BID 09/01 1224 AC 09/04 Formoterol Fumarate INH 0935 Clopidogrel Bisulfate 75 MG DAILY 08/30 1000 AC 09/04 PO 0933 Furosemide 20 MG DAILY 09/03 1000 DC 09/03 IV 0929 Guaifenesin 600 MG Q12P PRN 09/03 1100 AC 09/04 PO 0933 Heparin Sodium 5,000 UNIT Q8 09/03 0851 09/04 (Porcine) SC 0627 Hydralazine HCl 10 MG TID 09/02 1600 AC 09/04 PO 0934 Insulin Aspart 0 TIDAC 09/03 1148 AC 09/04 SC 0937 Insulin Aspart 15 UNITS ONCE ONE 09/03 1145 OR 09/03 NC 09/03 1146 1144 Insulin Aspart 0 AT BEDTIME 08/30 2200 09/01 NC 2217 Insulin Aspart 0 TIDAC 08/30 0800 OR 09/03 NC 0751 Insulin Detemir 40 UNITS BID 09/04 1000 AC 09/04 SC 0935 Insulin Detemir 44 UNITS BID 09/03 2200 OR 09/03 NC 2158 Insulin Detemir 50 UNITS BID 09/02 1000 OR 09/03 SC 0930 Ipratropium [place] 2.5 ML EVERY 4 HRS/AWAKE 08/30 1600 AC 09/04 INH 0705 Isosorbide 60 MG DAILY 08/30 1000 AC 09/04 Mononitrate PO 0933 Lorazepam 0.5 MG ONCE ONE 09/04 0015 DC 09/04 IV 09/04 0016 0024 Lorazepam 0.5 MG Q12P PRN 09/02 1330 AC 09/03 IV 1900 Metoprolol Tartrate 12.5 MG BID 09/02 1246 AC 09/04 PO 0933 Morphine Sulfate 2 MG Q4P PRN 08/31 1600 AC 09/02 IV 1439 Nystatin 1 TYRON BID 09/01 1321 09/04 TOP 0937 Omeprazole 40 MG DAILY AC 08/30 1537 09/04 PO 0932 Phenol 2 SPRAY Q2P PRN 09/02 1415 09/04 EXT 0600 Polyethylene Glycol 17 GM DAILY PRN 08/30 0800 AC 09/04 PO 0934 Prednisone 30 MG DAILY 09/08 1000 AC PO Prednisone 40 MG DAILY 09/03 1000 AC 09/04 PO 09/07 1001 0933 Senna/Docusate Sodium 1 TAB BID PRN 08/30 0800 AC 09/04 PO 0934 Tiotropium [place] 1 PUF DAILY 08/31 1000 09/04 INH 0934 Results Last 48 Hrs of Labs/Mics: Laboratory Tests 09/04/16 0440: Anion Gap 13, Estimated GFR 18 L, Glucose 123 H, Calcium 8.8, Phosphorus 7.6 H, Magnesium 2.7 H, Total Bilirubin 0.5, AST 28, ALT 35, Albumin 3.5, CBC w Diff NO MAN DIFF REQ, RBC 2.89 L, MCV 86.6, MCH 27.4, RDW 17.0 H, MPV 9.2, Gran % 85.0 H, Lymphocytes % 10.1 L, Monocytes % 4.6, Eosinophils % 0.1, Basophils % 0.2, Absolute Granulocytes 12.6 H, Absolute Lymphocytes 1.5, Absolute Monocytes 0.7 H, Absolute Eosinophils 0, Absolute Basophils 0, PUBS MCHC 31.6 L 09/03/16 1330: APTT Cancelled 09/03/16 0430: Anion Gap 12, Estimated GFR 19 L, Glucose 170 H, Calcium 8.9, Phosphorus 6.8 H, Magnesium 2.6 H, Total Bilirubin 0.4, AST 26, ALT 32, Albumin 3.4 L, CBC w Diff MAN DIFF ORDERED, RBC 2.95 L, MCV 87.2, MCH 27.3, RDW 16.8 H, MPV 9.4, Gran % 86.5 H, Lymphocytes % 9.8 L, Monocytes % 3.6, Eosinophils % 0, Basophils % 0.1, Absolute Granulocytes 12.8 H, Absolute Lymphocytes 1.5, Absolute Monocytes 0.5, Absolute Eosinophils 0, Absolute Basophils 0, Platelet Estimate ADEQUATE, Hypochromic-Microcytic 2+, Poikilocytosis 1+, PUBS MCHC 31.3 L 09/03/16 0028: APTT 72 H 09/02/16 1245: APTT 77 H Microbiology 09/02 124 GI: Surveillance Culture - COMP Recent Imaging Studies: Telemetry tracings were personally reviewed and shows sinus rhythm Renal US: IMPRESSION: Unremarkable appearance of the left kidney. No hydronephrosis.. Assessment/Plan Assessment/Plan 1. Multifactorial respiratory insufficiency requiring BiPAP therapy 2. Elevated troponin possibly due to acute non-ST elevation myocardial infarction 3. Known history of coronary artery disease with remote PCI to the LAD and left circumflex artery 4. Severe COPD on home oxygen therapy 5. Hyperkalemia 6. Acute on Chronic kidney disease with prior nephrectomy 7. Acute on chronic diastolic congestive heart failure 8. Anemia 9. Diabetes with hyperglycemia 10. Hypertension 11. New-onset paroxysmal atrial fibrillation now back in sinus rhythm 12. Hematuria Heparin drip was discontinued and hematuria appears to have resolved. Continue on dual antiplatelet therapy for now. We will need to discuss the risks versus benefits of long-term anticoagulation given the new detected paroxysmal atrial fibrillation with elevated CHADS-Vasc score. She is currently back in sinus rhythm. Change amiodarone to 200 mg daily. BUN and creatinine are rising and nephrology consult is requested. Diuretics are being held for the time being. Would increase the hydralazine to 20 mg by mouth 3 times a day for additional blood pressure control and afterload reduction. Gamaliel Sanchez MD FACC Gamaliel Sanchez MD FACC Continue telemetry? Yes
--- NOTE | 2016-09-04 10:45 | Cons- Nephrology ---
General Information and HPI Consulting Request Date of Consult: 09/04/16 Requested By: DAVID ALTAMIRANO MD Reason for Consult: AYAZ on CKD Source of Information: patient, family, old records Exam Limitations: no limitations History of Present Illness: The patient is an 81-year-old woman with past medical history most significant for proteinuric stage III chronic kidney disease with baseline creatinine of 1.6 (renal cell carcinoma status post nephrectomy), insulin-dependent diabetes, retention, coronary artery disease, COPD, subjective sleep apnea, diastolic heart failure who initially presented on 08/30 for sudden shortness of breath and chest pain. Upon presentation it was thought that she had a CHF exacerbation with possible underlying pneumonia. She was started on IV Lasix as well as empiric abx. Troponin peaked at 17 (thought to be NSTEMI). The patient was followed by Cardiology - no [facility]. Course complicated by A. fib with RVR. Triana catheter placed was noted to have gross hematuria - the patient was seen by Urology with plans for cystoscopy once stable. Course has been complicated by acute kidney injury. Her creatinine has gradually risen to 2.6. Analysis with 100 mg of protein greater than 75 RBCs ( gross hematuria) and no white blood cells. Renal ultrasound with absent right kidney and 11.1 cm left kidney with no hydronephrosis (this was done with a Triana catheter in place. Notable medications include Lasix which was last given on September 03, omeprazole daily. WBC 14.9 with no peripheral eosinophilia. No positive micro. No contrast studies. She has been net positive most days. Her weight went from 215->214->229. TTE on 09/01 with normal LV function with mild LVH. Last chest imaging on 08/31 with mild pulm edema. No hypotension. There was some mention of being on Overall, goals of care have been DNR/DNI with no heroic measures. In speaking to the patient and her family, she sees Dr. Beebe for her CKD care - last seen in December 2015. Prior to presentation, she denies having taken NSAID's. She was not on an SUNDAR-I or ARB. She denies LH/Dizziness/Poor PO intake. She denied diffiuclty urinating. She reports taking lasix at home - her weight has been as low as 205 but has more recently been 213. It was 217 prior to presentation. Allergies/Medications Allergies: Coded Allergies: adhesive (RASH 04/10/16) cefuroxime (From CEFTIN) (HIVES 04/10/16) clams (UNKNOWN 04/10/16) latex (RASH 04/10/16) Iodinated Contrast Media - Oral and (IODINATED CONTRAST MEDIA - IV DYE) (PT HAS ONE KIDNEY 04/10/16) moxifloxacin (HEART PALP AND HIGH BLOOD SUGARS 04/10/16) Home Med List: Albuterol Sulfate (Proair Hfa) 90 MCG HFA.AER.AD 2 PUF INH Q4-6 PRN PRN COPD (Reported) Albuterol Sulfate 0.63 MG/3 ML VIAL.NEB 1 Vial INH/BRYANNA 4 TIMES/DAY PRN COPD ( Reported) Allopurinol 300 MG TAB 0.5 TAB PO DAILY GOUT (Reported) Amlodipine Besylate 5 MG TABLET 5 MG PO BID high blood pressure Aspirin (Ecotrin) 81 MG TABLET.DR 1 TAB PO DAILY HEART HEALTH (Reported) Atorvastatin Calcium (Lipitor) 40 MG TABLET 1 TAB PO QPM CHOLESTEROL ( Reported) Azithromycin 250 MG TABLET 1 TAB PO Friday COPD prophylaxis Please follow up with your cord maker in 1 month for recommendations on continuing this medication Budesonide (Pulmicort) 0.5 MG/2 ML AMPUL.NEB 1 Vial INH/BRYANNA BID copd ( Reported) CLOPIDOGREL BISULFATE (Clopidogrel) 75 MG TABLET 1 TAB PO DAILY HAS 2 STENTS (Reported) Furosemide 20 MG TABLET 1 TAB PO DAILY CHF Hydralazine HCl 10 MG TABLET 1 TAB PO BID HTN (Reported) Insulin Aspart (Novolog) 100 UNIT/ML VIAL 1 UNITS SC TIDAC/HS Diabetes BEFORE MEALS Blood Insulin Sugar Units <80 0 INITIATE HYPOGLYCEMIA 81-100 9 101-120 9 121-150 9 151-200 11 201-250 13 251-300 15 301-350 17 351-400 19 >400 21 AND Call Doctor AT BEDTIME Blood Insulin Sugar Units <80 0 80-100 0 101-120 0 121-150 0 151-200 0 201-250 0 251-300 3 301-350 5 351-400 6 >400 8 AND Call Doctor Insulin Detemir (Levemir) 100 UNIT/ML VIAL 36 UNITS SC BID Diabetes 40 UNITS IN AM AND 35 UNITS IN PM Isosorbide Mononitrate [address] 1 TAB PO DAILY ANGINA (Reported) Metoprolol Tartrate (Lopressor) 25 MG TABLET 1 TAB PO BID HEART (Reported) Prednisone 10 MG TABLET 1 TAB PO EOD COPD exacerbation Take every other day RANITIDINE HCL (Ranitidine HCl) 150 MG TABLET 1 TAB PO BID ACID REFLUX ( Reported) Tiotropium [place] (Spiriva) 18 MCG CAP.W.DEV 1 CAP INH DAILY COPD (Reported) Current Medications: Current Medications Sig/Michele Start time Last Medication Dose Route Stop Time Status Admin Albuterol Sulfate 3 ML EVERY 4 HRS/AWAKE 08/30 1200 AC 09/04 INH 0706 Allopurinol 150 MG DAILY 08/30 1000 AC 09/04 PO 0933 Amiodarone HCl 200 MG BID 09/02 1246 AC 09/04 PO 0933 Amlodipine Besylate 5 MG BID 08/30 1000 AC 09/04 PO 0933 Aspirin Buffered 81 MG DAILY 08/30 1000 AC 09/04 PO 0933 Atorvastatin Calcium 80 MG 1700 08/30 1700 AC 09/03 PO 1542 Azithromycin 250 MG 1430 09/04 1430 AC Dextrose/Water 250 ML IV Azithromycin 500 MG 1430 09/02 1430 DC 09/03 Dextrose/Water 250 ML IV 1506 Budesonide/ 2 PUF BID 09/01 1224 AC 09/04 Formoterol Fumarate INH 0935 Clopidogrel Bisulfate 75 MG DAILY 08/30 1000 AC 09/04 PO 0933 Furosemide 20 MG DAILY 09/03 1000 DC 09/03 IV 0929 Guaifenesin 600 MG Q12P PRN 09/03 1100 AC 09/04 PO 0933 Heparin Sodium 5,000 UNIT Q8 09/03 0851 AC 09/04 (Porcine) SC 0627 Hydralazine HCl 10 MG TID 09/02 1600 AC 09/04 PO 0934 Insulin Aspart 0 TIDAC 09/03 1148 AC 09/04 SC 0937 Insulin Aspart 15 UNITS ONCE ONE 09/03 1145 DC 09/03 [place] 09/03 1146 1144 Insulin Aspart 0 AT BEDTIME 08/30 2200 AC 09/01 SC 2217 Insulin Aspart 0 TIDAC 08/30 0800 DC 09/03 SC 0751 Insulin Detemir 40 UNITS BID 09/04 1000 AC 09/04 SC 0935 Insulin Detemir 44 UNITS BID 09/03 2200 DC 09/03 [place] 2158 Insulin Detemir 50 UNITS BID 09/02 1000 DC 09/03 SC 0930 Ipratropium [place] 2.5 ML EVERY 4 HRS/AWAKE 08/30 1600 AC 09/04 INH 0705 Isosorbide 60 MG DAILY 08/30 1000 AC 09/04 Mononitrate PO 0933 Lorazepam 0.5 MG ONCE ONE 09/04 0015 DC 09/04 IV 09/04 0016 0024 Lorazepam 0.5 MG Q12P PRN 09/02 1330 AC 09/03 IV 1900 Metoprolol Tartrate 12.5 MG BID 09/02 1246 AC 09/04 PO 0933 Morphine Sulfate 2 MG Q4P PRN 08/31 1600 AC 09/02 IV 1439 Nystatin 1 TYRON BID 09/01 1321 AC 09/04 TOP 0937 Omeprazole 40 MG DAILY AC 08/30 1537 AC 09/04 PO 0932 Phenol 2 SPRAY Q2P PRN 09/02 1415 AC 09/04 EXT 0600 Polyethylene Glycol 17 GM DAILY PRN 08/30 0800 AC 09/04 PO 0934 Prednisone 30 MG DAILY 09/08 1000 AC PO Prednisone 40 MG DAILY 09/03 1000 AC 09/04 PO 04 1001 0933 Senna/Docusate Sodium 1 TAB BID PRN 08/30 0800 AC 09/04 PO 0934 Tiotropium [place] 1 PUF DAILY 08/31 1000 AC 09/04 INH 0934 Review of Systems Review of Systems: Complete 14 point ROS neg except as per HPI. Past History Travel History Traveled to [place] past 21 day No Medical History Blood Transfusion Hx: Yes Neurological: NONE EENT: NONE Cardiovascular: diastolic CHF (stage I, EF of 55%), hypertension, hyperlipidemia , myocardial infarction, PVD, CAD s/p VT and 2 stents Respiratory: COPD, emphysema, OLLIE Gastrointestinal: GERD, hiatal hernia, umbilical hernia, colon polyps Hepatic: NONE Renal: nephrectomy (RIGHT), ONLY HAS LEFT KIDNEY CHRONIC KIDNEY DISEASE STAGE II Musculoskeletal: chronic back pain, gout Psychiatric: NONE Endocrine: diabetes, obesity Blood Disorders: NONE Cancer(s): hx renal ca s/p R nephrectomy 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 Home Who Do You Live With? self Services at Home: None Primary Language: Danish Smoking Status: Former Smoker Living Will? no Functional Ability ADLs Independent: dressing, eating, toileting, bathing. Ambulation: walker IADLs Independent: shopping, food prep, telephone, transportation, medication admin. Needs Assist: housework, finances. Exam & Diagnostic Data Vital Signs and I&O Vital Signs Date Time Temp Pulse Resp B/P Pulse O2 O2 Flow FiO2 Ox Delivery Rate 09/04 0934 78 148/64 09/04 0933 78 148/64 09/04 0933 78 148/64 09/04 0933 78 148/64 09/04 0933 78 148/64 09/04 0554 78 95 09/04 0400 95 BIPAP 30% 09/04 0242 75 97 09/04 0033 79 95 09/04 0000 95 BIPAP 30% 09/04 0000 98.4 80 28 148/64 95 BIPAP 30% 09/03 2301 80 94 09/03 2201 82 24 144/56 09/03 2201 82 24 144/56 09/03 2200 82 24 144/56 09/03 2200 82 24 144/66 09/03 1999 95 BIPAP 30% 09/03 1900 83 93 09/03 1617 94 BIPAP 30% 09/03 1600 93 09/03 1549 93 Nasal 4.0L Cannula 09/03 1549 96.2 75 22 140/60 94 Nasal 4.0L Cannula 09/03 1542 75 140/70 09/03 1200 94 Nasal 4.0L Cannula Intake & Output 09/04 1600 09/04 0400 09/03 1600 09/03 0400 09/02 1600 09/02 0400 Intake Total 60 560 664 551.2 368 419 Output Total 430 225 775 270 265 250 Balance -370 335 -111 281.2 103 169 Intake, IV 250 44 191.2 268 219 Intake, Oral 60 310 420 360 100 200 Intake, 200 TPN/PPN Number 0 0 Bowel Movements Output, Urine 430 225 775 270 265 250 Patient 229 lb 214 lb Weight Physical Exam: Gen - OK appearing Head - NCAT Eyes - anicteric sclera, EOMI Neck - thick neck - unable to completely visualize JVP CV - RRR Chest - no crackles Abd - soft, nontender Upper ext - no edema Lower ext - no edema Skin - no rash Neuro - AOX3 Results Pertinent Lab Results: Laboratory Tests 09/04 09/03 0440 1330 Chemistry Sodium (137 - 145 mmol/L) 136 L Potassium (3.5 - 5.1 mmol/L) 4.9 Chloride (98 - 107 mmol/L) 99 Carbon Dioxide (22 - 30 mmol/L) 25 Anion Gap (5 - 16) 13 BUN (7 - 17 mg/dL) 104 *H Creatinine (0.5 - 1.0 mg/dL) 2.6 H Estimated GFR (>60 ml/min) 18 L Glucose (65 - 99 mg/dL) 123 H Calcium (8.4 - 10.2 mg/dL) 8.8 Phosphorus (2.5 - 4.5 mg/dL) 7.6 H Magnesium (1.6 - 2.3 mg/dL) 2.7 H Total Bilirubin (0.2 - 1.3 mg/dL) 0.5 AST (14 - 36 U/L) 28 ALT (9 - 52 U/L) 35 Albumin (3.5 - 5.0 g/dL) 3.5 Coagulation APTT Cancelled Hematology CBC w Diff NO MAN DIFF REQ WBC (4.8 - 10.8 /CUMM) 14.9 H RBC (4.20 - 5.40 /CUMM) 2.89 L Hgb (12.0 - 16.0 G/DL) 7.9 L Hct (37 - 47 %) 25.1 L MCV (81.0 - 99.0 FL) 86.6 MCH (27.0 - 31.0 PG) 27.4 RDW (11.5 - 14.5 %) 17.0 H Plt Count (130 - 400 /CUMM) 200 MPV (7.4 - 10.4 FL) 9.2 Gran % (42.2 - 75.2 %) 85.0 H Lymphocytes % (20.5 - 51.1 %) 10.1 L Monocytes % (1.7 - 9.3 %) 4.6 Eosinophils % (0 - 5 %) 0.1 Basophils % (0.0 - 2.0 %) 0.2 Absolute Granulocytes (1.4 - 6.5 /CUMM) 12.6 H Absolute Lymphocytes (1.2 - 3.4 /CUMM) 1.5 Absolute Monocytes (0.10 - 0.60 /CUMM) 0.7 H Absolute Eosinophils (0.0 - 0.7 /CUMM) 0 Absolute Basophils (0.0 - 0.2 /CUMM) 0 PUBS MCHC (33.0 - 37.0 G/DL) 31.6 L 09/03 09/03 09/02 0430 0028 1245 Chemistry Sodium (137 - 145 mmol/L) 136 L Potassium (3.5 - 5.1 mmol/L) 5.1 Chloride (98 - 107 mmol/L) 99 Carbon Dioxide (22 - 30 mmol/L) 25 Anion Gap (5 - 16) 12 BUN (7 - 17 mg/dL) 97 H Creatinine (0.5 - 1.0 mg/dL) 2.4 H Estimated GFR (>60 ml/min) 19 L Glucose (65 - 99 mg/dL) 170 H Calcium (8.4 - 10.2 mg/dL) 8.9 Phosphorus (2.5 - 4.5 mg/dL) 6.8 H Magnesium (1.6 - 2.3 mg/dL) 2.6 H Total Bilirubin (0.2 - 1.3 mg/dL) 0.4 AST (14 - 36 U/L) 26 ALT (9 - 52 U/L) 32 Albumin (3.5 - 5.0 g/dL) 3.4 L Coagulation APTT (25 - 37 SEC) 72 H 77 H Hematology CBC w Diff MAN DIFF ORDERED WBC (4.8 - 10.8 /CUMM) 14.8 H RBC (4.20 - 5.40 /CUMM) 2.95 L Hgb (12.0 - 16.0 G/DL) 8.1 L Hct (37 - 47 %) 25.7 L MCV (81.0 - 99.0 FL) 87.2 MCH (27.0 - 31.0 PG) 27.3 RDW (11.5 - 14.5 %) 16.8 H Plt Count (130 - 400 /CUMM) 215 MPV (7.4 - 10.4 FL) 9.4 Gran % (42.2 - 75.2 %) 86.5 H Lymphocytes % (20.5 - 51.1 %) 9.8 L Monocytes % (1.7 - 9.3 %) 3.6 Eosinophils % (0 - 5 %) 0 Basophils % (0.0 - 2.0 %) 0.1 Absolute Granulocytes (1.4 - 6.5 /CUMM) 12.8 H Absolute Lymphocytes (1.2 - 3.4 /CUMM) 1.5 Absolute Monocytes (0.10 - 0.60 /CUMM) 0.5 Absolute Eosinophils (0.0 - 0.7 /CUMM) 0 Absolute Basophils (0.0 - 0.2 /CUMM) 0 Platelet Estimate (ADEQUATE) ADEQUATE Hypochromic-Microcytic 2+ Poikilocytosis 1+ PUBS MCHC (33.0 - 37.0 G/DL) 31.3 L 09/02 09/01 0400 2130 Chemistry Sodium (137 - 145 mmol/L) 137 Potassium (3.5 - 5.1 mmol/L) 4.6 Chloride (98 - 107 mmol/L) 98 Carbon Dioxide (22 - 30 mmol/L) 27 Anion Gap (5 - 16) 12 BUN (7 - 17 mg/dL) 79 H Creatinine (0.5 - 1.0 mg/dL) 2.3 H Estimated GFR (>60 ml/min) 20 L Glucose (65 - 99 mg/dL) 345 H Calcium (8.4 - 10.2 mg/dL) 8.7 Phosphorus (2.5 - 4.5 mg/dL) 6.0 H Magnesium (1.6 - 2.3 mg/dL) 2.3 Total Bilirubin (0.2 - 1.3 mg/dL) 0.4 AST (14 - 36 U/L) 28 ALT (9 - 52 U/L) 34 Albumin (3.5 - 5.0 g/dL) 3.6 Coagulation APTT (25 - 37 SEC) > 120 *H 44 H Hematology CBC w Diff MAN DIFF ORDERED WBC (4.8 - 10.8 /CUMM) 15.7 H RBC (4.20 - 5.40 /CUMM) 3.05 L Hgb (12.0 - 16.0 G/DL) 8.5 L Hct (37 - 47 %) 26.4 L MCV (81.0 - 99.0 FL) 86.5 MCH (27.0 - 31.0 PG) 27.8 RDW (11.5 - 14.5 %) 17.0 H Plt Count (130 - 400 /CUMM) 212 MPV (7.4 - 10.4 FL) 9.2 Gran % (42.2 - 75.2 %) 92.8 H Lymphocytes % (20.5 - 51.1 %) 5.9 L Monocytes % (1.7 - 9.3 %) 1.2 L Eosinophils % (0 - 5 %) 0 Basophils % (0.0 - 2.0 %) 0.1 Absolute Granulocytes (1.4 - 6.5 /CUMM) 14.6 H Absolute Lymphocytes (1.2 - 3.4 /CUMM) 0.9 L Absolute Monocytes (0.10 - 0.60 /CUMM) 0.2 Absolute Eosinophils (0.0 - 0.7 /CUMM) 0 Absolute Basophils (0.0 - 0.2 /CUMM) 0 Platelet Estimate (ADEQUATE) ADEQUATE Hypochromic-Microcytic 2+ Poikilocytosis 1+ Anisocytosis 1+ Ovalocytes 1+ PUBS MCHC (33.0 - 37.0 G/DL) 32.2 L Imaging/Other Studies: US - US-RENAL/KIDNEY EXAMINATION: US RETROPERITONEAL COMPLETE (RENAL) CLINICAL INFORMATION: Hematuria.. COMPARISON: Ultrasound 05/09/2016 TECHNIQUE: Real-time imaging of the kidneys and bladder. FINDINGS: RIGHT KIDNEY: Absent. Removed. LEFT KIDNEY: 11.1 x 6.1 x 5.1 cm (SAG x AP x TRV). The kidney is normal in size, contour, and echogenicity. Renal cortical thickness is normal. No calculi or focal parenchymal lesions. No hydronephrosis. BLADDER: Empty and not well assessed. A catheter is in place. IMPRESSION: Unremarkable appearance of the left kidney. No hydronephrosis.. TTE CONCLUSIONS Normal left ventricular systolic function with mild LVH. No suggested regional wall motion abnormalities. Mild Mitral stenosis related to calcified annulus. EXAM TYPE: RAD - XRY-PORTABLE CHEST XRAY EXAMINATION: XR PORTABLE CHEST CLINICAL INFORMATION: History of COPD. Shortness of breath with increased work of breathing. COMPARISON: Several prior chest x-rays, most recent of which is dated 08/30/2016. TECHNIQUE: Portable AP semierect view of the chest was obtained. FINDINGS: A right jugular central venous line is in place with tip poorly visualized, but likely in the proximal SVC. The cardiomediastinal silhouette is enlarged and there is persistent central vascular congestion and mild interstitial edema with bilateral small pleural effusions. Superimposed bibasilar opacities are seen, unchanged. Bony structures are unremarkable. IMPRESSION: 1. Right jugular central venous line tip poorly visualized, likely in the proximal SVC. 2. Lung findings most consistent with mild pulmonary edema with bilateral pleural effusions and bibasilar subsegmental atelectasis. Clinical correlation requested. Assessment/Plan Assessment/Recommendations Assessment: Stage III CKD - proteinuric at baseline - 2/2 decreased nephron mass along with contribution of DM and HTN. AYAZ - No clear hemodynamic or toxic insult before or during this admission. Based on imaging and self-reported weight gain, she was volume expanded on presentation and has since been diuresed. Although it's feasible that she was overdiuresed, I don't know for sure that this is the case. It's very reasonable to hold her diuretics for today and monitor her creatinine. I suspect that her AYAZ is ATN in the setting of sepsis/NSTEMI with some hemodynamic compromise at home that may have been missed. Hematuria - Urine is clearing up. Likely more related to triana insertion and cancer history. I doubt glomerular process. Recommendations: -Agree with holding diuretics today -Would get urine sodium, urea, creatinine to help determine pre-renal azotemia vs ATN -Would maintain triana catheter for now until urine clears up - appreciate Urology follow-up -Please get standing weights -Would quantify urine protein with spot urine protein, microalbumin, creatinine Please call [phone] with ?'s
[2016-09-04 16:00] VITALS: BP 136/67
[2016-09-05] VITALS: BP 137/62
[2016-09-05 06:20] LABS: ABSOLUTE BASOPHIL COUNT 0 /CUMM (0.0-0.2); ABSOLUTE EOSINOPHIL COUNT 0 /CUMM (0.0-0.7); ABSOLUTE LYMPH COUNT 1.8 /CUMM (1.2-3.4); ABSOLUTE MONOCYTE COUNT 0.8 /CUMM (0.10-0.60); BASOPHIL % 0.1 % (0.0-2.0); EOSINOPHIL % 0 % (0-5); GRANULOCYTE % 86.7 % (42.2-75.2); HEMATOCRIT 28.7 % (37-47); MEAN CORPUSCULAR HGB 27.7 PG (27.0-31.0); MEAN CORPUSCULAR HGB CONC 32.2 G/DL (33.0-37.0); MEAN CORPUSCULAR VOLUME 86.1 FL (81.0-99.0); MEAN PLATELET VOLUME 9.6 FL (7.4-10.4); PLATELET COUNT 211 /CUMM (130-400); RED BLOOD CELL CT 3.33 /CUMM (4.20-5.40); WHITE BLOOD CELL COUNT 19.6 /CUMM (4.8-10.8)
--- NOTE | 2016-09-05 07:12 | PN- Resident CRCU ---
Subjective HPI/CRCU Issues: No acute events overnight. Fingerstick glucose was 60 before breakfast this morning and 1 amp of dextrose was given, with subsequent improvement to 166. Patient was seen and examined this morning. She is off the BiPAP and lying comfortably in bed. She reports that her breathing is improved. Urine in the Gutierrez is clear. Later in the day, she became short of breath again and had to be placed back on BiPAP. Objective Vital Signs & I&O Last 8 Hrs of Vitals and I&O: Vital Signs Date Time Temp Pulse Resp B/P Pulse O2 O2 Flow FiO2 Ox Delivery Rate 09/05 0515 70 94 09/05 0400 95 BIPAP 30% 09/05 0258 71 94 09/05 0000 96.0 64 24 137/62 95 BIPAP 30% 09/05 0000 98 BIPAP 30% 09/05 0000 71 93 09/04 2345 91 Nasal 4.0L Cannula 09/04 2116 76 155/65 09/04 2116 73 155/65 09/04 2116 76 155/65 09/04 2000 98 Nasal 4.0L Cannula 09/04 1903 72 159/76 09/04 1702 94 Nasal 4.0L Cannula 09/04 1600 96.3 77 30 136/67 97 Nasal 4.0L Cannula 09/04 1219 94 Nasal 4.0L Cannula 09/04 0934 78 148/64 09/04 0933 78 148/64 09/04 0933 78 148/64 09/04 0933 78 148/64 09/04 0933 78 148/64 Exam General Appearance: no apparent distress, alert, awake, obese, cushingoid Head: atraumatic, normal appearance Neck: supple, buffalo hump Respiratory: decreased breath sounds, bilateral wheezes scattered throughout lung juarez Cardiovascular: regular rate/rhythm, normal S1 and S2 Gastrointestinal: soft, non-tender, positive bowel sounds Extremities: no edema Skin: warm/dry Current Medications: Current Medications Sig/Michele Start time Last Medication Dose Route Stop Time Status Admin Albuterol Sulfate 3 ML EVERY 4 HRS/AWAKE 08/30 1200 AC 09/05 INH 0448 Allopurinol 150 MG DAILY 08/30 1000 AC 09/04 PO 0933 Amiodarone HCl 200 MG DAILY 09/05 1000 AC PO Amiodarone HCl 200 MG BID 09/02 1246 DC 09/04 PO 0933 Amlodipine Besylate 5 MG BID 08/30 1000 AC 09/04 PO 2117 Aspirin Buffered 81 MG DAILY 08/30 1000 AC 09/04 PO 0933 Atorvastatin Calcium 80 MG 1700 08/30 1700 AC 09/04 PO 1705 Azithromycin 250 MG 1600 09/04 1600 AC 09/04 PO 1705 Azithromycin 250 MG 1430 09/04 1430 DC 09/04 Dextrose/Water 250 ML IV 1314 Azithromycin 500 MG 1430 09/02 1430 DC 09/03 Dextrose/Water 250 ML IV 1506 Budesonide/ 2 PUF BID 09/01 1224 AC 09/04 Formoterol Fumarate INH 2117 Clopidogrel Bisulfate 75 MG DAILY 08/30 1000 AC 09/04 PO 0933 Dextrose 25 GM ONCE ONE 09/05 0700 DC 09/05 IV 09/05 0701 0704 Guaifenesin 600 MG Q12P PRN 09/03 1100 AC 09/04 PO 0933 Heparin Sodium 5,000 UNIT Q8 09/03 0851 AC 09/05 (Porcine) SC 0700 Hydralazine HCl 20 MG TID 09/04 1600 AC 09/04 PO 211 Hydralazine HCl 10 MG TID 09/02 1600 DC 09/04 PO 0934 Insulin Aspart 0 TIDAC 09/03 1148 AC 09/04 SC 1706 Insulin Aspart 0 AT BEDTIME 08/30 2200 AC 09/01 SC 2217 Insulin Detemir 40 UNITS BID 09/04 1000 AC 09/04 SC 2138 Insulin Detemir 44 UNITS BID 09/03 2200 DC 09/03 SC 2158 Ipratropium [place] 2.5 ML EVERY 4 HRS/AWAKE 08/30 1600 AC 09/05 INH 0448 Isosorbide 60 MG DAILY 08/30 1000 AC 09/04 Mononitrate PO 0933 Lorazepam 0.5 MG BID PRN 09/04 2115 AC 09/04 PO 09/11 2114 2115 Lorazepam 0.5 MG Q12P PRN 09/02 1330 DC 09/03 IV 1900 Metoprolol Tartrate 12.5 MG BID 09/02 1246 AC 09/04 PO 2116 Morphine Sulfate 2 MG Q4P PRN 08/31 1600 AC 09/02 IV 1439 Nystatin 1 TYRON BID 09/01 1321 AC 09/04 TOP 2117 Omeprazole 40 MG DAILY AC 08/30 1537 AC 09/05 PO 0704 Phenol 2 SPRAY Q2P PRN 09/02 1415 AC 09/05 EXT 0706 Polyethylene Glycol 17 GM DAILY PRN 08/30 0800 AC 09/04 PO 0934 Prednisone 30 MG DAILY 09/08 1000 AC PO Prednisone 40 MG DAILY 09/03 1000 AC 09/04 PO 09/07 1001 0933 Senna/Docusate Sodium 1 TAB BID PRN 08/30 0800 AC 09/04 PO 0934 Tiotropium [place] 1 PUF DAILY 08/31 1000 AC 09/04 INH 0934 Results Results: Laboratory Tests 09/05 09/04 09/04 0440 1436 1159 Chemistry Sodium (137 - 145 mmol/L) 138 Potassium (3.5 - 5.1 mmol/L) 4.8 Chloride (98 - 107 mmol/L) 100 Carbon Dioxide (22 - 30 mmol/L) 27 Anion Gap (5 - 16) 11 BUN (7 - 17 mg/dL) 110 *H Creatinine (0.5 - 1.0 mg/dL) 2.3 H Estimated GFR (>60 ml/min) 20 L Glucose (65 - 99 mg/dL) 40 *L Calcium (8.4 - 10.2 mg/dL) 8.6 Phosphorus (2.5 - 4.5 mg/dL) 7.7 H Magnesium (1.6 - 2.3 mg/dL) 2.9 H Total Bilirubin (0.2 - 1.3 mg/dL) 0.6 AST (14 - 36 U/L) 46 H ALT (9 - 52 U/L) 51 Albumin (3.5 - 5.0 g/dL) 3.5 Hematology CBC w Diff MAN DIFF ORDERED WBC (4.8 - 10.8 /CUMM) 19.6 H RBC (4.20 - 5.40 /CUMM) 3.33 L Hgb (12.0 - 16.0 G/DL) 9.2 L Hct (37 - 47 %) 28.7 L MCV (81.0 - 99.0 FL) 86.1 MCH (27.0 - 31.0 PG) 27.7 RDW (11.5 - 14.5 %) 17.0 H Plt Count (130 - 400 /CUMM) 211 MPV (7.4 - 10.4 FL) 9.6 Gran % (42.2 - 75.2 %) 86.7 H Lymphocytes % (20.5 - 51.1 %) 9.3 L Monocytes % (1.7 - 9.3 %) 3.9 Eosinophils % (0 - 5 %) 0 Basophils % (0.0 - 2.0 %) 0.1 Absolute Granulocytes (1.4 - 6.5 /CUMM) 17.0 H Segmented Neutrophils (42.2 - 75.2 %) 87 H Absolute Lymphocytes (1.2 - 3.4 /CUMM) 1.8 Lymphocytes (20.5 - 51.1 %) 11 L Monocytes (1.7 - 9.3 %) 2 Absolute Monocytes (0.10 - 0.60 /CUMM) 0.8 H Absolute Eosinophils (0.0 - 0.7 /CUMM) 0 Absolute Basophils (0.0 - 0.2 /CUMM) 0 Nucleated RBCs (0.0 - 0.0 /100WBC) 1 H Platelet Estimate (ADEQUATE) ADEQUATE Hypochromic-Microcytic 2+ Poikilocytosis 1+ Anisocytosis 1+ PUBS MCHC (33.0 - 37.0 G/DL) 32.2 L Urines Ur Random Creatinine (mg/dL) Cancelled 72.1 Ur Random Microalbumin Cancelled U Random Total Protein (0 - 12 mg/dL) 51.6 H Protein/Creatinin Ratio (< 0.2) 0.70 H U Cystine/Creat Ratio Cancelled 09/04 1159 Urines Ur Random Creatinine (mg/dL) 54.7 Ur Random Microalbumin (<1.7 mg/dl) 42.9 H Ur Random Sodium (30 - 90 mmol/L) 22 L Ur Random Potassium (mmol/L) 21.0 Fraction Sodium Excret (<1% %) 0.8 U Cystine/Creat Ratio (mcg/mg) 784.27 CXR Findings: Findings consistent with congestion and edema. Enlarging moderate right pleural effusion. Impression/Plan Impression/Problem List Impression: 81 y/o F with PMHx of COPD on 2 L NC, CAD s/p PCI with stent and diastolic CHF who is admitted for acute on chronic hypoxemic and hypercarbic respiratory failure 2/2 COPD and acute diastolic CHF, with a hospital course complicated by elevated troponins 2/2 NSTEMI vs demand ischemia, new-onset paroxysmal atrial fibrillation and AYAZ on CKD. Problem List: 1. Acute respiratory failure with hypoxia and hypercapnia 2. Ggzut-xd-[id number] kidney injury 3. Paroxysmal atrial fibrillation 4. IDDM (insulin dependent diabetes mellitus) 5. New onset atrial fibrillation 6. T2DM (type 2 diabetes mellitus) 7. Acute hyperkalemia 8. Hematuria 9. HTN (hypertension) Pain Ratin Tomorrow's Labs & Rationales: CBC and ICU bundle (ICU patient) Plan Respiratory: #Acute on chronic hypoxemic and hypercarbic respiratory failure: 2/2 to COPD exacerbation and acute diastolic CHF. Remains BiPAP dependent. * Continue prednisone 40 mg PO daily for five days (09/03/16-09/07/16) total then slowly taper. * Continue BiPAP PRN. * TRC and albuterol nebs Q4H. Use ipratropium only in the setting of persistent tachycardia. * Continue Spiriva and Symbicort inhalers. * Space azithromycin out to 250 mg PO every other day. * Continue Ativan 0.5 mg IV Q8H PRN for anxiety. * Continue morphine 2 mg IV Q4H PRN for respiratory distress. Infectious Diseases: Remains afebrile. Persistent leukocytosis, likely secondary to steroids. No signs or symptoms of infection. Cardiovascular: #New-onset paroxysmal atrial fibrillation: Remains in sinus rhythm. * Cardiology following. Appreciate their recs. * Continue amiodarone to 200 mg PO daily and metoprolol 12.5 mg PO BID. * Will need to weigh the risk and benefits of terminal system operator anticoagulation vs bleeding in light of elevated [id number] score (6). #Acute on chronic diastolic CHF: * Continue to monitor strict I/Os and daily weights. * Hold diuretics given further elevation in creatinine. #HTN: * Continue amlodipine 5 mg PO daily, metoprolol 12.5 mg PO BID and hydralazine to 20 mg PO TID. * Continue to monitor BP closely as patient tends to go into flash pulmonary edema when SBP > 170. #Elevated troponins: Represents NSTEMI vs demand ischemia in the setting of chest discomfort and lateral ST depressions on EKG. No active chest pain currently. * Continue aspirin 81 mg PO daily, atorvastatin 80 mg PO daily, Imdur 60 mg PO daily and Plavix 75 mg PO daily. Hematology: #Anemia: H/H 9.2/28.7 today improved from 7.9/25.1 yesterday after receiving 1 unit of pRBCs. Baseline Hgb 8-10. Iron studies with low iron and normal ferritin and TIBC consistent with mixed picture with co-existent iron deficiency anemia and anemia of chronic disease. * Continue to monitor H/H. #Hematuria: Has resolved after stopping IV heparin. Renal US unremarkable. Most likely traumatic 2/2 Gutierrez insertion or related to prior RCC. Glomerular process unlikely. * Urology and nephrology following. Appreciate their recs. * Urine cytology pending. * Hold off on cystoscopy for now. * Keep Gutierrez in. Metabolic: #T2DM: Fingerstick blood glucose was 60 this morning, and 1 amp of dextrose was given. * Endocrinology following. Appreciate their recs. * Further decrease Levemir to 32 units SQ BID. * Decrease Novolog sliding scale TIDAC to: for glucose 80-150 give 16 units, 151 -200 give 18 units, 201-250 give 20 units, 251-300 give 22 units, 301-350 give 24 units and 351-300 units give 26 units. * Continue bedtime sliding scale Novolog as it is. #AYAZ on CKD stage III: Creatinine has been improving with holding diuretics, 2.3 today. BUN further elevated to 110 on steroids. Per nephrology most likely etiology is ATN in the setting of sepsis/NSTEMI as well as possible hemodynamic compromise prior to admission and it is unclear whether overdiuresis, which was initially felt to be the underlying reason, is the primary etiology as patient has been in positive fluid balance this admission. 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 CXR today with worsening pulmonary vascular congestion and enlarging right pleural effusion. * Nephrology following. Appreciate their recs. * Per nephrology, consider restarting diuretics in the setting of worsening pulmonary edema. * Monitor lytes and replete to K > 4 and Mg > 2. #Hyperphosphatemia: Phosphorus has been trending up, 7.7 today. Unclear whether this is related to AYAZ. CK ordered to rule out rhabdomyolysis and came back at 134, at the high end of normal. * Start low phosphate diet. * Start sevelamer 800 mg PO TIDAC. #Gout: * Continue allopurinol 150 mg PO daily. Alimentary: Consistent Carbohydrate 2 - 1 g phosphorus restriction Neurological: AAO x 3 DVT/Prophylaxis: mechanical, pharmacological Code Status: Do Not Resucitate/Intubat (no aggressive measures)
[2016-09-05 08:00] VITALS: BP 154/60
--- NOTE | 2016-09-05 08:30 | NUR ---
REC'D THE PT SITTING UP IN BED EATING BREAKFAST. PT IS A&OX3 AND HERNANDEZ. BECOMES SOB AT REST AND MORE SO WITH SPEAKING A FEW WORDS OR MOVEMENT. REMAINS ON THE 4LNC WITH AN O2 AT OF 91%. BERNADETTE BS ARE VERY DIMISNISHED THROUGHOUT. PT IS USING ACCESSORY MUSCLES TO BREATHE AT TIMES WELL PURSED LIP BREATHING. PT IS IN A 1AVB PER THE STUDENT FINANCIAL SERVICES COUNSELOR-NO ECTOPY NOTED. 1+ GENERALIZED PITIING EDEMA NOTED WELL ECCYMOTIC AREAS EVERYWHERE. ABD IS SOFT WITH NORMOACTIVE BOWEL SOUNDS. KAPLAN IN PLACE DRAINING CLEAR YELLOW URINE. 24H URINE IN PROGRESS FOR PROTEIN.
--- NOTE | 2016-09-05 08:34 | NUR ---
[facility]/O X3. 1ST DEGREE AVB ON THE MONITOR W/HR 60-70'S, SBP 120-150'S CORRELATING TO BOTH CUFFS. NO C/O PAIN VOICED. ON 4LNC POX 93-97%, LS DIMINISHED @BASES LOBES W/ INSP/EXP WHEEZES. GETS SOBOE EASILY ON TRC TX GIVEN BY RT FLORENCIA EARLIER IN THE SHIFT. FC INSITU & DRAINING DK [place] URINE W/SEDIMENTS NO HEMATURIA NOTED. PLANS IN THE FUTURE FOR CYSTOSCOPY. 2229 ACCUCHECK 145 & INFORMED DR. PEÑA RE. HIGH DOSAGE OF LEVEMIR 40U. CHECK PREVIOUS RESULTS & LEVEMIR WAS GIVEN OTHER HS. STATED TO GIVEN THE LEVEMIR SC SEE EMAR. [facility] ASSIST X2 BACK TO BED. PT >SOBOE TACHYPNEIC RR>30'S, >INS/EXP WHEEZES. REQUESTED TRC & ATIVAN INFORMED PT HAD ATIVAN PO EARLIER SEE EMAR. STAYED W/PT REASSURANCE GIVEN UNTIL RT RAHEEL GAVE TRC TX, DESATTED MID 80'S & > 93%. PT CALM DOWN & BREATHING SETTLED DOWN. AM LABS DONE. 0647 GLUCOSE LAB 40 & BUN 110. ACCUCHECK 60. MD AWARE. ORDERS GIVEN. D50 IVP GIVEN. REPORT GIVEN TO INCOMING RN CHLOE. CONT TO MONITOR. 0800 BS 166.
--- NOTE | 2016-09-05 08:41 | PN- Att Addend ---
Attending Addendum Attending Brief Note Patient has persisting shortness of breath and currently off BiPAP this morning. General Appearance: Alert, No Acute Distress Skin: Grossly normal HEENT: PEERLA Neck: Supple, No JVD Cardiovascular: Regular Rate, Normal S1, Normal S2, No Murmurs Lungs: Expiratory wheeze Abdomen: Normal Bowel Sounds, Soft, No Tenderness Neurological: Normal Speech, Strength at 5/5 X4 Ext, Cranial Nerves 3-12 NL, Reflexes 2+ Extremities: Bilateral pedal edema Assessment Hypoxic respiratory failure. Multifactorial requiring continuous BiPAP. worsening kidney function likely secondary to overdiuresis. No signs of clinical pneumonia. Antibiotic now discontinued. She currently is in sinus rhythm. Repeat echo shows preserved ejection fraction. Hematuria has resolved since discontinuation of heparin drip. Plan Continue azithromycin Hold Lasix Ativan 0.5 mg every 12 hours when necessary anxiety taper steroids Continue other home medications Prognosis guarded DNI/DNR and no heroic measures Current Medications Sig/Michele Start time Last Medication Dose Route Stop Time Status Admin Albuterol Sulfate 3 ML EVERY 4 HRS/AWAKE 08/30 1200 AC 09/05 INH 0840 Allopurinol 150 MG DAILY 08/30 1000 AC 09/04 PO 0933 Amiodarone HCl 200 MG DAILY 09/05 1000 AC PO Amiodarone HCl 200 MG BID 09/02 1246 DC 09/04 PO 0933 Amlodipine Besylate 5 MG BID 08/30 1000 AC 09/04 PO 2117 Aspirin Buffered 81 MG DAILY 08/30 1000 AC 09/04 PO 0933 Atorvastatin Calcium 80 MG 1700 08/30 1700 AC 09/04 PO 1705 Azithromycin 250 MG 1600 09/04 1600 AC 09/04 PO 1705 Azithromycin 250 MG 1430 09/04 1430 DC 09/04 Dextrose/Water 250 ML IV 1314 Azithromycin 500 MG 1430 09/02 1430 DC 09/03 Dextrose/Water 250 ML IV 1506 Budesonide/ 2 PUF BID 09/01 1224 AC 09/04 Formoterol Fumarate INH 2117 Clopidogrel Bisulfate 75 MG DAILY 08/30 1000 AC 09/04 PO 0933 Dextrose 25 GM ONCE ONE 09/05 0700 DC 09/05 IV 09/05 0701 0704 Guaifenesin 600 MG Q12P PRN 09/03 1100 AC 09/04 PO 0933 Heparin Sodium 5,000 UNIT Q8 09/03 0851 AC 09/05 (Porcine) SC 0700 Hydralazine HCl 20 MG TID 09/04 1600 AC 09/04 PO 2116 Hydralazine HCl 10 MG TID 09/02 1600 DC 09/04 PO 0934 Insulin Aspart 0 TIDAC 09/03 1148 AC 09/04 SC 1706 Insulin Aspart 0 AT BEDTIME 08/30 2200 AC 09/01 SC 2217 Insulin Detemir 40 UNITS BID 09/04 1000 AC 09/04 SC 2138 Ipratropium [place] 2.5 ML EVERY 4 HRS/AWAKE 08/30 1600 AC 09/05 INH 0840 Isosorbide 60 MG DAILY 08/30 1000 AC 09/04 Mononitrate PO 0933 Lorazepam 0.5 MG BID PRN 09/04 2115 AC 09/04 PO 09/11 2114 2115 Lorazepam 0.5 MG Q12P PRN 09/02 1330 DC 09/03 IV 1900 Metoprolol Tartrate 12.5 MG BID 09/02 1246 AC 09/04 PO 2116 Morphine Sulfate 2 MG Q4P PRN 08/31 1600 AC 09/02 IV 1439 Nystatin 1 TYRON BID 09/01 1321 AC 09/04 TOP 2117 Omeprazole 40 MG DAILY AC 08/30 1537 AC 09/05 PO 0704 Phenol 2 SPRAY Q2P PRN 09/02 1415 AC 09/05 EXT 0706 Polyethylene Glycol 17 GM DAILY PRN 08/30 0800 AC 09/04 PO 0934 Prednisone 30 MG DAILY 09/08 1000 AC PO Prednisone 40 MG DAILY 09/03 1000 AC 09/04 PO 04 1001 0933 Senna/Docusate Sodium 1 TAB BID PRN 08/30 0800 AC 09/04 PO 0934 Tiotropium [place] 1 PUF DAILY 08/31 1000 AC 09/04 INH 0934 Laboratory Tests 09/05 09/04 09/04 0440 1436 1159 Chemistry Sodium (137 - 145 mmol/L) 138 Potassium (3.5 - 5.1 mmol/L) 4.8 Chloride (98 - 107 mmol/L) 100 Carbon Dioxide (22 - 30 mmol/L) 27 Anion Gap (5 - 16) 11 BUN (7 - 17 mg/dL) 110 *H Creatinine (0.5 - 1.0 mg/dL) 2.3 H Estimated GFR (>60 ml/min) 20 L Glucose (65 - 99 mg/dL) 40 *L Calcium (8.4 - 10.2 mg/dL) 8.6 Phosphorus (2.5 - 4.5 mg/dL) 7.7 H Magnesium (1.6 - 2.3 mg/dL) 2.9 H Total Bilirubin (0.2 - 1.3 mg/dL) 0.6 AST (14 - 36 U/L) 46 H ALT (9 - 52 U/L) 51 Albumin (3.5 - 5.0 g/dL) 3.5 Hematology CBC w Diff MAN DIFF ORDERED WBC (4.8 - 10.8 /CUMM) 19.6 H RBC (4.20 - 5.40 /CUMM) 3.33 L Hgb (12.0 - 16.0 G/DL) 9.2 L Hct (37 - 47 %) 28.7 L MCV (81.0 - 99.0 FL) 86.1 MCH (27.0 - 31.0 PG) 27.7 RDW (11.5 - 14.5 %) 17.0 H Plt Count (130 - 400 /CUMM) 211 MPV (7.4 - 10.4 FL) 9.6 Gran % (42.2 - 75.2 %) 86.7 H Lymphocytes % (20.5 - 51.1 %) 9.3 L Monocytes % (1.7 - 9.3 %) 3.9 Eosinophils % (0 - 5 %) 0 Basophils % (0.0 - 2.0 %) 0.1 Absolute Granulocytes (1.4 - 6.5 /CUMM) 17.0 H Segmented Neutrophils (42.2 - 75.2 %) 87 H Absolute Lymphocytes (1.2 - 3.4 /CUMM) 1.8 Lymphocytes (20.5 - 51.1 %) 11 L Monocytes (1.7 - 9.3 %) 2 Absolute Monocytes (0.10 - 0.60 /CUMM) 0.8 H Absolute Eosinophils (0.0 - 0.7 /CUMM) 0 Absolute Basophils (0.0 - 0.2 /CUMM) 0 Nucleated RBCs (0.0 - 0.0 /100WBC) 1 H Platelet Estimate (ADEQUATE) ADEQUATE Hypochromic-Microcytic 2+ Poikilocytosis 1+ Anisocytosis 1+ PUBS MCHC (33.0 - 37.0 G/DL) 32.2 L Urines Ur Random Creatinine (mg/dL) Cancelled 72.1 Ur Random Microalbumin Cancelled U Random Total Protein (0 - 12 mg/dL) 51.6 H Protein/Creatinin Ratio (< 0.2) 0.70 H U Cystine/Creat Ratio Cancelled 09/04 1159 Urines Ur Random Creatinine (mg/dL) 54.7 Ur Random Microalbumin (<1.7 mg/dl) 42.9 H Ur Random Sodium (30 - 90 mmol/L) 22 L Ur Random Potassium (mmol/L) 21.0 Fraction Sodium Excret (<1% %) 0.8 U Cystine/Creat Ratio (mcg/mg) 784.27 Vital Signs Date Time Temp Pulse Resp B/P Pulse O2 O2 Flow FiO2 Ox Delivery Rate 09/05 0515 70 94 09/05 0400 95 BIPAP 30% 09/05 0258 71 94 09/05 0000 96.0 64 24 137/62 95 BIPAP 30% 09/05 0000 98 BIPAP 30% 09/05 0000 71 93 09/04 2345 91 Nasal 4.0L Cannula 09/04 2116 76 155/65 09/04 2116 73 155/65 09/04 2116 76 155/65 09/04 2000 98 Nasal 4.0L Cannula 09/04 1903 72 159/76 09/04 1702 94 Nasal 4.0L Cannula 09/04 1600 96.3 77 30 136/67 97 Nasal 4.0L Cannula 09/04 1219 94 Nasal 4.0L Cannula 09/04 0934 78 148/64 09/04 0933 78 148/64 09/04 0933 78 148/64 09/04 0933 78 148/64 09/04 0933 78 148/64
--- NOTE | 2016-09-05 09:08 | PN- Diabetes ---
Assessment/Plan Assessment: Patient is short of breath this morning. The patient's prednisone has been tapered to 40 mg once a day by mouth.. She developed a low blood sugar reaction with the sugar of 40. She had to receive 50% glucose. Her by mouth intake is poor. She is on 40 units of Levemir twice a day. Her sliding scale NovoLog before meals begins at 20 units for 80-150. Plan: Suggest reduced Levemir to 32 units twice a day. Also adjust her sliding-scale NovoLog. Sliding Scale before meals should be 80-150 give 16 units NovoLog, 151-200 give 18 units NovoLog, 201-250 give 20 units NovoLog, 251-300 give 22 units NovoLog, 301-350 give 24 units NovoLog, 351-400 give 26 units NovoLog. Bedtime sliding scale NovoLog should stay the same. We will hold the patient's NovoLog before breakfast this morning and can check her sugar a few hours after breakfast to make sure that it is good. We can resume her NovoLog coverage at lunch time if her sugars are coming up into he could range. Subjective Subjective: Still short of breath Objective Last 24 Hrs of Vital Signs/I&O Vital Signs Date Time Temp Pulse Resp B/P Pulse O2 O2 Flow FiO2 Ox Delivery Rate 09/05 0844 91 Nasal 3.0L Cannula 09/05 0515 70 94 09/05 0400 95 BIPAP 30% 09/05 0258 71 94 03/ 0000 96.0 64 24 137/62 95 BIPAP 30% 09/05 0000 98 BIPAP 30% / 0000 71 93 09/04 2345 91 Nasal 4.0L Cannula 09/047 76 155/65 09/04 2116 73 155/65 09/04 2116 76 155/65 09/05 1999 98 Nasal 4.0L Cannula 09/04 1903 72 159/76 09/04 1702 94 Nasal 4.0L Cannula 09/04 1600 96.3 77 30 136/67 97 Nasal 4.0L Cannula 09/04 1219 94 Nasal 4.0L Cannula 09/04 0934 78 148/64 09/04 0933 78 148/64 09/04 0933 78 148/64 09/04 0933 78 148/64 09/04 0933 78 148/64 Intake & Output 09/05 1600 09/05 0800 09/05 0000 Intake Total 120 360 Output Total 500 425 Balance -380 -65 Intake, IV 0 0 Intake, Oral 120 360 Number 0 1 Bowel Movements Output, Urine 500 425 Vital Signs Date Time Temp Pulse Resp B/P Pulse O2 O2 Flow FiO2 Ox Delivery Rate 09/05 0844 91 Nasal 3.0L Cannula 09/05 0515 70 94 09/05 0400 95 BIPAP 30% 09/05 0258 71 94 09/05 0000 96.0 64 24 137/62 95 BIPAP 30% 09/05 0000 98 BIPAP 30% 09/05 0000 71 93 09/04 2345 91 Nasal 4.0L Cannula 09/04 2116 76 155/65 09/04 211 73 155/65 09/04 211 76 155/65 09/05 1999 98 Nasal 4.0L Cannula 09/04 1903 72 159/76 09/04 1702 94 Nasal 4.0L Cannula 09/04 1600 96.3 77 30 136/67 97 Nasal 4.0L Cannula 09/04 1219 94 Nasal 4.0L Cannula 09/04 0934 78 148/64 09/04 0933 78 148/64 09/04 0933 78 148/64 09/04 0933 78 148/64 09/04 0933 78 148/64 Intake & Output 09/05 1600 09/05 0800 09/05 0000 Intake Total 120 360 Output Total 500 425 Balance -380 -65 Intake, IV 0 0 Intake, Oral 120 360 Number 0 1 Bowel Movements Output, Urine 500 425 Findings Pertinent Lab/Romain Results: Laboratory Tests 09/05 09/04 09/04 0440 1436 1159 Chemistry Sodium (137 - 145 mmol/L) 138 Potassium (3.5 - 5.1 mmol/L) 4.8 Chloride (98 - 107 mmol/L) 100 Carbon Dioxide (22 - 30 mmol/L) 27 Anion Gap (5 - 16) 11 BUN (7 - 17 mg/dL) 110 *H Creatinine (0.5 - 1.0 mg/dL) 2.3 H Estimated GFR (>60 ml/min) 20 L Glucose (65 - 99 mg/dL) 40 *L Calcium (8.4 - 10.2 mg/dL) 8.6 Phosphorus (2.5 - 4.5 mg/dL) 7.7 H Magnesium (1.6 - 2.3 mg/dL) 2.9 H Total Bilirubin (0.2 - 1.3 mg/dL) 0.6 AST (14 - 36 U/L) 46 H ALT (9 - 52 U/L) 51 Albumin (3.5 - 5.0 g/dL) 3.5 Hematology CBC w Diff MAN DIFF ORDERED WBC (4.8 - 10.8 /CUMM) 19.6 H RBC (4.20 - 5.40 /CUMM) 3.33 L Hgb (12.0 - 16.0 G/DL) 9.2 L Hct (37 - 47 %) 28.7 L MCV (81.0 - 99.0 FL) 86.1 MCH (27.0 - 31.0 PG) 27.7 RDW (11.5 - 14.5 %) 17.0 H Plt Count (130 - 400 /CUMM) 211 MPV (7.4 - 10.4 FL) 9.6 Gran % (42.2 - 75.2 %) 86.7 H Lymphocytes % (20.5 - 51.1 %) 9.3 L Monocytes % (1.7 - 9.3 %) 3.9 Eosinophils % (0 - 5 %) 0 Basophils % (0.0 - 2.0 %) 0.1 Absolute Granulocytes (1.4 - 6.5 /CUMM) 17.0 H Segmented Neutrophils (42.2 - 75.2 %) 87 H Absolute Lymphocytes (1.2 - 3.4 /CUMM) 1.8 Lymphocytes (20.5 - 51.1 %) 11 L Monocytes (1.7 - 9.3 %) 2 Absolute Monocytes (0.10 - 0.60 /CUMM) 0.8 H Absolute Eosinophils (0.0 - 0.7 /CUMM) 0 Absolute Basophils (0.0 - 0.2 /CUMM) 0 Nucleated RBCs (0.0 - 0.0 /100WBC) 1 H Platelet Estimate (ADEQUATE) ADEQUATE Hypochromic-Microcytic 2+ Poikilocytosis 1+ Anisocytosis 1+ PUBS MCHC (33.0 - 37.0 G/DL) 32.2 L Urines Ur Random Creatinine (mg/dL) Cancelled 72.1 Ur Random Microalbumin Cancelled U Random Total Protein (0 - 12 mg/dL) 51.6 H Protein/Creatinin Ratio (< 0.2) 0.70 H U Cystine/Creat Ratio Cancelled 09/04 1159 Urines Ur Random Creatinine (mg/dL) 54.7 Ur Random Microalbumin (<1.7 mg/dl) 42.9 H Ur Random Sodium (30 - 90 mmol/L) 22 L Ur Random Potassium (mmol/L) 21.0 Fraction Sodium Excret (<1% %) 0.8 U Cystine/Creat Ratio (mcg/mg) 784.27
--- NOTE | 2016-09-05 10:24 | PN- Cardiology ---
Subjective Subjective: Patient appears better on nasal cannula. Awake and alert. Appears cushingoid. Telemetry sinus rhythm. Objective Vital Signs and I&Os Vital Signs Date Time Temp Pulse Resp B/P Pulse O2 O2 Flow FiO2 Ox Delivery Rate 09/05 1000 96.6 83 29 155/68 03/ 1000 96.6 83 29 155/68 03/02 0959 96.6 83 29 155/68 03/02 0959 96.6 83 29 155/68 03/ 0844 91 Nasal 3.0L Cannula 09/05 0515 70 94 03/ 0400 95 BIPAP 30% 09/05 0258 71 94 03/ 0000 96.0 64 24 137/62 95 BIPAP 30% 09/05 0000 98 BIPAP 30% 09/05 0000 71 93 09/04 2345 91 Nasal 4.0L Cannula 09/04 2116 76 155/65 09/04 2116 73 155/65 09/04 2116 76 155/65 09/05 1999 98 Nasal 4.0L Cannula 09/04 1903 72 159/76 09/04 1702 94 Nasal 4.0L Cannula 09/04 1600 96.3 77 30 136/67 97 Nasal 4.0L Cannula 09/04 1219 94 Nasal 4.0L Cannula Intake & Output 09/05 1600 09/05 0800 09/05 0000 09/04 1600 09/04 0800 09/04 0000 Intake Total 896 404 3078 60 560 Output Total 500 425 725 430 225 Balance -380 -65 575 -370 335 Intake, IV 0 0 600 250 Intake, Oral 120 360 700 60 310 Number 0 1 1 0 Bowel Movements Output, Urine 500 425 725 430 225 Physical Exam: Gen. exam patient comfortable Head normocephalic cushingoid Eyes sclera anicteric conjunctiva showed no pallor extraocular muscles were normal Chest lungs equal air entry bilaterally scattered wheezes Heart regular rhythm with a 1/6 systolic murmur Abdomen protuberant soft nontender no organomegaly Extremities no clubbing cyanosis or edema Neurological no gross motor or sensory deficits Current Medications: Current Medications Sig/Michele Start time Last Medication Dose Route Stop Time Status Admin Albuterol Sulfate 3 ML EVERY 4 HRS/AWAKE 08/30 1200 AC 09/05 INH 0840 Allopurinol 150 MG DAILY 08/30 1000 AC 09/05 PO 0959 Amiodarone HCl 200 MG DAILY 09/05 1000 AC 09/05 PO 1000 Amiodarone HCl 200 MG BID 09/02 1246 DC 09/04 PO 0933 Amlodipine Besylate 5 MG BID 08/30 1000 AC 09/05 PO 0959 Aspirin Buffered 81 MG DAILY 08/30 1000 AC 09/05 PO 0959 Atorvastatin Calcium 80 MG 1700 08/30 1700 AC 09/04 PO 1705 Azithromycin 250 MG Q48 09/06 1000 UNVr PO Azithromycin 250 MG 1600 09/04 1600 DC 09/04 PO 1705 Azithromycin 250 MG 1430 09/04 1430 DC 09/04 Dextrose/Water 250 ML IV 1314 Budesonide/ 2 PUF BID 09/01 1224 AC 09/05 Formoterol Fumarate INH 0959 Clopidogrel Bisulfate 75 MG DAILY 08/30 1000 AC 09/05 PO 0959 Dextrose 25 GM ONCE ONE 09/05 0700 DC 09/05 IV 09/05 0701 0704 Guaifenesin 600 MG Q12P PRN 09/03 1100 AC 09/04 PO 0933 Heparin Sodium 5,000 UNIT Q8 09/03 0851 AC 09/05 (Porcine) SC 0700 Hydralazine HCl 20 MG TID 09/04 1600 AC 09/04 PO 2116 Hydralazine HCl 10 MG TID 09/02 1600 DC 09/04 PO 0934 Insulin Aspart 0 TIDAC 09/03 1148 AC 09/04 SC 1706 Insulin Aspart 0 AT BEDTIME 08/30 2200 AC 09/01 SC 2217 Insulin Detemir 32 UNITS BID 09/05 1000 AC 09/05 SC 1000 Insulin Detemir 40 UNITS BID 09/04 1000 DC 09/04 SC 2138 Ipratropium [place] 2.5 ML EVERY 4 HRS/AWAKE 08/30 1600 AC 09/05 INH 0840 Isosorbide 60 MG DAILY 08/30 1000 AC 09/05 Mononitrate PO 1000 Lorazepam 0.5 MG BID PRN 09/04 2115 AC 09/05 PO 09/11 2114 1009 Lorazepam 0.5 MG Q12P PRN 09/02 1330 DC 09/03 IV 1900 Metoprolol Tartrate 12.5 MG BID 09/02 1246 AC 09/05 PO 0959 Morphine Sulfate 2 MG Q4P PRN 08/31 1600 AC 09/02 IV 1439 Nystatin 1 TYRON BID 09/01 1321 AC 09/05 TOP 1014 Omeprazole 40 MG DAILY AC 08/30 1537 AC 09/05 PO 0704 Phenol 2 SPRAY Q2P PRN 09/02 1415 AC 09/05 EXT 0706 Polyethylene Glycol 17 GM DAILY PRN 08/30 0800 AC 09/05 PO 1009 Prednisone 30 MG DAILY 09/08 1000 AC PO Prednisone 40 MG DAILY 09/03 1000 AC 09/05 PO 09/07 1001 0959 Senna/Docusate Sodium 1 TAB BID PRN 08/30 0800 AC 09/04 PO 0934 Tiotropium [place] 1 PUF DAILY 08/31 1000 AC 09/05 INH 0958 Results Last 48 Hrs of Labs/Mics: Laboratory Tests 09/05/16 0440: Anion Gap 11, Estimated GFR 20 L, Glucose 40 *L, Calcium 8.6, Phosphorus 7.7 H , Magnesium 2.9 H, Total Bilirubin 0.6, AST 46 H, ALT 51, Albumin 3.5, CBC w Diff MAN DIFF ORDERED, RBC 3.33 L, MCV 86.1, MCH 27.7, RDW 17.0 H, MPV 9.6, Gran % 86.7 H, Lymphocytes % 9.3 L, Monocytes % 3.9, Eosinophils % 0, Basophils % 0.1, Absolute Granulocytes 17.0 H, Segmented Neutrophils 87 H, Absolute Lymphocytes 1.8, Lymphocytes 11 L, Monocytes 2, Absolute Monocytes 0.8 H, Absolute Eosinophils 0, Absolute Basophils 0, Nucleated RBCs 1 H, Platelet Estimate ADEQUATE, Hypochromic-Microcytic 2+, Poikilocytosis 1+, Anisocytosis 1+ , PUBS MCHC 32.2 L 09/04/16 1436: Ur Random Creatinine Cancelled, Ur Random Microalbumin Cancelled, U Cystine/ Creat Ratio Cancelled 09/04/16 1159: Ur Random Creatinine 72.1, U Random Total Protein 51.6 H, Protein/Creatinin Ratio 0.70 H 09/04/16 1159: Ur Random Creatinine 54.7, Ur Random Microalbumin 42.9 H, Ur Random Sodium 22 L, Ur Random Potassium 21.0, Fraction Sodium Excret 0.8, U Cystine/Creat Ratio 784.27 09/04/16 0440: Anion Gap 13, Estimated GFR 18 L, Glucose 123 H, Calcium 8.8, Phosphorus 7.6 H, Magnesium 2.7 H, Total Bilirubin 0.5, AST 28, ALT 35, Albumin 3.5, CBC w Diff NO MAN DIFF REQ, RBC 2.89 L, MCV 86.6, MCH 27.4, RDW 17.0 H, MPV 9.2, Gran % 85.0 H, Lymphocytes % 10.1 L, Monocytes % 4.6, Eosinophils % 0.1, Basophils % 0.2, Absolute Granulocytes 12.6 H, Absolute Lymphocytes 1.5, Absolute Monocytes 0.7 H, Absolute Eosinophils 0, Absolute Basophils 0, PUBS MCHC 31.6 L 09/03/16 1330: APTT Cancelled Assessment/Plan Assessment/Plan 1. Multifactorial respiratory insufficiency requiring BiPAP therapy 2. Elevated troponin possibly due to acute non-ST elevation myocardial infarction 3. Known history of coronary artery disease with remote PCI to the LAD and left circumflex artery 4. Severe COPD on home oxygen therapy 5. Hyperkalemia 6. Acute on Chronic kidney disease with prior nephrectomy 7. Acute on chronic diastolic congestive heart failure 8. Anemia 9. Diabetes with hyperglycemia 10. Hypertension 11. New-onset paroxysmal atrial fibrillation now back in sinus rhythm 12. Hematuria She is on oral amiodarone and maintaining sinus rhythm. Nephrology on consult for increased BUN and creatinine after IV Lasix. She developed hematuria on IV heparin. Anticoagulants for long-term maintenance will need to be balanced by risk of bleeding. Continue telemetry? Yes
--- NOTE | 2016-09-05 11:17 | PN- Nephrology ---
Assessment/Plan Assessment: Stage III CKD - proteinuric at baseline - 2/2 decreased nephron mass along with contribution of DM and HTN. AYAZ - No clear hemodynamic or toxic insult before or during this admission. Based on imaging and self-reported weight gain, she was volume expanded on presentation and has since been diuresed. Although it's feasible that she was overdiuresed, I don't know for sure that this is the case. Her renal function has improved over the last day with holding diuretics. I think it's worth getting a chest x-ray to see if she's still volume expanded, if so, I would restart diuretics (this may just be ATN which will resolve on its own). Hematuria - Urine is clearing up. Likely more related to triana insertion and cancer history. I doubt glomerular process. Hyperphosphatemia - ?2/2 AYAZ. K is mildly elevated. Would check CK level to rule out rhabdo. Should be started on a phos binder and follow a low phos diet. Suggestion: -Would recheck chest x-ray - would restart diuretics if evidence of pulmonary edema -Would check CK level -Low phos diet -Would start sevelamer 800mg TID with meals Please call [phone] with ?'s Subjective Subjective: SCr down to 2.3 BUN up to 110 on steroids Feels like breathing is worse "from COPD" Lasix has been held since 09/03 - last chest x-ray on 08/31 with pulm edema Objective Vital Signs and I&Os Vital Signs Date Time Temp Pulse Resp B/P Pulse O2 O2 Flow FiO2 Ox Delivery Rate / 1000 96.6 83 29 155/68 03/02 1000 96.6 83 29 155/68 03/02 0959 96.6 83 29 155/68 03/02 0959 96.6 83 29 155/68 03/02 0844 91 Nasal 3.0L Cannula / 0800 91 Nasal 4.0L Cannula / 0800 96.6 77 30 154/60 91 Nasal 4.0L Cannula / 0515 70 94 03/02 0400 95 BIPAP 30% / 0258 71 94 03/ 0000 96.0 64 24 137/62 95 BIPAP 30% / 0000 98 BIPAP 30% / 0000 71 93 09/04 2345 91 Nasal 4.0L Cannula 09/04 2116 76 155/65 09/05 2115 73 155/65 09/05 2115 76 155/65 09/05 1999 98 Nasal 4.0L Cannula 09/04 1903 72 159/76 09/04 1702 94 Nasal 4.0L Cannula 09/04 1600 96.3 77 30 136/67 97 Nasal 4.0L Cannula 09/04 1219 94 Nasal 4.0L Cannula Intake & Output 09/05 1600 09/05 0400 09/04 1600 09/04 0400 09/03 1600 09/03 0400 Intake Total 331 410 4025 560 664 551.2 Output Total 425 242 7496 225 775 270 Balance -380 -65 205 335 -111 281.2 Intake, IV 0 0 600 250 44 191.2 Intake, Oral 120 360 760 310 420 360 Intake, 200 TPN/PPN Number 0 1 1 0 Bowel Movements Output, Urine 441 445 2557 225 775 270 Patient 229 lb Weight Physical Exam: Gen - increased work of breathing HEENT - thick neck - unable to discern JVP CV - RRR Chest - end expiratory wheezing Abd - soft, nontender Ext - minimal edema although does feel tense Neuro - AOX3 Current Medications: Current Medications Sig/Michele Start time Last Medication Dose Route Stop Time Status Admin Albuterol Sulfate 3 ML EVERY 4 HRS/AWAKE 08/30 1200 AC 09/05 INH 0840 Allopurinol 150 MG DAILY 08/30 1000 AC 09/05 PO 0959 Amiodarone HCl 200 MG DAILY 09/05 1000 AC 09/05 PO 1000 Amiodarone HCl 200 MG BID 09/02 1246 DC 09/04 PO 0933 Amlodipine Besylate 5 MG BID 08/30 1000 AC 09/05 PO 0959 Aspirin Buffered 81 MG DAILY 08/30 1000 AC 09/05 PO 0959 Atorvastatin Calcium 80 MG 1700 08/30 1700 AC 09/04 PO 1705 Azithromycin 250 MG Q48 09/06 1000 UNVr PO Azithromycin 250 MG 1600 09/04 1600 DC 09/04 PO 1705 Azithromycin 250 MG 1430 09/04 1430 DC 09/04 Dextrose/Water 250 ML IV 1314 Budesonide/ 2 PUF BID 09/01 1224 AC 09/05 Formoterol Fumarate INH 0959 Clopidogrel Bisulfate 75 MG DAILY 08/30 1000 AC 09/05 PO 0959 Dextrose 25 GM ONCE ONE 09/05 0700 DC 09/05 IV 09/05 0701 0704 Guaifenesin 600 MG Q12P PRN 09/03 1100 AC 09/04 PO 0933 Heparin Sodium 5,000 UNIT Q8 09/03 0851 AC 09/05 (Porcine) SC 0700 Hydralazine HCl 20 MG TID 09/04 1600 AC 09/04 PO 2116 Hydralazine HCl 10 MG TID 09/02 1600 DC 09/04 PO 0934 Insulin Aspart 0 TIDAC 09/03 1148 AC 09/04 SC 1706 Insulin Aspart 0 AT BEDTIME 08/30 2200 AC 09/01 SC 2217 Insulin Detemir 32 UNITS BID 09/05 1000 AC 09/05 SC 1000 Insulin Detemir 40 UNITS BID 09/04 1000 DC 09/04 SC 2138 Ipratropium [place] 2.5 ML EVERY 4 HRS/AWAKE 08/30 1600 AC 09/05 INH 0840 Isosorbide 60 MG DAILY 08/30 1000 AC 09/05 Mononitrate PO 1000 Lorazepam 0.5 MG BID PRN 09/04 2115 AC 09/05 PO 09/11 2114 1009 Lorazepam 0.5 MG Q12P PRN 09/02 1330 DC 09/03 IV 1900 Metoprolol Tartrate 12.5 MG BID 09/02 1246 AC 09/05 PO 0959 Morphine Sulfate 2 MG Q4P PRN 08/31 1600 AC 09/02 IV 1439 Nystatin 1 TYRON BID 09/01 1321 AC 09/05 TOP 1014 Omeprazole 40 MG DAILY AC 08/30 1537 AC 09/05 PO 0704 Phenol 2 SPRAY Q2P PRN 09/02 1415 AC 09/05 EXT 0706 Polyethylene Glycol 17 GM DAILY PRN 08/30 0800 AC 09/05 PO 1009 Prednisone 30 MG DAILY 09/08 1000 AC PO Prednisone 40 MG DAILY 09/03 1000 AC 09/05 PO 09/07 1001 0959 Senna/Docusate Sodium 1 TAB BID PRN 08/30 0800 AC 09/04 PO 0934 Tiotropium [place] 1 PUF DAILY 08/31 1000 AC 09/05 INH 0958 Results Pertinent Lab Results: Laboratory Tests 09/05 09/04 09/04 0440 1436 1159 Chemistry Sodium (137 - 145 mmol/L) 138 Potassium (3.5 - 5.1 mmol/L) 4.8 Chloride (98 - 107 mmol/L) 100 Carbon Dioxide (22 - 30 mmol/L) 27 Anion Gap (5 - 16) 11 BUN (7 - 17 mg/dL) 110 *H Creatinine (0.5 - 1.0 mg/dL) 2.3 H Estimated GFR (>60 ml/min) 20 L Glucose (65 - 99 mg/dL) 40 *L Calcium (8.4 - 10.2 mg/dL) 8.6 Phosphorus (2.5 - 4.5 mg/dL) 7.7 H Magnesium (1.6 - 2.3 mg/dL) 2.9 H Total Bilirubin (0.2 - 1.3 mg/dL) 0.6 AST (14 - 36 U/L) 46 H ALT (9 - 52 U/L) 51 Albumin (3.5 - 5.0 g/dL) 3.5 Hematology CBC w Diff MAN DIFF ORDERED WBC (4.8 - 10.8 /CUMM) 19.6 H RBC (4.20 - 5.40 /CUMM) 3.33 L Hgb (12.0 - 16.0 G/DL) 9.2 L Hct (37 - 47 %) 28.7 L MCV (81.0 - 99.0 FL) 86.1 MCH (27.0 - 31.0 PG) 27.7 RDW (11.5 - 14.5 %) 17.0 H Plt Count (130 - 400 /CUMM) 211 MPV (7.4 - 10.4 FL) 9.6 Gran % (42.2 - 75.2 %) 86.7 H Lymphocytes % (20.5 - 51.1 %) 9.3 L Monocytes % (1.7 - 9.3 %) 3.9 Eosinophils % (0 - 5 %) 0 Basophils % (0.0 - 2.0 %) 0.1 Absolute Granulocytes (1.4 - 6.5 /CUMM) 17.0 H Segmented Neutrophils (42.2 - 75.2 %) 87 H Absolute Lymphocytes (1.2 - 3.4 /CUMM) 1.8 Lymphocytes (20.5 - 51.1 %) 11 L Monocytes (1.7 - 9.3 %) 2 Absolute Monocytes (0.10 - 0.60 /CUMM) 0.8 H Absolute Eosinophils (0.0 - 0.7 /CUMM) 0 Absolute Basophils (0.0 - 0.2 /CUMM) 0 Nucleated RBCs (0.0 - 0.0 /100WBC) 1 H Platelet Estimate (ADEQUATE) ADEQUATE Hypochromic-Microcytic 2+ Poikilocytosis 1+ Anisocytosis 1+ PUBS MCHC (33.0 - 37.0 G/DL) 32.2 L Urines Ur Random Creatinine (mg/dL) Cancelled 72.1 Ur Random Microalbumin Cancelled U Random Total Protein (0 - 12 mg/dL) 51.6 H Protein/Creatinin Ratio (< 0.2) 0.70 H U Cystine/Creat Ratio Cancelled 09/04 09/04 09/04 1159 UNK 0440 Chemistry Sodium (137 - 145 mmol/L) 136 L Potassium (3.5 - 5.1 mmol/L) 4.9 Chloride (98 - 107 mmol/L) 99 Carbon Dioxide (22 - 30 mmol/L) 25 Anion Gap (5 - 16) 13 BUN (7 - 17 mg/dL) 104 *H Creatinine (0.5 - 1.0 mg/dL) 2.6 H Estimated GFR (>60 ml/min) 18 L Glucose (65 - 99 mg/dL) 123 H Calcium (8.4 - 10.2 mg/dL) 8.8 Phosphorus (2.5 - 4.5 mg/dL) 7.6 H Magnesium (1.6 - 2.3 mg/dL) 2.7 H Total Bilirubin (0.2 - 1.3 mg/dL) 0.5 AST (14 - 36 U/L) 28 ALT (9 - 52 U/L) 35 Albumin (3.5 - 5.0 g/dL) 3.5 Hematology CBC w Diff NO MAN DIFF REQ WBC (4.8 - 10.8 /CUMM) 14.9 H RBC (4.20 - 5.40 /CUMM) 2.89 L Hgb (12.0 - 16.0 G/DL) 7.9 L Hct (37 - 47 %) 25.1 L MCV (81.0 - 99.0 FL) 86.6 MCH (27.0 - 31.0 PG) 27.4 RDW (11.5 - 14.5 %) 17.0 H Plt Count (130 - 400 /CUMM) 200 MPV (7.4 - 10.4 FL) 9.2 Gran % (42.2 - 75.2 %) 85.0 H Lymphocytes % (20.5 - 51.1 %) 10.1 L Monocytes % (1.7 - 9.3 %) 4.6 Eosinophils % (0 - 5 %) 0.1 Basophils % (0.0 - 2.0 %) 0.2 Absolute Granulocytes (1.4 - 6.5 /CUMM) 12.6 H Absolute Lymphocytes (1.2 - 3.4 /CUMM) 1.5 Absolute Monocytes (0.10 - 0.60 /CUMM) 0.7 H Absolute Eosinophils (0.0 - 0.7 /CUMM) 0 Absolute Basophils (0.0 - 0.2 /CUMM) 0 PUBS MCHC (33.0 - 37.0 G/DL) 31.6 L Urines Ur Random Creatinine (mg/dL) 54.7 Ur Random Microalbumin (<1.7 mg/dl) 42.9 H Ur Random Sodium (30 - 90 mmol/L) 22 L Ur Random Potassium (mmol/L) 21.0 Urine Total Volume Cancelled Ur Total Protein 24 Hr Cancelled Fraction Sodium Excret (<1% %) 0.8 U Cystine/Creat Ratio (mcg/mg) 784.27 09/03 09/03 09/03 1330 0430 0028 Chemistry Sodium (137 - 145 mmol/L) 136 L Potassium (3.5 - 5.1 mmol/L) 5.1 Chloride (98 - 107 mmol/L) 99 Carbon Dioxide (22 - 30 mmol/L) 25 Anion Gap (5 - 16) 12 BUN (7 - 17 mg/dL) 97 H Creatinine (0.5 - 1.0 mg/dL) 2.4 H Estimated GFR (>60 ml/min) 19 L Glucose (65 - 99 mg/dL) 170 H Calcium (8.4 - 10.2 mg/dL) 8.9 Phosphorus (2.5 - 4.5 mg/dL) 6.8 H Magnesium (1.6 - 2.3 mg/dL) 2.6 H Total Bilirubin (0.2 - 1.3 mg/dL) 0.4 AST (14 - 36 U/L) 26 ALT (9 - 52 U/L) 32 Albumin (3.5 - 5.0 g/dL) 3.4 L Coagulation APTT (25 - 37 SEC) Cancelled 72 H Hematology CBC w Diff MAN DIFF ORDERED WBC (4.8 - 10.8 /CUMM) 14.8 H RBC (4.20 - 5.40 /CUMM) 2.95 L Hgb (12.0 - 16.0 G/DL) 8.1 L Hct (37 - 47 %) 25.7 L MCV (81.0 - 99.0 FL) 87.2 MCH (27.0 - 31.0 PG) 27.3 RDW (11.5 - 14.5 %) 16.8 H Plt Count (130 - 400 /CUMM) 215 MPV (7.4 - 10.4 FL) 9.4 Gran % (42.2 - 75.2 %) 86.5 H Lymphocytes % (20.5 - 51.1 %) 9.8 L Monocytes % (1.7 - 9.3 %) 3.6 Eosinophils % (0 - 5 %) 0 Basophils % (0.0 - 2.0 %) 0.1 Absolute Granulocytes (1.4 - 6.5 /CUMM) 12.8 H Absolute Lymphocytes (1.2 - 3.4 /CUMM) 1.5 Absolute Monocytes (0.10 - 0.60 /CUMM) 0.5 Absolute Eosinophils (0.0 - 0.7 /CUMM) 0 Absolute Basophils (0.0 - 0.2 /CUMM) 0 Platelet Estimate (ADEQUATE) ADEQUATE Hypochromic-Microcytic 2+ Poikilocytosis 1+ PUBS MCHC (33.0 - 37.0 G/DL) 31.3 L 09/02 1245 Coagulation APTT (25 - 37 SEC) 77 H Imaging/Other Studies: US - US-RENAL/KIDNEY EXAMINATION: US RETROPERITONEAL COMPLETE (RENAL) CLINICAL INFORMATION: Hematuria.. COMPARISON: Ultrasound 05/09/2016 TECHNIQUE: Real-time imaging of the kidneys and bladder. FINDINGS: RIGHT KIDNEY: Absent. Removed. LEFT KIDNEY: 11.1 x 6.1 x 5.1 cm (SAG x AP x TRV). The kidney is normal in size, contour, and echogenicity. Renal cortical thickness is normal. No calculi or focal parenchymal lesions. No hydronephrosis. BLADDER: Empty and not well assessed. A catheter is in place. IMPRESSION: Unremarkable appearance of the left kidney. No hydronephrosis.. TTE CONCLUSIONS Normal left ventricular systolic function with mild LVH. No suggested regional wall motion abnormalities. Mild Mitral stenosis related to calcified annulus. EXAM TYPE: RAD - XRY-PORTABLE CHEST XRAY EXAMINATION: XR PORTABLE CHEST CLINICAL INFORMATION: History of COPD. Shortness of breath with increased work of breathing. COMPARISON: Several prior chest x-rays, most recent of which is dated 08/30/2016. TECHNIQUE: Portable AP semierect view of the chest was obtained. FINDINGS: A right jugular central venous line is in place with tip poorly visualized, but likely in the proximal SVC. The cardiomediastinal silhouette is enlarged and there is persistent central vascular congestion and mild interstitial edema with bilateral small pleural effusions. Superimposed bibasilar opacities are seen, unchanged. Bony structures are unremarkable. IMPRESSION: 1. Right jugular central venous line tip poorly visualized, likely in the proximal SVC. 2. Lung findings most consistent with mild pulmonary edema with bilateral pleural effusions and bibasilar subsegmental atelectasis. Clinical correlation requested.
--- NOTE | 2016-09-05 12:27 | RADIOLOGY REPORT ---
EXAMINATION: XR PORTABLE CHEST CLINICAL INFORMATION: Acute diastolic CHF but diuretics were being held in the setting of acute kidney insufficiency. Evaluate for volume overload. COMPARISON: Portable chest 08/31/2016. TECHNIQUE: Portable AP view of the chest was obtained. FINDINGS: There is worsening central vascular congestion and some ill-defined reticular opacities in the perihilar regions and both lower lung juarez. There may be mild patchy consolidation or atelectasis at both lung bases. There is an enlarging moderate-sized right pleural effusion. IMPRESSION: Findings consistent with congestion and edema. Enlarging moderate right pleural effusion.
--- NOTE | 2016-09-05 13:18 | NUR ---
PT HAS BEEN INCREASINGLY SOB OVER THE COURSE OF THE DAY. UNABLE TO SPEAK A FEW WORDS WITHOUT THE O2 SAT DECREASING TO 88-89%. PT WANTED TO GET OOB TO THE CHAIR BUT WAS SOB, USING ACCESSORY MUSCLES TO BREATHE AND THE O2 SAT WAS ONLY 90%. [employer] REPRESENTATIVE PLACED PT ON A HFNC AT 1255 BUT THE PT ONLY LASTED 5 MINUTES AND THEN HAD TO BE PLACED ON THE BIAP AT 30% WITH AN I/E OF 20/6 AND A RR OF 24. SAT AT THIS TIME IS 95%.
[2016-09-05 16:00] VITALS: BP 148/64
--- NOTE | 2016-09-05 19:27 | PN- Pulmonary ---
Subjective HPI/Critical Care Issues: doing relatively stable INR shortness of breath Continues on BiPAP Fatigue Slightly discouraged about her overall progress Objective Current Medications: Current Medications Sig/Michele Start time Last Medication Dose Route Stop Time Status Admin Albuterol Sulfate 3 ML EVERY 4 HRS/AWAKE 08/30 1200 AC 09/05 INH 1619 Allopurinol 150 MG DAILY 08/30 1000 AC 09/05 PO 0959 Amiodarone HCl 200 MG DAILY 09/05 1000 AC 09/05 PO 1000 Amlodipine Besylate 5 MG BID 08/30 1000 AC 09/05 PO 0959 Aspirin Buffered 81 MG DAILY 08/30 1000 AC 09/05 PO 0959 Atorvastatin Calcium 80 MG 1700 08/30 1700 AC 09/05 PO 1638 Azithromycin 250 MG Q48 09/06 1000 AC PO Azithromycin 250 MG 1600 09/04 1600 DC 09/04 PO 1705 Budesonide/ 2 PUF BID 09/01 1224 AC 09/05 Formoterol Fumarate INH 0959 Clopidogrel Bisulfate 75 MG DAILY 08/30 1000 AC 09/05 PO 0959 Dextrose 25 GM ONCE ONE 09/05 0700 DC 09/05 IV 09/05 0701 0704 Furosemide 20 MG ONCE ONE 09/05 1500 DC 09/05 IV PUSH 09/05 1501 1638 Guaifenesin 600 MG Q12P PRN 09/03 1100 AC 09/05 PO 1152 Heparin Sodium 5,000 UNIT Q8 09/03 0851 AC 09/05 (Porcine) SC 1430 Hydralazine HCl 20 MG TID 09/04 1600 AC 09/05 PO 1639 Insulin Aspart 0 TIDAC 09/03 1148 AC 09/05 SC 1151 Insulin Aspart 0 AT BEDTIME 08/30 2200 AC 09/01 SC 2217 Insulin Detemir 32 UNITS BID 09/05 1000 AC 09/05 SC 1000 Insulin Detemir 40 UNITS BID 09/04 1000 DC 09/04 SC 2138 Ipratropium [place] 2.5 ML EVERY 4 HRS/AWAKE 08/30 1600 AC 09/05 INH 1619 Isosorbide 60 MG DAILY 08/30 1000 AC 09/05 Mononitrate PO 1000 Lorazepam 0.5 MG BID PRN 09/05 1330 AC IV Lorazepam 0.5 MG BID PRN 09/04 2115 DC 09/05 PO 09/11 2114 1009 Lorazepam 0.5 MG Q12P PRN 09/02 1330 DC 09/03 IV 1900 Metoprolol Tartrate 12.5 MG BID 09/02 1246 AC 09/05 PO 0959 Morphine Sulfate 2 MG Q4P PRN 08/31 1600 AC 09/02 IV 1439 Nystatin 1 RUSS BID 09/01 1321 AC 09/05 TOP 1014 Omeprazole 40 MG DAILY AC 08/30 1537 AC 09/05 PO 0704 Phenol 2 SPRAY Q2P PRN 09/02 1415 AC 09/05 EXT 0706 Polyethylene Glycol 17 GM DAILY PRN 08/30 0800 AC 09/05 PO 1009 Prednisone 30 MG DAILY 09/08 1000 AC PO Prednisone 40 MG DAILY 09/03 1000 AC 09/05 PO 09/07 1001 0959 Senna/Docusate Sodium 1 TAB BID PRN 08/30 0800 AC 09/04 PO 0934 Sevelamer Carbonate 800 MG TIDAC 09/05 1200 AC 09/05 PO 1639 Tiotropium [place] 1 PUF DAILY 08/31 1000 AC 09/05 INH 0958 Vital Signs & I&O Last 24 Hrs of Vitals and I&O: Vital Signs Date Time Temp Pulse Resp B/P Pulse O2 O2 Flow FiO2 Ox Delivery Rate 09/05 1639 96.1 74 24 148/68 03/02 1623 94 BIPAP 30% / 1622 74 94 03/ 1600 97 BIPAP 30% / 1600 96.7 77 22 148/64 94 BIPAP 30% 03/02 1420 77 95 03/02 1304 80 93 03/02 1152 96.6 83 29 155/68 03/02 1000 96.6 83 29 155/68 03/02 1000 96.6 83 29 155/68 03/02 0959 96.6 83 29 155/68 03/02 0959 96.6 83 29 155/68 03/02 0844 91 Nasal 3.0L Cannula 03/ 0800 91 Nasal 4.0L Cannula / 0800 96.6 77 30 154/60 91 Nasal 4.0L Cannula 03/02 0515 70 94 03/02 0400 95 BIPAP 30% 03/02 0258 71 94 03/02 0000 96.0 64 24 137/62 95 BIPAP 30% 03/02 0000 98 BIPAP 30% 03/02 0000 71 93 03/ 2345 91 Nasal 4.0L Cannula 03/01 2117 76 155/65 03/ 2116 73 155/65 09/05 2115 76 155/65 09/05 1999 98 Nasal 4.0L Cannula Intake & Output 09/05 1600 09/05 0800 09/05 0000 Intake Total 520 120 360 Output Total 550 500 425 Balance -30 -380 -65 Intake, IV 20 0 0 Intake, Oral 500 120 360 Number 1 0 1 Bowel Movements Output, Urine 550 500 425 Impression/Plan Impression/Plan Impression/Plan: Physical Exam: General: Alert but in respiratory distress using accessory muscles to breathe. on BIPAP Eyes: No obvious scleral icterus. HEENT: Jugular venous pressure estimated 8-10 mmHg Cardiovascular: Normal intensity S1/S2. Regular. One out of 6 systolic murmur. Respiratory: Decreased air entry bilaterally with bilateral scattered wheezing Abdomen: Soft, nontender with no guarding or rebound tenderness. Musculoskeletal: No clubbing or cyanosis noted, 1+ lower extremity edema bilaterally Skin: warm Neurologic: No gross focal deficits noted. Lymph: No gross lymphadenopathy CXR IMPRESSION: Mild pulmonary vascular congestion with bilateral pleural effusions. 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 This is compounded by Acute non st elevation MO with previous pci. Pt was also in acute on chronic diastolic chf now slowly improving * Recent lung nodule - PET neg with mild effusion in the both side * Mild rt more than left heart failure mild improvement * Effusion mild bilaterlly * Severe obstructive sleep apnea compliant with bipap at hs daily prior to the hospital * Hypertension, diabetes, hyperlipidemia with previous history of gout which is stable, Recent htn is On russ meds * Chronic kidney disease with previous nephrectomy appears to be stable * Uncontrolled sugar made worse by increasing prednisone in the past which needs to be monitored * Anemia and morbid obesity RECOMMENDATION BIPAP to continue prn PO prednisone keep on 40 for five days and then slow taper Atc nebs q 4 and use ipratropium only if sig tachy persists COnt azitro daily can reduce the dose to 250 po qod Ok with amiodarone as she does have pafib Lasix per cardio. Proton pump inhibitor Agg sugar control Avoid lorazepam and use morphine instead for sig dyspnea Adequate bp control as she does tend to flash when bp goes more than 170 systolic DNR and DNI with conservative measures
[2016-09-06] VITALS: BP 120/47
[2016-09-06 06:05] LABS: ABSOLUTE BASOPHIL COUNT 0 /CUMM (0.0-0.2); ABSOLUTE EOSINOPHIL COUNT 0 /CUMM (0.0-0.7); ABSOLUTE GRANULOCYTE CT 13.9 /CUMM (1.4-6.5); ABSOLUTE LYMPH COUNT 1.3 /CUMM (1.2-3.4); ABSOLUTE MONOCYTE COUNT 0.6 /CUMM (0.10-0.60); BASOPHIL % 0.1 % (0.0-2.0); EOSINOPHIL % 0.1 % (0-5); GRANULOCYTE % 87.9 % (42.2-75.2); HEMATOCRIT 25.8 % (37-47); MEAN CORPUSCULAR HGB 27.5 PG (27.0-31.0); MEAN CORPUSCULAR HGB CONC 32.2 G/DL (33.0-37.0); MEAN CORPUSCULAR VOLUME 85.4 FL (81.0-99.0); MEAN PLATELET VOLUME 9.7 FL (7.4-10.4); PLATELET COUNT 185 /CUMM (130-400); RBC DISTRIBUTION WIDTH 16.8 % (11.5-14.5); RED BLOOD CELL CT 3.03 /CUMM (4.20-5.40); WHITE BLOOD CELL COUNT 15.9 /CUMM (4.8-10.8)
--- NOTE | 2016-09-06 07:11 | PN- Housestaff ---
Subjective Follow-up For: COPD exacerbation Acute diastolic CHF AYAZ on CKD IDDM Hyperphosphatemia HTN New-onset atrial fibrillation Elevated troponins Subjective: No acute events overnight. Patient was seen and examined this morning. She remains on BiPAP with significant shortness of breath. Later in the day, after extensive discussions with the medical team, mutual recision was reached by patient and her family's members to change code status to comfort care in the setting of her poor performance status and guarded prognosis. Review of Systems Constitutional: Reports: see HPI. Cardiovascular: Denies: chest pain, palpitations. Respiratory: Reports: short of breath. Objective Last 24 Hrs of Vital Signs/I&O Vital Signs Date Time Temp Pulse Resp B/P Pulse O2 O2 Flow FiO2 Ox Delivery Rate 09/06 1041 89 97 03/03 0938 84 144/64 03/03 0937 84 144/64 03/03 0937 84 144/64 03/03 0937 84 144/64 03/03 0937 84 144/64 03/03 0813 94 BIPAP 30% / 0812 74 95 03/03 0544 75 96 03/03 0334 95 BIPAP 30% 03/03 0246 72 96 03/03 0019 77 94 03/03 0000 97.8 71 26 120/47 93 BIPAP 30% 03/03 0000 93 BIPAP 30% 03/02 2229 77 129/55 03/02 2229 77 129/55 03/02 2228 77 129/55 03/02 2205 78 93 03/02 2031 83 94 03/02 1639 96.1 74 24 148/68 03/02 1623 94 BIPAP 30% 03/02 1622 74 94 03/02 1600 97 BIPAP 30% 03/02 1600 96.7 77 22 148/64 94 BIPAP 30% 03/02 1420 77 95 03/02 1304 80 93 03/02 1152 96.6 83 29 155/68 Vital Signs Date Time Temp Pulse Resp B/P Pulse O2 O2 Flow FiO2 Ox Delivery Rate 09/06 1041 89 97 03/03 0938 84 144/64 03/03 0937 84 144/64 03/03 0937 84 144/64 03/03 0937 84 144/64 03/03 0937 84 144/64 03/03 0813 94 BIPAP 30% 03/03 0812 74 95 03/03 0544 75 96 03/03 0334 95 BIPAP 30% 09/06 0246 72 96 09/06 0019 77 94 03/ 0000 97.8 71 26 120/47 93 BIPAP 30% 09/06 0000 93 BIPAP 30% 09/05 2229 77 129/55 03/ 2229 77 129/55 09/05 2228 77 129/55 09/05 2205 78 93 09/05 2031 83 94 03/ 1639 96.1 74 24 148/68 09/05 1623 94 BIPAP 30% 09/05 1622 74 94 03/ 1600 97 BIPAP 30% 09/05 1600 96.7 77 22 148/64 94 BIPAP 30% 09/05 1420 77 95 / 1304 80 93 03/ 1152 96.6 83 29 155/68 Intake & Output 09/06 1600 09/06 0800 09/06 0000 Intake Total 120 120 Output Total 400 550 Balance -280 -430 Intake, IV 0 0 Intake, Oral 120 120 Number 0 0 Bowel Movements Output, Urine 400 550 Physical Exam General Appearance: Alert, Oriented X3, Cushingoid, Respiratory Distress HEENT: Atraumatic Neck: [place] Cardiovascular: Regular Rate, Normal S1, Normal S2 Lungs: Diminished Breath Sounds. Bilateral Wheezes Scattered Throughout Lung Gonzalez. Abdomen: Soft, No Tenderness, Positive Bowel Sounds Extremities: 1+ Edema on Bilateral Lower Extremities Current Medications: Current Medications Sig/Michele Start time Last Medication Dose Route Stop Time Status Admin Albuterol Sulfate 3 ML EVERY 4 HRS/AWAKE 08/30 1200 AC 09/06 INH 1634 Allopurinol 150 MG DAILY 08/30 1000 AC 09/06 PO 1315 Amiodarone HCl 200 MG DAILY 09/05 1000 AC 09/06 PO 0937 Amlodipine Besylate 5 MG BID 08/30 1000 AC 09/06 PO 0938 Aspirin Buffered 81 MG DAILY 08/30 1000 AC 09/06 PO 0937 Atorvastatin Calcium 80 MG 1700 08/30 1700 AC 09/06 PO 1755 Azithromycin 250 MG Q48 09/06 1000 AC 09/06 PO 0938 Budesonide/ 2 PUF BID 09/01 1224 AC 09/06 Formoterol Fumarate INH 0928 Clopidogrel Bisulfate 75 MG DAILY 08/30 1000 AC 09/06 PO 0938 Furosemide 40 MG BID 09/06 2200 AC IV Furosemide 20 MG ONCE ONE 09/06 0915 DC 09/06 IV PUSH 09/06 0916 0933 Guaifenesin 600 MG Q12P PRN 09/03 1100 AC 09/06 PO 1315 Heparin Sodium 5,000 UNIT Q8 09/03 0851 AC 09/06 (Porcine) SC 1314 Hydralazine HCl 20 MG TID 09/04 1600 AC 09/06 PO 1755 Insulin Aspart 0 TIDAC 09/03 1148 AC 09/06 SC 1755 Insulin Aspart 0 AT BEDTIME 08/30 2200 AC 09/05 SC 2223 Insulin Detemir 32 UNITS BID 09/05 1000 AC 09/06 SC 0931 Ipratropium [place] 2.5 ML EVERY 4 HRS/AWAKE 08/30 1600 AC 09/06 INH 1634 Isosorbide 90 MG DAILY 09/07 1000 AC Mononitrate PO Isosorbide 60 MG DAILY 08/30 1000 DC 09/06 Mononitrate PO 0937 Lorazepam 0.5 MG BID PRN 09/05 1330 AC 09/06 IV 1330 Metoprolol Tartrate 12.5 MG BID 09/02 1246 AC 09/06 PO 0937 Morphine Sulfate 2 MG Q4P PRN 08/31 1600 AC 09/02 IV 1439 Nystatin 1 TYRON BID 09/01 1321 AC 09/06 TOP 0939 Omeprazole 40 MG DAILY AC 08/30 1537 AC 09/06 PO 0600 Phenol 2 SPRAY Q2P PRN 09/02 1415 AC 09/06 EXT 0938 Polyethylene Glycol 17 GM DAILY PRN 08/30 0800 AC 09/05 PO 1009 Prednisone 30 MG DAILY 09/08 1000 AC PO Prednisone 40 MG DAILY 09/03 1000 AC 09/06 PO 09/07 1001 0938 Senna/Docusate Sodium 1 TAB BID PRN 08/30 0800 AC 09/04 PO 0934 Sevelamer Carbonate 800 MG TIDAC 09/05 1200 AC 09/06 PO 1755 Tiotropium [place] 1 PUF DAILY 08/31 1000 AC 09/06 INH 0929 Last 24 Hrs of Lab/Romain Results Last 24 Hrs of Labs/Mics: Laboratory Tests 09/06/16 0500: Anion Gap 11, Estimated GFR 19 L, Glucose 168 H, Calcium 8.6, Phosphorus 7.3 H, Magnesium 3.2 H, Total Bilirubin 0.5, AST 24, ALT 43, Albumin 3.1 L, CBC w Diff MAN DIFF ORDERED, RBC 3.03 L, MCV 85.4, MCH 27.5, RDW 16.8 H, MPV 9.7, Gran % 87.9 H, Lymphocytes % 8.1 L, Monocytes % 3.8, Eosinophils % 0.1, Basophils % 0.1, Absolute Granulocytes 13.9 H, Absolute Lymphocytes 1.3, Absolute Monocytes 0.6, Absolute Eosinophils 0, Absolute Basophils 0, Platelet Estimate ADEQUATE, Polychromasia 1+, Hypochromic-Microcytic 1+, Anisocytosis 1+, PUBS MCHC 32.2 L 09/05/16 1400: Ref Lab Test Result REPORT Assessment/Plan Assessment: 81 y/o F with PMHx of COPD on 2 L NC, CAD s/p PCI with stent and diastolic CHF who is admitted for acute on chronic hypoxemic and hypercarbic respiratory failure 2/2 COPD and acute diastolic CHF, with a hospital course complicated by elevated troponins 2/2 NSTEMI vs demand ischemia, new-onset paroxysmal atrial fibrillation and AYAZ on CKD. #Acute respiratory failure: CODE status changed to comfort care based on patient 's decision. * Continue BiPAP PRN. * Discontinue all medications except prednisone if she is mentating well and nebs PRN. * Start morphine 4 mg IV Q30 min PRN and Ativan 0.5-1 mg Q1H PRN. CODE: COMFORT CARE Problem List: 1. Acute respiratory failure with hypoxia and hypercapnia 2. Hbefe-yn-[id number] kidney injury 3. Paroxysmal atrial fibrillation 4. IDDM (insulin dependent diabetes mellitus) 5. New onset atrial fibrillation 6. T2DM (type 2 diabetes mellitus) 7. Acute on chronic diastolic (congestive) heart failure 8. COPD exacerbation Pain Ratin Pain Location: N/A Pain Goal: Remain pain free Pain Plan: Morphine 4 mg IV Q30 min PRN Tomorrow's Labs & Rationales: None (patient is comfort care) * Start sevelamer 800 mg PO TIDAC. #T2DM: Fingerstick blood glucose was 60 this morning, and 1 amp of dextrose was given. * Endocrinology following. Appreciate their recs. * Further decrease Levemir to 32 units SQ BID. * Decrease Novolog sliding scale TIDAC to: for glucose 80-150 give 16 units, 151 -200 give 18 units, 201-250 give 20 units, 251-300 give 22 units, 301-350 give 24 units and 351-300 units give 26 units. * Continue bedtime sliding scale Novolog as it is. Diet: Consistent Carbohydrate 2 - 1 g phosphorus restriction DVT PPx: HSQ and ALPs CODE: DNR/DNI Problem List: 1. Acute respiratory failure with hypoxia and hypercapnia 2. Vkxxo-ms-cmuppzj kidney injury 3. Paroxysmal atrial fibrillation 4. IDDM (insulin dependent diabetes mellitus) 5. New onset atrial fibrillation 6. T2DM (type 2 diabetes mellitus) 7. Acute on chronic diastolic (congestive) heart failure 8. COPD exacerbation Pain Ratin Pain Location: N/A Pain Goal: Remain pain free Tomorrow's Labs & Rationales: CBC to monitor H/H in the setting of anemia BMP, K, Mg and Phos in the setting of AYAZ on CKD and electrolyte disturbances Consulting Request: Consulting Specialty: Cardiology
--- NOTE | 2016-09-06 07:23 | PN- Diabetes ---
Assessment/Plan Assessment: Patient's breathing is a little better this morning. The patient's prednisone has been tapered to 30 mg once a day by mouth.. The patient's insulin was adjusted yesterday in view of the low blood sugar. Her by mouth intake is poor. She is on 32 units of Levemir twice a day. Her sliding scale NovoLog before meals begins at 10 units for 80-150. Fingerstick blood sugars yesterday were 166, 145, 78, 319. The patient's blood sugar in the lab this morning was 168 Plan: Suggest continue the present insulin. If the patient begins to eat better we may need to adjust her premeal insulin. Subjective Subjective: Very short of breath Objective Last 24 Hrs of Vital Signs/I&O Vital Signs Date Time Temp Pulse Resp B/P Pulse O2 O2 Flow FiO2 Ox Delivery Rate 09/06 0544 75 96 09/06 0334 95 BIPAP 30% 09/06 0246 72 96 09/06 0019 77 94 / 0000 97.8 71 26 120/47 93 BIPAP 30% 09/06 0000 93 BIPAP 30% 09/05 2229 77 129/55 03/02 2229 77 129/55 03/02 2228 77 129/55 03/02 2205 78 93 03/02 2031 83 94 03/02 1639 96.1 74 24 148/68 03/02 1623 94 BIPAP 30% 03/02 1622 74 94 03/02 1600 97 BIPAP 30% 03/02 1600 96.7 77 22 148/64 94 BIPAP 30% 03/02 1420 77 95 03/02 1304 80 93 03/02 1152 96.6 83 29 155/68 03/02 1000 96.6 83 29 155/68 03/02 1000 96.6 83 29 155/68 03/02 0959 96.6 83 29 155/68 03/02 0959 96.6 83 29 155/68 03/02 0844 91 Nasal 3.0L Cannula / 0800 91 Nasal 4.0L Cannula / 0800 96.6 77 30 154/60 91 Nasal 4.0L Cannula Intake & Output 09/06 0800 03/03 0000 03/02 1600 Intake Total 120 120 520 Output Total 400 550 550 Balance -280 -430 -30 Intake, IV 0 0 20 Intake, Oral 120 120 500 Number 0 0 1 Bowel Movements Output, Urine 400 550 550 Vital Signs Date Time Temp Pulse Resp B/P Pulse O2 O2 Flow FiO2 Ox Delivery Rate 09/06 0544 75 96 03/ 0334 95 BIPAP 30% 09/06 0246 72 96 03/03 0019 77 94 03/03 0000 97.8 71 26 120/47 93 BIPAP 30% 09/06 0000 93 BIPAP 30% 09/05 2229 77 129/55 03/02 2229 77 129/55 03/02 2228 77 129/55 03/02 2205 78 93 03/02 2031 83 94 03/02 1639 96.1 74 24 148/68 03/02 1623 94 BIPAP 30% 03/ 1622 74 94 03/02 1600 97 BIPAP 30% 03/02 1600 96.7 77 22 148/64 94 BIPAP 30% 03/ 1420 77 95 03/02 1304 80 93 03/02 1152 96.6 83 29 155/68 03/02 1000 96.6 83 29 155/68 03/02 1000 96.6 83 29 155/68 03/02 0959 96.6 83 29 155/68 03/02 0959 96.6 83 29 155/68 03/02 0844 91 Nasal 3.0L Cannula 09/05 0800 91 Nasal 4.0L Cannula / 0800 96.6 77 30 154/60 91 Nasal 4.0L Cannula Intake & Output 09/06 0800 /03 0000 03/02 1600 Intake Total 120 120 520 Output Total 400 550 550 Balance -280 -430 -30 Intake, IV 0 0 20 Intake, Oral 120 120 500 Number 0 0 1 Bowel Movements Output, Urine 400 550 550 Physical Exam General Appearance: alert, awake Head: normal appearance Neck: normal inspection Respiratory: normal breath sounds Cardiovascular: regular rate/rhythm Extremities: normal inspection Current Medications: Current Medications Sig/Michele Start time Last Medication Dose Route Stop Time Status Admin Albuterol Sulfate 3 ML EVERY 4 HRS/AWAKE 08/30 1200 AC 09/06 INH 0331 Allopurinol 150 MG DAILY 08/30 1000 AC 09/05 PO 0959 Amiodarone HCl 200 MG DAILY 09/05 1000 AC 09/05 PO 1000 Amlodipine Besylate 5 MG BID 08/30 1000 AC 09/05 PO 2228 Aspirin Buffered 81 MG DAILY 08/30 1000 AC 09/05 PO 0959 Atorvastatin Calcium 80 MG 1700 02/24 1700 AC 09/05 PO 1638 Azithromycin 250 MG Q48 09/06 1000 AC PO Azithromycin 250 MG 1600 09/04 1600 DC 09/04 PO 1705 Budesonide/ 2 PUF BID 09/01 1224 AC 09/05 Formoterol Fumarate INH 2223 Clopidogrel Bisulfate 75 MG DAILY 08/30 1000 AC 09/05 PO 0959 Furosemide 20 MG ONCE ONE 09/05 1500 DC 09/05 IV PUSH 09/05 1501 1638 Guaifenesin 600 MG Q12P PRN 09/03 1100 AC 09/05 PO 1152 Heparin Sodium 5,000 UNIT Q8 09/03 0851 AC 09/06 (Porcine) SC 0600 Hydralazine HCl 20 MG TID 09/04 1600 AC 09/05 PO 2229 Insulin Aspart 0 TIDAC 09/03 1148 AC 09/05 SC 1151 Insulin Aspart 0 AT BEDTIME 08/30 2200 AC 09/05 SC 2223 Insulin Detemir 32 UNITS BID 09/05 1000 AC 09/05 SC 2220 Insulin Detemir 40 UNITS BID 09/04 1000 DC 09/04 SC 2138 Ipratropium [place] 2.5 ML EVERY 4 HRS/AWAKE 08/30 1600 AC 09/06 INH 0331 Isosorbide 60 MG DAILY 08/30 1000 AC 09/05 Mononitrate PO 1000 Lorazepam 0.5 MG BID PRN 09/05 1330 AC 09/05 IV 2019 Lorazepam 0.5 MG BID PRN 09/04 2115 DC 09/05 PO 09/11 2114 1009 Metoprolol Tartrate 12.5 MG BID 09/02 1246 AC 09/05 PO 2229 Morphine Sulfate 2 MG Q4P PRN 08/31 1600 AC 09/02 IV 1439 Nystatin 1 TYRON BID 09/01 1321 AC 09/05 TOP 2221 Omeprazole 40 MG DAILY AC 08/30 1537 AC 09/06 PO 0600 Phenol 2 SPRAY Q2P PRN 09/02 1415 AC 09/06 EXT 0559 Polyethylene Glycol 17 GM DAILY PRN 08/30 0800 AC 09/05 PO 1009 Prednisone 30 MG DAILY 09/08 1000 AC PO Prednisone 40 MG DAILY 09/03 1000 AC 09/05 PO 09/07 1001 0959 Senna/Docusate Sodium 1 TAB BID PRN 08/30 0800 AC 09/04 PO 0934 Sevelamer Carbonate 800 MG TIDAC 09/05 1200 AC 09/05 PO 1639 Tiotropium [place] 1 PUF DAILY 08/31 1000 AC 09/05 INH 0958 Findings Pertinent Lab/Romain Results: Laboratory Tests 09/06 09/05 0500 1400 Chemistry Sodium (137 - 145 mmol/L) 139 Potassium (3.5 - 5.1 mmol/L) 4.8 Chloride (98 - 107 mmol/L) 102 Carbon Dioxide (22 - 30 mmol/L) 27 Anion Gap (5 - 16) 11 BUN (7 - 17 mg/dL) 103 *H Creatinine (0.5 - 1.0 mg/dL) 2.4 H Estimated GFR (>60 ml/min) 19 L Glucose (65 - 99 mg/dL) 168 H Calcium (8.4 - 10.2 mg/dL) 8.6 Phosphorus (2.5 - 4.5 mg/dL) 7.3 H Magnesium (1.6 - 2.3 mg/dL) 3.2 H Total Bilirubin (0.2 - 1.3 mg/dL) 0.5 AST (14 - 36 U/L) 24 ALT (9 - 52 U/L) 43 Albumin (3.5 - 5.0 g/dL) 3.1 L Hematology CBC w Diff MAN DIFF ORDERED WBC (4.8 - 10.8 /CUMM) 15.9 H RBC (4.20 - 5.40 /CUMM) 3.03 L Hgb (12.0 - 16.0 G/DL) 8.3 L Hct (37 - 47 %) 25.8 L MCV (81.0 - 99.0 FL) 85.4 MCH (27.0 - 31.0 PG) 27.5 RDW (11.5 - 14.5 %) 16.8 H Plt Count (130 - 400 /CUMM) 185 MPV (7.4 - 10.4 FL) 9.7 Gran % (42.2 - 75.2 %) 87.9 H Lymphocytes % (20.5 - 51.1 %) 8.1 L Monocytes % (1.7 - 9.3 %) 3.8 Eosinophils % (0 - 5 %) 0.1 Basophils % (0.0 - 2.0 %) 0.1 Absolute Granulocytes (1.4 - 6.5 /CUMM) 13.9 H Absolute Lymphocytes (1.2 - 3.4 /CUMM) 1.3 Absolute Monocytes (0.10 - 0.60 /CUMM) 0.6 Absolute Eosinophils (0.0 - 0.7 /CUMM) 0 Absolute Basophils (0.0 - 0.2 /CUMM) 0 Platelet Estimate (ADEQUATE) ADEQUATE Polychromasia 1+ Hypochromic-Microcytic 1+ Anisocytosis 1+ PUBS MCHC (33.0 - 37.0 G/DL) 32.2 L Miscellaneous Ref Lab Test Result Pending
--- NOTE | 2016-09-06 07:29 | PN- Att Addend ---
Attending Addendum Attending Brief Note Covering attending note. Patient is comfortable currently on BiPAP. She's awake alert oriented so short of breath with minimal effort. Intake & Output 09/06 0800 09/06 0000 09/05 1600 Intake Total 120 120 520 Output Total 400 550 550 Balance -280 -430 -30 Intake, IV 0 0 20 Intake, Oral 120 120 500 Number 0 0 1 Bowel Movements Output, Urine 400 550 550 Vital Signs Date Time Temp Pulse Resp B/P Pulse O2 O2 Flow FiO2 Ox Delivery Rate 09/06 0544 75 96 09/06 0334 95 BIPAP 30% 09/06 0246 72 96 09/06 0019 77 94 / 0000 97.8 71 26 120/47 93 BIPAP 30% 09/06 0000 93 BIPAP 30% / 2229 77 129/55 03/02 2229 77 129/55 03/02 2228 77 129/55 03/02 2205 78 93 03/ 2031 83 94 03/ 1639 96.1 74 24 148/68 03/02 1623 94 BIPAP 30% / 1622 74 94 03/02 1600 97 BIPAP 30% 03/02 1600 96.7 77 22 148/64 94 BIPAP 30% 03/ 1420 77 95 03/02 1304 80 93 03/02 1152 96.6 83 29 155/68 03/02 1000 96.6 83 29 155/68 03/02 1000 96.6 83 29 155/68 03/02 0959 96.6 83 29 155/68 03/02 0959 96.6 83 29 155/68 03/02 0844 91 Nasal 3.0L Cannula / 0800 91 Nasal 4.0L Cannula 03/02 0800 96.6 77 30 154/60 91 Nasal 4.0L Cannula Intake & Output 09/06 0800 09/06 0000 03/02 1600 Intake Total 120 120 520 Output Total 400 550 550 Balance -280 -430 -30 Intake, IV 0 0 20 Intake, Oral 120 120 500 Number 0 0 1 Bowel Movements Output, Urine 400 550 550 Examination she is awake alert on the BiPAP neck is supple JVD is raised S1-S2 is normal soft systolic murmur over the left lower sternal border Lungs shows diminished breath sounds at both lungs with scattered wheezing. Abdomen is soft distended nontender bowel sounds are present. Extremities shows trace pedal edema. Laboratory Tests 09/06 09/05 0500 1400 Chemistry Sodium (137 - 145 mmol/L) 139 Potassium (3.5 - 5.1 mmol/L) 4.8 Chloride (98 - 107 mmol/L) 102 Carbon Dioxide (22 - 30 mmol/L) 27 Anion Gap (5 - 16) 11 BUN (7 - 17 mg/dL) 103 *H Creatinine (0.5 - 1.0 mg/dL) 2.4 H Estimated GFR (>60 ml/min) 19 L Glucose (65 - 99 mg/dL) 168 H Calcium (8.4 - 10.2 mg/dL) 8.6 Phosphorus (2.5 - 4.5 mg/dL) 7.3 H Magnesium (1.6 - 2.3 mg/dL) 3.2 H Total Bilirubin (0.2 - 1.3 mg/dL) 0.5 AST (14 - 36 U/L) 24 ALT (9 - 52 U/L) 43 Albumin (3.5 - 5.0 g/dL) 3.1 L Hematology CBC w Diff MAN DIFF ORDERED WBC (4.8 - 10.8 /CUMM) 15.9 H RBC (4.20 - 5.40 /CUMM) 3.03 L Hgb (12.0 - 16.0 G/DL) 8.3 L Hct (37 - 47 %) 25.8 L MCV (81.0 - 99.0 FL) 85.4 MCH (27.0 - 31.0 PG) 27.5 RDW (11.5 - 14.5 %) 16.8 H Plt Count (130 - 400 /CUMM) 185 MPV (7.4 - 10.4 FL) 9.7 Gran % (42.2 - 75.2 %) 87.9 H Lymphocytes % (20.5 - 51.1 %) 8.1 L Monocytes % (1.7 - 9.3 %) 3.8 Eosinophils % (0 - 5 %) 0.1 Basophils % (0.0 - 2.0 %) 0.1 Absolute Granulocytes (1.4 - 6.5 /CUMM) 13.9 H Absolute Lymphocytes (1.2 - 3.4 /CUMM) 1.3 Absolute Monocytes (0.10 - 0.60 /CUMM) 0.6 Absolute Eosinophils (0.0 - 0.7 /CUMM) 0 Absolute Basophils (0.0 - 0.2 /CUMM) 0 Platelet Estimate (ADEQUATE) ADEQUATE Polychromasia 1+ Hypochromic-Microcytic 1+ Anisocytosis 1+ PUBS MCHC (33.0 - 37.0 G/DL) 32.2 L Miscellaneous Ref Lab Test Result Pending Assessment #1 Hypercarbic respiratory failure currently on BiPAP with exacerbation of COPD. Currently on BiPAP also history of severe operative sleep apnea noncompliant with CPAP at home. Mild right 100s the heart failure with improvement with the diuretics. Uncontrolled diabetes secondary to use of steroids for control of COPD. History of CKG which seems to be stable. Discussed with house staff to continue with current management. Further recommendations of pulmonary and cardiology.
[2016-09-06 08:00] VITALS: BP 144/64
--- NOTE | 2016-09-06 09:04 | NUR ---
afebrile,denies pain,a&ox3,vss,4l nc 95%,ronchi,wheeze, c/o sore throat reported to Dr. Reyna, +b.s.,poor po,f.s 170, carb 2 1gm phos. diet, ordered chix broth for throat and ensure shake for nutrition,(1 cup ensure = 199 mg phos), [place] intact adequate amount c/y u/o,skin intact,
--- NOTE | 2016-09-06 11:53 | PN- Cardiology ---
Subjective Subjective: Patient was short of breath this morning and is back on BiPAP with some improvement. No recurrent chest pain. No palpitations. Objective Vital Signs and I&Os Vital Signs Date Time Temp Pulse Resp B/P Pulse O2 O2 Flow FiO2 Ox Delivery Rate 09/06 1041 89 97 03/03 0938 84 144/64 03/03 0937 84 144/64 03/03 0937 84 144/64 03/ 0937 84 144/64 03/03 0937 84 144/64 03/03 0813 94 BIPAP 30% / 0812 74 95 03/ 0544 75 96 03/ 0334 95 BIPAP 30% 09/06 0246 72 96 03/ 0019 77 94 03/ 0000 97.8 71 26 120/47 93 BIPAP 30% / 0000 93 BIPAP 30% / 2229 77 129/55 03/02 2229 77 129/55 03/ 2228 77 129/55 03/02 2205 78 93 03/ 2031 83 94 03/ 1639 96.1 74 24 148/68 03/02 1623 94 BIPAP 30% 03/ 1622 74 94 03/02 1600 97 BIPAP 30% 03/02 1600 96.7 77 22 148/64 94 BIPAP 30% / 1420 77 95 03/02 1304 80 93 03/02 1152 96.6 83 29 155/68 Intake & Output / 1600 03/03 0800 03/03 0000 03/02 1600 03/02 0800 03/02 0000 Intake Total 120 120 520 120 360 Output Total 400 550 550 500 425 Balance -280 -430 -30 -380 -65 Intake, IV 0 0 20 0 0 Intake, Oral 120 120 500 120 360 Number 0 0 1 0 1 Bowel Movements Output, Urine 400 550 550 500 425 Physical Exam: General: No apparent distress. On BiPAP. Eyes: No obvious scleral icterus. HEENT: No abnormal jugular venous pulsations Cardiovascular: Normal intensity S1/S2. Regular. One out of 6 systolic murmur. Respiratory: Scattered expiratory wheezing. Decreased air entry bilaterally. Abdomen: Soft, nontender with no guarding or rebound tenderness. Musculoskeletal: No clubbing or cyanosis noted, 1+ LE edema Skin: warm Neurologic: No gross focal deficits noted. Current Medications: Current Medications Sig/Michele Start time Last Medication Dose Route Stop Time Status Admin Albuterol Sulfate 3 ML EVERY 4 HRS/AWAKE 08/30 1200 AC 09/06 INH 1038 Allopurinol 150 MG DAILY 08/30 1000 AC 09/05 PO 0959 Amiodarone HCl 200 MG DAILY 09/05 1000 AC 09/06 PO 0937 Amlodipine Besylate 5 MG BID 08/30 1000 AC 09/06 PO 0938 Aspirin Buffered 81 MG DAILY 08/30 1000 AC 09/06 PO 0937 Atorvastatin Calcium 80 MG 1700 08/30 1700 AC 09/05 PO 1638 Azithromycin 250 MG Q48 09/06 1000 AC 09/06 PO 0938 Budesonide/ 2 PUF BID 09/01 1224 AC 09/06 Formoterol Fumarate INH 0928 Clopidogrel Bisulfate 75 MG DAILY 08/30 1000 AC 09/06 PO 0938 Furosemide 20 MG ONCE ONE 09/06 0915 DC 09/06 IV PUSH 09/06 0916 0933 Furosemide 20 MG ONCE ONE 09/05 1500 DC 09/05 IV PUSH 09/05 1501 1638 Guaifenesin 600 MG Q12P PRN 09/03 1100 AC 09/05 PO 1152 Heparin Sodium 5,000 UNIT Q8 09/03 0851 AC 09/06 (Porcine) SC 0600 Hydralazine HCl 20 MG TID 09/04 1600 AC 09/06 PO 0937 Insulin Aspart 0 TIDAC 09/03 1148 AC 09/06 SC 0931 Insulin Aspart 0 AT BEDTIME 08/30 2200 AC 09/05 SC 2223 Insulin Detemir 32 UNITS BID 09/05 1000 AC 09/06 SC 0931 Ipratropium [place] 2.5 ML EVERY 4 HRS/AWAKE 08/30 1600 AC 09/06 INH 1038 Isosorbide 60 MG DAILY 08/30 1000 AC 09/06 Mononitrate PO 0937 Lorazepam 0.5 MG BID PRN 09/05 1330 AC 09/05 IV 2019 Lorazepam 0.5 MG BID PRN 09/04 2115 DC 09/05 PO 09/11 2114 1009 Metoprolol Tartrate 12.5 MG BID 09/02 1246 AC 09/06 PO 0937 Morphine Sulfate 2 MG Q4P PRN 08/31 1600 AC 09/02 IV 1439 Nystatin 1 TYRON BID 09/01 1321 AC 09/06 TOP 0939 Omeprazole 40 MG DAILY AC 08/30 1537 AC 03/03 PO 0600 Phenol 2 SPRAY Q2P PRN 09/02 1415 AC 09/06 EXT 0938 Polyethylene Glycol 17 GM DAILY PRN 08/30 0800 AC 09/05 PO 1009 Prednisone 30 MG DAILY 09/08 1000 AC PO Prednisone 40 MG DAILY 09/03 1000 AC 09/06 PO 09/07 1001 0938 Senna/Docusate Sodium 1 TAB BID PRN 08/30 0800 AC 09/04 PO 0934 Sevelamer Carbonate 800 MG TIDAC 09/05 1200 AC 09/06 PO 0936 Tiotropium [place] 1 PUF DAILY 08/31 1000 AC 09/06 INH 0929 Results Last 48 Hrs of Labs/Mics: Laboratory Tests 09/06/16 0500: Anion Gap 11, Estimated GFR 19 L, Glucose 168 H, Calcium 8.6, Phosphorus 7.3 H, Magnesium 3.2 H, Total Bilirubin 0.5, AST 24, ALT 43, Albumin 3.1 L, CBC w Diff MAN DIFF ORDERED, RBC 3.03 L, MCV 85.4, MCH 27.5, RDW 16.8 H, MPV 9.7, Gran % 87.9 H, Lymphocytes % 8.1 L, Monocytes % 3.8, Eosinophils % 0.1, Basophils % 0.1, Absolute Granulocytes 13.9 H, Absolute Lymphocytes 1.3, Absolute Monocytes 0.6, Absolute Eosinophils 0, Absolute Basophils 0, Platelet Estimate ADEQUATE, Polychromasia 1+, Hypochromic-Microcytic 1+, Anisocytosis 1+, PUBS MCHC 32.2 L 09/05/16 1400: Ref Lab Test Result REPORT 09/05/16 0440: Anion Gap 11, Estimated GFR 20 L, Glucose 40 *L, Calcium 8.6, Phosphorus 7.7 H , Magnesium 2.9 H, Total Bilirubin 0.6, AST 46 H, ALT 51, Creatine Kinase 134, Albumin 3.5, CBC w Diff MAN DIFF ORDERED, RBC 3.33 L, MCV 86.1, MCH 27.7, RDW 17.0 H, MPV 9.6, Gran % 86.7 H, Lymphocytes % 9.3 L, Monocytes % 3.9, Eosinophils % 0, Basophils % 0.1, Absolute Granulocytes 17.0 H, Segmented Neutrophils 87 H, Absolute Lymphocytes 1.8, Lymphocytes 11 L, Monocytes 2, Absolute Monocytes 0.8 H, Absolute Eosinophils 0, Absolute Basophils 0, Nucleated RBCs 1 H, Platelet Estimate ADEQUATE, Hypochromic-Microcytic 2+, Poikilocytosis 1+, Anisocytosis 1+, PUBS MCHC 32.2 L 09/04/16 1436: Ur Random Creatinine Cancelled, Ur Random Microalbumin Cancelled, U Cystine/ Creat Ratio Cancelled 09/04/16 1159: Ur Random Creatinine 72.1, U Random Total Protein 51.6 H, Protein/Creatinin Ratio 0.70 H 09/04/16 1159: Ur Random Creatinine 54.7, Ur Random Microalbumin 42.9 H, Ur Random Sodium 22 L, Ur Random Potassium 21.0, Fraction Sodium Excret 0.8, U Cystine/Creat Ratio 784.27 Recent Imaging Studies: Telemetry tracings were personally reviewed and showed sinus rhythm Chest x-ray from yesterday IMPRESSION: Findings consistent with congestion and edema. Enlarging moderate right pleural effusion. Assessment/Plan Assessment/Plan 1. Multifactorial respiratory insufficiency requiring BiPAP therapy 2. Elevated troponin possibly due to acute non-ST elevation myocardial infarction 3. Known history of coronary artery disease with remote PCI to the LAD and left circumflex artery 4. Severe COPD on home oxygen therapy 5. Hyperkalemia 6. Acute on Chronic kidney disease with prior nephrectomy 7. Acute on chronic diastolic congestive heart failure 8. Anemia 9. Diabetes with hyperglycemia 10. Hypertension 11. New-onset paroxysmal atrial fibrillation now back in sinus rhythm 12. Hematuria Patient back on BiPAP. Chest x-ray from yesterday did show evidence of volume overload and right pleural effusion. May need to consider thoracocentesis. Consider ultrasound to assess if there is enough fluid to tap. Would continue diuresis while monitoring metabolic panels. Nephrology on board. She is maintaining sinus rhythm on low-dose amiodarone. Recommend increasing the Imdur to 90 mg by mouth daily. We are holding off on long-term anticoagulation for the time being given the need for dual antiplatelet therapy and no recurrent A. fib (atrial fibrillation occurred in the setting of non-ST elevation myocardial infarction). Condition remains guarded. Gamaliel Sanchez MD [facility] Continue telemetry? Yes
--- NOTE | 2016-09-06 15:07 | PN- Nephrology ---
Assessment/Plan Assessment: Stage III CKD - proteinuric at baseline - 2/2 decreased nephron mass along with contribution of DM and HTN. AYAZ - presumed ATN although I cannot pinpoint the exact insult. She had gross hematuria with triana insertion which has been visibly clearning - doubt GN. Given imaging and history, sounds like she was appropriately diuresed. SCr stabilized. Remains volume overloaded and diuresis again seems warranted. Hematuria - Urine is clearing up. Likely more related to triana insertion and cancer history. I doubt glomerular process. Hyperphosphatemia - Does have CKD and AYAZ although seems somewhat out of proportion to level of kidney dysfunction. CK level normal. On binder. Starting to improve. Suggestion: -Cont diuresis - goal net neg 1L/day - may need to increase diuretic dose up to 40mg IV up to BID to acheive (carefully monitor I's/O's) -If SCr significantly increases over the next couple of days, would recheck chest x-ray and consider thoracentesis to help with breathing Please call [phone] with ?'s Subjective Subjective: SCr 2.4 Chest x-ray with pulm edema - started on IV lasix 20mg yesterday and again this AM Objective Vital Signs and I&Os Vital Signs Date Time Temp Pulse Resp B/P Pulse O2 O2 Flow FiO2 Ox Delivery Rate 09/06 1303 79 92 / 1238 80 93 09/06 1041 89 97 /03 0938 84 144/64 03/03 0937 84 144/64 03/03 0937 84 144/64 03/03 0937 84 144/64 03/03 0937 84 144/64 /03 0813 94 BIPAP 30% 09/06 0812 74 95 03/03 0800 98 Nasal 4.0L Cannula 03 0800 96.2 74 25 144/64 98 Nasal 4.0L Cannula /03 0544 75 96 03/03 0334 95 BIPAP 30% / 0246 72 96 03/03 0019 77 94 03/03 0000 97.8 71 26 120/47 93 BIPAP 30% 03/03 0000 93 BIPAP 30% / 2229 77 129/55 03/02 2229 77 129/55 /02 2228 77 129/55 03/02 2205 78 93 03/ 2031 83 94 03/ 1639 96.1 74 24 148/68 03/02 1623 94 BIPAP 30% 09/05 1622 74 94 09/05 1600 97 BIPAP 30% 09/05 1600 96.7 77 22 148/64 94 BIPAP 30% Intake & Output 09/06 1600 09/06 0400 09/05 1600 09/05 0400 09/04 1600 09/04 0400 Intake Total 272 120 206 310 3898 560 Output Total 4835 679 6317 425 1155 225 Balance -778 -430 -410 -65 205 335 Intake, IV 32 0 20 0 600 250 Intake, Oral 240 120 620 360 760 310 Number 1 0 1 1 1 Bowel Movements Output, Urine 1023 204 9065 425 1155 225 Physical Exam: Gen - on bipap, tired appearing HEENT - thick neck, unable to appreciate JVP CV - RRR Chest - coarse breath sounds Abd - obese, soft, nontender Ext - trace edema Neuro - drowsy but conversive Current Medications: Current Medications Sig/Michele Start time Last Medication Dose Route Stop Time Status Admin Albuterol Sulfate 3 ML EVERY 4 HRS/AWAKE 08/30 1200 AC 09/06 INH 1038 Allopurinol 150 MG DAILY 08/30 1000 AC 09/06 PO 1315 Amiodarone HCl 200 MG DAILY 09/05 1000 AC 09/06 PO 0937 Amlodipine Besylate 5 MG BID 08/30 1000 AC 09/06 PO 0938 Aspirin Buffered 81 MG DAILY 08/30 1000 AC 09/06 PO 0937 Atorvastatin Calcium 80 MG 1700 08/30 1700 AC 09/05 PO 1638 Azithromycin 250 MG Q48 09/06 1000 AC 09/06 PO 0938 Budesonide/ 2 PUF BID 09/01 1224 AC 09/06 Formoterol Fumarate INH 0928 Clopidogrel Bisulfate 75 MG DAILY 08/30 1000 AC 09/06 PO 0938 Furosemide 20 MG ONCE ONE 09/06 0915 DC 09/06 IV PUSH 09/06 0916 0933 Furosemide 20 MG ONCE ONE 09/05 1500 DC 09/05 IV PUSH 09/05 1501 1638 Guaifenesin 600 MG Q12P PRN 09/03 1100 AC 09/06 PO 1315 Heparin Sodium 5,000 UNIT Q8 09/03 0851 AC 09/06 (Porcine) SC 1314 Hydralazine HCl 20 MG TID 09/04 1600 AC 09/06 PO 0937 Insulin Aspart 0 TIDAC 09/03 1148 AC 09/06 SC 1314 Insulin Aspart 0 AT BEDTIME 08/30 2200 AC 09/05 SC 2223 Insulin Detemir 32 UNITS BID 09/05 1000 AC 09/06 SC 0931 Ipratropium [place] 2.5 ML EVERY 4 HRS/AWAKE 08/30 1600 AC 09/06 INH 1038 Isosorbide 90 MG DAILY 09/07 1000 AC Mononitrate PO Isosorbide 60 MG DAILY 08/30 1000 DC 09/06 Mononitrate PO 0937 Lorazepam 0.5 MG BID PRN 09/05 1330 AC 09/06 IV 1330 Metoprolol Tartrate 12.5 MG BID 09/02 1246 AC 09/06 PO 0937 Morphine Sulfate 2 MG Q4P PRN 08/31 1600 AC 09/02 IV 1439 Nystatin 1 TYRON BID 09/01 1321 AC 09/06 TOP 0939 Omeprazole 40 MG DAILY AC 08/30 1537 AC 09/06 PO 0600 Phenol 2 SPRAY Q2P PRN 09/02 1415 AC 09/06 EXT 0938 Polyethylene Glycol 17 GM DAILY PRN 08/30 0800 AC 09/05 PO 1009 Prednisone 30 MG DAILY 09/08 1000 AC PO Prednisone 40 MG DAILY 09/03 1000 AC 09/06 PO 09/07 1001 0938 Senna/Docusate Sodium 1 TAB BID PRN 08/30 0800 AC 09/04 PO 0934 Sevelamer Carbonate 800 MG TIDAC 09/05 1200 AC 09/06 PO 1317 Tiotropium [place] 1 PUF DAILY 08/31 1000 AC 09/06 INH 0929 Results Pertinent Lab Results: Laboratory Tests 09/06 09/05 0500 1400 Chemistry Sodium (137 - 145 mmol/L) 139 Potassium (3.5 - 5.1 mmol/L) 4.8 Chloride (98 - 107 mmol/L) 102 Carbon Dioxide (22 - 30 mmol/L) 27 Anion Gap (5 - 16) 11 BUN (7 - 17 mg/dL) 103 *H Creatinine (0.5 - 1.0 mg/dL) 2.4 H Estimated GFR (>60 ml/min) 19 L Glucose (65 - 99 mg/dL) 168 H Calcium (8.4 - 10.2 mg/dL) 8.6 Phosphorus (2.5 - 4.5 mg/dL) 7.3 H Magnesium (1.6 - 2.3 mg/dL) 3.2 H Total Bilirubin (0.2 - 1.3 mg/dL) 0.5 AST (14 - 36 U/L) 24 ALT (9 - 52 U/L) 43 Albumin (3.5 - 5.0 g/dL) 3.1 L Hematology CBC w Diff MAN DIFF ORDERED WBC (4.8 - 10.8 /CUMM) 15.9 H RBC (4.20 - 5.40 /CUMM) 3.03 L Hgb (12.0 - 16.0 G/DL) 8.3 L Hct (37 - 47 %) 25.8 L MCV (81.0 - 99.0 FL) 85.4 MCH (27.0 - 31.0 PG) 27.5 RDW (11.5 - 14.5 %) 16.8 H Plt Count (130 - 400 /CUMM) 185 MPV (7.4 - 10.4 FL) 9.7 Gran % (42.2 - 75.2 %) 87.9 H Lymphocytes % (20.5 - 51.1 %) 8.1 L Monocytes % (1.7 - 9.3 %) 3.8 Eosinophils % (0 - 5 %) 0.1 Basophils % (0.0 - 2.0 %) 0.1 Absolute Granulocytes (1.4 - 6.5 /CUMM) 13.9 H Absolute Lymphocytes (1.2 - 3.4 /CUMM) 1.3 Absolute Monocytes (0.10 - 0.60 /CUMM) 0.6 Absolute Eosinophils (0.0 - 0.7 /CUMM) 0 Absolute Basophils (0.0 - 0.2 /CUMM) 0 Platelet Estimate (ADEQUATE) ADEQUATE Polychromasia 1+ Hypochromic-Microcytic 1+ Anisocytosis 1+ PUBS MCHC (33.0 - 37.0 G/DL) 32.2 L Miscellaneous Ref Lab Test Result (()) REPORT 09/05 09/04 09/04 0440 1436 1159 Chemistry Sodium (137 - 145 mmol/L) 138 Potassium (3.5 - 5.1 mmol/L) 4.8 Chloride (98 - 107 mmol/L) 100 Carbon Dioxide (22 - 30 mmol/L) 27 Anion Gap (5 - 16) 11 BUN (7 - 17 mg/dL) 110 *H Creatinine (0.5 - 1.0 mg/dL) 2.3 H Estimated GFR (>60 ml/min) 20 L Glucose (65 - 99 mg/dL) 40 *L Calcium (8.4 - 10.2 mg/dL) 8.6 Phosphorus (2.5 - 4.5 mg/dL) 7.7 H Magnesium (1.6 - 2.3 mg/dL) 2.9 H Total Bilirubin (0.2 - 1.3 mg/dL) 0.6 AST (14 - 36 U/L) 46 H ALT (9 - 52 U/L) 51 Creatine Kinase (30 - 135 U/L) 134 Albumin (3.5 - 5.0 g/dL) 3.5 Hematology CBC w Diff MAN DIFF ORDERED WBC (4.8 - 10.8 /CUMM) 19.6 H RBC (4.20 - 5.40 /CUMM) 3.33 L Hgb (12.0 - 16.0 G/DL) 9.2 L Hct (37 - 47 %) 28.7 L MCV (81.0 - 99.0 FL) 86.1 MCH (27.0 - 31.0 PG) 27.7 RDW (11.5 - 14.5 %) 17.0 H Plt Count (130 - 400 /CUMM) 211 MPV (7.4 - 10.4 FL) 9.6 Gran % (42.2 - 75.2 %) 86.7 H Lymphocytes % (20.5 - 51.1 %) 9.3 L Monocytes % (1.7 - 9.3 %) 3.9 Eosinophils % (0 - 5 %) 0 Basophils % (0.0 - 2.0 %) 0.1 Absolute Granulocytes (1.4 - 6.5 /CUMM) 17.0 H Segmented Neutrophils (42.2 - 75.2 %) 87 H Absolute Lymphocytes (1.2 - 3.4 /CUMM) 1.8 Lymphocytes (20.5 - 51.1 %) 11 L Monocytes (1.7 - 9.3 %) 2 Absolute Monocytes (0.10 - 0.60 /CUMM) 0.8 H Absolute Eosinophils (0.0 - 0.7 /CUMM) 0 Absolute Basophils (0.0 - 0.2 /CUMM) 0 Nucleated RBCs (0.0 - 0.0 /100WBC) 1 H Platelet Estimate (ADEQUATE) ADEQUATE Hypochromic-Microcytic 2+ Poikilocytosis 1+ Anisocytosis 1+ PUBS MCHC (33.0 - 37.0 G/DL) 32.2 L Urines Ur Random Creatinine (mg/dL) Cancelled 72.1 Ur Random Microalbumin Cancelled U Random Total Protein (0 - 12 mg/dL) 51.6 H Protein/Creatinin Ratio (< 0.2) 0.70 H U Cystine/Creat Ratio Cancelled 09/04 09/04 09/04 1159 UNK 0440 Chemistry Sodium (137 - 145 mmol/L) 136 L Potassium (3.5 - 5.1 mmol/L) 4.9 Chloride (98 - 107 mmol/L) 99 Carbon Dioxide (22 - 30 mmol/L) 25 Anion Gap (5 - 16) 13 BUN (7 - 17 mg/dL) 104 *H Creatinine (0.5 - 1.0 mg/dL) 2.6 H Estimated GFR (>60 ml/min) 18 L Glucose (65 - 99 mg/dL) 123 H Calcium (8.4 - 10.2 mg/dL) 8.8 Phosphorus (2.5 - 4.5 mg/dL) 7.6 H Magnesium (1.6 - 2.3 mg/dL) 2.7 H Total Bilirubin (0.2 - 1.3 mg/dL) 0.5 AST (14 - 36 U/L) 28 ALT (9 - 52 U/L) 35 Albumin (3.5 - 5.0 g/dL) 3.5 Hematology CBC w Diff NO MAN DIFF REQ WBC (4.8 - 10.8 /CUMM) 14.9 H RBC (4.20 - 5.40 /CUMM) 2.89 L Hgb (12.0 - 16.0 G/DL) 7.9 L Hct (37 - 47 %) 25.1 L MCV (81.0 - 99.0 FL) 86.6 MCH (27.0 - 31.0 PG) 27.4 RDW (11.5 - 14.5 %) 17.0 H Plt Count (130 - 400 /CUMM) 200 MPV (7.4 - 10.4 FL) 9.2 Gran % (42.2 - 75.2 %) 85.0 H Lymphocytes % (20.5 - 51.1 %) 10.1 L Monocytes % (1.7 - 9.3 %) 4.6 Eosinophils % (0 - 5 %) 0.1 Basophils % (0.0 - 2.0 %) 0.2 Absolute Granulocytes (1.4 - 6.5 /CUMM) 12.6 H Absolute Lymphocytes (1.2 - 3.4 /CUMM) 1.5 Absolute Monocytes (0.10 - 0.60 /CUMM) 0.7 H Absolute Eosinophils (0.0 - 0.7 /CUMM) 0 Absolute Basophils (0.0 - 0.2 /CUMM) 0 PUBS MCHC (33.0 - 37.0 G/DL) 31.6 L Urines Ur Random Creatinine (mg/dL) 54.7 Ur Random Microalbumin (<1.7 mg/dl) 42.9 H Ur Random Sodium (30 - 90 mmol/L) 22 L Ur Random Potassium (mmol/L) 21.0 Urine Total Volume Cancelled Ur Total Protein 24 Hr Cancelled Fraction Sodium Excret (<1% %) 0.8 U Cystine/Creat Ratio (mcg/mg) 784.27 Imaging/Other Studies: EXAM TYPE: RAD - XRY-PORTABLE CHEST XRAY EXAMINATION: XR PORTABLE CHEST CLINICAL INFORMATION: Acute diastolic CHF but diuretics were being held in the setting of acute kidney insufficiency. Evaluate for volume overload. COMPARISON: Portable chest 08/31/2016. TECHNIQUE: Portable AP view of the chest was obtained. FINDINGS: There is worsening central vascular congestion and some ill-defined reticular opacities in the perihilar regions and both lower lung juarez. There may be mild patchy consolidation or atelectasis at both lung bases. There is an enlarging moderate-sized right pleural effusion. IMPRESSION: Findings consistent with congestion and edema. Enlarging moderate right pleural effusion.
[2016-09-06 16:00] VITALS: BP 110/52
--- NOTE | 2016-09-06 18:13 | PN- Pulmonary ---
Subjective HPI/Critical Care Issues: Doing poorly Still has sig fatigue DYspnea, Sob, Objective Current Medications: Current Medications Sig/Michele Start time Last Medication Dose Route Stop Time Status Admin Albuterol Sulfate 3 ML EVERY 4 HRS/AWAKE 08/30 1200 AC 09/06 INH 1634 Allopurinol 150 MG DAILY 08/30 1000 AC 09/06 PO 1315 Amiodarone HCl 200 MG DAILY 09/05 1000 AC 09/06 PO 0937 Amlodipine Besylate 5 MG BID 08/30 1000 AC 09/06 PO 0938 Aspirin Buffered 81 MG DAILY 08/30 1000 AC 09/06 PO 0937 Atorvastatin Calcium 80 MG 1700 08/30 1700 AC 09/06 PO 1755 Azithromycin 250 MG Q48 09/06 1000 AC 09/06 PO 0938 Budesonide/ 2 PUF BID 09/01 1224 AC 09/06 Formoterol Fumarate INH 0928 Clopidogrel Bisulfate 75 MG DAILY 08/30 1000 AC 09/06 PO 0938 Furosemide 40 MG BID 09/06 2200 AC IV Furosemide 20 MG ONCE ONE 09/06 0915 DC 09/06 IV PUSH 09/06 0916 0933 Guaifenesin 600 MG Q12P PRN 09/03 1100 AC 09/06 PO 1315 Heparin Sodium 5,000 UNIT Q8 09/03 0851 AC 09/06 (Porcine) SC 1314 Hydralazine HCl 20 MG TID 09/04 1600 AC 09/06 PO 1755 Insulin Aspart 0 TIDAC 09/03 1148 AC 09/06 SC 1755 Insulin Aspart 0 AT BEDTIME 08/30 2200 AC 09/05 SC 2223 Insulin Detemir 32 UNITS BID 09/05 1000 AC 09/06 SC 0931 Ipratropium [place] 2.5 ML EVERY 4 HRS/AWAKE 08/30 1600 AC 09/06 INH 1634 Isosorbide 90 MG DAILY 09/07 1000 AC Mononitrate PO Isosorbide 60 MG DAILY 08/30 1000 DC 09/06 Mononitrate PO 0937 Lorazepam 0.5 MG BID PRN 09/05 1330 AC 09/06 IV 1330 Metoprolol Tartrate 12.5 MG BID 09/02 1246 AC 09/06 PO 0937 Morphine Sulfate 2 MG Q4P PRN 08/31 1600 AC 09/02 IV 1439 Nystatin 1 [place]USS BID 09/01 1321 AC 09/06 TOP 0939 Omeprazole 40 MG DAILY AC 08/30 1537 AC 09/06 PO 0600 Phenol 2 SPRAY Q2P PRN 09/02 1415 AC 09/06 EXT 0938 Polyethylene Glycol 17 GM DAILY PRN 08/30 0800 AC 09/05 PO 1009 Prednisone 30 MG DAILY 09/08 1000 AC PO Prednisone 40 MG DAILY 09/03 1000 AC 09/06 PO 09/07 1001 0938 Senna/Docusate Sodium 1 TAB BID PRN 08/30 0800 AC 09/04 PO 0934 Sevelamer Carbonate 800 MG TIDAC 09/05 1200 AC 09/06 PO 1755 Tiotropium [place] 1 PUF DAILY 08/31 1000 AC 09/06 INH 0929 Vital Signs & I&O Last 24 Hrs of Vitals and I&O: Vital Signs Date Time Temp Pulse Resp B/P Pulse O2 O2 Flow FiO2 Ox Delivery Rate 09/06 1755 80 110/52 09/06 1640 94 BIPAP 30% 09/06 1638 77 94 09/06 1303 79 92 09/06 1238 80 93 09/06 1041 89 97 09/06 0938 84 144/64 09/06 0937 84 144/64 09/06 0937 84 144/64 09/06 0937 84 144/64 09/06 0937 84 144/64 03 0813 94 BIPAP 30% 09/06 0812 74 95 09/06 0800 98 Nasal 4.0L Cannula 09/06 0800 96.2 74 25 144/64 98 Nasal 4.0L Cannula 09/06 0544 75 96 09/06 0334 95 BIPAP 30% 09/06 0246 72 96 09/06 0019 77 94 09/06 0000 97.8 71 26 120/47 93 BIPAP 30% 09/06 0000 93 BIPAP 30% 09/05 2229 77 129/55 / 2229 77 129/55 / 2228 77 129/55 /02 2205 78 93 03/02 2031 83 94 Intake & Output 09/06 1600 03 0800 09/06 0000 Intake Total 152 120 120 Output Total 650 400 550 Balance -498 -280 -430 Intake, IV 32 0 0 Intake, Oral 120 120 120 Number 1 0 0 Bowel Movements Output, Urine 650 400 550 Impression/Plan Impression/Plan Impression/Plan: Physical Exam: General: Alert but in respiratory distress using accessory muscles to breathe. on BIPAP Eyes: No obvious scleral icterus. HEENT: Jugular venous pressure estimated 8-10 mmHg Cardiovascular: Normal intensity S1/S2. Regular. One out of 6 systolic murmur. Respiratory: Decreased air entry bilaterally with bilateral scattered wheezing Abdomen: Soft, nontender with no guarding or rebound tenderness. Musculoskeletal: No clubbing or cyanosis noted, 1+ lower extremity edema bilaterally Skin: warm Neurologic: No gross focal deficits noted. Lymph: No gross lymphadenopathy CXR IMPRESSION: Mild pulmonary vascular congestion with bilateral pleural effusions. Density at both lung bases may be also due to superimposed bibasilar infiltrate and/or atelectasis Ultrasound kidney nil acute IMPRESSION This is a lady with end-stage COPD, on home oxygen therapy on maximum inhalation therapy, severe obstructive sleep apnea on CPAP, previous ischemic heart disease with stent in the past, previous renal cell carcinoma with chronic kidney disease, morbid obesity, now comes in with * Worsening Acute hypoxic and hypercarbic resp failure with Sig wheezing with evidence of total body fluid overload with copd exacerbation aswell. This is compounded by Acute non st elevation GA with previous pci. Pt was also in acute on chronic diastolic chf now slowly improving * Recent lung nodule - PET neg with mild effusion in the both side * Mild rt more than left heart failure mild improvement * Effusion mild bilaterlly * Severe obstructive sleep apnea compliant with bipap at hs daily prior to the hospital * Hypertension, diabetes, hyperlipidemia with previous history of gout which is stable, Recent htn is On russ meds * Chronic kidney disease with previous nephrectomy appears to be stable * Uncontrolled sugar made worse by increasing prednisone in the past which needs to be monitored * Anemia and morbid obesity RECOMMENDATION Discussed with patient in detail she wishes to be made comfort care BIPAP to continue prn dc all meds IF she is mentating well etc cont prednisone 30 qd Morphine 4 mg q 30 mins prn Ativan .5-1mg q1 hr prn COmfort care Pt critically ill TTS 36 mins Discussed with family extensively
--- NOTE | 2016-09-06 18:42 | NUR ---
1800 DR. RAMIREZ ARRIVED TO TALK TO SON, PATIENT MADE COMFORT CARE AT 1810 CALLED FOR COMFORT CART, PASTORAL CARE PAGED TO BEDSIDE
[2016-09-06 23:08] VITALS: BP 114/52
[2016-09-07 08:00] VITALS: BP 118/64
--- NOTE | 2016-09-07 08:16 | PN- Housestaff ---
Subjective Follow-up For: Acute hypoxemic respiratory failure Subjective: No acute events overnight. Patient seen and examined this morning. She is on BiPAP and appears lethargic. Family is at bedside. Review of Systems Constitutional: Reports: no symptoms. Objective Last 24 Hrs of Vital Signs/I&O Vital Signs Date Time Temp Pulse Resp B/P Pulse O2 O2 Flow FiO2 Ox Delivery Rate / 0800 BIPAP 30% / 0800 98.2 74 20 118/64 94 BIPAP 03/ 0751 79 96 03/04 0548 80 95 03/04 0254 73 96 03/04 0034 74 95 03/04 0000 94 BIPAP 30% 03/ 2308 98.1 78 26 114/52 94 BIPAP 30% / 2200 82 94 03/03 1932 77 93 03/03 1755 80 110/52 03/03 1640 94 BIPAP 30% 03/ 1638 77 94 03/03 1600 95 BIPAP 30% 03/03 1600 97.0 80 32 110/52 95 BIPAP 30% 03/03 1303 79 92 03/03 1238 80 93 03/03 1041 89 97 Intake & Output /04 1600 03/04 0800 03/04 0000 Intake Total 240 360 Output Total 350 450 Balance -110 -90 Intake, Oral 240 360 Output, Urine 350 450 Physical Exam General Appearance: Lethargic, on BiPAP Skin: Warm and Dry Cardiovascular: Regular Rate, Normal S1, Normal S2 Lungs: Diminished Breath Sounds, Bilateral Wheezes Scattered Throughout Lung Gonzalez Current Medications: Current Medications Sig/Michele Start time Last Medication Dose Route Stop Time Status Admin Albuterol Sulfate 3 ML EVERY 4 HRS/AWAKE 09/06 2000 AC 09/07 INH 0755 Albuterol Sulfate 3 ML EVERY 4 HRS/AWAKE 08/30 1200 DC 09/06 INH 1634 Allopurinol 150 MG DAILY 08/30 1000 DC 09/06 PO 1315 Amiodarone HCl 200 MG DAILY 09/05 1000 DC 09/06 PO 0937 Amlodipine Besylate 5 MG BID 08/30 1000 DC 09/06 PO 0938 Aspirin Buffered 81 MG DAILY 08/30 1000 DC 09/06 PO 0937 Atorvastatin Calcium 80 MG 1700 08/30 1700 DC 09/06 PO 1755 Azithromycin 250 MG Q48 09/06 1000 DC 09/06 PO 0938 Budesonide/ 2 PUF BID 09/01 1224 DC 09/06 Formoterol Fumarate INH 0928 Clopidogrel Bisulfate 75 MG DAILY 08/30 1000 DC 09/06 PO 0938 Furosemide 40 MG BID 09/06 2200 CAN IV Guaifenesin 600 MG Q12P PRN 09/03 1100 DC 09/06 PO 1315 Heparin Sodium 5,000 UNIT Q8 09/03 0851 DC 09/06 (Porcine) SC 1314 Hydralazine HCl 20 MG TID 09/04 1600 DC 09/06 PO 1755 Insulin Aspart 0 TIDAC 09/03 1148 DC 09/06 SC 1755 Insulin Aspart 0 AT BEDTIME 08/30 2200 DC 09/05 SC 2223 Insulin Detemir 32 UNITS BID 09/05 1000 DC 09/06 SC 0931 Ipratropium [place] 2.5 ML EVERY 4 HRS/AWAKE 09/06 2000 AC 09/07 INH 0756 Ipratropium [place] 2.5 ML EVERY 4 HRS/AWAKE 08/30 1600 DC 09/06 INH 1634 Isosorbide 90 MG DAILY 09/07 1000 CAN Mononitrate PO Isosorbide 60 MG DAILY 08/30 1000 DC 09/06 Mononitrate PO 0937 Lorazepam 0.5 MG Q1P PRN 09/06 1845 AC 09/07 IV 0750 Lorazepam 1 MG Q1P PRN 09/06 1833 AC 09/06 IV 2238 Lorazepam 0.5 MG BID PRN 09/05 1330 DC 09/06 IV 1330 Metoprolol Tartrate 12.5 MG BID 09/02 1246 DC 09/06 PO 0937 Morphine Sulfate 4 MG SEE ADMIN CRITERIA.. 09/06 1830 AC 09/07 IV 0749 Morphine Sulfate 2 MG Q4P PRN 08/31 1600 DC 09/02 IV 1439 Nystatin 1 TYRON BID 09/01 1321 DC 09/06 TOP 0939 Omeprazole 40 MG DAILY AC 08/30 1537 DC 09/06 PO 0600 Ondansetron HCl 4 MG Q6P PRN 09/06 1945 AC 09/06 IV 1938 Phenol 2 SPRAY Q2P PRN 09/02 1415 DC 09/06 EXT 0938 Polyethylene Glycol 17 GM DAILY PRN 08/30 0800 DC 09/05 PO 1009 Prednisone 30 MG DAILY 09/08 1000 AC PO Prednisone 40 MG DAILY 09/03 1000 DC 09/06 PO 09/07 1001 0938 Senna/Docusate Sodium 1 TAB BID PRN 08/30 0800 DC 09/04 PO 0934 Sevelamer Carbonate 800 MG TIDAC 09/05 1200 DC 09/06 PO 1755 Tiotropium [place] 1 PUF DAILY 08/31 1000 DC 09/06 INH 0929 Assessment/Plan Assessment: 81 y/o F with PMHx of COPD on 2 L NC, CAD s/p PCI with stent and diastolic CHF who is admitted for acute on chronic hypoxemic and hypercarbic respiratory failure 2/2 COPD and acute diastolic CHF, with a hospital course complicated by elevated troponins 2/2 NSTEMI vs demand ischemia, new-onset paroxysmal atrial fibrillation and AYAZ on CKD. Patient was made comfort care yesterday in the setting of her guarded prognosis. #Acute hypoxemic and hypercapnic respiratory failure: CODE status is comfort care. * Continue BiPAP PRN. * Continue TRC and nebs. * Continue prednisone if she is mentating well. * Continue morphine 4 mg IV Q30 min PRN and Ativan 0.5-1 mg Q1H PRN. * Continue Zofran 4 mg IV Q6H PRN for nausea. CODE: COMFORT CARE Problem List: 1. Acute respiratory failure with hypoxia and hypercapnia Pain Ratin Pain Location: N/A Pain Goal: Remain pain free Pain Plan: Morphine 4 mg IV Q30 min PRN Tomorrow's Labs & Rationales: None (patient is comfort care)
--- NOTE | 2016-09-07 10:52 | PN- Cardiology ---
Subjective Subjective: The patient was seen and examined. The patient remains on BiPAP. Family is at the bedside. Going to the family, the patient's respiratory status is slightly worse. She remains lethargic but arousable. Last evening, the patient was made comfort care by Dr. Kim. Objective Vital Signs and I&Os Vital Signs Date Time Temp Pulse Resp B/P Pulse O2 O2 Flow FiO2 Ox Delivery Rate 09/07 1030 81 94 03/04 0800 BIPAP 30% 03/04 0800 98.2 74 20 118/64 94 BIPAP 03/04 0751 79 96 03/04 0548 80 95 03/04 0254 73 96 03/04 0034 74 95 03/04 0000 94 BIPAP 30% 03/ 2308 98.1 78 26 114/52 94 BIPAP 30% 03/ 2200 82 94 03/03 1932 77 93 03/03 1755 80 110/52 03/03 1640 94 BIPAP 30% 03/03 1638 77 94 03/03 1600 95 BIPAP 30% 03/03 1600 97.0 80 32 110/52 95 BIPAP 30% 03/03 1303 79 92 03/03 1238 80 93 Intake & Output / 1600 03/04 0800 03/04 0000 03/03 1600 03/03 0800 03/03 0000 Intake Total 240 360 152 120 120 Output Total 350 450 650 400 550 Balance -110 -90 -498 -280 -430 Intake, IV 32 0 0 Intake, Oral 240 360 120 120 120 Number 1 0 0 Bowel Movements Output, Urine 350 450 650 400 550 Current Medications: Current Medications Sig/Michele Start time Last Medication Dose Route Stop Time Status Admin Albuterol Sulfate 3 ML EVERY 4 HRS/AWAKE 09/06 2000 AC 09/07 INH 0755 Albuterol Sulfate 3 ML EVERY 4 HRS/AWAKE 08/30 1200 DC 09/06 INH 1634 Allopurinol 150 MG DAILY 08/30 1000 DC 09/06 PO 1315 Amiodarone HCl 200 MG DAILY 09/05 1000 DC 09/06 PO 0937 Amlodipine Besylate 5 MG BID 08/30 1000 DC 09/06 PO 0938 Aspirin Buffered 81 MG DAILY 08/30 1000 DC 09/06 PO 0937 Atorvastatin Calcium 80 MG 1700 08/30 1700 DC 09/06 PO 1755 Azithromycin 250 MG Q48 09/06 1000 DC 09/06 PO 0938 Budesonide/ 2 PUF BID 09/01 1224 DC 09/06 Formoterol Fumarate INH 0928 Clopidogrel Bisulfate 75 MG DAILY 08/30 1000 DC 09/06 PO 0938 Furosemide 40 MG BID 09/06 2200 CAN IV Guaifenesin 600 MG Q12P PRN 09/03 1100 DC 09/06 PO 1315 Heparin Sodium 5,000 UNIT Q8 09/03 0851 DC 09/06 (Porcine) SC 1314 Hydralazine HCl 20 MG TID 09/04 1600 DC 09/06 PO 1755 Insulin Aspart 0 TIDAC 09/03 1148 DC 09/06 SC 1755 Insulin Aspart 0 AT BEDTIME 08/30 2200 DC 09/05 SC 2223 Insulin Detemir 32 UNITS BID 09/05 1000 DC 09/06 SC 0931 Ipratropium [place] 2.5 ML EVERY 4 HRS/AWAKE 09/06 2000 AC 09/07 INH 0756 Ipratropium [place] 2.5 ML EVERY 4 HRS/AWAKE 08/30 1600 DC 09/06 INH 1634 Isosorbide 90 MG DAILY 09/07 1000 CAN Mononitrate PO Isosorbide 60 MG DAILY 08/30 1000 DC 09/06 Mononitrate PO 0937 Lorazepam 0.5 MG Q1P PRN 09/06 1845 AC 09/07 IV 0750 Lorazepam 1 MG Q1P PRN 09/06 1833 AC 09/06 IV 2238 Lorazepam 0.5 MG BID PRN 09/05 1330 DC 09/06 IV 1330 Metoprolol Tartrate 12.5 MG BID 09/02 1246 DC 09/06 PO 0937 Morphine Sulfate 4 MG SEE ADMIN CRITERIA.. 09/06 1830 AC 09/07 IV 1030 Morphine Sulfate 2 MG Q4P PRN 08/31 1600 DC 09/02 IV 1439 Nystatin 1 TYRON BID 09/01 1321 DC 09/06 TOP 0939 Omeprazole 40 MG DAILY AC 08/30 1537 DC 09/06 PO 0600 Ondansetron HCl 4 MG Q6P PRN 09/06 1945 AC 09/06 IV 1938 Phenol 2 SPRAY Q2P PRN 09/02 1415 DC 09/06 EXT 0938 Polyethylene Glycol 17 GM DAILY PRN 08/30 0800 DC 09/05 PO 1009 Prednisone 30 MG DAILY 09/08 1000 AC PO Prednisone 40 MG DAILY 02/28 1000 DC 09/07 PO 09/07 1001 1030 Senna/Docusate Sodium 1 TAB BID PRN 08/30 0800 DC 09/04 PO 0934 Sevelamer Carbonate 800 MG TIDAC 09/05 1200 DC 09/06 PO 1755 Tiotropium [place] 1 PUF DAILY 08/31 1000 DC 09/06 INH 0929 Results Last 48 Hrs of Labs/Mics: Laboratory Tests 09/06/16 0500: Anion Gap 11, Estimated GFR 19 L, Glucose 168 H, Calcium 8.6, Phosphorus 7.3 H, Magnesium 3.2 H, Total Bilirubin 0.5, AST 24, ALT 43, Albumin 3.1 L, CBC w Diff MAN DIFF ORDERED, RBC 3.03 L, MCV 85.4, MCH 27.5, RDW 16.8 H, MPV 9.7, Gran % 87.9 H, Lymphocytes % 8.1 L, Monocytes % 3.8, Eosinophils % 0.1, Basophils % 0.1, Absolute Granulocytes 13.9 H, Absolute Lymphocytes 1.3, Absolute Monocytes 0.6, Absolute Eosinophils 0, Absolute Basophils 0, Platelet Estimate ADEQUATE, Polychromasia 1+, Hypochromic-Microcytic 1+, Anisocytosis 1+, PUBS MCHC 32.2 L 09/05/16 1400: Ref Lab Test Result REPORT Assessment/Plan Assessment/Plan Assessment: 1. Multifactorial respiratory insufficiency requiring BiPAP therapy 2. Elevated troponin possibly due to acute non-ST elevation myocardial infarction 3. Known history of coronary artery disease with remote PCI to the LAD and left circumflex artery 4. Severe COPD on home oxygen therapy 5. Hyperkalemia 6. Acute on Chronic kidney disease with prior nephrectomy 7. Acute on chronic diastolic congestive heart failure 8. Anemia 9. Diabetes with hyperglycemia 10. Hypertension 11. New-onset paroxysmal atrial fibrillation now back in sinus rhythm 12. Hematuria Recommendations: -Change in CODE STATUS and level of care noted. -No obvious new cardiac issues -Into the patient's changing CODE STATUS and level of care, please call us if any new issues or questions should arise. Continue telemetry? No
--- NOTE | 2016-09-07 11:02 | PN- Diabetes ---
Assessment/Plan Assessment: She is on prednisone 30 mg once a day by mouth. Decison has been made as per family. She is on comfort care only. Insulin orders has been discontinued. Fingerstick blood sugars were 170, 178, 182, 230 and 213. Plan: Currently patient is on comfort care only. please inform me if any new issues or questions should arise. Subjective Subjective: she is on BIPAP. however, she appears comfortable at this point.. Objective Last 24 Hrs of Vital Signs/I&O Vital Signs Date Time Temp Pulse Resp B/P Pulse O2 O2 Flow FiO2 Ox Delivery Rate 03/ 1030 81 94 03/04 0800 BIPAP 30% 03/04 0800 98.2 74 20 118/64 94 BIPAP 03/ 0751 79 96 03/04 0548 80 95 03/04 0254 73 96 03/04 0034 74 95 03/04 0000 94 BIPAP 30% 03/03 2308 98.1 78 26 114/52 94 BIPAP 30% 03/03 2200 82 94 03/03 1932 77 93 03/03 1755 80 110/52 03/03 1640 94 BIPAP 30% 03/03 1638 77 94 03/03 1600 95 BIPAP 30% 03/03 1600 97.0 80 32 110/52 95 BIPAP 30% 03/03 1303 79 92 03/03 1238 80 93 Intake & Output 03/04 1600 03/04 0800 03/04 0000 Intake Total 240 360 Output Total 350 450 Balance -110 -90 Intake, Oral 240 360 Output, Urine 350 450
[2016-09-07 13:10] VITALS: BP 118/60
--- NOTE | 2016-09-07 13:50 | PN- Att Addend ---
Attending Addendum Attending Brief Note Covering attending note. 81-year-old white female with end-stage COPD and CHF. Not doing well and was evaluated last evening by Dr. Kim again I had a discussion with the family and due to the poor prognosis and the patient not getting better, was decided to make the patient comfort care. Patient was transferred out to the floor. The BiPAP still growing patient is still having some respiratory distress using the accessory muscles. Other vitals are stable. We'll continue comfort care family at the bedside Current Medications Sig/Michele Start time Last Medication Dose Route Stop Time Status Admin Albuterol Sulfate 3 ML EVERY 4 HRS/AWAKE 09/07 1999 AC 09/07 INH 1140 Albuterol Sulfate 3 ML EVERY 4 HRS/AWAKE 08/30 1200 DC 09/06 INH 1634 Allopurinol 150 MG DAILY 08/30 1000 DC 09/06 PO 1315 Amiodarone HCl 200 MG DAILY 09/05 1000 DC 09/06 PO 0937 Amlodipine Besylate 5 MG BID 08/30 1000 DC 09/06 PO 0938 Aspirin Buffered 81 MG DAILY 08/30 1000 DC 09/06 PO 0937 Atorvastatin Calcium 80 MG 1700 08/30 1700 DC 09/06 PO 1755 Azithromycin 250 MG Q48 09/06 1000 DC 09/06 PO 0938 Budesonide/ 2 PUF BID 09/01 1224 DC 09/06 Formoterol Fumarate INH 0928 Clopidogrel Bisulfate 75 MG DAILY 08/30 1000 DC 09/06 PO 0938 Furosemide 40 MG BID 09/06 2200 CAN IV Guaifenesin 600 MG Q12P PRN 09/03 1100 DC 09/06 PO 1315 Heparin Sodium 5,000 UNIT Q8 09/03 0851 DC 09/06 (Porcine) SC 1314 Hydralazine HCl 20 MG TID 09/04 1600 DC 09/06 PO 1755 Insulin Aspart 0 TIDAC 09/03 1148 DC 09/06 SC 1755 Insulin Aspart 0 AT BEDTIME 08/30 2200 DC 09/05 SC 2223 Insulin Detemir 32 UNITS BID 09/05 1000 DC 09/06 SC 0931 Ipratropium [place] 2.5 ML EVERY 4 HRS/AWAKE 09/07 1999 AC 09/07 INH 1140 Ipratropium [place] 2.5 ML EVERY 4 HRS/AWAKE 08/30 1600 DC 09/06 INH 1634 Isosorbide 90 MG DAILY 09/07 1000 CAN Mononitrate PO Lorazepam 0.5 MG Q1P PRN 09/06 1845 AC 09/07 IV 1201 Lorazepam 1 MG Q1P PRN 09/06 1833 AC 09/06 IV 2238 Lorazepam 0.5 MG BID PRN 09/05 1330 DC 09/06 IV 1330 Metoprolol Tartrate 12.5 MG BID 09/02 1246 DC 09/06 PO 0937 Morphine Sulfate 4 MG SEE ADMIN CRITERIA.. 09/06 1830 AC 09/07 IV 1252 Morphine Sulfate 2 MG Q4P PRN 08/31 1600 DC 09/02 IV 1439 Nystatin 1 TYRON BID 09/01 1321 DC 09/06 TOP 0939 Omeprazole 40 MG DAILY AC 08/30 1537 DC 09/06 PO 0600 Ondansetron HCl 4 MG Q6P PRN 09/06 1945 AC 09/06 IV 1938 Phenol 2 SPRAY Q2P PRN 09/02 1415 DC 09/06 EXT 0938 Polyethylene Glycol 17 GM DAILY PRN 08/30 0800 DC 09/05 PO 1009 Prednisone 30 MG DAILY 09/08 1000 AC PO Prednisone 40 MG DAILY 09/03 1000 DC 09/07 PO 09/07 1001 1030 Senna/Docusate Sodium 1 TAB BID PRN 08/30 0800 DC 09/04 PO 0934 Sevelamer Carbonate 800 MG TIDAC 09/05 1200 DC 09/06 PO 1755 Tiotropium [place] 1 PUF DAILY 08/31 1000 DC 09/06 INH 0929 Vital Signs Date Time Temp Pulse Resp B/P Pulse O2 O2 Flow FiO2 Ox Delivery Rate 09/07 1310 97.6 80 20 118/60 94 /04 1030 81 94 /04 0800 BIPAP 30% / 0800 98.2 74 20 118/64 94 BIPAP / 0751 79 96
--- NOTE | 2016-09-07 14:25 | Discharge Summary ---
Visit Information Visit Dates Admission Date: 08/30/16 Discharge Date: 09/08/16 Hospital Course Course Attending Physician: DAVID ALTAMIRANO MD Primary Care Physician: DAVID ALTAMIRANO MD Consulting Request: 1 Consulting Specialty: Endocrinology Consulting Physician: Alfred Best MD Reason for Consult: Uncontrolled diabetes Consulting Request: 2 Consulting Specialty: Cardiology Consulting Physician: Darion Sanchez MD Reason for Consult: CHF/CAD/Dyspnea Consulting Request: 3 Consulting Specialty: Pulmonary Disease Consulting Physician: Joshua Kim MD Reason for Consult: Respiratory distress Consulting Request: 4 Consulting Specialty: Urology Consulting Physician: Codie Willams MD Reason for Consult: hematuria Consulting Request: 5 Consulting Specialty: Nephrology Consulting Physician: Alfred Mac MD Reason for Consult: AYAZ on CKD Hospital Course: Ms. Rees is a 81 y/o F with PMHx of severe COPD on 2 L of home oxygen, CAD s/p PCI with stent to LAD and LCA, diastolic CHF, insulin-dependent T2DM, renal cell carcinoma s/p nephrectomy and CKD stage III who presented with progressively worsening shortness of breath for 2 days, associated with wheezing and intermittent episodes of chest pain. Patient received 2 nitros in the field by EMS and was placed on CPAP which she arrived with. She was later started on BiPAP in the ED, and given nebulization treatment, Solumedrol 125 mg IV, Lasix 40 mg, aspirin 325 mg x2, as well as 1 dose each of ceftazidime and doxycycline. She was subsequently admitted for acute hypoxemic respiratory failure. Below are the issues that were addressed during current admission: #Acute hypoxemic respiratory failure: This was felt to be multifactorial, secondary to COPD exacerbation and acute on chronic diastolic CHF. Despite treatment of underlying issues, patient remained BiPAP dependent and was transferred to the ICU for close monitoring upon deterioration of her clinical status on day 3 of admission. Patient was later made comfort care (09/06/16) given her guarded prognosis in the setting of severe COPD and multiple comorbidities and two days later (09/08/16). 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 Patient received total respiratory care with nebulizers and was continued on her home inhalers. She was initially started on IV steroids and later transitioned to PO prednisone which was gradually tapered. She initially received 5 days of azithromycin 500 mg IV for acute COPD exacerbation which was later tapered down to her home prophylactic dose of azithromycin 250 mg every other day. #Acute on chronic diastolic CHF: Patient was diuresed with IV Lasix. This was later stopped as it was felt that the elevation in BUN and creatinine was secondary to overdiuresis. However, later decision was made to resume low dose IV Lasix as her respiratory status deteriorated with CXR showing worsening pulmonary edema and nephrology felt that AYAZ was most likely secondary to ATN rather than overdiuresis. #NSTEMI: Patient's troponins trended to a maximum of 17.20 on the evening of admission, but later came down. This was felt to represent NSTEMI vs demand ischemia in the setting of chest discomfort and lateral ST depressions on EKG. Decision was made to manage it conservatively without cardiac catheterization in the setting of her mulitple co-morbidities. Patient was started on IV heparin and continued on prior to admission aspirin, atorvastatin, Imdur and Plavix. ECHO was performed which showed normal LVEF and no regional wall motion abnormalities. IV heparin was later discontinued upon hematuria. #New-onset paroxysmal atrial fibrillation: On day 3 of admission, patient had a transient episode of atrial fibrillation with rapid ventricular rate converted after starting IV diltiazem drip. Cardizem drip was later discontinued and she was started on amiodarone and metoprolol. She remained in sinus rhythm without recurrent episodes of atrial fibrillation throughout the rest of admission. #AYAZ on CKD: Patient's creatinine uptrended from her baseline of 1.5 on admission to 2.6. This was initially attributed to overdiuresis and Lasix was held. Renal US was performed which showed absent right kidney (patient is s/p R nephrectomy for renal cell carcinoma) and unremarkable left kidney. Nephrology was consulted who was not convinced that overdiuresis was the primary etiology as patient has been in positive fluid balance this admission and felt that ATN is the most likely etiology in the setting of sepsis/NSTEMI as well as possible hemodynamic compromise prior to admission. Gentle diuresis with low dose IV Lasix was resumed. #Uncontrolled diabetes: Patient had uncontrolled blood sugars during this admission, likely secondary to steroid therapy. Endocrinology was consulted who managed her insulin regimen closely. She received Levemir as well as sliding scale Novolog with meals and at bedtime which was adjusted every day according to her glucose levels. #Hematuria: Patient was noted to have gross hematura in the [place] after being on IV heparin drip. Urology was consulted who suggested performing urine cytology which came back negative for malignancy. Cystoscopy was deferred given her poor clinical condiiton. Allergies: Coded Allergies: adhesive (RASH 04/10/16) cefuroxime (From CEFTIN) (HIVES 04/10/16) clams (UNKNOWN 04/10/16) latex (RASH 04/10/16) Iodinated Contrast Media - Oral and (IODINATED CONTRAST MEDIA - IV DYE) (PT HAS ONE KIDNEY 04/10/16) moxifloxacin (HEART PALP AND HIGH BLOOD SUGARS 04/10/16) Disposition Summary Disposition Principal Diagnosis: Acute hypoxemic respiratory failure Additional Diagnosis: Exacerbation of severe COPD Acute on chronic diastolic CHF NSTEMI AYAZ on CKD Uncontrolled diabetes Hematuria Discharge Disposition: patient Discharge Instructions General Discharge Information Code Status: Comfort Care Only Patient's Diet: N/A Patient's Activity: N/A Follow-Up Instructions/Appts: N/A Medications at Discharge Discharge Medications: Continue taking these medications: Insulin Detemir (Levemir) 100 UNIT/ML VIAL 36 Units Inject into fatty tissue TWICE DAILY Days = 30 Instructions: 40 UNITS IN AM AND 35 UNITS IN PM This prescription has been renewed The following medications have been changed: Old: Prednisone (Prednisone) 10 MG TABLET 1 Tablet ORAL As Directed Qty = 30 New: Prednisone (Prednisone) 10 MG TABLET 1 Tablet ORAL Every other day Qty = 30 Instructions: Take every other day Copies To: ISAAC HOLMAN,ALFRED ORTEGA MD,CHARLENE Mccallum; ASHLEY HOLMAN,[facility] MED[facility] CENTERMaddy; BURT HOLMAN,CODIE; EVELIA HOLMAN,[facility]; GISELLA HOLMANJORDAN VALLEY MEDICAL CENTERYessenia
[2016-09-07 14:47] VITALS: BP 120/60
--- NOTE | 2016-09-07 15:52 | NUR ---
1245-PT ARRIVED TO FLOOR VIA BED FROM ICU. REPORT REC'D FROM SERG KENYON. PT MADE COMFORT MEASURES LAST EVENING. BIPAP IN PLACE @ 30%, IPAP 20, EPAP 6. FOLDS TO ABDOMEN PINK, [place]STAT[place] POWDER IN PLACE. PT BEDBOUND. SIZEWISE MATTRESS IN PLACE. UNABLE TO TOLERATE NASAL CANNULA COMFORTABLY. BIPAP TO REMAIN IN PLACE AT THIS TIME. ORIENTED PATIENT AND FAMILY TO ROOM AND CALL LIGHT FOR ASSIST. PT DROWSY/ARROUSABLE.
[2016-09-07 22:14] VITALS: BP 134/54
[2016-09-08 07:19] VITALS: BP 134/50
--- NOTE | 2016-09-08 08:05 | PN- Housestaff ---
Subjective Follow-up For: Acute hypoxemic respiratory failure Subjective: Patient seen and examined at bedside. No acute events overnight. She remains lethargic on BiPAP. Reports that it is hard to breathe. She just got the TRC. Family at bedside has no concerns and reports no issues overnight. Review of Systems Constitutional: Reports: see HPI. Objective Last 24 Hrs of Vital Signs/I&O Vital Signs Date Time Temp Pulse Resp B/P Pulse O2 O2 Flow FiO2 Ox Delivery Rate 09/08 718 97.9 83 19 134/50 93 BIPAP 09/08 0137 94 BIPAP 30% 09/08 0107 79 92 09/07 2214 98.2 84 18 134/54 90 BIPAP 09/07 2031 94 Nasal 30% Cannula 09/07 1656 BIPAP 30% 09/07 1600 BIPAP 30% 09/07 1447 97.7 80 17 120/60 96 09/07 1436 78 96 / 1310 97.6 80 20 118/60 94 09/07 1030 81 94 09/07 0810 96 BIPAP 30% Intake & Output 09/08 1600 09/08 0800 09/08 0000 Intake Total Output Total 850 Balance -850 Output, Urine 850 Physical Exam General Appearance: Lethargic on BiPAP Other Physical Findings: Skin: Warm and Dry Cardiovascular: Regular Rate, Normal S1, Normal S2 Lungs: Diminished Breath Sounds, Bilateral Wheezes Scattered Throughout Lung Gonzalez Current Medications: Current Medications Sig/Michele Start time Last Medication Dose Route Stop Time Status Admin Albuterol Sulfate 3 ML EVERY 4 HRS/AWAKE 09/07 1999 AC 09/08 INH 0120 Ipratropium Burden 2.5 ML EVERY 4 HRS/AWAKE 09/07 1999 AC 09/08 INH 0120 Lorazepam 0.5 MG Q1P PRN 09/06 1845 AC 09/08 IV 0130 Lorazepam 1 MG Q1P PRN 09/06 1833 AC 09/08 IV 0552 Morphine Sulfate 4 MG Q1 PRN 09/07 1421 AC 09/08 IV 0551 Morphine Sulfate 4 MG SEE ADMIN CRITERIA.. 09/06 1830 DC 09/07 IV 1252 Ondansetron HCl 4 MG Q6P PRN 09/06 1945 AC 09/06 IV 1938 Prednisone 30 MG DAILY 09/08 1000 AC PO Prednisone 40 MG DAILY 09/03 1000 DC 09/07 PO 09/07 1001 1030 Assessment/Plan Assessment: 81 y/o F with PMHx of COPD on 2 L NC, CAD s/p PCI with stent and diastolic CHF who is admitted for acute on chronic hypoxemic and hypercarbic respiratory failure 2/2 COPD and acute diastolic CHF, with a hospital course complicated by elevated troponins 2/2 NSTEMI vs demand ischemia, new-onset paroxysmal atrial fibrillation and AYAZ on CKD. Patient was made comfort care yesterday in the setting of her guarded prognosis. #Acute hypoxemic and hypercapnic respiratory failure: CODE status is comfort care. * Awaiting hospice consultation. * Continue BiPAP PRN. * Continue TRC and nebs. * Continue prednisone if she is mentating well. * Continue morphine 4 mg IV Q30 min PRN and Ativan 0.5-1 mg Q1H PRN. * Continue Zofran 4 mg IV Q6H PRN for nausea. CODE: COMFORT CARE (Hospice consult pending) Problem List: 1. Acute on Chronic Renal Failure 2. Benign essential hypertension 3. COPD 4. Chest discomfort 5. Coronary artery bypass grafting 6. Diabetes mellitus type 2 7. Dyspnea 8. History of - myocardial infarction 9. Hyperlipidemia 10. Sleep apnea 11. Gout 12. DVT prophylaxis 13. Full code status 14. Acute kidney injury 15. Anemia 16. Hyperglycemia 17. Dehydration 18. AYAZ (acute kidney injury) 19. CAD (coronary artery disease) 20. HTN (hypertension) 21. CHF (congestive heart failure) 22. GERD (gastroesophageal reflux disease) 23. Abdominal pain 24. Acute renal insufficiency 25. Leukocytosis 26. Intractable vomiting 27. Sepsis 28. Pneumonia 29. Fever 30. Sialadenitis 31. Chest tightness 32. Diarrhea 33. Gastric outlet obstruction 34. Gastroenteritis 35. COPD exacerbation 36. Acute electrocardiogram changes 37. NSTEMI (non-ST elevated myocardial infarction) 38. Elevated troponin 39. Chest pain at rest 40. Respiratory distress 41. Chest pain 42. Acute respiratory failure with hypoxia 43. Chronic kidney disease 44. Constipation 45. Hematuria 46. Hematuria 47. Acute hyperkalemia 48. Acute on chronic diastolic (congestive) heart failure 49. T2DM (type 2 diabetes mellitus) 50. Acute respiratory failure with hypoxia and hypercarbia 51. New onset atrial fibrillation 52. IDDM (insulin dependent diabetes mellitus) 53. Paroxysmal atrial fibrillation 54. Egntk-[id number] kidney injury 55. Acute respiratory failure with hypoxia and hypercapnia Pain Ratin Pain Location: N/A Pain Goal: Remain pain free Pain Plan: Morphine 4 mg IV Q30 min PRN Tomorrow's Labs & Rationales: None (comfort care)
--- NOTE | 2016-09-08 12:15 | PN- Att Addend ---
Attending Addendum Attending Brief Note Covering attending note Patient still doing poorly now on comfort care she still on the BiPAP and on heavy medications to relieve the respiratory distress. Hospice consult requested. Should be able to adjust her medications and also decide if the BiPAP can be discontinued. Family at the bedside aware of the patient's terminal condition
--- NOTE | 2016-09-08 12:44 | NUR ---
AT APPROX 10 AM THIS NURSE SPOKE WITH THE FAMILY ABOUT HOSPICE CARE. DR BOTELLO WAS NOTIFIED AND [facility] WAS CALLED. PT RR 35 AND SHE WAS AGITATED, SHE HAS BEEN REC MEDICATIONS ALL MORNING TO MAKE HER COMFORTABLE. AT APPROXIMATELY 12:40 THE PATIENTS FAMILY APPROACHED ME AND ASKED ME TO REMOVE THE PATIENTS BI-PAP. I MEDICATED THE PATIENT WITH MORPHINE AND REMOVED THE BI-PAP, FAMILY AT BEDSIDE, HOSPICE NURSE HERE AT THIS TIME. WILL CONTINUE TO MONITOR AND PROVIDE EMOTIONAL SUPPORT.
--- NOTE | 2016-09-08 17:15 | NUR ---
PATIENT ASLEEP, DROWSY BUT AROUSABLE. RR AT 8 AND DEEP. MORPHINE GIVEN ORDERED. GENERALIZED ANASARCA NOTED. CONTINUES O 2L NC O2. PATIENT IN NO APPARENT DISCOMFORT. [place] INTACT AND DRAINING CLEAR YELLOW URINE. SKIN RED IN ABDOMINAL FOLDS. FAMILY AT BEDSIDE. ORAL CARE PROVIDED. WILL CONTINUE TO MONITOR.
--- NOTE | 2016-09-08 19:03 | NUR ---
PATIENT AT 1800. JUSTIN ARGUETA NOTIFIED AND IN TO SEE PATIENT'S FAMILY. POST MORTEM CARE PERFORMED.
== END 2016-09-08 18:07 | disposition expired ==
LOC: ENRESERVDT → ENRESERVTM → ERH 03:22 → CRI 03:35 → ERHI 03:35 → 2NA 03:35 → 1NO 08:51 → CRI 08-31 12:32 → 2NA 09-07 12:30
PROVIDERS: Dermatology; Emergency Medicine; Internal Medicine; Radiology Diagnostic Radiology; Student in an Organized Health Care Education/Training Program; ADMIT Internal Medicine
DX: I21.4 Non-ST elevation (NSTEMI) myocardial infarction (principal); I50.33 Acute on chronic diastolic (congestive) heart failure; J96.21 Acute and chronic respiratory failure with hypoxia; N17.9 Acute kidney failure, unspecified; I13.0 Hypertensive heart and chronic kidney disease with heart failure and stage 1 through stage 4 chronic kidney disease, or unspecified chronic kidney disease; J44.1 Chronic obstructive pulmonary disease with (acute) exacerbation; Z51.5 Encounter for palliative care; N18.2 Chronic kidney disease, stage 2 (mild); Z99.81 Dependence on supplemental oxygen; E66.01 Morbid (severe) obesity due to excess calories; Z68.38 Body mass index [BMI] 38.0-38.9, adult; I48.0 Paroxysmal atrial fibrillation; Z79.01 Long term (current) use of anticoagulants; G47.33 Obstructive sleep apnea (adult) (pediatric); I25.10 Atherosclerotic heart disease of native coronary artery without angina pectoris; D64.9 Anemia, unspecified
CPT/HCPCS: 1NP; 2NAP; 84133; 84156; 84300; CCU; 36415; 76775; 81001; 82436; 82570; 86920; 87040; 87070; 87086; 87804; 87804-59; 88305; 93005; 93010; 93306; 94799; 99291; C8929; J0456; J0610; J0696; J0713; J1644; J1815; J1940; J2060; J2405; J2920; J2930; J3490; J7060; J7512; P9016; Q9957